=== PATIENT | female | born 1945 | race Caucasian/White ===

== ENCOUNTER → 2017-06-29 | Outpatient (CLI) | payer MEDICARE, OTHER ==
[2017-06-29 13:03] LABS: Basophils # (A) 0.1 k/uL (0-0.2); Basophils % (A) 1 %; CH 31.4; CHCM 33.4; Eosinophils # (A) 0.1 k/uL (0-0.7); Eosinophils % (A) 1 %; HCT 48.8 % (34.0-46.0); HDW 2.27; HGB 16.1 gm/dL (11.4-16.0); Luc # (Auto) 0.15; Luc % (Auto) 2; Lymphocytes # (A) 1.2 k/uL (1.0-4.8); Lymphocytes % (A) 17 %; MCH 31.1 pg (25.0-35.0); MCV 94.4 fL (80.0-100.0); Mean Platelet Volume 8.1; Monocytes # (A) 0.4 k/uL (0-1.0); Monocytes % (A) 5 %; Neutrophils # (A) 5.3 k/uL (1.3-7.7); Neutrophils % (A) 74 %; RBC 5.17 m/uL (3.80-5.40); RDW 13.3 % (11.5-15.5); WBC 7.2 k/uL (3.8-10.6); WBC (Perox) 7.12
[2017-06-29 13:08] LABS: AST 31 U/L (14-36); Alkaline Phosphatase 79 U/L (38-126); Anion Gap 9 mmol/L; Blood Urea Nitrogen 16 mg/dL (7-17); Carbon Dioxide 29 mmol/L (22-30); Chloride 102 mmol/L (98-107); Cholesterol 165 mg/dL (<200); Glucose 98 mg/dL (74-99); HDL Cholesterol 51 mg/dL (40-60); Magnesium 2.1 mg/dL (1.6-2.3); Non-African American GFR(MDRD) 55 (>60 ml/min/1.73 sqM); Potassium 4.8 mmol/L (3.5-5.1); Sodium 140 mmol/L (137-145); Total Bilirubin 0.7 mg/dL (0.2-1.3); Total Protein 6.9 g/dL (6.3-8.2)
[2017-06-29 13:14] LABS: ALT 41 U/L (9-52)
== END | disposition home or self-care (01) ==
LOC: LABWHC1 12:27
PROVIDERS: ATTEND Internal Medicine Cardiovascular Disease
DX: E78.2 Mixed hyperlipidemia (principal); E55.9 Vitamin D deficiency, unspecified; I10 Essential (primary) hypertension
CPT/HCPCS: 36415; 80053; 80061; 82306; 83735; 85025

== ENCOUNTER → 2018-07-12 | Outpatient (CLI) | payer MEDICARE, OTHER ==
[2018-07-12 11:16] LABS: Basophils # (A) 0.1 k/uL (0-0.2); Basophils % (A) 1 %; Eosinophils # (A) 0.3 k/uL (0-0.7); Eosinophils % (A) 4 %; HCT 48.2 % (34.0-46.0); HGB 15.2 gm/dL (11.4-16.0); Lymphocytes # (A) 1.4 k/uL (1.0-4.8); Lymphocytes % (A) 21 %; MCH 29.7 pg (25.0-35.0); MCHC 31.5 g/dL (31.0-37.0); MCV 94.1 fL (80.0-100.0); Mean Platelet Volume 7.1; Monocytes # (A) 0.4 k/uL (0-1.0); Monocytes % (A) 6 %; Neutrophils # (A) 4.4 k/uL (1.3-7.7); Neutrophils % (A) 67 %; Platelet Count 234 k/uL (150-450); RBC 5.12 m/uL (3.80-5.40); RDW 12.3 % (11.5-15.5); WBC 6.6 k/uL (3.8-10.6)
[2018-07-12 11:25] LABS: Albumin 4.1 g/dL (3.5-5.0); Calcium 10.2 mg/dL (8.4-10.2); Total Bilirubin 0.5 mg/dL (0.2-1.3); Total Protein 6.7 g/dL (6.3-8.2)
== END | disposition home or self-care (01) ==
LOC: LABWHC1 10:49
PROVIDERS: ATTEND Internal Medicine Cardiovascular Disease
DX: E55.9 Vitamin D deficiency, unspecified (principal); E78.2 Mixed hyperlipidemia; I42.2 Other hypertrophic cardiomyopathy; I10 Essential (primary) hypertension; J45.909 Unspecified asthma, uncomplicated
CPT/HCPCS: 36415; 80053; 80061; 82550; 83880; 84443; 85025; 86141

== ENCOUNTER → 2019-08-07 | Outpatient (CLI) | payer MEDICARE, OTHER ==
[2019-08-08 01:44] LABS: Chol/HDL Ratio 2.85
== END | disposition home or self-care (01) ==
LOC: LABWHC1 11:26
PROVIDERS: ATTEND Internal Medicine Cardiovascular Disease
DX: E78.2 Mixed hyperlipidemia (principal)
CPT/HCPCS: 36415; 80061; 84450; 84460

== ENCOUNTER → 2019-08-13 | Outpatient (CLI) | payer MEDICARE, OTHER ==
[2019-08-13 18:08] LABS: HCT 37.2 % (34.0-46.0); HGB 12.8 gm/dL (11.4-16.0); MCH 30.6 pg (25.0-35.0); MCHC 34.3 g/dL (31.0-37.0); MCV 89.1 fL (80.0-100.0); Mean Platelet Volume 6.9; Platelet Count 243 k/uL (150-450); RBC 4.18 m/uL (3.80-5.40); RDW 11.6 % (11.5-15.5); WBC 6.2 k/uL (3.8-10.6)
[2019-08-14 00:49] LABS: African American GFR (CKD) 51.2 (60.0-200.0); Anion Gap 12.4 mmol/L (4.00-12.00); Carbon Dioxide 24.6 mmol/L (21.6-31.8); Potassium 5.2 mmol/L (3.5-5.5)
== END | disposition home or self-care (01) ==
LOC: LABWHC1 16:09
PROVIDERS: ATTEND Internal Medicine Cardiovascular Disease
DX: I25.5 Ischemic cardiomyopathy (principal)
CPT/HCPCS: 36415; 80051; 82565; 83880; 84443; 84520; 85027

== ENCOUNTER → 2020-09-17 | Outpatient (CLI) | payer MEDICARE, OTHER ==
[2020-09-17 17:03] LABS: Basophils # (A) 0.1 k/uL (0-0.2); Basophils % (A) 1 %; Eosinophils # (A) 0.1 k/uL (0-0.7); Eosinophils % (A) 2 %; HCT 44.2 % (34.0-46.0); Lymphocytes # (A) 1.2 k/uL (1.0-4.8); Lymphocytes % (A) 15 %; MCHC 31.7 g/dL (31.0-37.0); MCV 94.5 fL (80.0-100.0); Monocytes # (A) 0.4 k/uL (0-1.0); Monocytes % (A) 5 %; Neutrophils % (A) 76 %; Platelet Count 240 k/uL (150-450); RBC 4.68 m/uL (3.80-5.40); RDW 12.2 % (11.5-15.5); WBC 7.9 k/uL (3.8-10.6)
[2020-09-18 01:26] LABS: African American GFR (CKD) 63.4 (60.0-200.0); Albumin 4.3 g/dL (3.80-4.90); Albumin/Globulin Ratio 2.15 (1.60-3.17); Anion Gap 8.5 mmol/L (4.00-12.00); C Reactive Protein, High Sens 1.01 mg/L (0.000-3.000); Calcium 9.2 mg/dL (8.7-10.3); Carbon Dioxide 27.5 mmol/L (21.6-31.8); Chol/HDL Ratio 2.7; LDL Cholesterol,Calculated 84.2 mg/dL (0.0-131.0); Non-African American GFR(CKD) 54.7 (60.0-200.0); Potassium 4.4 mmol/L (3.5-5.5); Total Bilirubin 0.5 mg/dL (0.3-1.2); Total Protein 6.3 g/dL (6.2-8.2); VLDL Calculation 19.8 mg/dL (5.00-40.00)
== END | disposition home or self-care (01) ==
LOC: LABWHC1 15:48
PROVIDERS: ATTEND Internal Medicine Cardiovascular Disease
DX: Z13.9 Encounter for screening, unspecified (principal); E78.2 Mixed hyperlipidemia; I10 Essential (primary) hypertension; I25.9 Chronic ischemic heart disease, unspecified
CPT/HCPCS: 36415; 80053; 80061; 82550; 85025; 86141; 86803

== ENCOUNTER → 2021-03-16 | Outpatient (CLI) | payer MEDICARE, OTHER ==
--- NOTE | 2021-03-17 07:52 | US ---
EXAMINATION TYPE: US venous doppler duplex LE LT DATE OF EXAM: 03/16/2021 4:11 PM COMPARISON: NONE CLINICAL HISTORY: R60.0 edema of lower extremity. left pain edema SIDE PERFORMED: Left TECHNIQUE: The lower extremity deep venous system is examined utilizing real time linear array sonog chana with graded compression, doppler sonography and color-flow sonography. VESSELS IMAGED: Common Femoral Vein Deep Femoral Vein Greater Saphenous Vein * Femoral Vein Popliteal Vein Small Saphenous Vein * Proximal Calf Veins (* superficial vessels)\ Left Leg: Negative for DVT IMPRESSION: No evidence for DVT
== END | disposition home or self-care (01) ==
LOC: RADUSWWP 15:50
PROVIDERS: ATTEND Family Medicine
DX: R60.0 Localized edema (principal)

== ENCOUNTER 2022-06-13 | Inpatient (IN) | payer MEDICARE, OTHER ==
[2022-06-13] MEDS ORDERED: SODIUM CHLORIDE 0.9% 1,000 ML IV STA (00:14)
--- NOTE | 2022-06-13 00:16 | ED ---
Neuro HPI - General Chief Complaint: Neuro Symptoms/Deficit Stated Complaint: Confusion, Difficulty Speaking, Head Pressure Time Seen by Provider: 06/13/22 00:14 Source: patient, family, RN notes reviewed, old records reviewed Mode of arrival: wheelchair Limitations: no limitations - History of Present Illness Is the patient presenting with stroke symptoms?: No -: hour(s) Initial Comments: This is a 69-year-old female to the emergency department for evaluation. Patient presents today for evaluation regards to strokelike symptoms. Prior to arrival patient had difficulty with confusion and doing simple mental tasks, patient with the across her positive and unable to answer questions. Never had symptoms before. Does have history of 2 prior MIs with stents as well as high blood pressure and cholesterol. Past history of smoking. Patient symptoms are improved upon arrival to the ER able to walk, moves oxygen result difficulty and has NIH of 0 Location: speech, dysarthria History of same: No Place: home Severity: mild Quality: intermittant, improving Improves With: time Worsens With: none On Anticoagulants: No Context: sudden onset Associated Symptoms: confusion Treatments Prior to Arrival: none - Related Data Home Medications: Home Medications Medication Instructions Recorded Confirmed Albuterol Inhaler [Ventolin Hfa 1 - 2 puff INHALATION RT-Q6H PRN 04/06/16 04/18/16 Inhaler] Albuterol Nebulized [Ventolin 2.5 mg INHALATION RT-Q6H PRN 04/06/16 04/18/16 Nebulized] Ascorbic Acid [Vitamin C] 1,000 mg PO DAILY 04/06/16 04/18/16 Beclomethasone Dipropionate [Qvar 1 - 2 puff INHALATION RT-BID PRN 04/06/16 04/18/16 80 mcg/puff] Calcium Carbonate/Vitamin D3 1 tab PO DAILY 04/06/16 04/18/16 [Calcium 600-Vit D3 400 Tablet] Cholecalciferol [Vitamin D3 (25 5,000 unit PO DAILY 04/06/16 04/18/16 Mcg = 1000 Iu)] Chromium Picolinate 1,000 mcg PO DAILY 04/06/16 04/18/16 Fish Oil Flaxseed Borage 1 tab PO DAILY 04/06/16 04/18/16 Fluticasone Nasal [place] [Flonase 2 sprays EA NOSTRIL BID 04/06/16 04/18/16 Nasal [place]] Gabapentin [Neurontin] 300 mg PO BID 04/06/16 04/18/16 Garlic 1 tab PO DAILY 04/06/16 04/18/16 Green Tea 100 mcg PO DAILY 04/06/16 04/18/16 Magnesium 250 mg PO DAILY 04/06/16 04/18/16 Meclizine [Antivert] 6.25 mg PO BID PRN 04/06/16 04/18/16 Montelukast [Singulair] 10 mg PO HS 04/06/16 04/18/16 Multivit with Calcium,Iron,Min 1 tab PO DAILY 04/06/16 04/18/16 [Women's Daily Multivitamin] Nitroglycerin Sl Tabs [Nitrostat] 0.4 mg SUBLINGUAL Q5M PRN 04/06/16 04/18/16 Omalizumab [Xolair] 150 mg SQ Q14D 04/06/16 04/18/16 Potassium 99 mg PO DAILY 04/06/16 04/18/16 Ubidecarenone [Co Q-10] 50 mg PO DAILY 04/06/16 04/18/16 Vitamin E 400 unit PO BID 04/06/16 04/18/16 amLODIPine [Norvasc] 5 mg PO DAILY 04/06/16 04/18/16 atenoloL [Tenormin] 50 mg PO HS 04/06/16 04/18/16 Ginko Biloba 150mg Tab 150 mg PO DAILY 04/18/16 04/18/16 Previous Rx's Medication Instructions Recorded Aspirin 81 mg PO HS #30 chew 04/21/16 Docusate [Colace] 100 mg PO BID #60 capsule 04/21/16 Ferrous Sulfate [Iron (65 MG 325 mg PO BID #60 tab 04/21/16 Elemental)] HYDROcodone/APAP 5-325MG [[place] 1 - 2 each PO Q6HR PRN #90 tab 04/21/16 5-325] Rivaroxaban [Xarelto] 10 mg PO DAILY #30 tab 04/21/16 Simvastatin [Zocor] 40 mg PO HS #30 tab 04/21/16 Allergies/Adverse Reactions: Allergies Allergy/AdvReac Type Severity Reaction Status Date / Time nickel Allergy Rash/Hives Verified 04/18/16 15:28 topiramate [From Topamax] Allergy trouble Verified 04/18/16 15:28 swallowing Review of Systems ROS Statement: Those systems with pertinent positive or pertinent negative responses have been documented in the HPI. ROS Other: All systems not noted in ROS Statement are negative. General Exam Limitations: no limitations General appearance: alert, in no apparent distress Head exam: Present: atraumatic, normocephalic, normal inspection Eye exam: Present: normal appearance, PERRL, EOMI. Absent: scleral icterus, conjunctival injection, periorbital swelling ENT exam: Present: normal exam, mucous membranes moist Neck exam: Present: normal inspection. Absent: tenderness, meningismus, lymphadenopathy Respiratory exam: Present: normal lung sounds bilaterally. Absent: respiratory distress, wheezes, rales, rhonchi, stridor Cardiovascular Exam: Present: regular rate, normal rhythm, normal heart sounds. Absent: systolic murmur, diastolic murmur, rubs, gallop, clicks GI/Abdominal exam: Present: soft, normal bowel sounds. Absent: distended, tenderness, guarding, rebound, rigid Extremities exam: Present: normal inspection, full ROM, normal capillary refill. Absent: tenderness, pedal edema, joint swelling, calf tenderness Back exam: Present: normal inspection Neurological exam: Present: alert, oriented X3, CN II-XII intact Psychiatric exam: Present: normal affect, normal mood Skin exam: Present: warm, dry, intact, normal color. Absent: rash Stroke [facility] - Lab Data Result diagrams: 06/13/22 00:22 06/13/22 00:22 Lab Results 06/13/22 06/13/22 06/13/22 Range/Units 00: 00: 00:22 WBC 7.1 (3.8-10.6) k/uL RBC 4.83 (3.80-5.40) m/uL Hgb 14.1 (11.4-16.0) gm/dL Hct 45.1 (34.0-46.0) % MCV 93.3 (80.0-100.0) fL MCH 29.2 (25.0-35.0) pg MCHC 31.3 (31.0-37.0) g/dL RDW 12.3 (11.5-15.5) % Plt Count 240 (150-450) k/uL MPV 8.0 Neutrophils % 65 % Lymphocytes % 23 % Monocytes % 7 % Eosinophils % 3 % Basophils % 1 % Neutrophils # 4.6 (1.3-7.7) k/uL Lymphocytes # 1.6 (1.0-4.8) k/uL Monocytes # 0.5 (0-1.0) k/uL Eosinophils # 0.2 (0-0.7) k/uL Basophils # 0.0 (0-0.2) k/uL PT 10.5 (9.0-12.0) sec INR 1.0 (<1.2) APTT 24.0 (22.0-30.0) sec Sodium (137-145) mmol/L Potassium (3.5-5.1) mmol/L Chloride (98-107) mmol/L Carbon Dioxide (22-30) mmol/L Anion Gap mmol/L BUN (7-17) mg/dL Creatinine (0.52-1.04) mg/dL Est GFR (CKD-EPI)AfAm (>60 ml/min/1.73 sqM) Est GFR (CKD-EPI)NonAf (>60 ml/min/1.73 sqM) Glucose (74-99) mg/dL Calcium (8.4-10.2) mg/dL Total Bilirubin (0.2-1.3) mg/dL AST (14-36) U/L ALT (4-34) U/L Alkaline Phosphatase (38-126) U/L Troponin I (0.000-0.034) ng/mL Total Protein (6.3-8.2) g/dL Albumin (3.5-5.0) g/dL Urine Color Colorless Urine Appearance Clear (Clear) Urine pH 6.5 (5.0-8.0) Ur Specific [place] 1.004 (1.001-1.035) Urine Protein Negative (Negative) Urine Glucose (UA) Negative (Negative) Urine Ketones Negative (Negative) Urine Blood Negative (Negative) Urine Nitrite Negative (Negative) Urine Bilirubin Negative (Negative) Urine Urobilinogen <2.0 (<2.0) mg/dL Ur Leukocyte Esterase Trace H (Negative) Urine WBC 3 (0-5) /hpf Ur Squamous Epith Cells <1 (0-4) /hpf 06/13/22 06/13/22 Range/Units 00:22 00:22 WBC (3.8-10.6) k/uL RBC (3.80-5.40) m/uL Hgb (11.4-16.0) gm/dL Hct (34.0-46.0) % MCV (80.0-100.0) fL MCH (25.0-35.0) pg MCHC (31.0-37.0) g/dL RDW (11.5-15.5) % Plt Count (150-450) k/uL MPV Neutrophils % % Lymphocytes % % Monocytes % % Eosinophils % % Basophils % % Neutrophils # (1.3-7.7) k/uL Lymphocytes # (1.0-4.8) k/uL Monocytes # (0-1.0) k/uL Eosinophils # (0-0.7) k/uL Basophils # (0-0.2) k/uL PT (9.0-12.0) sec INR (<1.2) APTT (22.0-30.0) sec Sodium 139 (137-145) mmol/L Potassium 4.4 (3.5-5.1) mmol/L Chloride 102 (98-107) mmol/L Carbon Dioxide 30 (22-30) mmol/L Anion Gap 7 mmol/L BUN 22 H (7-17) mg/dL Creatinine 1.20 H (0.52-1.04) mg/dL Est GFR (CKD-EPI)AfAm 50 (>60 ml/min/1.73 sqM) Est GFR (CKD-EPI)NonAf 44 (>60 ml/min/1.73 sqM) Glucose 103 H (74-99) mg/dL Calcium 9.3 (8.4-10.2) mg/dL Total Bilirubin 0.3 (0.2-1.3) mg/dL AST 31 (14-36) U/L ALT 24 (4-34) U/L Alkaline Phosphatase 80 (38-126) U/L Troponin I <0.012 (0.000-0.034) ng/mL Total Protein 6.9 (6.3-8.2) g/dL Albumin 4.3 (3.5-5.0) g/dL Urine Color Urine Appearance (Clear) Urine pH (5.0-8.0) Ur Specific [place] (1.001-1.035) Urine Protein (Negative) Urine Glucose (UA) (Negative) Urine Ketones (Negative) Urine Blood (Negative) Urine Nitrite (Negative) Urine Bilirubin (Negative) Urine Urobilinogen (<2.0) mg/dL Ur Leukocyte Esterase (Negative) Urine WBC (0-5) /hpf Ur Squamous Epith Cells (0-4) /hpf - NIH Stroke Scale 1a. Level of Consciousness: (0) alert 1b. LOC Questions: (0) answers correctly 1c. LOC Commands: (0) performs tasks correctly 2. Best Gaze: (0) normal 3. Visual: (0) no visual loss 4. Facial Palsy: (0) normal symmetrical movement 5a. Motor Arm Left: (0) no drift 5b. Motor Arm Right: (0) no drift 6a. Motor Leg Left: (0) no drift 6b. Motor Leg Right: (0) no drift 7. Limb Ataxia: (0) absent 8. Sensory: (0) normal 9. Best Language: (0) no aphasia 10. Dysarthria: (0) normal 11. Extinction/Inattention: (0) no abnormality - Thrombolytic Inclusion/Exclusion Thrombolytic Inclusion Criteria: Symptom Onset < 4.5 h - Medical Decision Making 77 female to the emergency department for evaluation, patient presents with stroke symptoms prior to arrival, resolved on arrival will admit with TIA for further evaluation management - Radiology Data Radiology results: report reviewed (CT brain CTA is positive for stenosis of the right ICA), image reviewed - EKG Data -: EKG Interpreted by Me (EKG is sinus rhythm rate of 67 ND 198 QRS 117 QTC 437) Past Medical History Past Medical History: Asthma, Hyperlipidemia, Hypertension, Myocardial Infarction (SC), Mitral Valve Prolapse (MVP), Osteoarthritis (OA) Additional Past Medical History / Comment(s): ?MVP-told [place]rs. ago out of state but has never had tx. for, cataracts bilaterally. Last Myocardial Infarction Date:: 2001 History of Any Multi-Drug Resistant Organisms: None Reported Past Surgical History: Appendectomy, Heart Catheterization With Stent, Hysterectomy, Joint Replacement, Tonsillectomy Additional Past Surgical History / Comment(s): 04/18/16 Total R hip arthroplasty anterior approach. Other surgical hx: colonoscopy Past Anesthesia/Blood Transfusion Reactions: No Reported Reaction Date of Last Stent Placement:: 2001 Past Psychological History: No Psychological Hx Reported Past Alcohol Use History: None Reported Past Drug Use History: None Reported - Past Family History Mother Family Medical History: No Reported History Additional Family Medical History / Comment(s): Mother was healthy as far as pt knows. She in her 70's Father Family Medical History: No Reported History Course Vital Signs 06/13/22 06/13/22 00:03 01:06 Temperature 98.3 F Pulse Rate 75 79 Respiratory 18 18 Rate Blood Pressure 168/93 152/69 O2 Sat by Pulse 96 98 Oximetry - Reevaluation(s) Reevaluation #1: 06/13/22 01:22 Record is reviewed Reevaluation #2: 06/13/22 01:23 Symptoms remained improved Reevaluation #3: 06/13/22 02:06 Patient continues to remain without symptoms Reevaluation #4: 06/13/22 02:06 Patient informed of results and questions are answered - Consultations Consultation #1: Spoke with neurology and intervention, recommended admission, no intervention Consultation #2: Spoke with sound who agrees to admit this patient Critical Care Time Critical Care Time: Yes Total Critical Care Time: 31 Disposition Clinical Impression: Transient cerebral ischemia Disposition: ADMITTED IP TO THIS HOSP Condition: Good Is patient prescribed a controlled substance at d/c from ED?: No Referrals: Inocencio May MD [Primary Care Provider] - 1-2 days
[2022-06-13 00:47] LABS: Albumin 4.3 g/dL (3.5-5.0); Basophils % (A) 1 %; Calcium 9.3 mg/dL (8.4-10.2); Eosinophils # (A) 0.2 k/uL (0-0.7); Eosinophils % (A) 3 %; HCT 45.1 % (34.0-46.0); HGB 14.1 gm/dL (11.4-16.0); Lymphocytes # (A) 1.6 k/uL (1.0-4.8); Lymphocytes % (A) 23 %; MCH 29.2 pg (25.0-35.0); MCHC 31.3 g/dL (31.0-37.0); MCV 93.3 fL (80.0-100.0); Monocytes # (A) 0.5 k/uL (0-1.0); Monocytes % (A) 7 %; Neutrophils # (A) 4.6 k/uL (1.3-7.7); Neutrophils % (A) 65 %; Platelet Count 240 k/uL (150-450); Potassium 4.4 mmol/L (3.5-5.1); RBC 4.83 m/uL (3.80-5.40); RDW 12.3 % (11.5-15.5); Total Bilirubin 0.3 mg/dL (0.2-1.3); Total Protein 6.9 g/dL (6.3-8.2); WBC 7.1 k/uL (3.8-10.6)
[2022-06-13 01:00] LABS: Prothrombin Time 10.5 sec (9.0-12.0)
[2022-06-13 01:09] LABS: Appearance,Urine Clear (Clear); Bilirubin,Urine Negative (Negative); Blood,Urine Negative (Negative); Color,Urine Colorless; Glucose,Urine (UA) Negative (Negative); Ketones,Urine Negative (Negative); Leukocyte Esterase,Urine Trace (Negative); Nitrite,Urine Negative (Negative); PH, Urine 6.5 (5.0-8.0); Protein,Urine Negative (Negative); Specific Gravity,Urine 1.004 (1.001-1.035); Squamous Epithelial Cell,Urine <1 /hpf (0-4); Urobilinogen,Urine <2.0 mg/dL (<2.0); WBC,Urine 3 /hpf (0-5)
--- NOTE | 2022-06-13 01:28 | XR ---
EXAMINATION TYPE: XR chest 1V DATE OF EXAM: 06/13/2022 COMPARISON: 04/19/2016 HISTORY: Altered mental status TECHNIQUE: FINDINGS: Heart is normal. Lungs are clear of infiltrate. No heart failure. There are no hilar masses . Costophrenic angles are clear. There are chest leads. There is arthritic change in the left shoulde r. IMPRESSION: No active cardiopulmonary disease. No adverse change.
--- NOTE | 2022-06-13 01:29 | CT ---
EXAMINATION TYPE: CT brain wo con for TPA DATE OF EXAM: 06/13/2022 COMPARISON: None HISTORY: AMS. rule out stroke CT DLP: 1558.1 mGycm Automated exposure control for dose reduction was used. There is mild cerebral atrophy. There is no mass effect nor midline shift. No sign of intracranial he morrhage. Calvarium is intact. There is normal aeration of the mastoid sinuses. IMPRESSION: Negative unenhanced head CT scan.
--- NOTE | 2022-06-13 01:36 | CT ---
EXAMINATION TYPE: CT angio head neck DATE OF EXAM: 06/13/2022 COMPARISON: None HISTORY: AMS. rule out stroke CT DLP: 1558.1 mGycm Automated exposure control for dose reduction was used. CONTRAST: Performed with IV Contrast, patient injected with 65ml mL of Isovue 370. Images obtained from the aortic arch to the vertex of the brain with the IV contrast. There are Three -D postprocessed images. FINDINGS: There is moderate spondylosis in the cervical spine noted with spinal stenosis and posterior endplate spur formation. This is seen at multiple levels. There is normal branching pattern of the great vessels on the aortic arch. There is bilateral arteria l flow in the subclavian arteries. There is arterial flow in the common internal and external carotid arteries bilaterally. There is large plaque formation at the right carotid artery bifurcation and mo re than 80% stenosis at the origin of the right internal carotid artery. There is plaque formation in approximate 50% stenosis at the origin of the left internal carotid artery. There is arterial flow i n both vertebral arteries. There is some low density thrombus at the right carotid artery bifurcation . This could be acute blood clot. There is arterial flow in the anterior middle and posterior cerebral arteries. There is arterial flow in the vertebrobasilar artery system. There is flow in both vertebral arteries. No evidence of carot id or vertebral artery aneurysm or dissection. There is no mass effect. No evidence of intracranial a neurysm or neovascularity. No evidence of intracranial hemodynamic arterial stenosis. There is normal enhancement of the venous sinuses. IMPRESSION: There is severe more than 80% stenosis at the origin of the right internal carotid artery with some l ow-density that could be acute thrombus. There is approximate 50% stenosis at the origin left regulatory internship al carotid artery. No significant intracranial angiographic abnormality. Multilevel cervical spinal stenosis.
[2022-06-13] MEDS ORDERED: ASPIRIN 325 MG TAB PO STA (02:03)
[2022-06-13] MEDS: SODIUM CHLORIDE 0.9% 1,000 ML IV SCH ×2 (02:34→17:09)
--- NOTE | 2022-06-13 04:07 | P.HPIM ---
History of Present Illness H&P Date: 06/13/22 The patient is a 77-year-old female female with a PMH of hypertension, hyperlipidemia, CAD status post stents, asthma, mitral valve prolapse, currently taking Xarelto (unknown reason) who presents to the emergency room with complaints of impaired speech and confusion. The patient reports that she was in her usual state of health and was doing a crossword puzzle when she suddenly became confused. The patient's fianc was nearby who noticed that something was off about her, and activated EMS. The patient reports that she will have difficulty word finding and was unable to formulate sentences. She denied slurring of speech. Patient denied facial droop or weakness. Also denied visual disturbances, nausea, vomiting, headaches. Reports that her symptoms lasted for roughly 10 minutes and then completely resolved. Reports feeling at her baseline at time of interview. CT brain in the emergency room was unremarkable with CT angiogram showing severe greater than 80% stenosis of the right internal carotid artery with possible acute thrombus as well as 50% stenosis of the left internal carotid artery. Chest x-ray in the emergency room was unremarkable. Review of systems: Pertinent positives and negatives as discussed in HPI, a complete review of systems was performed and all other systems are negative. Physical examination: General: non toxic, no distress, appears at stated age, obese Derm: no unusual rashes/lesions, warm Head: atraumatic, normocephalic, symmetric Eyes: EOMI, no lid lag, anicteric sclera, pupils equal round reactive to light ENT: Nose and ears atraumatic Neck: No cervical lymphadenopathy, trachea midline, supple Mouth: no lip lesion, mucus membranes moist Cardiovascular: S1S2 reg, no murmur, positive dorsalis pedis pulse bilateral, no edema Lungs: CTA bilateral, no rhonchi, no rales, no accessory muscle use Abdominal: soft, nontender to palpation, no guarding Ext: muscle strength 5 out of 5 in all 4 extremities grossly, no gross muscle atrophy, no contractures, Neuro: CN II-XI grossly intact, no gross focal neuro deficits, finger to nose unremarkable, no pronator drift Psych: Alert, oriented, appropriate affect Assessment/plan TIA with significant stenosis of right internal carotid -Case discussed by ED physician with 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 CODE STATUS: Full Code Discussed with: Patient Anticipated discharge date: 2-[address]: Home Past Medical History Past Medical History: Asthma, Hyperlipidemia, Hypertension, Myocardial Infarction ([place]), Mitral Valve Prolapse (MVP), Osteoarthritis (OA) Additional Past Medical History / Comment(s): ?MVP-told yrs. ago out of state but has never had tx. for, cataracts bilaterally. Last Myocardial Infarction Date:: 2001 History of Any Multi-Drug Resistant Organisms: None Reported Past Surgical History: Appendectomy, Heart Catheterization With Stent, Hysterectomy, Joint Replacement, Tonsillectomy Additional Past Surgical History / Comment(s): 04/18/16 Total R hip arthroplasty anterior approach. Other surgical hx: colonoscopy Past Anesthesia/Blood Transfusion Reactions: No Reported Reaction Date of Last Stent Placement:: 2001 Past Psychological History: No Psychological Hx Reported Past Alcohol Use History: None Reported Past Drug Use History: None Reported - Past Family History Mother Family Medical History: No Reported History Additional Family Medical History / Comment(s): Mother was healthy as far as pt knows. She in her 70's Father Family Medical History: Hyperlipidemia Medications and Allergies Home Medications Medication Instructions Recorded Confirmed Type Albuterol Inhaler [Ventolin Hfa 1 - 2 puff INHALATION RT-Q6H PRN 04/06/16 04/18/16 History Inhaler] Albuterol Nebulized [Ventolin 2.5 mg INHALATION RT-Q6H PRN 04/06/16 04/18/16 History Nebulized] Ascorbic Acid [Vitamin C] 1,000 mg PO DAILY 04/06/16 04/18/16 History Beclomethasone Dipropionate [Qvar 1 - 2 puff INHALATION RT-BID PRN 04/06/16 04/18/16 History 80 mcg/puff] Calcium Carbonate/Vitamin D3 1 tab PO DAILY 04/06/16 04/18/16 History [Calcium 600-Vit D3 400 Tablet] Cholecalciferol [Vitamin D3 (25 5,000 unit PO DAILY 04/06/16 04/18/16 History Mcg = 1000 Iu)] Chromium Picolinate 1,000 mcg PO DAILY 04/06/16 04/18/16 History Fish Oil Flaxseed Borage 1 tab PO DAILY 04/06/16 04/18/16 History Fluticasone Nasal [place] [Flonase 2 sprays EA NOSTRIL BID 04/06/16 04/18/16 History Nasal [place]] Gabapentin [Neurontin] 300 mg PO BID 04/06/16 04/18/16 History Garlic 1 tab PO DAILY 04/06/16 04/18/16 History Green Tea 100 mcg PO DAILY 04/06/16 04/18/16 History Magnesium 250 mg PO DAILY 04/06/16 04/18/16 History Meclizine [Antivert] 6.25 mg PO BID PRN 04/06/16 04/18/16 History Montelukast [Singulair] 10 mg PO HS 04/06/16 04/18/16 History Multivit with Calcium,Iron,Min 1 tab PO DAILY 04/06/16 04/18/16 History [Women's Daily Multivitamin] Nitroglycerin Sl Tabs [Nitrostat] 0.4 mg SUBLINGUAL Q5M PRN 04/06/16 04/18/16 History Omalizumab [Xolair] 150 mg SQ Q14D 04/06/16 04/18/16 History Potassium 99 mg PO DAILY 04/06/16 04/18/16 History Ubidecarenone [Co Q-10] 50 mg PO DAILY 04/06/16 04/18/16 History Vitamin E 400 unit PO BID 04/06/16 04/18/16 History amLODIPine [Norvasc] 5 mg PO DAILY 04/06/16 04/18/16 History atenoloL [Tenormin] 50 mg PO HS 04/06/16 04/18/16 History Ginko Biloba 150mg Tab 150 mg PO DAILY 04/18/16 04/18/16 History Aspirin 81 mg PO HS #30 chew 04/21/16 Rx Docusate [Colace] 100 mg PO BID #60 capsule 04/21/16 Rx Ferrous Sulfate [Iron (65 MG 325 mg PO BID #60 tab 04/21/16 Rx Elemental)] HYDROcodone/APAP 5-325MG [[place] 1 - 2 each PO Q6HR PRN #90 tab 04/21/16 Rx 5-325] Rivaroxaban [Xarelto] 10 mg PO DAILY #30 tab 04/21/16 Rx Simvastatin [Zocor] 40 mg PO HS #30 tab 04/21/16 Rx Allergies Allergy/AdvReac Type Severity Reaction Status Date / Time nickel Allergy Rash/Hives Verified 04/18/16 15:28 topiramate [From Topamax] Allergy trouble Verified 04/18/16 15:28 swallowing Physical Exam Vitals: Vital Signs Temp Pulse Resp BP Pulse Ox 06/13/22 01:06 79 18 152/69 98 06/13/22 00:03 98.3 F 75 18 168/93 96 Intake and Output 06/12/22 06/12/22 06/13/22 14:59 22:59 06:59 Other: Weight 72.575 kg Results CBC & Chem 7: 06/13/22 00:22 06/13/22 00:22 Labs: Abnormal Lab Results - Last 24 Hours (Table) 06/13/22 06/13/22 Range/Units 00:22 00:22 BUN 22 H (7-17) mg/dL Creatinine 1.20 H (0.52-1.04) mg/dL Glucose 103 H (74-99) mg/dL Ur Leukocyte Esterase Trace H (Negative)
[2022-06-13] MEDS: ATORVASTATIN 80 MG TAB PO SCH ×2 (06:51→21:28)
[2022-06-13] MEDS ORDERED: CLOPIDOGREL 75 MG TAB PO SCH (09:00)
--- NOTE | 2022-06-13 09:21 | P.GSCN ---
History of Present Illness Consult date: 06/13/22 Reason for Consult: Right ICA stenosis Requesting physician: Michael Armendariz History of present illness: This is a pleasant 77-year-old female with a past medical history including coronary artery disease status post 2 cardiac stents, hypertension, hyperlipidemia and former smoker who presented to the emergency department yesterday with complaints of confusion. She states she started out her [place] yesterday and then later in the day was starting to do some crossword puzzles, she states that she recalls a 4 letter word she was trying to complete however she could not write the letters down. She called her over and stated something was not right and they came to the emergency department for further evaluation. She is currently alert and oriented 3. She denies any other focal deficits. She denied any visual changes, difficulty with her speech, extremity weakness and states the confusion seemed to resolve when she got to the emergency department. She underwent a brain CT that showed no acute findings. CT angiogram head and neck reported severe more than 80% stenosis at the origin of the right internal carotid artery with some low density that could be acute thrombus. There is approximate 50% stenosis at the origin of the left internal carotid artery. No significant intracranial angiographic abnormality. She currently denies any focal deficits. No shortness of breath chest pain, abdominal pain, fevers or chills. She denies any previous history of known carotid disease. Review of Systems A 14 point review systems was completed all pertinent positives and negatives as stated in the HPI. Past Medical History Past Medical History: Asthma, Hyperlipidemia, Hypertension, Myocardial Infarction ([place]), Mitral Valve Prolapse (MVP), Osteoarthritis (OA) Additional Past Medical History / Comment(s): ?MVP-told [place]rs. ago out of state but has never had tx. for, cataracts bilaterally. Last Myocardial Infarction Date:: 2001 History of Any Multi-Drug Resistant Organisms: None Reported Past Surgical History: Appendectomy, Heart Catheterization With Stent, Hysterectomy, Joint Replacement, Tonsillectomy Additional Past Surgical History / Comment(s): 04/18/16 Total R hip arthroplasty anterior approach. Other surgical hx: colonoscopy Past Anesthesia/Blood Transfusion Reactions: No Reported Reaction Date of Last Stent Placement:: 2001 Past Psychological History: No Psychological Hx Reported Past Alcohol Use History: None Reported Past Drug Use History: None Reported - Past Family History Mother Family Medical History: No Reported History Additional Family Medical History / Comment(s): Mother was healthy as far as pt knows. She in her 70's Father Family Medical History: Hyperlipidemia Medications and Allergies Home Medications Medication Instructions Recorded Confirmed Type Albuterol Inhaler [Ventolin Hfa 1 - 2 puff INHALATION RT-Q6H PRN 04/06/16 History Inhaler] Ascorbic Acid [Vitamin C] 1,000 mg PO DAILY 04/06/16 06/13/22 History Calcium Carbonate/Vitamin D3 1 tab PO DAILY 04/06/16 06/13/22 History [Calcium 600-Vit D3 400 Tablet] Fluticasone Nasal [place] [Flonase 2 sprays EA NOSTRIL RT-DAILY 04/06/16 06/13/22 History Nasal [place]] Montelukast [Singulair] 10 mg PO HS 04/06/16 06/13/22 History Multivit with Calcium,Iron,Min 1 tab PO DAILY 04/06/16 06/13/22 History [Women's Daily Multivitamin] Nitroglycerin Sl Tabs [Nitrostat] 0.4 mg SUBLINGUAL Q5M PRN 04/06/16 06/13/22 History Omalizumab [Xolair] 150 mg SQ Q14D 04/06/16 06/13/22 History Ubidecarenone [Co Q-10] 50 mg PO DAILY 04/06/16 06/13/22 History Vitamin E 400 unit PO BID 04/06/16 06/13/22 History atenoloL [Tenormin] 50 mg PO HS 04/06/16 06/13/22 History Aspirin 81 mg PO HS #30 chew 04/21/16 06/13/22 Rx Cholecalciferol [Vitamin D3 (125 125 mcg PO DAILY 06/13/22 06/13/22 History Mcg = 5000 Iu)] Clopidogrel [Plavix] 75 mg PO DAILY 06/13/22 06/13/22 History EPINEPHrine (Auto Inject) [Epipen] 0.3 mg IM ONCE PRN 06/13/22 06/13/22 History Ezetimibe [Zetia] 10 mg PO HS 06/13/22 06/13/22 History Famotidine [Pepcid] 40 mg PO DAILY 06/13/22 06/13/22 History Furosemide [Lasix] 40 mg PO Q48H 06/13/22 06/13/22 History Magnesium 250 mg PO Q4D 06/13/22 06/13/22 History Mirabegron [Myrbetriq] 50 mg PO DAILY 06/13/22 06/13/22 History NIFEdipine [NIFEdipine ER] 30 mg PO DAILY 06/13/22 06/13/22 History [place]-3/Dha/Epa/Fish Oil [Fish Oil 1 cap PO DAILY 06/13/22 06/13/22 History 1,000 mg Softgel] Simvastatin [Zocor] 80 mg PO HS 06/13/22 06/13/22 History lisinopriL [Prinivil] 10 mg PO DAILY 06/13/22 06/13/22 History Allergies Allergy/AdvReac Type Severity Reaction Status Date / Time nickel Allergy Rash/Hives Verified 06/13/22 07:28 topiramate [From Topamax] AdvReac trouble Verified 06/13/22 07:28 swallowing Surgical - Exam Vital Signs Temp Pulse Resp BP Pulse Ox 98.3 F 75 18 168/93 96 06/13/22 00:03 06/13/22 00:03 06/13/22 00:03 06/13/22 00:03 06/13/22 00:03 General appearance: The patient is alert, oriented, appears in no acute distress. HET: Head is normocephalic and atraumatic. Pupils are equal and reactive. Neck: Supple without lymphadenopathy. Trachea midline. No audible carotid bruit. Heart: S1 S2. Regular rate and rhythm. Lungs: Clear to auscultation bilaterally. Abdomen: Soft, nontender, nondistended. Extremities: Normal skin color and turgor. Bilateral lower extremity pedal edema. Bilateral palpable radial pulse, +2 Neurological: No focal deficits. Patient has good bilateral upper and lower extremity strength and tone. Patient has facial symmetry. She answers questions appropriately and able to follow commands. She has facial symmetry, tongue protrudes midline, and speech is fluent. Results - Labs 06/13/22 00:22 06/13/22 00:22 Abnormal Lab Results - Last 24 Hours (Table) 06/13/22 06/13/22 Range/Units : 00:22 BUN 22 H (7-17) mg/dL Creatinine 1.20 H (0.52-1.04) mg/dL Glucose 103 H (74-99) mg/dL Ur Leukocyte Esterase Trace H (Negative) Diabetes panel 06/13/22 Range/Units 00:22 Sodium 139 (137-145) mmol/L Potassium 4.4 (3.5-5.1) mmol/L Chloride 102 (98-107) mmol/L Carbon Dioxide 30 (22-30) mmol/L BUN 22 H (7-17) mg/dL Creatinine 1.20 H (0.52-1.04) mg/dL Glucose 103 H (74-99) mg/dL Calcium 9.3 (8.4-10.2) mg/dL AST 31 (14-36) U/L ALT 24 (4-34) U/L Alkaline Phosphatase 80 (38-126) U/L Total Protein 6.9 (6.3-8.2) g/dL Albumin 4.3 (3.5-5.0) g/dL Calcium panel 06/13/22 Range/Units 00:22 Calcium 9.3 (8.4-10.2) mg/dL Albumin 4.3 (3.5-5.0) g/dL Pituitary panel 06/13/22 Range/Units 00:22 Sodium 139 (137-145) mmol/L Potassium 4.4 (3.5-5.1) mmol/L Chloride 102 (98-107) mmol/L Carbon Dioxide 30 (22-30) mmol/L BUN 22 H (7-17) mg/dL Creatinine 1.20 H (0.52-1.04) mg/dL Glucose 103 H (74-99) mg/dL Calcium 9.3 (8.4-10.2) mg/dL Adrenal panel 06/13/22 Range/Units 00:22 Sodium 139 (137-145) mmol/L Potassium 4.4 (3.5-5.1) mmol/L Chloride 102 (98-107) mmol/L Carbon Dioxide 30 (22-30) mmol/L BUN 22 H (7-17) mg/dL Creatinine 1.20 H (0.52-1.04) mg/dL Glucose 103 H (74-99) mg/dL Calcium 9.3 (8.4-10.2) mg/dL Total Bilirubin 0.3 (0.2-1.3) mg/dL AST 31 (14-36) U/L ALT 24 (4-34) U/L Alkaline Phosphatase 80 (38-126) U/L Total Protein 6.9 (6.3-8.2) g/dL Albumin 4.3 (3.5-5.0) g/dL - Imaging Comments: As stated in the HPI Assessment and Plan Assessment: 1. Right internal carotid artery stenosis greater than 80% per CT angiogram 2. Confusion, likely TIA 3. History of coronary artery disease status post cardiac stents 4. Hypertension 5. Hyperlipidemia Plan: 1. Continue with Plavix, Lipitor and recommend low-dose daily aspirin 2. Carotid duplex ordered and reviewed. 3. Await recommendations from neurology 4. Recommend outpatient catheter directed angiogram for further recommendations Thank you for this consultation, we will continue to follow. The impression and plan of care has been dictated as directed. I performed a history and examination of this patient, discussed the same with the dictator. I agree with the dictator's note ,documented as a scribe. Any additional findings or plans will be noted.
--- NOTE | 2022-06-13 09:43 | P.CNNES ---
History of Present Illness Consult date: 06/13/22 Requesting physician: Michael Armendariz Reason for Consult: TIA History of Present Illness: This is a 77-year-old woman with history of coronary artery disease status post 2 cardiac stent, hypertension, hyperlipidemia, former smoker presented emergency department because of confusion. Neurology is consulted for TIA Yesterday the patient the was doing some crossword puzzle and was having a hard time completing a 3 word and could not write the letters down and she her as a result she seek medical attention and the came to the emergency department for further evaluation. She feels she is back to baseline. She denies any jerking of any extremities, any tongue bite, any urinary or bowel incontinence. She denies any history of seizures. She denies any focal weakness numbness any headache associate with that this episode. Denied any difficulty getting her words out. Denied any history of stroke in the past or TIA. Some of the patient's home medications are aspirin 81 mg at night daily, Plavix 75 mg daily Zocor 80 mg daily at bedtime. Some of the workup during this hospital visit consisted of: Initial blood pressure is 160/93 and had the further episodes of systolic blood pressure 150 to 160s but currently it's 102/81 CBC with differential is unremarkable Creatinine is 1.20 and a BUN is 22 serum glucose is 103, calcium is 9.3, AST and ALT is within normal limits Urinalysis is negative for urinary tract infection CT of the head is reported as negative on has had computed tomography scan. I personally reviewed the CT of the head and I agree that the CT of the head is negative for any acute or subacute ischemia and there is no intraparenchymal hemorrhage CT angiography of the head and neck was reported as there is severe more than 80% stenosis at the origin of the right internal carotid artery with some low- density record that B acute thrombus. There is approximately 50% stenosis at the origin of left internal carotid artery. No significant intercranial and angiographic abnormality. Multilevel cervical spinal stenosis. Review of Systems Review of system: The 12 point system was reviewed and apparent positive and negative per HPI. Past Medical History Past Medical History: Asthma, Hyperlipidemia, Hypertension, Myocardial Infarction ([place]), Mitral Valve Prolapse (MVP), Osteoarthritis (OA) Additional Past Medical History / Comment(s): ?MVP-told [place]rs. ago out of state but has never had tx. for, cataracts bilaterally. Last Myocardial Infarction Date:: 2001 History of Any Multi-Drug Resistant Organisms: None Reported Past Surgical History: Appendectomy, Heart Catheterization With Stent, Hysterectomy, Joint Replacement, Tonsillectomy Additional Past Surgical History / Comment(s): 04/18/16 Total R hip arthroplasty anterior approach. Other surgical hx: colonoscopy Past Anesthesia/Blood Transfusion Reactions: No Reported Reaction Date of Last Stent Placement:: 2001 Past Psychological History: No Psychological Hx Reported Past Alcohol Use History: None Reported Past Drug Use History: None Reported - Past Family History Mother Family Medical History: No Reported History Additional Family Medical History / Comment(s): Mother was healthy as far as pt knows. She in her 70's Father Family Medical History: Hyperlipidemia Medications and Allergies Home Medications Medication Instructions Recorded Confirmed Type Albuterol Inhaler [Ventolin Hfa 1 - 2 puff INHALATION RT-Q6H PRN 04/06/16 06/13/22 History Inhaler] Ascorbic Acid [Vitamin C] 1,000 mg PO DAILY 04/06/16 06/13/22 History Calcium Carbonate/Vitamin D3 1 tab PO DAILY 04/06/16 06/13/22 History [Calcium 600-Vit D3 400 Tablet] Fluticasone Nasal [place] [Flonase 2 sprays EA NOSTRIL RT-DAILY 04/06/16 06/13/22 History Nasal [place]] Montelukast [Singulair] 10 mg PO HS 04/06/16 06/13/22 History Multivit with Calcium,Iron,Min 1 tab PO DAILY 04/06/16 06/13/22 History [Women's Daily Multivitamin] Nitroglycerin Sl Tabs [Nitrostat] 0.4 mg SUBLINGUAL Q5M PRN 04/06/16 06/13/22 H istory Omalizumab [Xolair] 150 mg SQ Q14D 04/06/16 06/13/22 History Ubidecarenone [Co Q-10] 50 mg PO DAILY 04/06/16 06/13/22 History Vitamin E 400 unit PO BID 04/06/16 06/13/22 History atenoloL [Tenormin] 50 mg PO HS 04/06/16 06/13/22 History Aspirin 81 mg PO HS #30 chew 04/21/16 06/13/22 Rx Cholecalciferol [Vitamin D3 (125 125 mcg PO DAILY 06/13/22 06/13/22 History Mcg = 5000 Iu)] Clopidogrel [Plavix] 75 mg PO DAILY 06/13/22 06/13/22 History EPINEPHrine (Auto Inject) [Epipen] 0.3 mg IM ONCE PRN 06/13/22 06/13/22 History Ezetimibe [Zetia] 10 mg PO HS 06/13/22 06/13/22 History Famotidine [Pepcid] 40 mg PO DAILY 06/13/22 06/13/22 History Furosemide [Lasix] 40 mg PO Q48H 06/13/22 06/13/22 History Magnesium 250 mg PO Q4D 06/13/22 06/13/22 History Mirabegron [Myrbetriq] 50 mg PO DAILY 06/13/22 06/13/22 History NIFEdipine [NIFEdipine ER] 30 mg PO DAILY 06/13/22 06/13/22 History [place]-3/Dha/Epa/Fish Oil [Fish Oil 1 cap PO DAILY 06/13/22 06/13/22 History 1,000 mg Softgel] Simvastatin [Zocor] 80 mg PO HS 06/13/22 06/13/22 History lisinopriL [Prinivil] 10 mg PO DAILY 06/13/22 06/13/22 History Allergies Allergy/AdvReac Type Severity Reaction Status Date / Time nickel Allergy Rash/Hives Verified 06/13/22 07:28 topiramate [From Topamax] AdvReac trouble Verified 06/13/22 07:28 swallowing Physical Examination - Vital Signs Vital Signs: Vital Signs Temp Pulse Resp BP Pulse Ox 06/13/22 07:30 64 16 102/81 97 06/13/22 07:00 73 22 126/70 97 06/13/22 06:52 64 20 113/60 98 06/13/22 05:00 57 L 20 132/61 97 06/13/22 04:00 74 24 168/81 98 06/13/22 03:00 60 22 150/68 97 06/13/22 01:06 79 18 152/69 98 06/13/22 00:03 98.3 F 75 18 168/93 96 Intake and Output 06/12/22 06/13/22 06/13/22 22:59 06:59 14:59 Other: Weight 72.575 kg GENERAL: The patient is lying in bed and is not in acute distress. CHEST: The heart rate is regular rate rhythm. No murmurs to auscultation. LUNG: Clear to auscultation bilaterally no wheezing noted throughout. Not labored breathing. ABDOMEN/GI: Bowel sounds present in all 4 quadrants. No tenderness to palpation throughout. NEUROLOGICAL: Higher mental function: The patient is awake, alert, oriented to self, place and time. Patient is following commands. No aphasia and no neglect. Cranial nerves: The pupils are round, equal and reactive to light and accommodation. Visual ford are full to confrontation throughout. Extraocular movement is intact no nystagmus is noted. Facial sensation is normal to touch throughout. The facial strength is normal throughout. Hearing is normal bilaterally to hand rub. Tongue is midline and moved [id number] without any difficulty. No dysarthria is noted. Shoulder shrug is normal bilaterally. Motor: The strength is 5 over 5 throughout. Normal tone and bulk. Cerebellum: Normal finger to nose heel to stein bilaterally. Sensation: Sensation is normal to touch throughout. Reflexes (right/left): 2+ throughout. Plantars are downgoing bilaterally. Results - Laboratory Findings CBC and BMP: 06/13/22 00:22 06/13/22 00:22 Abnormal Lab Findings: Abnormal Labs 06/13/22 06/13/22 00:22 00:22 BUN 22 H Creatinine 1.20 H Glucose 103 H Ur Leukocyte Esterase Trace H Assessment and Plan Assessment: Transient ischemic attack (presented with episode confusion/had agraphia). Encephalopathy likely due to TIA. Severe right ICA stenosis >80% on CTA Hypertension Hyperlipidemia History of CAD s/p stent Former smoker Plan: Physical surgery team is assaulted in the ordered carotid duplex. If patient has significant carotid stenosis on the right ICA consider surgical intervention. Currently the patient is on her home medication of aspirin 325 daily, Plavix 75 mg daily. Consider stopping the Plavix 75 and the starting the patient on a Brilinta 90mg 1 tab bid (since failed Plavix) with loading 180mg once. If she has any further episodes of confusion will obtain routine EEG to rule out any seizure or epileptiform discharges. 2-D echo, lipid panel is ordered and pending Continue neuro checks Continue cardiac monitoring PT OT and BUILDING MAINTENANCE SUPERINTENDENT are consulted Defer the rest of the medical measure the primary team For DVT prophylaxis: Started on subq heparin 5000U every 12 hours. The plan is discussed with patient and vascular surgery nurse practioner. Thank you for the consultation. Jose Barker M.D. Neuro-hospitalist Time with Patient: Greater than 30
--- NOTE | 2022-06-13 09:58 | CA ---
Transthoracic Echo Report Name: Sue Avery Age: 77 Gender: F : 1945 Exam Date: 06/13/2022 09:01 Exam Location: [facility] Ht (in): 60 Wt (lb): 160 Ordering Physician: Johnny Rubio MD Attending/Referring Phys: International Marketing Coordinator Tess Najera RDCS Procedure CPT: Indications: tia Cardiac Hx: Technical Quality: Good Contrast 1: Total Dose (mL): Contrast 2: Total Dose (mL): MEASUREMENTS (Male / Female) Normal Values 2D ECHO LV Diastolic Diameter PLAX 4.6 cm 4.2 - 5.9 / 3.9 - 5.3 cm LV Systolic Diameter PLAX 3.1 cm IVS Diastolic Thickness 1.3 cm 0.6 - 1.0 / 0.6 - 0.9 cm LVPW Diastolic Thickness 1.2 cm 0.6 - 1.0 / 0.6 - 0.9 cm LV Relative Wall Thickness 0.5 RV Internal Dim ED PLAX 3.8 cm LA Systolic Diameter LX 3.6 cm 3.0 - 4.0 / 2.7 - 3.8 cm LA Volume 48.1 cm??? 18 - 58 / 22 - 52 cm??? M-MODE Aortic Root Diameter MM 3.5 cm MV E Point Septal Separation 0.9 cm AV Cusp Separation MM 2.1 cm DOPPLER AV Peak Velocity 119.8 cm/s AV Peak Gradient 5.7 mmHg MV Area PHT 3.0 cm??? Mitral E Point Velocity 83.6 cm/s Mitral A Point Velocity 102.5 cm/s Mitral E to A Ratio 0.8 MV Deceleration Time 249.2 ms MV E' Velocity 5.4 cm/s Mitral E to MV E' Ratio 15.4 TR Peak Velocity 250.8 cm/s TR Peak Gradient 25.2 mmHg Right Ventricular Systolic Press 29.6 mmHg FINDINGS Left Ventricle Left ventricular ejection fraction is estimated at 40-45 %. Left ventricular cavity size normal. Mild concentric left ventricular hypertrophy. Basel infero- septal boyle hypokinesis, infero basel hypokinesis Right Ventricle Moderate right ventricular dilatation. Right ventricular systolic pressure within normal limits. Right Atrium Normal right atrial size. Left Atrium Normal left atrial size. No evidence for an atrial septal defect. Mitral Valve Mild thickening/calcification of the anterior mitral valve leaflet. Mild mitral annular calcification. Trace to mild mitral regurgitation. Aortic Valve Trileaflet aortic valve. No aortic valve stenosis or regurgitation. Tricuspid Valve Mild tricuspid regurgitation. Pulmonic Valve Structurally normal pulmonic valve. Pericardium Normal pericardium. No pericardial effusion. Aorta Normal size aortic root and proximal ascending aorta. CONCLUSIONS Reduced LV systolic function with inferior septal and inferior wall akinesis Left ventricular ejection fraction 40-45% Previewed by: Dr. Kevin Sanchez MD (Electronically Signed) Final Date: 13 June 2022 09:57
[2022-06-13] MEDS ORDERED: TICAGRELOR 90 MG TAB PO STA (10:09)
--- NOTE | 2022-06-13 12:35 | US ---
EXAMINATION TYPE: US carotid duplex BILAT DATE OF EXAM: 06/13/2022 COMPARISON: CTA 2021 CLINICAL HISTORY: 77-year-old female TIA. TECHNIQUE: Carotid duplex ultrasound examination. Indirect Doppler criteria was utilized. FINDINGS: EXAM MEASUREMENTS: RIGHT: Peak Systolic Velocity (PSV) cm/sec ----- Right CCA: 79.8 ----- Right ICA: 100.0 ----- Right ECA: 58.7 ICA/CCA ratio: 1.3 RIGHT: End Diastole cm/sec ----- Right CCA: 17.1 ----- Right ICA: 23.4 ----- Right ECA: 6.5 LEFT: Peak Systolic Velocity (PSV) cm/sec ----- Left CCA: 56.6 ----- Left ICA: 112.8 ----- Left ECA: 60.4 ICA/CCA ratio: 2.0 LEFT: End Diastole cm/sec ----- Left CCA: 14.3 ----- Left ICA: 34.8 ----- Left ECA: 4.6 VERTEBRALS (direction of flow): Right Vertebral: Antegrade Left Vertebral: Antegrade Rhythm: Normal Moderate atherosclerotic change of the bilateral bifurcations. IMPRESSION: No hemodynamically significant internal carotid artery stenosis by indirect Doppler criteria. Given the discrepancy compared to the recent 06/13/2022 CTA, consider follow-up CTA in 3-6 months to reasses s. Criteria for Assigning % of Stenosis / Diameter reduction (Estimation based on the indirect measurements of the internal carotid artery velocities (ICA PSV). 1. Normal (no stenosis)=ICA PSV < 125 cm/s: ratio < 2.0: ICA EDV<40 cm/s. 2. Less than 50% stenosis=ICA PSV < 125 cm/s: ratio < 2.0: ICA EDV<40 cm/s. 3. 50 to 69% stenosis=ICA PSV of 125 to 230 cm/s: ration 2.0 ? 4.0: ICA EDV 40-100 cm/s. 4. Greater than 70% stenosis to near occlusion= ICA PSV > 230 cm/s: ratio > 4.0: ICA EDV > 100 cm/s. 5. Near occlusion= ICA PSV velocities may be low or undetectable: variable ratio and ICA EDV. 6. Total occlusion=unable to detect flow.
[2022-06-13] MEDS ORDERED: ALBUTEROL NEBULIZED 2.5 MG/3 ML INHALATION PRN ×2 (16:55→18:51)
[2022-06-13] MEDS ORDERED: FUROSEMIDE 40 MG TAB PO SCH (17:00)
[2022-06-13] MEDS ORDERED: BUMETANIDE 1 MG TAB PO ONE (18:00)
--- NOTE | 2022-06-13 18:14 | P.PN ---
Progress Note - Text Progress Note Date: 06/13/22 Patient was seen around 5:45PM. Patient reports shortness of breath that started earlier this afternoon. Breathing is worsened after speaking for long periods of time and with exertion. She reports a history of congestive heart failure. She reports that she is unable to take Lasix due to nausea and vomiting. She has however tolerated oral Lasix in the past. Her confusion has resolved. Her partner's at bedside. Patient is in no acute distress. Decreased breath sounds bilaterally. She does have some rales at the bases. 1-2+ pitting edema bilaterally. TIA with significant stenosis of right internal carotid -Case discussed by ED physician with neuro embedded software programmer distribution center supervisor who recommended no acute intervention -Vascular surgery and neurology consulted -Carotid ultrasound shows no significant stenosis. Since there is a discrepancy with CTA head and neck, plans to repeat CTA head and neck in the outpatient setting as per vascular surgery. -Neurochecks -Cardiac monitoring -Fall precautions -PT/OT consulted Mild systolic CHF exacerbation -Echocardiogram shows EF of 40-45% with hypokinetic wall motion -No previous echocardiogram to compare -Bumex 1 mg IV 1 time, albuterol neb treatment 1 time -Chest x-ray ordered -Consult cardiology Acute kidney injury Chronic conditions: Hypertension, hyperlipidemia, CAD, asthma -Continue with home meds DVT prophylaxis -Xarelto
--- NOTE | 2022-06-13 18:54 | XR ---
EXAMINATION TYPE: XR chest 1V portable DATE OF EXAM: 06/13/2022 COMPARISON: Today HISTORY: Short of breath TECHNIQUE: FINDINGS: There is no heart failure nor confluent pneumonic infiltrate. There are small linear densit y left costophrenic angle. There are chest leads. There are no hilar masses. There is some arthritic change in the left shoulder joint. IMPRESSION: Minimal subsegmental atelectasis lateral left lung base. Normal heart.
[2022-06-13] MEDS ORDERED: MONTELUKAST 10 MG TAB PO SCH (21:00)
[2022-06-13] MEDS ORDERED: EZETIMIBE 10 MG TAB PO SCH (21:00)
[2022-06-13] MEDS ORDERED: atenoloL 50 MG TAB PO SCH (21:00)
[2022-06-13] MEDS: HEPARIN SODIUM,PORCINE/PF 5,000 UNIT/0.5 ML SYRINGE SQ SCH (21:28)
[2022-06-13] MEDS: TICAGRELOR 90 MG TAB PO SCH (21:28)
[2022-06-14] MEDS ORDERED: NIFEdipine XL 30 MG TAB.ER.24 PO SCH (09:00)
[2022-06-14] MEDS ORDERED: FAMOTIDINE 20 MG TAB PO SCH (09:00)
[2022-06-14] MEDS ORDERED: ASPIRIN 325 MG TAB PO SCH (09:00)
[2022-06-14] MEDS ORDERED: lisinopriL 10 MG TAB PO SCH (09:00)
[2022-06-14 09:11] VITALS: RESP 17
[2022-06-14] MEDS: HEPARIN SODIUM,PORCINE/PF 5,000 UNIT/0.5 ML SYRINGE SQ SCH (09:11)
[2022-06-14] MEDS: TICAGRELOR 90 MG TAB PO SCH (09:12)
--- NOTE | 2022-06-14 10:02 | P.CRDCN ---
History of Present Illness History of present illness: This is a 77-year-old woman with history of ischemic cardiomyopathy with EF of 45% with hypokinesis of inferior and inferoseptal boyle, coronary artery disease status post previous PCI to the RCA and left circumflex, hypertension, hyperlipidemia, former smoker. She follows in the office with Dr. Bates. We have been asked to see the patient in consultation for cardiomyopathy, hypokinetic wall motion. She presented emergency department because of confusion. Neurology is consulted for TIA. Prior to admission patient was playing across her penicillin having hard time completing a word in the puzzle. She could not write the letters down and states she was not making sense. She presents to the hospital for further evaluation. Patient symptoms resolved. She denies any chest pain, shortness of breath, palpitations, symptoms of orthopnea PND, lightheadedness, dizziness, syncope or near syncope. Overall from a cardiac standpoint patient has been stable and doing well. DIAGNOSTICS * Telemetry tracings indicate sinus rhythm, heart rate 50s to 70s, no atrial fibrillation or arrhythmia noted * Echocardiogram revealed EF of 4045 percent, mild concentric LVH, basal inferior septal wall hypokinesis, inferobasal hypokinesis, moderate RV dilatations, RVSP 29 mmHg. 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 50% stenosis at the origin the left internal carotid artery * Chest xray no heart failure noted. Reported minimal subsegmental atelectasis lateral left lung base * Laboratory reviewed, CBC unremarkable, sodium 139, potassium 4.4 BUN 22, serum creatinine 1.2 troponin negative * Current home cardiac medications include lisinopril 10 mg daily, atenolol 50 mg nightly, simvastatin 80 mg nightly, Lasix 40 mg every 48 hours, that he had 10 mg nightly, aspirin 81 mg nightly. * Cardiac catheterization in [address] [place] [address] revealed moderate in-stent stenosis of the previously stented RCA, severe stenosis in the left circumflex was successful stenting of the left circumflex. Segmental wall motion analysis suggests no prior infarct with preservation of normal global left ventricular systolic function REVIEW OF SYSTEMS At the time of my exam: CONSTITUTIONAL: Denies fever or chills. CARDIOVASCULAR: Denies chest pain, shortness of breath, orthopnea, PND or palpitations. RESPIRATORY: Denies cough. GASTROINTESTINAL: Denies abdominal pain, diarrhea, constipation, nausea or v omiting. MUSCULOSKELETAL: Denies myalgias. NEUROLOGIC: Denies numbness, tingling, headacbe or weakness. ENDOCRINE: Denies fatigue, weight change, polydipsia or polyurina. GENITOURINARY: Denies burning, hematuria or urgency with micturation. HEMATOLOGIC: Denies history of anemia or bleeding. PHYSICAL EXAMINATION Blood pressure 145/82, heart rate 72, afebrile, oxygen saturations 97% on room air CONSTITUTIONAL: No apparent distress. HEENT: Head is normocephalic. Pupils are equal, round. Sclerae anicteric. Mucous membranes of the mouth are moist. No JVD. No carotid bruit. CHEST EXAMINATION: Lungs are clear to auscultation. No chest wall tenderness is noted on palpation or with deep breathing. HEART EXAMINATION: Regular rate and rhythm. S1, S2 heard. Systolic murmur at apex ABDOMEN: Soft, nontender. Positive bowel sounds. EXTREMITIES: 2+ peripheral pulses, no lower extremity edema and no calf tenderness. NEUROLOGIC EXAMINATION: Patient is awake, alert and oriented x3. ASSESSMENT Cardiomyopathy with EF of 45% with hypokinesis of inferior and inferoseptal boyle TIA Severe more than 80% stenosis at the origin of the right internal carotid artery reported on CT angio Coronary artery disease status post previous PCI to the RCA and left circumflex Hypertension Hyperlipidemia Former smoker PLAN From a cardiology perspective, no further inpatient workup indicated at this time. Echocardiogram with no acute changes. Continue home cardiac medications, follow up outpatient with Dr. Batse Nurse practitioner note has been reviewed by physician. Signing provider agrees with the documented findings, assessment, and plan of care. Past Medical History Past Medical History: Asthma, Hyperlipidemia, Hypertension, Myocardial Infarction (IA), Mitral Valve Prolapse (MVP), Osteoarthritis (OA) Additional Past Medical History / Comment(s): ?MVP-[place] ago [place] but has never had tx. for, cataracts bilaterally. Last Myocardial Infarction Date:: 2001 History of Any Multi-Drug Resistant Organisms: None Reported Past Surgical History: Appendectomy, Heart Catheterization With Stent, Hysterectomy, Joint Replacement, Tonsillectomy Additional Past Surgical History / Comment(s): 04/18/16 Total R hip arthroplasty anterior approach. Other surgical hx: colonoscopy Past Anesthesia/Blood Transfusion Reactions: No Reported Reaction Date of Last Stent Placement:: 2001 Past Psychological History: No Psychological Hx Reported Past Alcohol Use History: None Reported Past Drug Use History: None Reported - Past Family History Mother Family Medical History: No Reported History Additional Family Medical History / Comment(s): Mother was healthy as far as pt knows. She in her 70's Father Family Medical History: Hyperlipidemia Medications and Allergies Home Medications Medication Instructions Recorded Confirmed Type Albuterol Inhaler [Ventolin Hfa 1 - 2 puff INHALATION RT-Q6H PRN 04/06/16 06/13/22 History Inhaler] Ascorbic Acid [Vitamin C] 1,000 mg PO DAILY 04/06/16 06/13/22 History Calcium Carbonate/Vitamin D3 1 tab PO DAILY 04/06/16 06/13/22 History [Calcium 600-Vit D3 400 Tablet] Fluticasone Nasal [place] [Flonase 2 sprays EA NOSTRIL RT-DAILY 04/06/16 06/13/22 History Nasal [place]] Montelukast [Singulair] 10 mg PO HS 04/06/16 06/13/22 History Multivit with Calcium,Iron,Min 1 tab PO DAILY 04/06/16 06/13/22 History [Women's Daily Multivitamin] Nitroglycerin Sl Tabs [Nitrostat] 0.4 mg SUBLINGUAL Q5M PRN 04/06/16 06/13/22 History Omalizumab [Xolair] 150 mg SQ Q14D 04/06/16 06/13/22 History Ubidecarenone [Co Q-10] 50 mg PO DAILY 04/06/16 06/13/22 History Vitamin E 400 unit PO BID 04/06/16 06/13/22 History atenoloL [Tenormin] 50 mg PO HS 04/06/16 06/13/22 History Aspirin 81 mg PO HS #30 chew 04/21/16 06/13/22 Rx Cholecalciferol [Vitamin D3 (125 125 mcg PO DAILY 06/13/22 06/13/22 History Mcg = 5000 Iu)] Clopidogrel [Plavix] 75 mg PO DAILY 06/13/22 06/13/22 History EPINEPHrine (Auto Inject) [Epipen] 0.3 mg IM ONCE PRN 06/13/22 06/13/22 History Ezetimibe [Zetia] 10 mg PO HS 06/13/22 06/13/22 History Famotidine [Pepcid] 40 mg PO DAILY 06/13/22 06/13/22 History Furosemide [Lasix] 40 mg PO Q48H 06/13/22 06/13/22 History Magnesium 250 mg PO Q4D 06/13/22 06/13/22 History Mirabegron [Myrbetriq] 50 mg PO DAILY 06/13/22 06/13/22 History NIFEdipine [NIFEdipine ER] 30 mg PO DAILY 06/13/22 06/13/22 History [place]-3/Dha/Epa/Fish Oil [Fish Oil 1 cap PO DAILY 06/13/22 06/13/22 History 1,000 mg Softgel] Simvastatin [Zocor] 80 mg PO HS 06/13/22 06/13/22 History lisinopriL [Prinivil] 10 mg PO DAILY 06/13/22 06/13/22 History Allergies Allergy/AdvReac Type Severity Reaction Status Date / Time nickel Allergy Rash/Hives Verified 06/13/22 07:28 topiramate [From Topamax] AdvReac trouble Verified 06/13/22 07:28 swallowing Physical Exam Vitals: Vital Signs Temp Pulse Pulse Resp BP BP Pulse Ox 06/14/22 04:00 98.3 F 72 16 150/92 94 L 06/13/22 23:38 98.3 F 65 16 113/76 92 L 06/13/22 20:00 97.9 F 73 16 149/77 92 L 06/13/22 18:15 76 06/13/22 18:04 72 06/13/22 16:58 72 06/13/22 16:16 97.9 F 72 24 161/92 96 06/13/22 15:05 97.5 F L 66 18 143/80 06/13/22 07:30 64 16 102/81 97 Intake and Output 06/13/22 06/14/22 06/14/22 22:59 06:59 14:59 Intake Total 600 450 Output Total 0 0 Balance 600 450 Intake: Intake, IV Titration 0 Amount Sodium Chloride 0.9% 1, 0 000 ml @ 100 mls/hr IV . Q10H [facility] Rx#:[id number] Oral 600 450 Output: Stool 0 0 Other: Voiding Method Toilet Toilet # Voids 3 2 Weight 72.575 kg 77.7 kg Results 06/13/22 00:22 06/13/22 00:22 Current Medications Generic Name Dose Route Start Last Admin Trade Name Freq PRN Reason Stop Dose Admin Albuterol Sulfate 2.5 mg 06/13/22 18:51 Albuterol Nebulized 2.5 Mg/3 Ml INHALATION RT-Q4H PRN Shortness Of Breath Or Wheezing Aspirin 325 mg 06/14/22 09:00 Aspirin 325 Mg Tab PO DAILY [facility] Atenolol 50 mg 06/13/22 21:00 06/13/22 21:28 Atenolol 50 Mg Tab PO 50 mg HS [facility] Administration Atorvastatin Calcium 80 mg 06/13/22 04:03 06/13/22 21:28 Atorvastatin 80 Mg Tab PO 80 mg HS [facility] Administration Ezetimibe 10 mg 06/13/22 21:00 06/13/22 21:28 Ezetimibe 10 Mg Tab PO 10 mg HS [facility] Administration Famotidine 40 mg 06/14/22 09:00 Famotidine 20 Mg Tab PO DAILY [facility] Furosemide 40 mg 06/13/22 17:00 06/13/22 17:27 Furosemide 40 Mg Tab PO 40 mg Q48H [facility] Administration Heparin Sodium (Porcine) 5,000 unit 06/13/22 21:00 06/13/22 21:28 Heparin Sodium,Porcine/Pf 5,000 Unit/0.5 Ml Syringe SQ 5,000 unit Q12HR [facility] Administration Lisinopril 10 mg 06/14/22 09:00 Lisinopril 10 Mg Tab PO DAILY [facility] Montelukast Sodium 10 mg 06/13/22 21:00 06/13/22 21:28 Montelukast 10 Mg Tab PO 10 mg HS [facility] Administration Nifedipine 30 mg 06/14/22 09:00 Nifedipine Xl 30 Mg Tab.Er.24 PO DAILY [facility] Ticagrelor 90 mg 06/13/22 21:00 06/13/22 21:28 Ticagrelor 90 Mg Tab PO 90 mg BID [facility] Administration Intake and Output 06/13/22 06/14/22 06/14/22 22:59 06:59 14:59 Intake Total 600 450 Output Total 0 0 Balance 600 450 Intake: Intake, IV Titration 0 Amount Sodium Chloride 0.9% 1, 0 000 ml @ 100 mls/hr IV . Q10H [facility] Rx#:[id number] Oral 600 450 Output: Stool 0 0 Other: Voiding Method Toilet Toilet # Voids 3 2 Weight 72.575 kg 77.7 kg 06/13/22 00:22 06/13/22 00:22
[2022-06-14 10:40] LABS: Chol/HDL Ratio 2.56 Ratio; LDL Cholesterol,Calculated 59.2 mg/dL (0.0-131.0)
--- NOTE | 2022-06-14 12:20 | P.PN ---
Subjective Progress Note Date: 06/14/22 Principal diagnosis: Right internal carotid artery stenosis Patient was seen and examined is a follow-up for possible TIA, right ICA stenosis. Patient denies any current focal deficits. States overall she had a good night. States she is having some urinary incontinence and states she had issues last time she was hospitalized. Otherwise she denies any weakness in her upper or lower extremities, no visual changes, difficulty speaking or swallowing. She was up with physical therapy and ambulating with a walker. Objective - Vital Signs Vital signs: Vital Signs Temp 98.3 F 06/14/22 04:00 Pulse 72 06/14/22 08:17 Resp 16 06/14/22 04:00 BP 150/92 06/14/22 04:00 Pulse Ox 94 L 06/14/22 04:00 FiO2 Intake & Output 06/13/22 06/14/22 06/14/22 18:59 06:59 18:59 Intake Total 1050 240 Output Total 0 Balance 1050 240 Weight 72.575 kg 77.7 kg Intake: Intake, IV Titration 0 Amount Sodium Chloride 0.9% 1, 0 000 ml @ 100 mls/hr IV . Q10H [facility] Rx#:[id number] Oral 1050 240 Output: Stool 0 Other: Voiding Method Toilet Toilet # Voids 2 - Exam General appearance: The patient is alert, oriented, appears in no acute distress. Sitting up in bedside chair. HET: Head is normocephalic and atraumatic. Pupils are equal and reactive. Neck: Supple without lymphadenopathy. Trachea midline. No audible carotid bruit. Extremities: Normal skin color and turgor. Palpable bilateral +2 radial pulse. Neurological: No focal deficits. Alert and oriented 3. - Labs CBC & Chem 7: 06/13/22 00:22 06/13/22 00:22 Assessment and Plan Assessment: 1. Right internal carotid artery stenosis greater than 80% per CT angiogram 2. Confusion, resolved 3. History of coronary artery disease status post cardiac stents 4. Hypertension 5. Hyperlipidemia Plan: 1. Continue with Brilinta, Lipitor and aspirin. 2. Carotid duplex ordered and reviewed. 3. Continue physical therapy 4. Recommend outpatient catheter directed angiogram for further recommendations 5. Discussed with neurology, patient can finish workup as an outpatient. Patient is cleared by vascular surgery for discharge Thank you for this consultation, we will continue to follow. The impression and plan of care has been dictated as directed. I performed a history and examination of this patient, discussed the same with the dictator. I agree with the dictator's note ,documented as a scribe. Any additional findings or plans will be noted.
[2022-06-14 12:22] VITALS: BP 126/80; PULSE 71; TEMP 97.7
--- NOTE | 2022-06-14 13:22 | P.PN ---
Subjective Progress Note Date: 06/14/22 The patient is seen at bedside and feels she is doing well. Objective - Vital Signs Vital signs: Vital Signs Temp 97.7 F 06/14/22 12:00 Pulse 71 06/14/22 12:00 Resp 17 06/14/22 12:00 BP 126/80 06/14/22 12:00 Pulse Ox 95 06/14/22 12:00 FiO2 Intake & Output 06/13/22 06/14/22 06/14/22 18:59 06:59 18:59 Intake Total 1050 240 Output Total 0 0 Balance 1050 240 Weight 72.575 kg 77.7 kg Intake: Intake, IV Titration 0 Amount Sodium Chloride 0.9% 1, 0 000 ml @ 100 mls/hr IV . Q10H [facility] Rx#:[id number] Oral 1050 240 Output: Stool 0 0 Other: Voiding Method Toilet Toilet Toilet # Voids 2 - Exam GENERAL: The patient is lying in bed and is not in acute distress. NEUROLOGICAL: Higher mental function: The patient is awake, alert, oriented to self, place and time. Patient is following commands. No aphasia and no neglect. Cranial nerves: The pupils are round, equal and reactive to light and accommodation. Visual ford are full to confrontation throughout. Extraocular movement is intact no nystagmus is noted. Facial sensation is normal to touch throughout. The facial strength is normal throughout. Hearing is normal bilaterally to hand rub. Tongue is midline and moved [id number] without any difficulty. No dysarthria is noted. Shoulder shrug is normal bilaterally. Motor: The strength is 5 over 5 throughout. Normal tone and bulk. Cerebellum: Normal finger to nose heel to stein bilaterally. Sensation: Sensation is normal to touch throughout. Reflexes (right/left): 2+ throughout. Plantars are downgoing bilaterally. Some of the workup during this hospital visit consisted of: Urinalysis is negative for urinary tract infection Lipid panel is triglycerides 124, cholesterol 1:30, LDL 69 and HDL is 54. CT of the head is reported as negative on has had computed tomography scan. I personally reviewed the CT of the head and I agree that the CT of the head is negative for any acute or subacute ischemia and there is no intraparenchymal he morrhage CT angiography of the head and neck was reported as there is severe more than 80% stenosis at the origin of the right internal carotid artery with some low- density record that B acute thrombus. There is approximately 50% stenosis at the origin of left internal carotid artery. No significant intercranial and angiographic abnormality. Multilevel cervical spinal stenosis. Carotid duplex: No hemodynamically significant internal carotid artery stenosis by indirect Doppler cirteria. Given the discrepancy compared to the recent 06/13/2022 CTA, consider follow-up CTA in 3-6 mnths to reassess. 2D echo: Reduced left ventricle systolic function with inferior septal and inferior wall akinesis. Left ventricular ejection fraction of 40-45%. Normal left atrial size. No evidence of for an atrial septal defect. - Labs CBC & Chem 7: 06/13/22 00:22 06/13/22 00:22 Assessment and Plan Assessment: Transient ischemic attack (presented with episode confusion/had agraphia). Encephalopathy likely due to TIA. Severe right ICA stenosis >80% on CTA but no moderate or significant carotid stenosis on carotid duple. Hypertension Hyperlipidemia History of CAD s/p stent Former smoker Plan: Carotid duplex: No hemodynamically significant internal carotid artery stenosis by indirect Doppler cirteria. Given the discrepancy compared to the recent 06/13/2022 CTA, consider follow-up CTA in 3-6 mnths to reassess. I agree of repeat CTA as outpatient within 3-6 months. She will follow-up with vascular surgery team as outpatient (per team no intervention as inpatient). Cardiology is on board. 2D echo: Reduced left ventricle systolic function with inferior septal and inferior wall akinesis. Left ventricular ejection fraction of 40-45%. Normal left atrial size. No evidence of for an atrial septal defect. Continue home aspirin 325mg daily. I stopped Plavix and started her on Brilinta 90mg 1 tab bid. Regarding the use of dual antiplatelets will defer to vascular surgery team as outpatient and cardiology team. Is on Lipitor 80mg qhs and from neurological perspective can be on lower dose of 40mg qhs. Continue neuro checks Continue cardiac monitoring PT OT and SEARCH DIRECTOR are consulted Defer the rest of the medical measure the primary team For DVT prophylaxis: On subq heparin 5000U every 12 hours. No additional work-up from neurological perspective. The plan is discussed with patient her nurse. Jose Barker M.D. Neuro-hospitalist Time with Patient: Less than 30
--- NOTE | 2022-06-14 14:26 | P.DS ---
Providers Date of admission: 06/13/22 02:03 Expected date of discharge: 06/14/22 Attending physician: Johnny Rubio MD Consults: 06/13/22 02:03 Consult Physician Routine Consulting Provider: Stella Velasco Consult Reason/Comments: tia Do you want consulting provider notified?: Yes 06/13/22 02:04 Consult Physician Routine Consulting Provider: Angie Jalloh Consult Reason/Comments: R ICA stenosis Do you want consulting provider notified?: Yes 06/13/22 16:54 Consult Physician Routine Consulting Provider: Dean Leigh Consult Reason/Comments: low EF, hypokinetic wall motion Do you want consulting provider notified?: Yes Primary care physician: Inocencio [facility] Hospital Course: The patient is a 77-year-old female female with a PMH of hypertension, hyperlipidemia, CAD status post stents, asthma, mitral valve prolapse, currently taking Xarelto (unknown reason) who presents to the emergency room with complaints of impaired speech and confusion. The patient reports that she was in her usual state of health and was doing a crossword puzzle when she suddenly became confused. The patient's fianc was nearby who noticed that something was off about her, and activated EMS. The patient reports that she will have difficulty word finding and was unable to formulate sentences. She denied slurring of speech. Patient denied facial droop or weakness. Also denied visual disturbances, nausea, vomiting, headaches. Reports that her symptoms lasted for roughly 10 minutes and then completely resolved. Reports feeling at her baseline at time of interview. CT brain in the emergency room was unremarkable with CT angiogram showing severe greater than 80% stenosis of the right internal carotid artery with possible acute thrombus as well as 50% stenosis of the left internal carotid artery. Chest x-ray in the emergency room was unremarkable. Neurology was consulted and recommended switching her Plavix to Brilinta. Neurology recommended echocardiogram. Echocardiogram showed EF of 40-45% with hypokinetic wall motion. Cardiology was consulted and recommended no further intervention as it was comparable to her previous echocardiogram done in clinic. Her symptoms completely resolved during her hospitalization. Vascular surgery was consulted with regard to findings of CTA head and neck. Carotid ultrasound was performed which did not show any significant stenosis. Vascular surgery recommended follow-up in 3-6 months for repeat CTA head and neck. PT and OT evaluated the patient and cleared the patient for discharge. Patient was advised follow-up with her PCP within 1-2 days of discharge. Follow-up with cardiology within 1 week of discharge. Follow-up with vascular surgery within 1 week of discharge. Follow-up with neurology within 1 week of discharge. General: [non toxic], [no distress], [appears at stated age] Derm: [warm], [dry] Head: [atraumatic], [normocephalic], [symmetric] Eyes: [EOMI], [no lid lag], [anicteric sclera] Mouth: [no lip lesion], [mucus membranes moist] Cardiovascular: [S1S2 reg], [no murmur] Lungs: [CTA bilateral], [no rhonchi, no rales] , [no accessory muscle use] Abdominal: [soft], [ nontender to palpation], [no guarding], [no appreciable organomegaly] Ext: [no gross muscle atrophy], [no edema], [no contractures] Neuro: [no focal neuro deficits] Psych: [Alert], [oriented], [appropriate affect] Discharge diagnosis: TIA with significant stenosis of the right internal carotid Systolic CHF Acute kidney injury Chronic conditions: Hypertension, hyperlipidemia, CAD, asthma This complex discharge took about 45 minutes to complete. Pertinent Studies: CT head CTA head and neck Echocardiogram Carotid Doppler Patient Condition at Discharge: Stable Plan - Discharge Summary Discharge Rx Participant: No New Discharge Prescriptions: New Ticagrelor [Brilinta] 90 mg PO BID #60 tab Atorvastatin [Lipitor] 80 mg PO HS #30 tab Continue Albuterol Inhaler [Ventolin Hfa Inhaler] 1 - 2 puff INHALATION RT-Q6H PRN PRN Reason: Dyspnea Nitroglycerin Sl Tabs [Nitrostat] 0.4 mg SUBLINGUAL Q5M PRN PRN Reason: Chest Pain Montelukast [Singulair] 10 mg PO HS Fluticasone Nasal [place] [Flonase Nasal [place]] 2 sprays EA NOSTRIL RT-DAILY atenoloL [Tenormin] 50 mg PO HS Omalizumab [Xolair] 150 mg SQ Q14D Ascorbic Acid [Vitamin C] 1,000 mg PO DAILY Vitamin E 400 unit PO BID Ubidecarenone [Co Q-10] 50 mg PO DAILY Multivit with Calcium,Iron,Min [Women's Daily Multivitamin] 1 tab PO DAILY Calcium Carbonate/Vitamin D3 [Calcium 600-Vit D3 400 Tablet] 1 tab PO DAILY Aspirin 81 mg PO HS #30 chew Cholecalciferol [Vitamin D3 (125 Mcg = 5000 Iu)] 125 mcg PO DAILY Magnesium 250 mg PO Q4D [place]-3/Dha/Epa/Fish Oil [Fish Oil 1,000 mg Softgel] 1 cap PO DAILY Ezetimibe [Zetia] 10 mg PO HS Famotidine [Pepcid] 40 mg PO DAILY Furosemide [Lasix] 40 mg PO Q48H lisinopriL [Prinivil] 10 mg PO DAILY NIFEdipine [NIFEdipine ER] 30 mg PO DAILY EPINEPHrine (Auto Inject) [Epipen] 0.3 mg IM ONCE PRN PRN Reason: Anaphylaxis Mirabegron [Myrbetriq] 50 mg PO DAILY Discontinued Clopidogrel [Plavix] 75 mg PO DAILY Simvastatin [Zocor] 80 mg PO HS Discharge Medication List Albuterol Inhaler [Ventolin Hfa Inhaler] 1 - 2 puff INHALATION RT-Q6H PRN 04/06/16 [History] Ascorbic Acid [Vitamin C] 1,000 mg PO DAILY 04/06/16 [History] Calcium Carbonate/Vitamin D3 [Calcium 600-Vit D3 400 Tablet] 1 tab PO DAILY 04/06/16 [History] Fluticasone Nasal [place] [Flonase Nasal [place]] 2 sprays EA NOSTRIL RT-DAILY 04/06/16 [History] Montelukast [Singulair] 10 mg PO HS 04/06/16 [History] Multivit with Calcium,Iron,Min [Women's Daily Multivitamin] 1 tab PO DAILY 04/06/16 [History] Nitroglycerin Sl Tabs [Nitrostat] 0.4 mg SUBLINGUAL Q5M PRN 04/06/16 [History] Omalizumab [Xolair] 150 mg SQ Q14D 04/06/16 [History] Ubidecarenone [Co Q-10] 50 mg PO DAILY 04/06/16 [History] Vitamin E 400 unit PO BID 04/06/16 [History] atenoloL [Tenormin] 50 mg PO HS 04/06/16 [History] Aspirin 81 mg PO HS #30 chew 04/21/16 [Rx] Cholecalciferol [Vitamin D3 (125 Mcg = 5000 Iu)] 125 mcg PO DAILY 06/13/22 [History] EPINEPHrine (Auto Inject) [Epipen] 0.3 mg IM ONCE PRN 06/13/22 [History] Ezetimibe [Zetia] 10 mg PO HS 06/13/22 [History] Famotidine [Pepcid] 40 mg PO DAILY 06/13/22 [History] Furosemide [Lasix] 40 mg PO Q48H 06/13/22 [History] Magnesium 250 mg PO Q4D 06/13/22 [History] Mirabegron [Myrbetriq] 50 mg PO DAILY 06/13/22 [History] NIFEdipine [NIFEdipine ER] 30 mg PO DAILY 06/13/22 [History] [place]-3/Dha/Epa/Fish Oil [Fish Oil 1,000 mg Softgel] 1 cap PO DAILY 06/13/22 [History] lisinopriL [Prinivil] 10 mg PO DAILY 06/13/22 [History] Atorvastatin [Lipitor] 80 mg PO HS #30 tab 06/14/22 [Rx] Ticagrelor [Brilinta] 90 mg PO BID #60 tab 06/14/22 [Rx] Follow up Appointment(s)/Referral(s): Tracie Munoz MD [REFERRING] - 1 Week Inocencio May MD [Primary Care Provider] - 1-2 days Austen Mccallum DO [STAFF PHYSICIAN] - 1 Week Fabrice Bates MD [STAFF PHYSICIAN] - 1 Week Patient Instructions/Handouts: Transient Ischemic Attack (DC) Activity/Diet/Wound Care/Special Instructions: Diet: Cardiac FU with your PCP within 1-2 days of DC. FU with Cardiology within 1 week of DC. FU with Vascular surgery within 1 week of DC. You will need CTA of the head and neck in the next 3-6 months. Take all medications as advised. Come back to the ED for worsening chest pain, shortness of breath, palpitations, confusion, slurred speech, numbness/weakness/tingling of the extremities. Discharge Disposition: HOME SELF-CARE
[2022-06-15] MEDS ORDERED: ASPIRIN 81 MG PO SCH (09:00)
== END 2022-06-14 15:30 | disposition home or self-care (01) | DRG 69 ==
LOC: EC → 3SCARD 02:03
PROVIDERS: ADMIT Internal Medicine; ATTEND Internal Medicine
DX: G45.9 Transient cerebral ischemic attack, unspecified (principal); I50.23 Acute on chronic systolic (congestive) heart failure; G93.40 Encephalopathy, unspecified; N17.9 Acute kidney failure, unspecified; I11.0 Hypertensive heart disease with heart failure; I08.3 Combined rheumatic disorders of mitral, aortic and tricuspid valves; I25.5 Ischemic cardiomyopathy; I25.10 Atherosclerotic heart disease of native coronary artery without angina pectoris; E78.5 Hyperlipidemia, unspecified; I25.2 Old myocardial infarction; I34.1 Nonrheumatic mitral (valve) prolapse; I65.23 Occlusion and stenosis of bilateral carotid arteries; J45.909 Unspecified asthma, uncomplicated; M48.02 Spinal stenosis, cervical region; R32 Unspecified urinary incontinence; Z79.01 Long term (current) use of anticoagulants; Z79.02 Long term (current) use of antithrombotics/antiplatelets; Z79.82 Long term (current) use of aspirin; Z79.899 Other long term (current) drug therapy; Z87.891 Personal history of nicotine dependence; Z90.710 Acquired absence of both cervix and uterus; Z95.5 Presence of coronary angioplasty implant and graft; Z96.641 Presence of right artificial hip joint; Z88.8 Allergy status to other drugs, medicaments and biological substances
CPT/HCPCS: 36415; 70450; 70496; 70498; 71045; 80053; 80061; 81001; 84484; 85025; 85610; 85730; 93005; 93306; 93880; 94640; 99291

== ENCOUNTER → 2022-06-22 | Outpatient (CLI) | payer MEDICARE, OTHER ==
[2022-06-22 17:50] LABS: Basophils # (A) 0.05 X 10*3/uL (0.00-0.10); Basophils % (A) 0.8 %; Eosinophils % (A) 1.5 %; HGB 13.5 g/dL (12.0-15.0); Immature Grans, Automated 0.2 %; Lymphocytes # (A) 0.99 X 10*3/uL (0.90-5.00); Lymphocytes % (A) 15.1 %; MCHC 32.1 g/dL (32.0-37.0); MCV 93.3 fL (80.0-97.0); Mean Platelet Volume 11.4 fL (9.5-12.2); Monocytes # (A) 0.57 X 10*3/uL (0.20-1.00); Monocytes % (A) 8.7 %; NRBC Per 100 WBC 0 /100 WBCS (0.0-0.0); Neutrophils # (A) 4.82 X 10*3/uL (1.80-7.70); Neutrophils % (A) 73.7 %; Platelet Count 243 X 10*3/uL (140-440); RDW 12.5 % (11.5-14.5); WBC 6.54 X 10*3/uL (4.50-10.00)
[2022-06-22 19:19] LABS: African American GFR (CKD) 50.1 (60.0-200.0); Anion Gap 12.7 mmol/L (10.00-18.00); Blood Urea Nitrogen 21.6 mg/dL (9.0-27.0); Carbon Dioxide 23.7 mmol/L (20.0-27.5); Non-African American GFR(CKD) 43.3 (60.0-200.0); Potassium 4.5 mmol/L (3.5-5.5)
== END | disposition home or self-care (01) ==
LOC: LABPAT 13:57
PROVIDERS: ATTEND Surgery
DX: Z01.812 Encounter for preprocedural laboratory examination (principal); I65.23 Occlusion and stenosis of bilateral carotid arteries
CPT/HCPCS: 80051; 82565; 84520; 85025

== ENCOUNTER 2022-07-13 07:37 | Day surgery (SDC) | payer MEDICARE, OTHER ==
[~2022-07-13 07:37] MED LIST: SODIUM CHLORIDE 0.9% 1,000 ML IV SCH
[2022-07-13] MEDS ORDERED: SODIUM CHLORIDE 0.9% 1,000 ML IV ONE (08:00)
[2022-07-13 08:05] VITALS: TEMP 97
[2022-07-13] MEDS ORDERED: LIDOCAINE 1% INJ 10MG/ML (30 ML VIAL-PF) SQ ONE (09:38)
[2022-07-13] MEDS ORDERED: HEPARIN SODIUM 1,000 UN/ML (10ML VL) IV ONE (09:43)
[2022-07-13] MEDS ORDERED: VERAPAMIL SYRINGE (5 MG/10 ML) INTRAARTER ONE (09:43)
--- NOTE | 2022-07-13 10:22 | P.OP ---
Date of Procedure: 07/13/22 Preoperative Diagnosis: History of CVA Carotid stenosis Postoperative Diagnosis: History of CVA Right ICA 39% stenosis Left ICA <50% Procedure(s) Performed: Arch aortagram with selective right carotid angiogram Ultrasound guided right radial artery access Anesthesia: local Surgeon: Austen Mccallum Estimated Blood Loss (ml): 5 Pathology: none sent Condition: stable Disposition: PACU Indications for Procedure: 77 year old female with recent hospitalization due to right sided weakness and speech issues and was worked up for CVA. She had a CTA that demonstrated >80% GUNNAR stenosis and 50% stenosis of the LICA. The carotid doppler did not correlate and therefore she presents today for catheter directed angiogram. She states her symptoms have completely resolved. Operative Findings: GUNNAR <40% stenosis LICA <50% stenosis Vertebral arteries are widely patent without stenosis Aortic arch is patent without stenosis. Bilateral subclavian arteries are widely patent without stenosis Description of Procedure: After written and informed consent was obtained and all risks, benefits and competitions were discussed the patient is brought to the [employer] [facility] and laid in a supine position with the right arm outstretched on an armboard. The area of the right arm was prepped and draped in usual sterile fashion. Local anesthetic was infused overlying the radial artery after Woody's test was negative. Utilizing ultrasound the radial artery was accessed and 035 Glidewire was placed followed by a 4/5-Maldivian slender sheath. Guidewire was then placed into the aorta at the arch followed by pigtail catheter and arch angiogram was obtained. Wire was then placed and the catheter was removed and replaced with an angled glide catheter and the catheter was placed into the right common carotid artery and selective angiogram was obtained. Attempt at selecting the left common carotid artery was performed but unable to access and therefore due to the fact that she had multiple images previously demonstrating less than 50% stenosis of the left that part of the procedure was abandoned. All guidewires and catheters were then removed, TR band was placed for hemostasis and the sheath was removed. Patient tolerated the procedure well was moving all extremities to command and demonstrated no focal deficits. Disposition- Patient is to continue current medication per neurology. No indication for surgical intervention at this time due to stenosis is less than 50%. Will continue to follow in the office every 6 months. Plan - Discharge Summary Discharge Rx Participant: No New Discharge Prescriptions: No Action RX: Albuterol Inhaler [Ventolin Hfa Inhaler] 1 - 2 puff INHALATION RT-Q6H PRN PRN Reason: Dyspnea RX: Nitroglycerin Sl Tabs [Nitrostat] 0.4 mg SUBLINGUAL Q5M PRN PRN Reason: Chest Pain RX: Montelukast [Singulair] 10 mg PO HS RX: Fluticasone Nasal [place] [Flonase Nasal [place]] 2 sprays EA NOSTRIL RT- DAILY RX: atenoloL [Tenormin] 50 mg PO HS RX: Omalizumab [Xolair] 150 mg SQ Q14D RX: Vitamin E 400 unit PO BID RX: Multivit with Calcium,Iron,Min [Women's Daily Multivitamin] 1 tab PO DAILY RX: Aspirin 81 mg PO HS #30 chew RX: Cholecalciferol [Vitamin D3 (125 Mcg = 5000 Iu)] 125 mcg PO DAILY RX: Ezetimibe [Zetia] 10 mg PO HS RX: lisinopriL [Prinivil] 10 mg PO DAILY RX: NIFEdipine [NIFEdipine ER] 30 mg PO DAILY RX: Ticagrelor [Brilinta] 90 mg PO BID #60 tab RX: EPINEPHrine (Auto Inject) [Epipen] 0.3 mg IM ONCE PRN PRN Reason: Anaphylaxis RX: Mirabegron [Myrbetriq] 50 mg PO DAILY RX: Atorvastatin [Lipitor] 80 mg PO HS #30 tab Discharge Medication List RX: Albuterol Inhaler [Ventolin Hfa Inhaler] 1 - 2 puff INHALATION RT-Q6H PRN 04/06/16 [History] RX: Fluticasone Nasal [place] [Flonase Nasal [place]] 2 sprays EA NOSTRIL RT-DAILY 04/06/16 [History] RX: Montelukast [Singulair] 10 mg PO HS 04/06/16 [History] RX: Multivit with Calcium,Iron,Min [Women's Daily Multivitamin] 1 tab PO DAILY 04/06/16 [History] RX: Nitroglycerin Sl Tabs [Nitrostat] 0.4 mg SUBLINGUAL Q5M PRN 04/06/16 [History] RX: Omalizumab [Xolair] 150 mg SQ Q14D 04/06/16 [History] RX: Vitamin E 400 unit PO BID 04/06/16 [History] RX: atenoloL [Tenormin] 50 mg PO HS 04/06/16 [History] RX: Aspirin 81 mg PO HS #30 chew 04/21/16 [Rx] RX: Cholecalciferol [Vitamin D3 (125 Mcg = 5000 Iu)] 125 mcg PO DAILY 06/13/22 [History] RX: EPINEPHrine (Auto Inject) [Epipen] 0.3 mg IM ONCE PRN 06/13/22 [History] RX: Ezetimibe [Zetia] 10 mg PO HS 06/13/22 [History] RX: Mirabegron [Myrbetriq] 50 mg PO DAILY 06/13/22 [History] RX: NIFEdipine [NIFEdipine ER] 30 mg PO DAILY 06/13/22 [History] RX: lisinopriL [Prinivil] 10 mg PO DAILY 06/13/22 [History] RX: Atorvastatin [Lipitor] 80 mg PO HS #30 tab 06/14/22 [Rx] RX: Ticagrelor [Brilinta] 90 mg PO BID #60 tab 06/14/22 [Rx] Follow up Appointment(s)/Referral(s): Austen Mccallum DO [STAFF PHYSICIAN] - 4 Weeks Activity/Diet/Wound Care/Special Instructions: no lifting greater than 10 lbs with right arm x 1 week. Discharge Disposition: HOME SELF-CARE
--- NOTE | 2022-07-13 10:39 | IR ---
EXAMINATION TYPE: IR angio aortic arch DATE OF EXAM: 07/13/2022 COMPARISON: NONE HISTORY: Fluoroscopy time. Fluoroscopy was provided to the referring clinician.
[2022-07-13 11:01] VITALS: RESP 16
[2022-07-13 12:19] VITALS: BP 169/104; PULSE 70
== END 2022-07-13 14:01 | disposition home or self-care (01) ==
LOC: CATHCVL 07:37
PROVIDERS: ATTEND Surgery
DX: I65.21 Occlusion and stenosis of right carotid artery (principal); Z86.73 Personal history of transient ischemic attack (TIA), and cerebral infarction without residual deficits
CPT/HCPCS: 36222; 76937; C1769 ×4; C1894; J2001; J1644

== ENCOUNTER 2022-10-25 15:02 | Inpatient (IN) | payer MEDICARE, OTHER ==
--- NOTE | 2022-10-25 15:23 | ED ---
General Adult HPI - General Stated complaint: SOB Time Seen by Provider: 10/25/22 15:22 Source: patient, family, RN/MD (Case discussed with Dr. Peña who is concerned with patient's exertional dyspnea.), RN notes reviewed Mode of arrival: wheelchair Limitations: no limitations - History of Present Illness Initial comments: Patient is a pleasant 69-year-old female presenting to the emergency department with dyspnea. Symptoms have slowly progressed over the past couple months. Patient states symptoms especially worsen with any exertion. Symptoms at rest are very mild. Patient does have history of COPD. Patient was only able to walk around 5 feet prior to arrival before becoming short of breath. No cough. No fever. No chest pain. Patient did see Dr. Peña prior to arrival and he did advise her to come to the emergency Department. No leg pain or leg swelling. - Related Data Home Medications Medication Instructions Recorded Confirmed Albuterol Inhaler [Ventolin Hfa 1 - 2 puff INHALATION RT-Q6H PRN 04/06/16 07/12/22 Inhaler] Fluticasone Nasal [place] [Flonase 2 sprays EA NOSTRIL RT-DAILY 04/06/16 07/12/22 Nasal [place]] Montelukast [Singulair] 10 mg PO HS 04/06/16 07/12/22 Multivit with Calcium,Iron,Min 1 tab PO DAILY 04/06/16 07/12/22 [Women's Daily Multivitamin] Nitroglycerin Sl Tabs [Nitrostat] 0.4 mg SUBLINGUAL Q5M PRN 04/06/16 07/12/22 Omalizumab [Xolair] 150 mg SQ Q14D 04/06/16 07/12/22 Vitamin E 400 unit PO BID 04/06/16 07/12/22 atenoloL [Tenormin] 50 mg PO HS 04/06/16 07/12/22 Cholecalciferol [Vitamin D3 (125 125 mcg PO DAILY 06/13/22 07/12/22 Mcg = 5000 Iu)] EPINEPHrine (Auto Inject) [Epipen] 0.3 mg IM ONCE PRN 06/13/22 07/12/22 Ezetimibe [Zetia] 10 mg PO HS 06/13/22 07/12/22 Mirabegron [Myrbetriq] 50 mg PO DAILY 06/13/22 07/12/22 NIFEdipine [Adalat CC] 30 mg PO DAILY 06/13/22 07/12/22 lisinopriL [Prinivil] 10 mg PO DAILY 06/13/22 07/12/22 Previous Rx's Medication Instructions Recorded Aspirin 81 mg PO HS #30 chew 04/21/16 Atorvastatin [Lipitor] 80 mg PO HS #30 tab 06/14/22 Ticagrelor [Brilinta] 90 mg PO BID #60 tab 06/14/22 Allergies Allergy/AdvReac Type Severity Reaction Status Date / Time nickel Allergy Rash/Hives Verified 07/12/22 11:50 topiramate [From Topamax] AdvReac trouble Verified 07/12/22 11:50 swallowing Review of Systems ROS Statement: Those systems with pertinent positive or pertinent negative responses have been documented in the HPI. ROS Other: All systems not noted in ROS Statement are negative. Constitutional: Denies: fever Eyes: Denies: eye pain ENT: Denies: ear pain Respiratory: Reports: as per HPI, dyspnea. Denies: cough Cardiovascular: Reports: dyspnea on exertion. Denies: chest pain, edema Endocrine: Denies: fatigue Gastrointestinal: Denies: abdominal pain Genitourinary: Denies: dysuria Musculoskeletal: Denies: back pain Skin: Denies: rash Neurological: Denies: weakness Past Medical History Past Medical History: Asthma, Hyperlipidemia, Hypertension, Myocardial Infarction (RI), Mitral Valve Prolapse (MVP), Osteoarthritis (OA) Additional Past Medical History / Comment(s): ?MVP-[place] ago [place] but has never had tx. for, cataracts bilaterally, recent adm. [facility] for TIA-sx.'s resolved Last Myocardial Infarction Date:: 2001 History of Any Multi-Drug Resistant Organisms: None Reported Past Surgical History: Appendectomy, Heart Catheterization With Stent, Hysterectomy, Joint Replacement, Tonsillectomy Additional Past Surgical History / Comment(s): 04/18/16 Total R hip arthroplasty anterior approach. Other surgical hx: colonoscopy Past Anesthesia/Blood Transfusion Reactions: No Reported Reaction Date of Last Stent Placement:: 2001 Smoking Status: Former smoker - Past Family History Mother Family Medical History: No Reported History Additional Family Medical History / Comment(s): Mother was healthy as far as pt knows. She in her 70's Father Family Medical History: Hyperlipidemia General Exam Limitations: no limitations General appearance: alert, in no apparent distress Head exam: Present: normocephalic Eye exam: Present: normal appearance Neck exam: Present: normal inspection Respiratory exam: Present: wheezes. Absent: respiratory distress Cardiovascular Exam: Present: regular rate, normal rhythm GI/Abdominal exam: Present: soft. Absent: tenderness Extremities exam: Present: normal inspection Neurological exam: Present: alert Psychiatric exam: Present: normal affect, normal mood Skin exam: Present: normal color Course Vital Signs 10/25/22 10/25/22 10/25/22 15:36 16:54 17:06 Temperature 97 F L Pulse Rate 71 64 70 Respiratory 20 Rate Blood Pressure 103/63 O2 Sat by Pulse 95 Oximetry 10/25/22 17:15 Temperature Pulse Rate 76 Respiratory 18 Rate Blood Pressure 138/74 O2 Sat by Pulse 96 Oximetry EKG Findings - EKG Results: EKG: interpreted by ERMD (Left axis. Right bundle branch block.), sinus rhythm, normal ST/T Medical Decision Making - Medical Decision Making Patient reevaluated and somewhat improved. Patient does have some wheezing still. Patient does have appointment of Doris. Unable to perform computed tomography scan secondary to doris. Case was discussed in detail with practitioner suly, who will admit covering sound physician covering for Dr. May. She does agree to hold heparin. VQ scan has been ordered. - Lab Data Result diagrams: 10/25/22 16:14 10/25/22 16:15 Lab Results 10/25/22 10/25/22 10/25/22 Range/Units 16:14 16:14 16:14 WBC 9.4 (3.8-10.6) k/uL RBC 4.37 (3.80-5.40) m/uL Hgb 13.6 (11.4-16.0) gm/dL Hct 40.1 (34.0-46.0) % MCV 91.9 (80.0-100.0) fL MCH 31.3 (25.0-35.0) pg MCHC 34.0 (31.0-37.0) g/dL RDW 12.8 (11.5-15.5) % Plt Count 223 (150-450) k/uL MPV 9.5 Neutrophils % 77 % Lymphocytes % 13 % Monocytes % 5 % Eosinophils % 3 % Basophils % 1 % Neutrophils # 7.2 (1.3-7.7) k/uL Lymphocytes # 1.2 (1.0-4.8) k/uL Monocytes # 0.5 (0-1.0) k/uL Eosinophils # 0.3 (0-0.7) k/uL Basophils # 0.1 (0-0.2) k/uL PT 10.2 (9.0-12.0) sec INR 1.0 (<1.2) APTT 20.4 L (22.0-30.0) sec D-Dimer 1.74 H (<0.60) mg/L FEU Sodium (137-145) mmol/L Potassium (3.5-5.1) mmol/L Chloride (98-107) mmol/L Carbon Dioxide (22-30) mmol/L Anion Gap mmol/L BUN (7-17) mg/dL Creatinine (0.52-1.04) mg/dL Est GFR (CKD-EPI)AfAm (>60 ml/min/1.73 sqM) Est GFR (CKD-EPI)NonAf (>60 ml/min/1.73 sqM) Glucose (74-99) mg/dL Plasma Lactic Acid Cedric 1.8 (0.7-2.0) mmol/L Calcium (8.4-10.2) mg/dL Magnesium (1.6-2.3) mg/dL Total Bilirubin (0.2-1.3) mg/dL AST (14-36) U/L ALT (4-34) U/L Alkaline Phosphatase (38-126) U/L Troponin I (0.000-0.034) ng/mL NT-Pro-B Natriuret Pep pg/mL Total Protein (6.3-8.2) g/dL Albumin (3.5-5.0) g/dL Coronavirus (PCR) (Not Detectd) 10/25/22 10/25/22 10/25/22 Range/Units 16:14 16:14 16:15 WBC (3.8-10.6) k/uL RBC (3.80-5.40) m/uL Hgb (11.4-16.0) gm/dL Hct (34.0-46.0) % MCV (80.0-100.0) fL MCH (25.0-35.0) pg MCHC (31.0-37.0) g/dL RDW (11.5-15.5) % Plt Count (150-450) k/uL MPV Neutrophils % % Lymphocytes % % Monocytes % % Eosinophils % % Basophils % % Neutrophils # (1.3-7.7) k/uL Lymphocytes # (1.0-4.8) k/uL Monocytes # (0-1.0) k/uL Eosinophils # (0-0.7) k/uL Basophils # (0-0.2) k/uL PT (9.0-12.0) sec INR (<1.2) APTT (22.0-30.0) sec D-Dimer (<0.60) mg/L FEU Sodium 141 (137-145) mmol/L Potassium 4.2 (3.5-5.1) mmol/L Chloride 102 (98-107) mmol/L Carbon Dioxide 29 (22-30) mmol/L Anion Gap 10 mmol/L BUN 44 H (7-17) mg/dL Creatinine 1.61 H (0.52-1.04) mg/dL Est GFR (CKD-EPI)AfAm 35 (>60 ml/min/1.73 sqM) Est GFR (CKD-EPI)NonAf 30 (>60 ml/min/1.73 sqM) Glucose 100 H (74-99) mg/dL Plasma Lactic Acid Cedric (0.7-2.0) mmol/L Calcium 9.5 (8.4-10.2) mg/dL Magnesium 2.0 (1.6-2.3) mg/dL Total Bilirubin 0.8 (0.2-1.3) mg/dL AST 38 H (14-36) U/L ALT 30 (4-34) U/L Alkaline Phosphatase 108 (38-126) U/L Troponin I <0.012 (0.000-0.034) ng/mL NT-Pro-B Natriuret Pep 327 pg/mL Total Protein 7.3 (6.3-8.2) g/dL Albumin 4.4 (3.5-5.0) g/dL Coronavirus (PCR) (Not Detectd) 10/25/22 Range/Units 16:25 WBC (3.8-10.6) k/uL RBC (3.80-5.40) m/uL Hgb (11.4-16.0) gm/dL Hct (34.0-46.0) % MCV (80.0-100.0) fL MCH (25.0-35.0) pg MCHC (31.0-37.0) g/dL RDW (11.5-15.5) % Plt Count (150-450) k/uL MPV Neutrophils % % Lymphocytes % % Monocytes % % Eosinophils % % Basophils % % Neutrophils # (1.3-7.7) k/uL Lymphocytes # (1.0-4.8) k/uL Monocytes # (0-1.0) k/uL Eosinophils # (0-0.7) k/uL Basophils # (0-0.2) k/uL PT (9.0-12.0) sec INR (<1.2) APTT (22.0-30.0) sec D-Dimer (<0.60) mg/L FEU Sodium (137-145) mmol/L Potassium (3.5-5.1) mmol/L Chloride (98-107) mmol/L Carbon Dioxide (22-30) mmol/L Anion Gap mmol/L BUN (7-17) mg/dL Creatinine (0.52-1.04) mg/dL Est GFR (CKD-EPI)AfAm (>60 ml/min/1.73 sqM) Est GFR (CKD-EPI)NonAf (>60 ml/min/1.73 sqM) Glucose (74-99) mg/dL Plasma Lactic Acid Cedric (0.7-2.0) mmol/L Calcium (8.4-10.2) mg/dL Magnesium (1.6-2.3) mg/dL Total Bilirubin (0.2-1.3) mg/dL AST (14-36) U/L ALT (4-34) U/L Alkaline Phosphatase (38-126) U/L Troponin I (0.000-0.034) ng/mL NT-Pro-B Natriuret Pep pg/mL Total Protein (6.3-8.2) g/dL Albumin (3.5-5.0) g/dL Coronavirus (PCR) Not Detected (Not Detectd) - Radiology Data Interpreted by me: Chest x-ray shows COPD. No acute process. Disposition Clinical Impression: COPD (chronic obstructive pulmonary disease), Dyspnea, DORIS (acute kidney injury) Disposition: ADMITTED IP TO THIS HOSP Is patient prescribed a controlled substance at d/c from ED?: No Referrals: Inocencio May MD [Primary Care Provider] - 1-2 days Time of Disposition: 18:19
[2022-10-25] MEDS ORDERED: IPRATROPIUM-ALBUTEROL 3 ML NEB INHALATION STA (15:57)
[2022-10-25 16:32] LABS: Basophils # (A) 0.1 k/uL (0-0.2); Basophils % (A) 1 %; Eosinophils # (A) 0.3 k/uL (0-0.7); Eosinophils % (A) 3 %; HCT 40.1 % (34.0-46.0); HGB 13.6 gm/dL (11.4-16.0); Lymphocytes # (A) 1.2 k/uL (1.0-4.8); Lymphocytes % (A) 13 %; MCH 31.3 pg (25.0-35.0); MCV 91.9 fL (80.0-100.0); Mean Platelet Volume 9.5; Monocytes # (A) 0.5 k/uL (0-1.0); Monocytes % (A) 5 %; Neutrophils # (A) 7.2 k/uL (1.3-7.7); Neutrophils % (A) 77 %; Platelet Count 223 k/uL (150-450); RBC 4.37 m/uL (3.80-5.40); RDW 12.8 % (11.5-15.5); WBC 9.4 k/uL (3.8-10.6)
--- NOTE | 2022-10-25 16:50 | XR ---
EXAMINATION TYPE: XR chest 2V DATE OF EXAM: 10/25/2022 4:40 PM COMPARISON: Chest radiographs from 06/13/2022 TECHNIQUE: XR chest 2V Frontal and lateral views of the chest. CLINICAL INDICATION:Female, 77 years old with history of difficulty breathing; FINDINGS: Lungs/Pleura: There is flattening of the diaphragm with increased lucency of the lungs. No evidence o f pneumothorax, pleural effusion or focal consolidation. Pulmonary vascularity: Unremarkable. Heart/mediastinum: Cardiomediastinal silhouette is unremarkable. Musculoskeletal: No acute osseous pathology. IMPRESSION: 1. No acute cardiopulmonary disease process. 2. COPD changes.
[2022-10-25 16:54] LABS: Albumin 4.4 g/dL (3.5-5.0); Calcium 9.5 mg/dL (8.4-10.2); Potassium 4.2 mmol/L (3.5-5.1); Total Bilirubin 0.8 mg/dL (0.2-1.3); Total Protein 7.3 g/dL (6.3-8.2)
[2022-10-25 16:55] LABS: Partial Thromboplastin Time 20.4 sec (22.0-30.0); Prothrombin Time 10.2 sec (9.0-12.0)
[2022-10-25] MEDS ORDERED: IPRATROPIUM-ALBUTEROL 3 ML NEB INHALATION PRN (18:19)
[2022-10-25] MEDS ORDERED: methylPREDNISolone SOD SUCCI 125 MG/2 ML VIAL IV STA (18:19)
[2022-10-25] MEDS ORDERED: NALOXONE 0.4 MG/ML 1 ML VIAL IVP PRN (18:19)
[2022-10-25] MEDS: SODIUM CHLORIDE 0.9% 1,000 ML IV SCH (18:57)
[2022-10-25] MEDS: IPRATROPIUM-ALBUTEROL 3 ML NEB INHALATION SCH (19:57)
--- NOTE | 2022-10-25 22:51 | NM ---
EXAMINATION TYPE: NM pul vent and perfuse DATE OF EXAM: 10/25/2022 COMPARISON: NONE HISTORY: Short of breath TECHNIQUE: Utilizing inhalation of 38.8 mCi Tc 99m DTPA aerosol and intravenous injection of 4.8 mCi of Tc 99m MAA, ventilation and perfusion images are acquired post injection in multiple projections. FINDINGS: There are large matching segmental size ventilation/perfusion defects in the upper lobes bilaterally. There are smaller matching subsegmental perfusion and ventilation defects in the lower lung ford b ilaterally. No significant mismatch. IMPRESSION: Multiple abnormalities as above. This is consistent with severe airway disease. There is intermediate probability of pulmonary embolism.
[2022-10-26] MEDS: methylPREDNISolone SOD SUCCI 125 MG/2 ML VIAL IV SCH ×4 (00:26→18:14)
[2022-10-26] MEDS: SODIUM CHLORIDE 0.9% 1,000 ML IV SCH ×2 (00:29→21:41)
--- NOTE | 2022-10-26 01:04 | P.HPIM ---
History of Present Illness H&P Date: 10/25/22 Chief Complaint: shortness of breath 77 year old female with COPD not on home oxygen she is here due to exertional dyspnea progressive in nature over the past couple months, however few days ago, suddenly she started having dyspnea with very mild exertion, she denies any symptoms at rest, denies orthopnea or leg edema denies any recent travel or hospital stay , denies any history of blood clots. denies any fever chills nausea or vomiting, she does report dry cough and some wheezing , but no sore throat, runny nose or body aches. she denies tobacco smoking or smoke exposure ,no known sick contacts. in the ED , workup showed elevated d dimer, covid negative DORIS , CTA was not done due to that VQ scan pulmonary perfusion test, was of intermediate probability , without any mismatch detected. patient does have recent history of CAD s/p stents , and history of TIA/CVA Trops negative, EKG NSR Review of Systems Pertinent positives as noted in HPI. All other systems were reviewed and are negative Past Medical History Past Medical History: Asthma, Hyperlipidemia, Hypertension, Myocardial Infarction ([place]), Mitral Valve Prolapse (MVP), Osteoarthritis (OA) Additional Past Medical History / Comment(s): ?MVP-told [place] ago [place] but has never had tx. for, cataracts bilaterally, recent adm. [facility] for TIA-sx.'s resolved Last Myocardial Infarction Date:: 2001 History of Any Multi-Drug Resistant Organisms: None Reported Past Surgical History: Appendectomy, Heart Catheterization With Stent, Hysterectomy, Joint Replacement, Tonsillectomy Additional Past Surgical History / Comment(s): 04/18/16 Total R hip arthroplasty anterior approach. Other surgical hx: colonoscopy Past Anesthesia/Blood Transfusion Reactions: No Reported Reaction Date of Last Stent Placement:: 2001 Smoking Status: Former smoker - Past Family History Mother Family Medical History: No Reported History Additional Family Medical History / Comment(s): Mother was healthy as far as pt knows. She in her 70's Father Family Medical History: Hyperlipidemia Medications and Allergies Home Medications Medication Instructions Recorded Confirmed Type Albuterol Inhaler [Ventolin Hfa 1 - 2 puff INHALATION RT-Q6H PRN 04/06/16 10/25/22 History Inhaler] Fluticasone Nasal [place] [Flonase 2 sprays EA NOSTRIL RT-DAILY 04/06/16 10/25/22 History Nasal [place]] Montelukast [Singulair] 10 mg PO HS 04/06/16 10/25/22 History Nitroglycerin Sl Tabs [Nitrostat] 0.4 mg SUBLINGUAL Q5M PRN 04/06/16 10/25/22 History atenoloL [Tenormin] 50 mg PO HS 04/06/16 10/25/22 History EPINEPHrine (Auto Inject) [Epipen] 0.3 mg IM ONCE PRN 06/13/22 10/25/22 History Ezetimibe [Zetia] 10 mg PO HS 06/13/22 10/25/22 History Mirabegron [Myrbetriq] 50 mg PO DAILY 06/13/22 10/25/22 History NIFEdipine [Adalat CC] 30 mg PO HS 06/13/22 10/25/22 History lisinopriL [Prinivil] 10 mg PO HS 06/13/22 10/25/22 History Atorvastatin [Lipitor] 80 mg PO HS #30 tab 06/14/22 10/25/22 Rx Ticagrelor [Brilinta] 90 mg PO BID #60 tab 06/14/22 10/25/22 Rx Aspirin 81 mg PO BID 10/25/22 10/25/22 History Famotidine 40 mg PO DAILY 10/25/22 10/25/22 History Furosemide [Lasix] 20 mg PO DAILY 10/25/22 10/25/22 History Loratadine [Claritin] 10 mg PO DAILY 10/25/22 10/25/22 History Allergies Allergy/AdvReac Type Severity Reaction Status Date / Time nickel Allergy Rash/Hives Verified 10/25/22 18:22 topiramate [From Topamax] AdvReac trouble Verified 10/25/22 18:22 swallowing Physical Exam Vitals: Vital Signs Temp Pulse Resp BP Pulse Ox 10/25/22 21:05 123/69 10/25/22 20:08 72 10/25/22 19:58 67 10/25/22 18:55 68 18 117/71 93 L 10/25/22 17:15 76 18 138/74 96 10/25/22 17:06 70 10/25/22 16:54 64 10/25/22 15:36 97 F L 71 20 103/63 95 Intake and Output 10/25/22 10/25/22 10/25/22 06:59 14:59 22:59 Other: Weight 77.111 kg Constitutional: No acute distress, conversant, pleasant Eyes: Anicteric sclerae, moist conjunctiva, Pupils equal round reactive to light ENMT: NC/AT Oropharynx clear, no erythema, or exudates Neck: Supple, no masses, or JVD No carotid bruits No thyromegaly Lungs: Diminished breath sounds throughout with prolonged expiratory phase and some end expiratory wheezing Clear to percussion Normal respiratory effort, no accessory muscle use Cardiovascular: Heart regular in rate and rhythm, No murmurs, gallops, or rubs No peripheral edema Abdominal: Soft Nontender, no guarding, rebound or rigidity Abdomen moving with respiration Normoactive bowel sounds No hepatomegaly, No splenomegaly No palpable mass No abdominal wall hernia noted Skin: Normal temperature, tone, texture, turgor Extremities: No digital cyanosis No clubbing Pedal pulses intact and symmetrical Radial pulses intact and symmetrical No calf tenderness Psychiatric: Alert and oriented to person, place and time Appropriate affect fair judgement Neuro Muscles Strength 5/5 in all 4 extremities Sensation to light touch grossly present throughout Cranial nerves II-XII grossly intact Lymphatics: no palpable cervical or supraclavicular lymph nodes Results CBC & Chem 7: 10/25/22 16:14 10/25/22 16:15 Labs: Abnormal Lab Results - Last 24 Hours (Table) 10/25/22 10/25/22 Range/Units 16:14 16:15 APTT 20.4 L (22.0-30.0) sec D-Dimer 1.74 H (<0.60) mg/L FEU BUN 44 H (7-17) mg/dL Creatinine 1.61 H (0.52-1.04) mg/dL Glucose 100 H (74-99) mg/dL AST 38 H (14-36) U/L Assessment and Plan Assessment: acute COPD exacerbation systemic steroids supplemental oxygen as needed nebulizer scheduled and PRN doxycyclin bid assess home oxygen requirement ambulatory monitor vital signs resume home inhalers COVID Negative elevated d dimer , rule out PE exertional dyspnea no hypoxemia on room air no tachycardia CTA not done due to DORIS VQ scan did not show any mismatch, report of intermediate probability, inconclusive will continue to hold full anticoagulation continue to monitor and reassess Trops negative X2 EKG NSR check venous doppler US of bilateral lower extremities to rule out DVT check echo cardiogram to assess for RV strain , also assess LVEF If patient becomes hypoxic before these tests are resulted , I would initiate patient on anticoagulation until PE rule out/in most likely cause is acute COPD exacerbation , working on ruling out CHF and PE DORIS hold nephrotoxic meds gentle IVF hydration with normal saline (cautious due to possibility of underlying CHF) monitor urine output full code DVT PPX heparin sc tid
[2022-10-26] MEDS: TICAGRELOR 90 MG TAB PO SCH ×3 (01:15→22:12)
[2022-10-26] MEDS: NIFEdipine XL 30 MG TAB.ER.24 PO SCH ×2 (01:15→22:12)
[2022-10-26] MEDS: MONTELUKAST 10 MG TAB PO SCH ×2 (01:15→22:12)
[2022-10-26] MEDS: atenoloL 50 MG TAB PO SCH ×2 (01:15→22:13)
[2022-10-26 02:18] LABS: African American GFR (CKD) 36 (>60 ml/min/1.73 sqM); Anion Gap 11 mmol/L; Blood Urea Nitrogen 41 mg/dL (7-17); Calcium 9.2 mg/dL (8.4-10.2); Carbon Dioxide 25 mmol/L (22-30); Chloride 104 mmol/L (98-107); Glucose 194 mg/dL (74-99); Non-African American GFR(CKD) 31 (>60 ml/min/1.73 sqM); Potassium 4.2 mmol/L (3.5-5.1); Sodium 140 mmol/L (137-145)
--- NOTE | 2022-10-26 03:13 | US ---
EXAMINATION TYPE: US venous doppler duplex LE BI DATE OF EXAM: 10/26/2022 12:38 AM COMPARISON: NONE CLINICAL HISTORY: rule out DVT. rule out DVT SIDE PERFORMED: Bilateral TECHNIQUE: The lower extremity deep venous system is examined utilizing real time linear array sonog chana with graded compression, doppler sonography and color-flow sonography. VESSELS IMAGED: Common Femoral Vein Deep Femoral Vein Greater Saphenous Vein * Femoral Vein Popliteal Vein Small Saphenous Vein * Proximal Calf Veins (* superficial vessels) Right Leg: Negative for DVT Left Leg: Negative for DVT IMPRESSION: No evidence of deep vein thrombosis in both legs.
[2022-10-26] MEDS: DOXYCYCLINE 100 MG CAP PO SCH ×2 (08:29→22:13)
[2022-10-26] MEDS: HEPARIN SODIUM,PORCINE/PF 5,000 UNIT/0.5 ML SYRINGE SQ SCH ×2 (08:29→17:40)
[2022-10-26] MEDS: NON FORMULARY DRUG (Mirabegron [Myrbetriq] 50 MG Tab.Er.24h) PO SCH (08:29)
[2022-10-26] MEDS: ASPIRIN 81 MG PO SCH ×2 (08:30→22:13)
[2022-10-26] MEDS: LORATADINE 10 MG TAB PO SCH (08:30)
[2022-10-26] MEDS: FAMOTIDINE 20 MG TAB PO SCH (08:30)
[2022-10-26] MEDS: IPRATROPIUM-ALBUTEROL 3 ML NEB INHALATION SCH ×4 (08:50→20:36)
--- NOTE | 2022-10-26 17:28 | P.PN ---
Subjective Progress Note Date: 10/26/22 (Delayed charting seen at 10:30) Patient is a 77-year-old female with a history of asthma, hypertension, dyslipidemia, primary cardial infarction status post stent to present with worsening shortness of breath. Apparently she was at Dr. Bates's office for a typical follow-up, and plans for echocardiogram when he noted her severe dyspnea on exertion leaving the office and recommended she come to the ER. On arrival to the ER her vital signs within normal limits. Initial laboratory analysis was remarkable for a d-dimer of 1.74, creatinine 1.61. Initial troponins were negative. COVID-19 testing was negative. Initial chest x-ray showed COPD type changes but no acute cardiopulmonary disease. Due to her elevated d-dimer initially a CT of the chest was ordered but was canceled secondary to her chronic renal disease. She did undergo a VQ scan which showed severe airway disease and intermediate probability of pulmonary embolism. She underwent bilateral lower extremity venous Dopplers which were negative. Echocardiogram is currently pending. Patient seen and examined at bedside. She reports she follows with Dr. Nova for pulmonary. She is not on any home oxygen. She does take Xolair infusions. She reports that her long-acting bronchodilator and corticosteroid inhaler were stopped approximately 2 years ago. She started having shortness of breath 4 months ago that has gotten progressively worse. When she told him as an office PFTs were done and he told her to follow-up with her primary care physician regarding need for medication changes. He has not received results of PFTs. General: nontoxic, no distress, appears at stated age Derm: warm, dry Head: atraumatic, normocephalic, symmetric Eyes: EOMI, no lid lag, anicteric sclera Mouth: no lip lesion, mucus membranes moist Cardiovascular: S1S2 reg, no murmur, positive posterior tibial pulse bilateral, Lungs: Mild expiratory wheeze bilateral bases, no rhonchi, no rales , no accessory muscle use Abdominal: soft, nontender to palpation, no guarding, no appreciable organomegaly Ext: no gross muscle atrophy, no edema, no contractures Neuro: CN II-XI grossly intact, no focal neuro deficits Psych: Alert, oriented, appropriate affect Assessment/plan: Acute exacerbation of asthma -IV steroids -Bronchodilators -Discontinue doxycycline -Pulmonary hygiene.-If no improvement in a.m. Will consult pulmonary -Plan is for home on Symbicort and albuterol for maintenance inhaler as well as a steroid taper Elevated d-dimer -VQ scan with intermediate probability pulmonary embolism, looks from the venous Dopplers-negative -Await echocardiogram -Patient is aware that we are waiting echo to determine whether or not it appears she had a blood clot. Acute kidney injury versus chronic kidney disease -IV fluids and-repeat labs in a.m. -Avoid nephrotoxic agents -Patient will be able to be discharged home once echocardiogram is available. Objective - Vital Signs Vital signs: Vital Signs Temp 98.0 F 10/26/22 15:23 Pulse 72 10/26/22 16:23 Resp 18 10/26/22 15:23 BP 108/66 10/26/22 15:23 Pulse Ox 93 L 10/26/22 15:23 FiO2 Intake & Output 10/25/22 10/26/22 10/26/22 18:59 06:59 18:59 Weight 77.111 kg 77.111 kg - Labs CBC & Chem 7: 10/25/22 16:14 10/26/22 01:32 Labs: Abnormal Lab Results - Last 24 Hours (Table) 10/26/22 Range/Units 01:32 BUN 41 H (7-17) mg/dL Creatinine 1.59 H (0.52-1.04) mg/dL Glucose 194 H (74-99) mg/dL
[2022-10-26] MEDS ORDERED: ATORVASTATIN 80 MG TAB PO SCH (21:00)
[2022-10-26] MEDS ORDERED: EZETIMIBE 10 MG TAB PO SCH (21:00)
[2022-10-27] MEDS: methylPREDNISolone SOD SUCCI 125 MG/2 ML VIAL IV SCH ×4 (01:09→18:02)
[2022-10-27] MEDS: HEPARIN SODIUM,PORCINE/PF 5,000 UNIT/0.5 ML SYRINGE SQ SCH ×3 (01:10→17:06)
[2022-10-27 07:11] LABS: African American GFR (CKD) 41 (>60 ml/min/1.73 sqM); Anion Gap 8 mmol/L; Blood Urea Nitrogen 40 mg/dL (7-17); Carbon Dioxide 24 mmol/L (22-30); Chloride 107 mmol/L (98-107); Glucose 149 mg/dL (74-99); Non-African American GFR(CKD) 36 (>60 ml/min/1.73 sqM); Potassium 4.4 mmol/L (3.5-5.1); Sodium 139 mmol/L (137-145)
[2022-10-27 07:42] LABS: ABG HCO3 23 mmol/L (21-25); ABG Oxygen Saturation 95.6 % (94-97); ABG PCO2 33 mmHg (35-45); ABG PH 7.45 (7.35-7.45); ABG PO2 70 mmHg (83-108); ABG TCO2 24 mmol/L (19-24); Allen Test Performed? Yes
[2022-10-27 09:25] VITALS: RESP 16
[2022-10-27] MEDS: IPRATROPIUM-ALBUTEROL 3 ML NEB INHALATION SCH ×3 (09:55→15:25)
[2022-10-27] MEDS: DOXYCYCLINE 100 MG CAP PO SCH (10:28)
[2022-10-27] MEDS: LORATADINE 10 MG TAB PO SCH (10:28)
[2022-10-27] MEDS: FAMOTIDINE 20 MG TAB PO SCH (10:28)
[2022-10-27] MEDS: ASPIRIN 81 MG PO SCH (10:29)
[2022-10-27] MEDS: TICAGRELOR 90 MG TAB PO SCH (10:29)
[2022-10-27] MEDS: NON FORMULARY DRUG (Mirabegron [Myrbetriq] 50 MG Tab.Er.24h) PO SCH (10:35)
[2022-10-27 14:04] VITALS: BP 111/63; TEMP 97.6
[2022-10-27 15:59] VITALS: PULSE 72
--- NOTE | 2022-10-27 17:36 | CA ---
Transthoracic Echo Report Name: Sue Avery Age: 77 Gender: F : 1945 Exam Date: 10/27/2022 13:19 Exam Location: [facility] Ht (in): 60 Wt (lb): 170 Ordering Physician: Jacinta Bliss MD Attending/Referring Phys: [id number], [employer] Sasha Rosas RDCS Procedure CPT: Indications: assess LVEF, and RV strain , rule out PE Cardiac Hx: Technical Quality: Fair Contrast 1: Total Dose (mL): Contrast 2: Total Dose (mL): MEASUREMENTS (Male / Female) Normal Values 2D ECHO LV Diastolic Diameter PLAX 4.5 cm 4.2 - 5.9 / 3.9 - 5.3 cm LV Systolic Diameter PLAX 3.1 cm IVS Diastolic Thickness 1.1 cm 0.6 - 1.0 / 0.6 - 0.9 cm LVPW Diastolic Thickness 1.0 cm 0.6 - 1.0 / 0.6 - 0.9 cm LV Relative Wall Thickness 0.5 RV Internal Dim ED PLAX 3.2 cm LA Volume 53.6 cm??? 18 - 58 / 22 - 52 cm??? M-MODE Aortic Root Diameter MM 3.4 cm LA Systolic Diameter MM 3.9 cm LA Ao Ratio MM 1.1 AV Cusp Separation MM 2.1 cm DOPPLER AV Peak Velocity 101.0 cm/s AV Peak Gradient 4.1 mmHg LVOT Peak Velocity 77.9 cm/s LVOT Peak Gradient 2.4 mmHg MV Area PHT 3.7 cm??? Mitral E Point Velocity 71.9 cm/s Mitral A Point Velocity 98.3 cm/s Mitral E to A Ratio 0.7 MV Deceleration Time 205.0 ms TR Peak Velocity 257.0 cm/s TR Peak Gradient 26.4 mmHg Right Ventricular Systolic Press 28.9 mmHg FINDINGS Left Ventricle Mildly increased septal wall thickness. Mildly increased posterior wall thickness. Basal inferior hypokinesis. Left ventricular ejection fraction is estimated at 45-50 %. Right Ventricle Normal right ventricular size and function. Right ventricular systolic pressure within normal limits. No RV strain noted. TAPSE is 20 mm, RV' is 11cm/s. Right Atrium Normal right atrial size. Left Atrium Mildly increased left atrial volume. Mitral Valve Structurally normal mitral valve. Mild mitral regurgitation. Aortic Valve No aortic valve stenosis or regurgitation. Tricuspid Valve Mild tricuspid regurgitation. Pulmonic Valve Trace pulmonic regurgitation. Pericardium No pericardial effusion. Aorta Normal size aortic root and proximal ascending aorta. 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 Fabrice Bates MD (Electronically Signed) Final Date: 27 October 2022 17:35
--- NOTE | 2022-10-27 18:28 | P.DS ---
Providers Date of admission: 10/25/22 18:19 Expected date of discharge: 10/27/22 Attending physician: Chelsea Muñoz DO Primary care physician: Inocencio May Hospital Course: Discharge Diagnosis: Exacerbation of asthma Elevated d-dimer Acute kidney injury Known cardiomyopathy with ejection fraction 45% Coronary artery disease Hospital Course: Patient is a 77-year-old female with a history of asthma, hypertension, dyslipidemia, primary cardial infarction status post stent to present with worsening shortness of breath. Apparently she was at Dr. Bates's office for a typical follow-up, and plans for echocardiogram when he noted her severe dyspnea on exertion leaving the office and recommended she come to the ER. On arrival to the ER her vital signs within normal limits. Initial laboratory analysis was remarkable for a d-dimer of 1.74, creatinine 1.61. Initial troponins were negative. COVID-19 testing was negative. Initial chest x-ray showed COPD type changes but no acute cardiopulmonary disease. Due to her elevated d-dimer initially a CT of the chest was ordered but was canceled secondary to her chronic renal disease. She did undergo a VQ scan which showed severe airway disease and intermediate probability of pulmonary embolism. She underwent bilateral lower extremity venous Dopplers which were negative. Echocardiogram demonstrated a normal ejection fraction of 45-50% with basal hypokinesis, no signs of elevated RVSP or right ventricular strain. she had rapid improvement on steroids and increase bronchodilators. She was up and ambulating in the h allway. She was determined stable for discharge home. I did discuss with Dr. Bates regarding his recent recommendations to stop her Brillenta and resume Plavix. He asked me to provide her with a prescription for Plavix and ensure she discontinued the Brillenta. Follow-up: Add back symbicort, albuterol prn, plavix, discontinue brillenta. F/U Dr. Nova in [address] Bates in [address] May in 1 week, Suggest BMP in 1 week regarding baseline Cr. Patient seen and examined at bedside. Feeling much better. Breathing much improved. Able to get up and ambulating the hallways without difficulty. Significant other present at bedside. All questions answered. Vital signs reviewed and stable. General: nontoxic, no distress, appears at stated age Derm: warm, dry Head: atraumatic, normocephalic, symmetric Eyes: EOMI, no lid lag, anicteric sclera Mouth: no lip lesion, mucus membranes moist Cardiovascular: S1S2 reg, no murmur, positive posterior tibial pulse bilateral, Lungs: CTA bilateral, no rhonchi, no rales , no accessory muscle use Abdominal: soft, nontender to palpation, no guarding, no appreciable organomegaly Ext: no gross muscle atrophy, no edema, no contractures Neuro: CN II-XI grossly intact, no focal neuro deficits Psych: Alert, oriented, appropriate affect A total of 37 minutes of time were spent preparing this complex discharge summary. Patient was discharged on 10/27/22. Plan - Discharge Summary Discharge Rx Participant: No New Discharge Prescriptions: New Clopidogrel [Plavix] 75 mg PO DAILY #30 tablet RX: predniSONE [Deltasone] 0 mg PO DIRECTED #10 tab Budesonide-Formot 160-4.5 Mcg [Symbicort 160-4.5 Mcg Inhaler] 2 puff INHALATION BID #1 inh RX: Doxycycline [Vibramycin] 100 mg PO BID #6 cap Continue RX: Albuterol Inhaler [Ventolin Hfa Inhaler] 1 - 2 puff INHALATION RT-Q6H PRN PRN Reason: Dyspnea RX: Nitroglycerin Sl Tabs [Nitrostat] 0.4 mg SUBLINGUAL Q5M PRN PRN Reason: Chest Pain RX: Montelukast [Singulair] 10 mg PO HS RX: Fluticasone Nasal [place] [Flonase Nasal [place]] 2 sprays EA NOSTRIL RT-PRISCILLA LY RX: atenoloL [Tenormin] 50 mg PO HS RX: Ezetimibe [Zetia] 10 mg PO HS RX: lisinopriL [Prinivil] 10 mg PO HS RX: NIFEdipine [Adalat CC] 30 mg PO HS RX: Famotidine 40 mg PO DAILY RX: Furosemide [Lasix] 20 mg PO DAILY RX: Loratadine [Claritin] 10 mg PO DAILY RX: EPINEPHrine (Auto Inject) [Epipen] 0.3 mg IM ONCE PRN PRN Reason: Anaphylaxis RX: Mirabegron [Myrbetriq] 50 mg PO DAILY RX: Atorvastatin [Lipitor] 80 mg PO HS #30 tab RX: Aspirin 81 mg PO BID Discontinued RX: Ticagrelor [Brilinta] 90 mg PO BID #60 tab Discharge Medication List RX: Albuterol Inhaler [Ventolin Hfa Inhaler] 1 - 2 puff INHALATION RT-Q6H PRN 04/06/16 [History] RX: Fluticasone Nasal [place] [Flonase Nasal [place]] 2 sprays EA NOSTRIL RT-DAILY 04/06/16 [History] RX: Montelukast [Singulair] 10 mg PO HS 04/06/16 [History] RX: Nitroglycerin Sl Tabs [Nitrostat] 0.4 mg SUBLINGUAL Q5M PRN 04/06/16 [History] RX: atenoloL [Tenormin] 50 mg PO HS 04/06/16 [History] RX: EPINEPHrine (Auto Inject) [Epipen] 0.3 mg IM ONCE PRN 06/13/22 [History] RX: Ezetimibe [Zetia] 10 mg PO HS 06/13/22 [History] RX: Mirabegron [Myrbetriq] 50 mg PO DAILY 06/13/22 [History] RX: NIFEdipine [Adalat CC] 30 mg PO HS 06/13/22 [History] RX: lisinopriL [Prinivil] 10 mg PO HS 06/13/22 [History] RX: Atorvastatin [Lipitor] 80 mg PO HS #30 tab 06/14/22 [Rx] RX: Aspirin 81 mg PO BID 10/25/22 [History] RX: Famotidine 40 mg PO DAILY 10/25/22 [History] RX: Furosemide [Lasix] 20 mg PO DAILY 10/25/22 [History] RX: Loratadine [Claritin] 10 mg PO DAILY 10/25/22 [History] Budesonide-Formot 160-4.5 Mcg [Symbicort 160-4.5 Mcg Inhaler] 2 puff INHALATION BID #1 inh 10/27/22 [Rx] Clopidogrel [Plavix] 75 mg PO DAILY #30 tablet 10/27/22 [Rx] RX: Doxycycline [Vibramycin] 100 mg PO BID #6 cap 10/27/22 [Rx] RX: predniSONE [Deltasone] 0 mg PO DIRECTED #10 tab 10/27/22 [Rx] Follow up Appointment(s)/Referral(s): Inocencio May MD [Primary Care Provider] - 1-2 days Ganga Nova MD [STAFF PHYSICIAN] - 2 Weeks Fabrice Bates MD [STAFF PHYSICIAN] - 2 Weeks Activity/Diet/Wound Care/Special Instructions: Activity: as tolerated Diet: regular diet Special Instructions: Stop Brillenta, Start Plavix Resume Lasix and Lisinopril in 2 days Follow up with Dr. Nova regarding using masks for your nebulizer Discharge Disposition: HOME SELF-CARE
== END 2022-10-27 18:29 | disposition home or self-care (01) | DRG 191 ==
LOC: EC 15:02 → 4SSUR 18:19
PROVIDERS: ADMIT Internal Medicine; ATTEND Internal Medicine
DX: J44.1 Chronic obstructive pulmonary disease with (acute) exacerbation (principal); I25.3 Aneurysm of heart; I42.9 Cardiomyopathy, unspecified; N17.9 Acute kidney failure, unspecified; J45.901 Unspecified asthma with (acute) exacerbation; Z20.822 Contact with and (suspected) exposure to COVID-19; R79.89 Other specified abnormal findings of blood chemistry; I45.10 Unspecified right bundle-branch block; E78.5 Hyperlipidemia, unspecified; I12.9 Hypertensive chronic kidney disease with stage 1 through stage 4 chronic kidney disease, or unspecified chronic kidney disease; I08.1 Rheumatic disorders of both mitral and tricuspid valves; M19.90 Unspecified osteoarthritis, unspecified site; N18.9 Chronic kidney disease, unspecified; I25.10 Atherosclerotic heart disease of native coronary artery without angina pectoris; I25.2 Old myocardial infarction; I34.1 Nonrheumatic mitral (valve) prolapse; Z79.02 Long term (current) use of antithrombotics/antiplatelets; Z79.82 Long term (current) use of aspirin; Z79.899 Other long term (current) drug therapy; Z86.73 Personal history of transient ischemic attack (TIA), and cerebral infarction without residual deficits; Z87.891 Personal history of nicotine dependence; Z90.710 Acquired absence of both cervix and uterus; Z90.49 Acquired absence of other specified parts of digestive tract; Z96.641 Presence of right artificial hip joint; Z88.8 Allergy status to other drugs, medicaments and biological substances; Z91.048 Other nonmedicinal substance allergy status; Z98.42 Cataract extraction status, left eye; Z98.41 Cataract extraction status, right eye
CPT/HCPCS: 36415; 36600; 71046; 78582; 80048; 80053; 82805; 83605; 83735; 83880; 84484; 85025; 85379; 85610; 85730; 87635; 93005; 93306; 93970; 94640; 94760

== ENCOUNTER → 2023-02-09 | Outpatient (CLI) | payer MEDICARE, OTHER ==
[2023-02-10 00:11] LABS: African American GFR (CKD) 55.7 (60.0-200.0); Anion Gap 11.2 mmol/L (10.00-18.00); Blood Urea Nitrogen 15.6 mg/dL (9.0-27.0); Carbon Dioxide 30.8 mmol/L (20.0-27.5); Potassium 3.7 mmol/L (3.5-5.5)
[2023-02-10 01:22] LABS: HCT 44.7 % (37.2-46.3); MCH 29.6 pg (27.0-32.0); MCHC 31.3 g/dL (32.0-37.0); MCV 94.5 fL (80.0-97.0); Mean Platelet Volume 12.6 fL (9.5-12.2); NRBC Per 100 WBC 0 /100 WBCS (0.0-0.0); Platelet Count 253 X 10*3/uL (140-440); RBC 4.73 X 10*6/uL (4.10-5.20); RDW 12.6 % (11.5-14.5); WBC 7.08 X 10*3/uL (4.50-10.00)
== END | disposition home or self-care (01) ==
LOC: LABPAT 15:59
PROVIDERS: ATTEND Internal Medicine Cardiovascular Disease
DX: Z01.812 Encounter for preprocedural laboratory examination (principal); R93.1 Abnormal findings on diagnostic imaging of heart and coronary circulation
CPT/HCPCS: 80051; 82565; 84520; 85027

== ENCOUNTER 2023-02-15 07:25 | Day surgery (SDC) | payer MEDICARE, OTHER ==
[~2023-02-15 07:25] MED LIST changes: +ALPRAZolam 0.25 MG TAB PO PRN; +ALPRAZolam 0.5 MG TAB PO PRN; +ASPIRIN 325 MG TAB PO STA; +ATORVASTATIN 80 MG TAB PO STA; +HEPARIN SODIUM,PORCINE 10,000 UNIT in SODIUM CHLORIDE 0.9% 1,000 ML IRRIGATION PRN; +HEPARIN SODIUM,PORCINE 2,500 UNIT in SODIUM CHLORIDE 0.9% 250 ML IRRIGATION PRN; +NITROGLYCERIN SL TABS 0.4 MG TAB SUBLINGUAL PRN; -SODIUM CHLORIDE 0.9% 1,000 ML IV SCH; +SODIUM CHLORIDE 0.9% 1,000 ML in EMPTY BAG 1 BAG IV SCH
[2023-02-15] MEDS ORDERED: SODIUM CHLORIDE 0.9% 1,000 ML IV ONE (07:46)
[2023-02-15] MEDS ORDERED: VERAPAMIL 2.5 MG/ML 2 ML AMP ONE (08:58)
[2023-02-15] MEDS ORDERED: HEPARIN SODIUM 1,000 UN/ML (10ML VL) ONE (08:58)
[2023-02-15] MEDS ORDERED: fentaNYL (PF) 50 MCG/ML 2 ML AMP ONE (08:58)
[2023-02-15] MEDS ORDERED: LIDOCAINE 2% (PF) 20 MG/ML 5 ML VIAL SQ ONE (09:06)
[2023-02-15] MEDS: MIDAZOLAM 2 MG/2 ML VIAL IV ONE ×2 (09:06→09:25)
[2023-02-15] MEDS: fentaNYL (PF) 50 MCG/ML 2 ML AMP IV ONE ×2 (09:06→09:25)
[2023-02-15] MEDS ORDERED: LIDOCAINE 1% INJ 10MG/ML (20 ML MDV) ONE (09:14)
[2023-02-15] MEDS ORDERED: LIDOCAINE 1% INJ 10MG/ML (20 ML MDV) SQ ONE (09:16)
[2023-02-15] MEDS: HEPARIN SODIUM 1,000 UN/ML (10ML VL) IVP ONE ×2 (09:50→09:59)
[2023-02-15] MEDS: NITROGLYCERIN 1000MCG/10ML SYRINGE INTRACORON ONE ×4 (09:51→10:45)
[2023-02-15] MEDS ORDERED: IOPAMIDOL-370 125ML BTL INJ ONE (10:10)
[2023-02-15] MEDS ORDERED: IOPAMIDOL-370 100ML BTL INJ ONE (10:56)
[2023-02-15] MEDS ORDERED: ALBUTEROL NEBULIZED 2.5 MG/3 ML INHALATION PRN (13:37)
[2023-02-15] MEDS ORDERED: ALBUTEROL HFA INHALER INHALATION PRN (13:37)
[2023-02-15] MEDS ORDERED: MAG HYDROX/AL HYDROX/SIMETH 30 ML CUP PO PRN (13:38)
[2023-02-15] MEDS ORDERED: RX INFO: IV CONTRAST WAS GIVEN 1 EACH MISC MISCELLANE PRN (13:38)
[2023-02-15] MEDS ORDERED: ATROPINE SULFATE 0.1 MG/ML 10ML SYRINGE IV PRN (13:38)
[2023-02-15] MEDS ORDERED: ZOLPIDEM 5 MG TAB PO PRN (13:38)
--- NOTE | 2023-02-15 14:06 | CC ---
CARDIAC CATHETERIZATION REPORT INDICATION: Known coronary artery disease with ischemic cardiomyopathy who recently presented to me with progressively worsening shortness of breath and had a stress test that showed reversibility involving inferolateral wall, due to which I advised her to undergo cardiac catheterization. She has a basal inferior wall aneurysm and has had prior angioplasty of the circumflex coronary artery. The patient had been explained of risks, benefits and alternatives. She understood and accepted. PROCEDURE NOTE: After obtaining informed consent, left heart catheterization and coronary angiogram were performed via the right femoral artery using standard Denny catheters. The patient tolerated the procedure well without any obvious immediate complications. The patient received moderate conscious sedation. Total sedation time was 31 minutes. I initially attempted right radial artery catheterization but could not obtain right radial access and hence had to proceed with right femoral cath. FINDINGS: HEMODYNAMICS: 1. Left ventricular end-diastolic pressure is 18 mm. There is no significant gradient across the aortic valve. 2. Left ventriculogram: Left ventriculogram has not been performed. ANGIOGRAPHIC DATA: Right coronary artery is a large dominant vessel that shows severe disease involving proximal mid and distal right coronary artery. At its worst, there is a 95% stenosis. The left main coronary artery is a normal-sized vessel and is free of stenosis. It divides into left anterior descending coronary artery and circumflex coronary artery. The previously stented circumflex coronary artery appears patent with mild in-stent restenoses. There is a 40% stenosis involving the LAD just past the diagonal branch. CONCLUSIONS: Patent stent within the circumflex coronary artery and severe diffuse stenosis involving right coronary artery. PLAN: I reviewed angiographic data with Dr. Leigh, the on-call commodity management specialist who will proceed with angioplasty with stent placement of the right coronary artery. I did review these issues with the patient. She understands and is in agreement with the plan. MMODL / IJN: [id number] /
--- NOTE | 2023-02-15 20:19 | P.PRCINT ---
Percutaneous Coronary Int. - Percutaneous Coronary Intervention Percutaneous Coronary Intervention: PROCEDURES PERFORMED: Right coronary angiography, PCI proximal to distal RCA into PLV with overlapping 3.5 x 38 and 2.5 x 33mm Xience CHRISTOPHER, post dilated with a 4.0 NC balloon proximally and 3.0mm balloon distally INDICATION: Chest pain, history of CAD with prior PCI PROCEDURE: After the risks, benefits and alternatives of the above mentioned procedure explained in detail with the patient, informed consent was obtained. Patient had already been taken to the catheterization lab and prepped and draped in usual fashion. A 6-Surinamese sheath had previously been placed in the right femoral artery. A 6Fr AL 0.75 guide was used to engage the RCA. A 0.014 BMW wire was advanced into the distal PLV. Predilation was performed with a 3.0 x 20 mm balloon. Next a 3.5 x 38 mm Xience CHRISTOPHER was placed in the proximal to distal RCA. The stent was postdilated with a 4.0 noncompliant balloon. Patient did have some EKG changes as well as chest pain and therefore decision was made to extend stent in the PLV with diffuse 60-70% stenosis of the RCA in the PLV. Therefore predilation was performed with a 2.5 mm balloon. Next a 2.5 x 33 mm Xience CHRISTOPHER was placed extending the stent in the PLV. The proximal portion of the stent was postdilated with a 3.0 balloon. The wire was pulled and finally angiograms were performed. Pre-intervention there was diffuse disease including 90% proximal mid RCA stenosis with JEROME 3 flow and postintervention there is less than 10% stenosis with JEROME 3 flow. There was a proximal RCA 40-50% stenosis felt best treated medically. The patient tolerated the procedure well. Patient was transported back to the post catheterization holding area in stable condition. Conscious Sedation: Patient was monitored under the direct supervision of vision of myself for conscious sedation using Versed and fentanyl for a total duration of 60 minutes HEMODYNAMICS: Ao: 122/43 SELECTIVE CORONARY ARTERIOGRAPHY: LEFT MAIN: Not imaged, see separate report. LEFT ANTERIOR DESCENDING CORONARY ARTERY: Not imaged, see separate report. LEFT CIRCUMFLEX CORONARY ARTERY: Not imaged, see separate report. RIGHT CORONARY ARTERY: The right coronary artery is a large caliber vessel which gives off a PDA and PLV branch and is the dominant vessel. There is diffuse proximal to mid RCA disease with tandem 90% stenoses and the PLV has 60-70% diffuse disease FINAL IMPRESSION: 1. CAD as described above including 90% proximal and mid RCA stenosis with 60- 70% PLV stenosis 2. S/p PCI proximal to distal RCA into PLV with overlapping 3.5 x 38 and 2.5 x 33mm Xience CHRISTOPHER, post dilated with a 4.0 NC balloon proximally and 3.0mm balloon distally PLAN: 1. Aggressive risk factor modification per most recent ACC/AHA guidelines. 2. Continue dual antiplatelets with aspirin and Plavix for 12 months.
[2023-02-15] MEDS ORDERED: NIFEdipine XL 30 MG TAB.ER.24 PO SCH (21:00)
[2023-02-15] MEDS ORDERED: MONTELUKAST 10 MG TAB PO SCH (21:00)
[2023-02-15] MEDS ORDERED: ATORVASTATIN 80 MG TAB PO SCH (21:00)
[2023-02-15] MEDS ORDERED: lisinopriL 10 MG TAB PO SCH (21:00)
[2023-02-15] MEDS ORDERED: EZETIMIBE 10 MG TAB PO SCH (21:00)
[2023-02-15] MEDS ORDERED: atenoloL 50 MG TAB PO SCH (21:00)
[2023-02-16 08:31] VITALS: BP 103/62; RESP 16; TEMP 98
[2023-02-16] MEDS ORDERED: LORATADINE 10 MG TAB PO SCH (09:00)
[2023-02-16] MEDS ORDERED: FUROSEMIDE 20 MG TAB PO SCH (09:00)
[2023-02-16] MEDS ORDERED: ISOSORBIDE DINITRATE 10 MG TAB PO SCH (09:00)
[2023-02-16] MEDS ORDERED: ASPIRIN 81 MG PO SCH (09:00)
[2023-02-16] MEDS ORDERED: CLOPIDOGREL 75 MG TAB PO SCH (09:00)
[2023-02-16] MEDS ORDERED: Mirabegron [Myrbetriq] 50 MG Tab.Er.24h PO SCH (09:00)
[2023-02-16 09:21] LABS: Basophils % (A) 1 %; Eosinophils # (A) 0.3 k/uL (0-0.7); Eosinophils % (A) 5 %; HCT 37.8 % (34.0-46.0); Lymphocytes # (A) 1.3 k/uL (1.0-4.8); Lymphocytes % (A) 19 %; MCHC 31.7 g/dL (31.0-37.0); MCV 94.7 fL (80.0-100.0); Mean Platelet Volume 8.5; Monocytes # (A) 0.5 k/uL (0-1.0); Monocytes % (A) 8 %; Neutrophils # (A) 4.5 k/uL (1.3-7.7); Neutrophils % (A) 67 %; Platelet Count 178 k/uL (150-450); RBC 3.99 m/uL (3.80-5.40); RDW 12.4 % (11.5-15.5); WBC 6.7 k/uL (3.8-10.6)
--- NOTE | 2023-02-16 09:27 | DS ---
DISCHARGE SUMMARY PROCEDURES PERFORMED: 1. Left heart catheterization. 2. Angioplasty with stent placement of right coronary artery. HISTORY OF PRESENT ILLNESS: This is a 77-year-old lady who presented to me with symptoms of unstable angina and had a stress test that showed ischemia involving the inferolateral wall, due to which we advised her to undergo cardiac catheterization. Her cardiac catheterization revealed severe critical obstructive disease involving right coronary artery for which she underwent angioplasty with stent placement. This morning, she is doing well and is free of symptoms. Denies chest pain. She has shortness of breath related to her COPD and she is receiving nebulizers. PHYSICAL EXAMINATION: VITAL SIGNS: On exam, heart rate is 80 beats per minute. Blood pressure is 103/62, respiratory rate 16. NECK: There is no jugular venous distention. Carotid upstroke is diminished. There is no bruit. CHEST: Reveals diminished air entry with mild wheezing bilaterally. HEART: Reveals first and second heart sounds. No gallop. Has a systolic murmur at the apex. ABDOMEN: Soft. EXTREMITIES: Exam of extremities did not reveal any edema. Peripheral pulses are palpable. GROIN: Free of bleeding, bruise, hematoma. Right radial artery access site shows mild ecchymosis but is otherwise normal. DISCHARGE MEDICATIONS: Include, 1. Aspirin. 2. Plavix. 3. Lasix. 4. Imdur. 5. Atenolol. 6. Nifedipine. 7. Singulair. 8. Zetia. 9. Ventolin. 10.Albuterol nebulizer. FOLLOWUP: The patient will be followed up in my office. I am going to review the EKG and labs prior to her discharge. FOLLOWUP: She will be followed up in my office in a week's time. MMODL / IJN: [id number] /
[2023-02-16 09:41] LABS: Calcium 8.4 mg/dL (8.4-10.2); Potassium 3.8 mmol/L (3.5-5.1)
[2023-02-16 12:33] VITALS: BMI 34.7
[2023-02-16 13:09] VITALS: PULSE 76
== END 2023-02-16 14:32 | disposition home or self-care (01) ==
LOC: CATHCVL 07:25 → 3SCARD 15:07 → CATHCVL 02-16 14:32
PROVIDERS: ATTEND Internal Medicine Cardiovascular Disease
DX: I25.10 Atherosclerotic heart disease of native coronary artery without angina pectoris (principal); T82.855A Stenosis of coronary artery stent, initial encounter; Y83.1 Surgical operation with implant of artificial internal device as the cause of abnormal reaction of the patient, or of later complication, without mention of misadventure at the time of the procedure; I25.5 Ischemic cardiomyopathy; Z95.5 Presence of coronary angioplasty implant and graft; I25.2 Old myocardial infarction; I10 Essential (primary) hypertension; Z79.1 Long term (current) use of non-steroidal anti-inflammatories (NSAID); Z79.82 Long term (current) use of aspirin; Z79.899 Other long term (current) drug therapy; Z87.891 Personal history of nicotine dependence
CPT/HCPCS: 94640 ×2; 94760; 93458; 80048; 85025; 99152; 99153 ×3; C9600; C1769 ×3; C1887 ×2; C1894 ×2; C1725 ×3; C1874 ×2; J2250; J2001 ×2; J3010; J1644; Q9967 ×2

== ENCOUNTER → 2023-06-30 | Outpatient (CLI) | payer MEDICARE, OTHER ==
[2023-06-30 16:17] LABS: African American GFR (CKD) 38 (>60 ml/min/1.73 sqM); Anion Gap 7 mmol/L; Blood Urea Nitrogen 34 mg/dL (7-17); Calcium 9.3 mg/dL (8.4-10.2); Carbon Dioxide 29 mmol/L (22-30); Chloride 101 mmol/L (98-107); Glucose 114 mg/dL (74-99); Non-African American GFR(CKD) 33 (>60 ml/min/1.73 sqM); Potassium 4.4 mmol/L (3.5-5.1); Sodium 137 mmol/L (137-145)
[2023-06-30 16:25] LABS: NT-Pro-B-Type Natriuretic Pept 694 pg/mL
== END | disposition home or self-care (01) ==
LOC: LABWHC1 14:47
PROVIDERS: ATTEND Internal Medicine Cardiovascular Disease
DX: I50.22 Chronic systolic (congestive) heart failure (principal)
CPT/HCPCS: 36415; 80048; 83880

== ENCOUNTER → 2024-10-21 | Outpatient (CLI) | payer MEDICARE, OTHER ==
[2024-10-22 02:48] LABS: BUN/Creat Ratio 11.54 Ratio (12.00-20.00); Calcium 9.2 mg/dL (8.7-10.3); Carbon Dioxide 25.9 mmol/L (21.6-31.8); Chloride 104 mmol/L (96-109); Glucose 109 mg/dL (70-110); Potassium 3.9 mmol/L (3.5-5.5); Sodium 143 mmol/L (135-145)
[2024-10-22 03:18] LABS: NT-Pro-B-Type Natriuretic Pept 625 pg/mL (0-450)
== END | disposition home or self-care (01) ==
LOC: LABWHC1 16:19
PROVIDERS: ATTEND Internal Medicine Cardiovascular Disease
DX: I50.20 Unspecified systolic (congestive) heart failure (principal)
CPT/HCPCS: 36415; 80048; 83880

== ENCOUNTER 2024-12-16 03:12 | Inpatient (IN) | payer MEDICARE, OTHER ==
[2024-12-16] MEDS: IPRATROPIUM 0.5 MG/2.5 ML NEBU INHALATION STA ×2 (03:58→05:07)
[2024-12-16] MEDS: ALBUTEROL NEBULIZED 2.5 MG/3 ML INHALATION SCH (03:58)
[2024-12-16 05:02] LABS: Basophils % (A) 0 %; Eosinophils % (A) 0 %; HCT 42.3 % (34.0-46.0); HGB 13.5 gm/dL (11.4-16.0); Lymphocytes # (A) 0.9 k/uL (1.0-4.8); Lymphocytes % (A) 13 %; MCH 29.5 pg (25.0-35.0); MCV 92.2 fL (80.0-100.0); Mean Platelet Volume 8.7; Monocytes # (A) 0.5 k/uL (0-1.0); Monocytes % (A) 7 %; Neutrophils # (A) 5.6 k/uL (1.3-7.7); Neutrophils % (A) 77 %; Platelet Count 184 k/uL (150-450); RBC 4.59 m/uL (3.80-5.40); RDW 12.5 % (11.5-15.5); WBC 7.2 k/uL (3.8-10.6)
[2024-12-16] MEDS: methylPREDNISolone SOD SUCCI 125 MG/2 ML VIAL IV STA (05:17)
[2024-12-16 05:18] LABS: Partial Thromboplastin Time 23.9 sec (22.0-30.0); Prothrombin Time 11.5 sec (10.0-12.5)
--- NOTE | 2024-12-16 05:35 | XR ---
EXAM: XR Chest, 2 Views CLINICAL HISTORY: ITS.REASON XR Reason: difficulty breathing TECHNIQUE: Frontal and lateral views of the chest. COMPARISON: X-ray dated 10/25/2022. FINDINGS: Lungs: The lungs are symmetrically hyperinflated. Possible right upper lobe pulmonary nodule measuring 7.4 mm. No consolidation. Pleural space: Unremarkable. No pneumothorax. Heart: Mild enlargement of the cardiac silhouette. Mediastinum: Unremarkable. Normal mediastinal contour. Bones/joints: Degenerative changes are seen in the spine and shoulders. No acute fracture. Vasculature: Calcifications overlie the aorta. IMPRESSION: 1. No acute findings seen within the chest. 2. Possible right upper lobe preliminary nodule, recommend nonemergent outpatient dedicated chest CT for further evaluation.
--- NOTE | 2024-12-16 05:36 | ED ---
General Adult HPI - General Chief complaint: Shortness of Breath Stated complaint: SOB Time Seen by Provider: 12/16/24 03:25 Source: patient, EMS Mode of arrival: EMS - History of Present Illness Initial comments: Is an 79-year-old female with past medical history of COPD, asthma, TIA, CAD presenting for shortness of breath. Hx provided by patient and S/o at bedside. States patient has been having episodes over the last 5-6 years where she will suddenly become shaky and short of breath. They occur infrequently and do not seem to have any particular triggers. She had one such episode this evening, where she was sitting in her armchair and suddenly felt weak and short of br eath. Her significant other states that she appeared pale and ill so they called 911. Patient states that she currently feels fatigued and weak as well as shortness of breath. She denies any chest pain. She endorses a cough nonproductive of sputum or hemoptysis. She denies lower extremity swelling. Denies recent fevers or chills however states that over the last 2-3 days she has been more tired than usual and slept throughout the entire day yesterday. Significant other also states that the patient had a similar episode prior to suffering a TIA about 18 month ago, however the pt denies any additional stroke like symptoms today, including no numbness, slurred speech, focal weakness or word finding difficulty. - Related Data Home Medications Medication Instructions Recorded Confirmed Montelukast [Singulair] 10 mg PO HS 04/06/16 12/16/24 Ezetimibe [Zetia] 10 mg PO HS 06/13/22 12/16/24 Mirabegron [Myrbetriq] 50 mg PO DAILY 06/13/22 12/16/24 NIFEdipine [Adalat CC] 30 mg PO HS 06/13/22 12/16/24 lisinopriL [Prinivil] 10 mg PO HS 06/13/22 12/16/24 Furosemide [Lasix] 20 mg PO DAILY 10/25/22 12/16/24 Isosorbide Dinitrate 30 mg PO DAILY 02/13/23 12/16/24 Previous Rx's Medication Instructions Recorded Atorvastatin [Lipitor] 80 mg PO HS #30 tab 06/14/22 Clopidogrel [Plavix] 75 mg PO DAILY #30 tablet 10/27/22 Allergies Allergy/AdvReac Type Severity Reaction Status Date / Time nickel Allergy Rash/Hives Verified 12/16/24 07:24 topiramate [From Topamax] AdvReac trouble Verified 12/16/24 07:24 swallowing Review of Systems ROS Statement: Those systems with pertinent positive or pertinent negative responses have been documented in the HPI. ROS Other: All systems not noted in ROS Statement are negative. Past Medical History Past Medical History: Asthma, Hyperlipidemia, Hypertension, Myocardial Infarction ([place]), Mitral Valve Prolapse (MVP), Osteoarthritis (OA) Additional Past Medical History / Comment(s): ?MVP-told [place] ago [place] of [place] but has never had tx. for, cataracts bilaterally, recent adm. [facility] for TIA-sx.'s resolved Last Myocardial Infarction Date:: 2001 History of Any Multi-Drug Resistant Organisms: None Reported Past Surgical History: Appendectomy, Heart Catheterization With Stent, Hysterectomy, Joint Replacement, Tonsillectomy Additional Past Surgical History / Comment(s): 04/18/16 Total R hip arthroplasty anterior approach. Other surgical hx: colonoscopy Past Anesthesia/Blood Transfusion Reactions: No Reported Reaction, Motion Sickness Additional Past Anesthesia/Blood Transfusion Reaction / Comment(s): "I have been told I fight going to sleep",no problems w/ prior blood transfusion Date of Last Stent Placement:: 2001 Past Psychological History: No Psychological Hx Reported Smoking Status: Former smoker Past Alcohol Use History: None Reported Past Drug Use History: None Reported - Past Family History Mother Family Medical History: No Reported History Additional Family Medical History / Comment(s): Mother was healthy as far as pt knows. She in her 70's Father Family Medical History: Hyperlipidemia General Exam - General Exam Comments Initial Comments: PE: CONSTITUTIONAL: No apparent distress, chronically ill appearing, nontoxic SKIN: Warm, dry, no jaundice, hives or petechiae EYES: Pupils are equally round, extraocular movements intact without nystagmus, clear conjunctiva, non-icteric sclera HENT: Normocephalic, atraumatic, moist mucus membranes, oropharynx clear without exudates NECK: , Full range of motion, normal appearance PULMONARY: Scant wheeze in the bilateral lung ford without rhonchi rales or stridor, normal excursion accessory muscle use CARDIOVASCULAR: Regular rate, rhythm, normal S1 and S2. No appreciated murmurs, rubs or gallops. Strong radial pulses with intact distal perfusion. No lower extremity edema GASTROINTESTINAL: Soft, active bowel sounds throughout, non-tender, non- distended, no palpable masses, no rebound or guarding. No hepatosplenomegaly GENITOURINARY: MUSCULOSKELETAL: Extremities have no gross deformity, no edema, redness, or swelling. No calf swelling NEUROLOGIC:_a/o x 3, GCS 15, normal mentation and speech. Moves all extremities x 4 without motor or sensory deficit PSYCHIATRIC:_normal mood and affect, thought process is clear and linear Course Vital Signs 12/16/24 12/16/24 12/16/24 03:16 03:24 03:59 Temperature 98.7 F Pulse Rate 105 H 103 H Respiratory 18 18 Rate Blood Pressure 137/80 O2 Sat by Pulse 98 Oximetry 12/16/24 12/16/24 12/16/24 04:13 04:14 04:37 Temperature Pulse Rate 91 100 111 H Respiratory Rate Blood Pressure O2 Sat by Pulse Oximetry 12/16/24 12/16/24 12/16/24 06:23 07:34 09:18 Temperature Pulse Rate 111 H 105 H 96 Respiratory 18 20 20 Rate Blood Pressure 148/76 152/99 O2 Sat by Pulse 97 96 91 L Oximetry 12/16/24 12/16/24 12/16/24 09:59 10:47 13:27 Temperature Pulse Rate 82 74 Respiratory 19 Rate Blood Pressure 141/76 83/55 109/70 O2 Sat by Pulse 95 93 L Oximetry 12/16/24 12/16/24 12/17/24 18:43 21:12 05:11 Temperature 98.0 F Pulse Rate 85 78 65 Respiratory 18 18 18 Rate Blood Pressure 162/86 145/80 O2 Sat by Pulse 95 97 98 Oximetry 12/17/24 12/17/24 12/17/24 05:25 05:36 06:16 Temperature Pulse Rate 86 77 79 Respiratory 18 Rate Blood Pressure 115/66 O2 Sat by Pulse 100 Oximetry 12/17/24 12/17/24 12/17/24 07:37 08:42 09:16 Temperature Pulse Rate 83 105 H 76 Respiratory 14 20 18 Rate Blood Pressure 119/59 116/93 94/57 O2 Sat by Pulse 97 100 99 Oximetry 12/17/24 12/17/24 12/17/24 09:54 10:56 11:18 Temperature 98.1 F Pulse Rate 91 82 87 Respiratory 20 16 18 Rate Blood Pressure 127/97 79/59 90/51 O2 Sat by Pulse 98 96 98 Oximetry 12/17/24 12/17/24 12/17/24 13:33 15:29 16:00 Temperature Pulse Rate 69 77 81 Respiratory 14 16 16 Rate Blood Pressure 112/83 121/50 98/71 O2 Sat by Pulse 94 L 97 100 Oximetry 12/17/24 12/17/24 12/17/24 17:30 18:38 22:58 Temperature Pulse Rate 87 94 90 Respiratory 14 14 18 Rate Blood Pressure 93/63 117/47 96/75 O2 Sat by Pulse 97 95 100 Oximetry EKG Findings - EKG Comments: EKG Findings:: Sinus tachycardia, rate 105 bpm IL interval 154 ms QT/QTc 355/460 ms, left axis deviation, no ST elevations or depressions Medical Decision Making - Medical Decision Making Was pt. sent in by a medical professional or institution (, PA, ROUGE PRESSER, urgent care, hospital, or custodial...) When possible be specific @ -No Did you speak to anyone other than the patient for history (EMS, parent, family, police, friend...)? What history was obtained from this source @ -No Did you review nursing and triage notes (agree or disagree)? Why? @ -I reviewed nursing and triage notes Differential Diagnosis (chest pain, altered mental status, abdominal pain women, abdominal pain men, vaginal bleeding, weakness, fever, dyspnea, syncope, headache, dizziness, GI bleed, back pain, seizure, CVA, palpatations, mental health, musculoskeletal)? Differential Dyspnea: Coronary syndrome, arrhythmia, tamponade, asthma, COPD, pneumonia, pneumothorax, pulmonary effusion,, anemia, neuromuscular, this is not meant to be an all- inclusive list. EKG interpreted by me (3pts min.). @ -As above X-rays interpreted by me (1pt min.). @No cardiomegaly, consolidations or pleural effusions CT interpreted by me (1pt min.). @ -None done U/S interpreted by me (1pt. min.). @ -None done What testing was considered but not performed or refused? (CT, X-rays, U/S, labs)? Why? @ -None What meds were considered but not given or refused? Why? @ -None Did you discuss the management of the patient with other professionals (professionals i.e. , PA, ROUGE PRESSER, lab, RT, psych nurse, manager social, electronics repair technician, teacher, air control/anti air warfare officer, comp field case manager)? Give summary @ -No Was smoking cessation discussed for >3mins.? @ -No Was critical care preformed (if so, how long)? @ -No Were there social determinants of health that impacted care today? How? (Homelessness, low income, unemployed, alcoholism, drug addiction, transportation, low edu. Level, literacy, decrease access to med. care, retirement, rehab)? @ -No Was there de-escalation of care discussed even if they declined (Discuss DNR or withdrawal of care, Hospice)? @ -No What co-morbidities impacted this encounter? (DM, HTN, Smoking, COPD, CAD, Cancer, CVA, ARF, Chemo, Hep., AIDS, mental health diagnosis, sleep apnea, morbid obesity)? CAD, COPD, asthma, prior TIA Was patient admitted / discharged? Hospital course, mention meds given and route, prescriptions, significant lab abnormalities, going to OR and other pertinent info. @ -Admission- This is a pleasant 79-year-old female past medical history COPD, CAD, asthma, TIA presenting today for weakness and shortness of breath. Accompanied by significant other. On my assessment patient arrives on nasal cannula, however upon removal patient's pulse ox remained at 90% which is satisfactory with history of COPD. Complete history and physical exam perfo rmed. Physical exam revealed scant wheeze in the bilateral lung field. Differential diagnosis as above. Given wheezes on exam I suspicion for asthma/COPD exacerbation though additional differential noted as above. Plan for chest x-ray, comprehensive labs, DuoNeb, steroids are all testing. Patient agreeable plan of care. Patient received [id number] nebulizers, steroids. Labs significant for elevated troponin of 0 0.159. Patient denies any chest pain currently. EKG does not show changes consistent with STEMI. I suspect this is secondary to type II ischemia. BNP elevated 10,600. Will give 40 mg IV Lasix. Discussed with patient and plan for admission, additionally discussed possible incidental finding of pulmonary nodule on chest x-ray and discussed with patient the importance of following up outpatient within the next 3 months for close monitoring.. Case was discussed with Dr. Bliss who kindly accepted patient for admission. Undiagnosed new problem with uncertain prognosis? @ -No Drug Therapy requiring intensive monitoring for toxicity (Heparin, Nitro, Insul in, Cardizem)? @ -No Were any procedures done? @ -No Diagnosis/symptom? @CHF exacerbation, COPD exacerbation Acute, or Chronic, or Acute on Chronic? Acute Uncomplicated (without systemic symptoms) or Complicated (systemic symptoms)? Complicated Side effects of treatment? @ -No Exacerbation, Progression, or Severe Exacerbation? @ -No Poses a threat to life or bodily function? How? (Chest pain, [place], [place], pneumonia, PE, COPD, DKA, ARF, appy, cholecystitis, CVA, Diverticulitis, Homicidal, Suicidal, threat to staff... and all critical care pts) @ -Yes - Lab Data Result diagrams: 12/18/24 17:07 12/18/24 06:30 Lab Results 12/16/24 12/16/24 12/16/24 Range/Units 03:56 03:56 03:56 WBC 7.2 (3.8-10.6) k/uL RBC 4.59 (3.80-5.40) m/uL Hgb 13.5 (11.4-16.0) gm/dL Hct 42.3 (34.0-46.0) % MCV 92.2 (80.0-100.0) fL MCH 29.5 (25.0-35.0) pg MCHC 32.0 (31.0-37.0) g/dL RDW 12.5 (11.5-15.5) % Plt Count 184 (150-450) k/uL MPV 8.7 Neutrophils % 77 % Lymphocytes % 13 % Monocytes % 7 % Eosinophils % 0 % Basophils % 0 % Neutrophils # 5.6 (1.3-7.7) k/uL Lymphocytes # 0.9 L (1.0-4.8) k/uL Monocytes # 0.5 (0-1.0) k/uL Eosinophils # 0.0 (0-0.7) k/uL Basophils # 0.0 (0-0.2) k/uL PT 11.5 (10.0-12.5) sec INR 1.0 (<1.2) APTT 23.9 (22.0-30.0) sec Sodium 137 (137-145) mmol/L Potassium 4.3 (3.5-5.1) mmol/L Chloride 101 (98-107) mmol/L Carbon Dioxide 25 (22-30) mmol/L Anion Gap 11 mmol/L BUN 19 H (7-17) mg/dL Creatinine 1.03 (0.52-1.04) mg/dL Est GFR (CKD-EPI)AfAm 59 (>60 ml/min/1.73 sqM) Est GFR (CKD-EPI)NonAf 52 (>60 ml/min/1.73 sqM) Glucose 130 H (74-99) mg/dL Calcium 9.1 (8.4-10.2) mg/dL Total Bilirubin 0.6 (0.2-1.3) mg/dL AST 32 (14-36) U/L ALT 18 (4-34) U/L Alkaline Phosphatase 75 (38-126) U/L Troponin I (0.000-0.034) ng/mL NT-Pro-B Natriuret Pep 30005 pg/mL Total Protein 6.6 (6.3-8.2) g/dL Albumin 4.0 (3.5-5.0) g/dL 12/16/24 Range/Units 03:56 WBC (3.8-10.6) k/uL RBC (3.80-5.40) m/uL Hgb (11.4-16.0) gm/dL Hct (34.0-46.0) % MCV (80.0-100.0) fL MCH (25.0-35.0) pg MCHC (31.0-37.0) g/dL RDW (11.5-15.5) % Plt Count (150-450) k/uL MPV Neutrophils % % Lymphocytes % % Monocytes % % Eosinophils % % Basophils % % Neutrophils # (1.3-7.7) k/uL Lymphocytes # (1.0-4.8) k/uL Monocytes # (0-1.0) k/uL Eosinophils # (0-0.7) k/uL Basophils # (0-0.2) k/uL PT (10.0-12.5) sec INR (<1.2) APTT (22.0-30.0) sec Sodium (137-145) mmol/L Potassium (3.5-5.1) mmol/L Chloride (98-107) mmol/L Carbon Dioxide (22-30) mmol/L Anion Gap mmol/L BUN (7-17) mg/dL Creatinine (0.52-1.04) mg/dL Est GFR (CKD-EPI)AfAm (>60 ml/min/1.73 sqM) Est GFR (CKD-EPI)NonAf (>60 ml/min/1.73 sqM) Glucose (74-99) mg/dL Calcium (8.4-10.2) mg/dL Total Bilirubin (0.2-1.3) mg/dL AST (14-36) U/L ALT (4-34) U/L Alkaline Phosphatase (38-126) U/L Troponin I 0.156 H* (0.000-0.034) ng/mL NT-Pro-B Natriuret Pep pg/mL Total Protein (6.3-8.2) g/dL Albumin (3.5-5.0) g/dL Disposition Clinical Impression: Lung nodule, Acute exacerbation of CHF (congestive heart failure), COPD exacerbation Disposition: ADMITTED IP TO THIS HOSP Condition: Stable
[2024-12-16 05:46] LABS: ALT 18 U/L (4-34); African American GFR (CKD) 59 (>60 ml/min/1.73 sqM); Anion Gap 11 mmol/L; Blood Urea Nitrogen 19 mg/dL (7-17); Calcium 9.1 mg/dL (8.4-10.2); Carbon Dioxide 25 mmol/L (22-30); Chloride 101 mmol/L (98-107); Glucose 130 mg/dL (74-99); Non-African American GFR(CKD) 52 (>60 ml/min/1.73 sqM); Sodium 137 mmol/L (137-145); Total Bilirubin 0.6 mg/dL (0.2-1.3); Total Protein 6.6 g/dL (6.3-8.2)
[2024-12-16 05:47] LABS: AST 32 U/L (14-36); Alkaline Phosphatase 75 U/L (38-126); Potassium 4.3 mmol/L (3.5-5.1)
[2024-12-16 05:54] LABS: NT-Pro-B-Type Natriuretic Pept 10900 pg/mL
[2024-12-16] MEDS ORDERED: ALBUTEROL HFA INHALER INHALATION PRN (06:31)
[2024-12-16] MEDS: FUROSEMIDE 10 MG/ML 4 ML VIAL IV STA (07:39)
[2024-12-16] MEDS: HEPARIN SODIUM 1,000 UN/ML (10ML VL) IV ONE (08:36)
[2024-12-16] MEDS: HEPARIN SOD,PORK IN 0.45% NACL 25,000 UNIT in 0.45% NACL 1 250ML.BAG IV SCH (08:37)
[2024-12-16] MEDS: CLOPIDOGREL 75 MG TAB PO SCH (08:40)
--- NOTE | 2024-12-16 09:51 | P.CRDCN ---
History of Present Illness History of present illness: HISTORY OF PRESENT ILLNESS: This is a 79-year-old female with a past medical history significant for coronary artery disease, ischemic cardiomyopathy, moderate mitral regurgitation, hypertension, and hyperlipidemia. Patient follows in the office with Dr. Bates. We have been asked to see the patient in consultation for CHF. Patient examined at the bedside in the emergency room. Patient's is present. Patient and her are both somewhat of poor historians. Apparently yesterday when the patient was at home she was complaining to her that she was not feeling well. Her states that she was unable to walk and was complaining of shortness of breath. She denied having any chest pain or pressure. At the time of examination this morning she denies any chest pain or pressure. Denies any shortness of breath. Vital signs are stable. DIAGNOSTICS: - EKG reveals sinus tachycardia with incomplete right bundle branch block. No signs of acute ischemia. - Chest xray no acute findings within the chest. Possible right upper lobe preliminary nodule. Recommend nonemergent outpatient dedicated chest CT for further evaluation. - Laboratory data: WBC 7.2. Hemoglobin 13.5. Platelet count 184. Sodium 137. Potassium 4.3. BUN 19. Creatinine 1.03. Troponin 0.156. proBNP 10,900. - Current home cardiac medications include Plavix 75 mg daily, Lipitor 80 mg at night, Zetia 10 mg at night, Imdur 30 mg daily, nifedipine 30 mg at night, lisinopril 10 mg at night, Lasix 20 mg daily. - Most recent echocardiogram obtained in October 2022 revealing ejection fraction 45 to 50%, basal inferior hypokinesis, mild MR, mild TR - Cardiac catheterization history: February 2023 revealing 90% proximal and mid RCA stenosis with 60 to 70% PLV stenosis. Patient underwent PCI of proximal to distal RCA into PLV with overlapping stents. REVIEW OF SYSTEMS: At the time of my exam: CONSTITUTIONAL: Denies fever or chills. HEENT: Denies blurred vision, vision changes, or eye pain. Denies hemoptysis CARDIOVASCULAR: Denies chest pain. Denies orthopnea. Denies PND. Denies palpitations RESPIRATORY: Denies shortness of breath. GASTROINTESTINAL: Denies abdominal pain. Denies nausea or vomiting. HEMATOLOGIC: Denies bleeding disorders. GENITOURINARY: Denies any blood in urine. SKIN: Denies pruitis. Denies rash. PHYSICAL EXAM: VITAL SIGNS: Reviewed. GENERAL: Well-developed in no acute distress. HEENT: Head is normocephalic. Pupils are equal, round. Sclerae anicteric. Mucous membranes of the mouth are moist. Neck supple. No JVD or thyromegaly LUNGS: Respirations even and unlabored. Lungs with expiratory wheezing noted HEART: Regular rate and rhythm. S1 and S2 heard. ABDOMEN: Soft. Nondistended. Nontender. EXTREMITIES: Normal range of motion. No clubbing or cyanosis. Peripheral pulses intact. Bilateral lower extremity edema noted. NEUROLOGIC: Awake and alert. Oriented x 3. ASSESSMENT: Shortness of breath Generalized weakness Acute on chronic heart failure with mildly reduced EF, 45 to 50% Elevated troponin x 1 sample, possible non-STEMI versus type II NM Coronary artery disease with previous stenting of the RCA, February 2023 Hypertension Hyperlipidemia Obesity: BMI 31.2 Former nicotine dependence PLAN: Obtain 2D echo to assess cardiac structure and function Continue IV heparin. Continue to trend troponins Continue IV lasix 40mg q12 hours Daily weights, accurate intake and output, and monitoring of kidney function Resume home cardiac medications Add metoprolol tartrate 25 mg twice a day Further recommendations pending patient course Nurse practitioner note has been reviewed by physician. Signing provider agrees with the documented findings, assessment, and plan of care documented by HEAD COUNSELOR as a scribe. Past Medical History Past Medical History: Asthma, Hyperlipidemia, Hypertension, Myocardial Infarction ([place]), Mitral Valve Prolapse (MVP), Osteoarthritis (OA) Additional Past Medical History / Comment(s): ?MVP-told [place]rs. ago out of [place] but has never had tx. for, cataracts bilaterally, recent adm[facility]-sx[facility]s resolved Last Myocardial Infarction Date:: 2001 History of Any Multi-Drug Resistant Organisms: None Reported Past Surgical History: Appendectomy, Heart Catheterization With Stent, Hysterectomy, Joint Replacement, Tonsillectomy Additional Past Surgical History / Comment(s): 04/18/16 Total R hip arthroplasty anterior approach. Other surgical hx: colonoscopy Past Anesthesia/Blood Transfusion Reactions: No Reported Reaction, Motion Sickness Additional Past Anesthesia/Blood Transfusion Reaction / Comment(s): "I have been told I fight going to sleep",no problems w/ prior blood transfusion Date of Last Stent Placement:: 2001 Past Psychological History: No Psychological Hx Reported Smoking Status: Former smoker Past Alcohol Use History: None Reported Past Drug Use History: None Reported - Past Family History Mother Family Medical History: No Reported History Additional Family Medical History / Comment(s): Mother was healthy as far as pt knows. She in her 70's Father Family Medical History: Hyperlipidemia Medications and Allergies Home Medications Medication Instructions Recorded Confirmed Type Montelukast [Singulair] 10 mg PO HS 04/06/16 12/16/24 History Ezetimibe [Zetia] 10 mg PO HS 06/13/22 12/16/24 History Mirabegron [Myrbetriq] 50 mg PO DAILY 06/13/22 12/16/24 History NIFEdipine [Adalat CC] 30 mg PO HS 06/13/22 12/16/24 History lisinopriL [Prinivil] 10 mg PO HS 06/13/22 12/16/24 History Atorvastatin [Lipitor] 80 mg PO HS #30 tab 06/14/22 12/16/24 Rx Furosemide [Lasix] 20 mg PO DAILY 10/25/22 12/16/24 History Clopidogrel [Plavix] 75 mg PO DAILY #30 tablet 10/27/22 12/16/24 Rx Isosorbide Dinitrate 30 mg PO DAILY 02/13/23 12/16/24 History Allergies Allergy/AdvReac Type Severity Reaction Status Date / Time nickel Allergy Rash/Hives Verified 12/16/24 07:24 topiramate [From Topamax] AdvReac trouble Verified 12/16/24 07:24 swallowing Physical Exam Vitals: Vital Signs Temp Pulse Resp BP Pulse Ox 12/16/24 07:34 105 H 20 152/99 96 12/16/24 06:23 111 H 18 148/76 97 12/16/24 04:37 111 H 12/16/24 04:14 100 12/16/24 04:13 91 12/16/24 03:59 103 H 12/16/24 03:24 18 12/16/24 03:16 98.7 F 105 H 18 137/80 98 Intake and Output 12/15/24 12/16/24 12/16/24 22:59 06:59 14:59 Other: Weight 72.575 kg Results 12/16/24 03:56 12/16/24 03:56 Cardiac Enzymes 12/16/24 12/16/24 Range/Units 03:56 03:56 AST 32 (14-36) U/L Troponin I 0.156 H* (0.000-0.034) ng/mL Coagulation 12/16/24 Range/Units 03:56 PT 11.5 (10.0-12.5) sec APTT 23.9 (22.0-30.0) sec CBC 12/16/24 Range/Units 03:56 WBC 7.2 (3.8-10.6) k/uL RBC 4.59 (3.80-5.40) m/uL Hgb 13.5 (11.4-16.0) gm/dL Hct 42.3 (34.0-46.0) % Plt Count 184 (150-450) k/uL Comprehensive Metabolic Panel 12/16/24 Range/Units 03:56 Sodium 137 (137-145) mmol/L Potassium 4.3 (3.5-5.1) mmol/L Chloride 101 (98-107) mmol/L Carbon Dioxide 25 (22-30) mmol/L BUN 19 H (7-17) mg/dL Creatinine 1.03 (0.52-1.04) mg/dL Glucose 130 H (74-99) mg/dL Calcium 9.1 (8.4-10.2) mg/dL AST 32 (14-36) U/L ALT 18 (4-34) U/L Alkaline Phosphatase 75 (38-126) U/L Total Protein 6.6 (6.3-8.2) g/dL Albumin 4.0 (3.5-5.0) g/dL Current Medications Generic Name Dose Route Start Last Admin Trade Name Freq PRN Reason Stop Dose Admin Albuterol Sulfate 2 puff 12/16/24 06:31 Albuterol Hfa Inhaler INHALATION Q6H PRN sob Albuterol Sulfate 2.5 mg 12/16/24 06:31 Albuterol Nebulized 2.5 Mg/3 Ml INHALATION Q4H PRN sob Atorvastatin Calcium 80 mg 12/16/24 21:00 Atorvastatin 80 Mg Tab PO HS [facility] Clopidogrel Bisulfate 75 mg 12/16/24 09:00 Clopidogrel 75 Mg Tab PO DAILY [facility] Ezetimibe 10 mg 12/16/24 21:00 Ezetimibe 10 Mg Tab PO HS [facility] Furosemide 40 mg 12/16/24 18:00 Furosemide 10 Mg/Ml 4 Ml Vial IV Q12H [facility] Heparin Sodium (Porcine) 0 unit 12/16/24 08:03 Heparin Sodium 1,000 Un/Ml (10ml Vl) IV PER PROTOCOL PRN Low PTT Protocol Heparin Sodium/Sodium Chloride 250 mls @ 8.709 mls/hr 12/16/24 08:15 25,000 unit/ Sodium Chloride IV .Q24H [facility] Protocol 12 UNITS/KG/HR Isosorbide Dinitrate 30 mg 12/16/24 09:00 Isosorbide Dinitrate 10 Mg Tab PO DAILY [facility] Lisinopril 10 mg 12/16/24 21:00 Lisinopril 10 Mg Tab PO HS [facility] Montelukast Sodium 10 mg 12/16/24 21:00 Montelukast 10 Mg Tab PO HS [facility] Nifedipine 30 mg 12/16/24 21:00 Nifedipine Xl 30 Mg Tab.Er.24 PO HS [facility] Intake and Output 12/15/24 12/16/24 12/16/24 22:59 06:59 14:59 Other: Weight 72.575 kg 12/16/24 03:56 12/16/24 03:56
[2024-12-16] MEDS: METOPROLOL TARTRATE 25 MG TAB PO SCH (09:58)
[2024-12-16] MEDS: ISOSORBIDE DINITRATE 10 MG TAB PO SCH (09:58)
[2024-12-16] MEDS: ASPIRIN 81 MG PO STA (10:03)
--- NOTE | 2024-12-16 11:04 | P.HPIM ---
History of Present Illness H&P Date: 12/16/24 History of Presenting Illness: Patient is a very pleasant 79-year-old female with a past medical history of CAD status post stenting x 3, chronic systolic heart failure, ischemic cardiomyopathy, hypertension, hyperlipidemia, and osteoarthritis. She reports following outpatient with maintenance plumber, Dr. Bates and states last VT with stent placement was approximately 2 or 3 years ago. Patient reports she is on Plavix and Lasix and has not missed any doses of her medications. She reports she came to the hospital secondary to shortness of breath. Patient's at bedside and tearful at times expressing concern for his . He states yesterday she was complaining of shortness of breath and generalized fatigue. He states at first he thought maybe she needed to just get some rest but states the symptoms continued and she was even unable to ambulate to the restroom due to her worsening shortness of breath so he brought her to the emergency department for evaluation. Patient denies having any fevers, chills, dizziness, lightheadedness, chest pain or palpitations, cough or congestion, abdominal pain, nausea, vomiting, or experiencing any numbness/tingling/weakness/swelling in her extremities. Upon arrival to our facility, patient underwent evaluation in the emergency department. Vital signs upon arrival show blood pressure 137/80, heart rate 105, respiratory rate 18, temp 98.7 F, and SpO2 of 90% on 2 L. EKG completed showing sinus tachycardia at 105 bpm with T wave inversion in lateral lead aVL otherwise no significant T wave or ST abnormalities noted. Chest x-ray completed showing possible right upper lobe pulmonary nodule m easuring 7.4 mm, recommend outpatient dedicated CT scan for further evaluation/surveillance. Labs completed and reviewed. CBC unremarkable. Coagulation profile normal findings. BMP showing slightly elevated BUN of 19 otherwise normal findings. Blood glucose 130. Calcium 9.1. Liver profile unr emarkable. Troponin elevated at 0.156 and proBNP 10,900. Influenza B, RSV, and COVID PCR were negative influenza A was positive. Patient was admitted under our services with consult to cardiology. Review of systems: Pertinent positives and negatives as discussed in HPI, a complete review of systems was performed and all other systems are negative. Physical exam: Vital signs reviewed and stable. General: Nontoxic, no distress and appears stated age. Derm: Skin warm and dry, normal coloration for ethnicity. Head: Atraumatic, normocephalic and symmetric. Eyes: EOM's intact, no lid lag, and anicteric sclera Mouth: no lip lesions, mucus membranes moist Cardiovascular: regular rate and rhythm with normal S1S2, soft systolic murmur, positive posterior tibial pulses bilaterally, and cap refill < 2 seconds. Lungs: Respirations even, regular, and unlabored on 2 L O2 via nasal cannula. Lungs slightly diminished with diffuse expiratory wheezes bilaterally. No rhonchi, rales, or crackles noted. Abdominal: soft, nontender to palpation, no guarding, no appreciable organomegaly Ext: ROM intact. No gross muscle atrophy, scant to 1+ lower extremity edema, no contractures Neuro: Speech clear, face symmetrical and CN II-XII grossly intact with no noted focal neuro deficits Psych: Alert and oriented to person, place, time, and situation. Appropriate and pleasant affect. Assessment and Plan of Care: Acute on chronic systolic heart failure exacerbation Influenza A Elevated troponin History of CAD status post stenting Ischemic cardiomyopathy Hypertension Hyperlipidemia -Cardiology consulted, appreciate recommendations -Order placed for heparin infusion secondary to elevated troponin of 0.156. Closely monitor PTT every 6 hours for goal therapeutic range of 45 to 79 seconds. -Telemetry monitoring -Trend troponins -ProBNP 10,900 -Daily weights and Close monitoring of I's and O's -Cardiac diet with 1500 cc fluid restrictions -Lasix 40 mg IVP every 12 hours -Aspirin 324 mg p.o. x 1 dose followed by 81 mg daily, atorvastatin 80 mg nightly, Plavix 75 mg daily, Zetia 10 mg nightly, isosorbide mononitrate 30 mg daily, lisinopril 10 mg nightly, metoprolol 25 mg twice daily, and nifedipine 30 mg nightly. -Patient started on Tamiflu 75 mg every 12 hours x 5 days. -Continued close monitoring of electrolytes while diuresing. -Echocardiogram to be completed. Incidental finding on chest x-ray -Chest x-ray showing possible 7.4 mm pulmonary nodule in right upper lobe, recommend outpatient CT for follow-up/surveillance. Data and imaging reviewed: As stated above in HPI. CODE STATUS: Full Code DVT prophylaxis: Heparin infusion Discussed with: Patient, patient's , RN, and ED physician Anticipated discharge date: Pending clinical course Anticipated discharge place: Home Patient was seen independently by Nurse Practitioner. This document was prepared using [employer] dictation software. Please allow for errors in sales service coordinator while rare they do occur. Velasquez Manzanares NP rendered care for this patient independently, reviewed the findings and plan as documented in the note above and agree with plan. I did not physically speak with or examine the patient on this date. Past Medical History Past Medical History: Asthma, Hyperlipidemia, Hypertension, Myocardial Infarction ([place]), Mitral Valve Prolapse (MVP), Osteoarthritis (OA) Additional Past Medical History / Comment(s): ?MVP-told [place]rs. ago out of [place] but has never had tx. for, cataracts bilaterally, recent adm[facility] for [facility]IA-sx[facility]s resolved Last Myocardial Infarction Date:: 2001 History of Any Multi-Drug Resistant Organisms: None Reported Past Surgical History: Appendectomy, Heart Catheterization With Stent, Hysterectomy, Joint Replacement, Tonsillectomy Additional Past Surgical History / Comment(s): 04/18/16 Total R hip arthroplasty anterior approach. Other surgical hx: colonoscopy Past Anesthesia/Blood Transfusion Reactions: No Reported Reaction, Motion Sickness Additional Past Anesthesia/Blood Transfusion Reaction / Comment(s): "I have been told I fight going to sleep",no problems w/ prior blood transfusion Date of Last Stent Placement:: 2001 Past Psychological History: No Psychological Hx Reported Smoking Status: Former smoker Past Alcohol Use History: None Reported Past Drug Use History: None Reported - Past Family History Mother Family Medical History: No Reported History Additional Family Medical History / Comment(s): Mother was healthy as far as pt knows. She in her 70's Father Family Medical History: Hyperlipidemia Medications and Allergies Home Medications Medication Instructions Recorded Confirmed Type Montelukast [Singulair] 10 mg PO HS 04/06/16 12/16/24 History Ezetimibe [Zetia] 10 mg PO HS 06/13/22 12/16/24 History Mirabegron [Myrbetriq] 50 mg PO DAILY 06/13/22 12/16/24 History NIFEdipine [Adalat CC] 30 mg PO HS 06/13/22 12/16/24 History lisinopriL [Prinivil] 10 mg PO HS 06/13/22 12/16/24 History Atorvastatin [Lipitor] 80 mg PO HS #30 tab 06/14/22 12/16/24 Rx Furosemide [Lasix] 20 mg PO DAILY 10/25/22 12/16/24 History Clopidogrel [Plavix] 75 mg PO DAILY #30 tablet 10/27/22 12/16/24 Rx Isosorbide Dinitrate 30 mg PO DAILY 02/13/23 12/16/24 History Allergies Allergy/AdvReac Type Severity Reaction Status Date / Time nickel Allergy Rash/Hives Verified 12/16/24 07:24 topiramate [From Topamax] AdvReac trouble Verified 12/16/24 07:24 swallowing Physical Exam Vitals: Vital Signs Temp Pulse Resp BP Pulse Ox 12/16/24 07:34 105 H 20 152/99 96 12/16/24 06:23 111 H 18 148/76 97 12/16/24 04:37 111 H 12/16/24 04:14 100 12/16/24 04:13 91 12/16/24 03:59 103 H 12/16/24 03:24 18 12/16/24 03:16 98.7 F 105 H 18 137/80 98 Intake and Output 12/15/24 12/16/24 12/16/24 22:59 06:59 14:59 Other: Weight 72.575 kg Results CBC & Chem 7: 12/16/24 03:56 12/16/24 03:56 Labs: Abnormal Lab Results - Last 24 Hours (Table) 12/16/24 12/16/24 12/16/24 Range/Units 03:56 03:56 03:56 Lymphocytes # 0.9 L (1.0-4.8) k/uL BUN 19 H (7-17) mg/dL Glucose 130 H (74-99) mg/dL Troponin I 0.156 H* (0.000-0.034) ng/mL
[2024-12-16 11:42] LABS: Influenza A Detected (Not Detectd); Influenza B Not Detected (Not Detectd); RSV Not Detected (Not Detectd)
[2024-12-16] MEDS: OSELTAMIVIR 30 MG CAP PO SCH (13:31)
--- NOTE | 2024-12-16 15:44 | P.CNPUL ---
History of Present Illness Consult date: 12/16/24 Requesting physician: Jacinta Bliss Reason for consult: dyspnea Chief complaint: Generalized weakness, shortness of breath History of present illness: This is an 79-year-old female patient with a known history of hypertension, hyperlipidemia, congestive heart failure, coronary artery disease with previous stent placements, former smoker mild intermittent chronic bronchial asthma. She presented here to the emergency room early this morning with progressive weakness and significant dyspnea on exertion. Chest x-ray reveals no acute cardiopulmonary findings. Possible right upper lobe preliminary nodule. White count 7.2. Hemoglobin 13.5. Platelets 184. Sodium 137. Potassium 4.3. B icarb 25. BUN 19. Creatinine 1.03. Glucose 130. Troponin 0.156, 0.161, 0.156. proBNP 10,900. Viral screen positive for influenza A. She is seen today in consultation in the emergency department. Currently sitting up on a stretcher. Awake and alert in no acute distress. Denies any worsening shortness of breath, cough or congestion. Denies any chest pain. Maintaining O2 saturations in the 90s on room air. She is afebrile. Hemodynamically stable. Review of Systems REVIEW OF SYSTEMS: CONSTITUTIONAL: Positive for generalized weakness. Denies any recent sig nificant weight loss or weight gain. EYES: Denies change in vision. EARS, NOSE, MOUTH, THROAT: Denies headaches, denies sore throat. CARDIOVASCULAR: Denies chest pain, palpitations or syncopal episodes. RESPIRATORY: Positive for shortness of breath, no cough, congestion or hemoptysis. GASTROINTESTINAL: Denies change in appetite, denies abdominal pain GENITOURINARY: Denies hematuria, denies infections. MUSKULOSKELETAL: Denies pain, denies swelling. INTEGUMENTARY: Denies rash, denies eczema. NEUROLOGICAL: Denies recent memory loss, no recent seizure activity. PSYCHIATRIC: Denies anxiety, denies depression. HEMATOLOGIC/LYMPHATIC: Denies anemia, denies enlarged lymph nodes. Past Medical History Past Medical History: Asthma, Hyperlipidemia, Hypertension, Myocardial Infarction ([place]), Mitral Valve Prolapse (MVP), Osteoarthritis (OA) Additional Past Medical History / Comment(s): ?MVP-told yrs. ago out of state but has never had tx. for, cataracts bilaterally, recent adm[facility] for [facility]IA-sx[facility]s resolved Last Myocardial Infarction Date:: 2001 History of Any Multi-Drug Resistant Organisms: None Reported Past Surgical History: Appendectomy, Heart Catheterization With Stent, Hysterectomy, Joint Replacement, Tonsillectomy Additional Past Surgical History / Comment(s): 04/18/16 Total R hip arthroplasty anterior approach. Other surgical hx: colonoscopy Past Anesthesia/Blood Transfusion Reactions: No Reported Reaction, Motion Sickness Additional Past Anesthesia/Blood Transfusion Reaction / Comment(s): "I have been told I fight going to sleep",no problems w/ prior blood transfusion Date of Last Stent Placement:: 2001 Past Psychological History: No Psychological Hx Reported Smoking Status: Former smoker Past Alcohol Use History: None Reported Past Drug Use History: None Reported - Past Family History Mother Family Medical History: No Reported History Additional Family Medical History / Comment(s): Mother was healthy as far as pt knows. She in her 70's Father Family Medical History: Hyperlipidemia Medications and Allergies Home Medications Medication Instructions Recorded Confirmed Type Montelukast [Singulair] 10 mg PO HS 04/06/16 12/16/24 History Ezetimibe [Zetia] 10 mg PO HS 06/13/22 12/16/24 History Mirabegron [Myrbetriq] 50 mg PO DAILY 06/13/22 12/16/24 History NIFEdipine [Adalat CC] 30 mg PO HS 06/13/22 12/16/24 History lisinopriL [Prinivil] 10 mg PO HS 06/13/22 12/16/24 History Atorvastatin [Lipitor] 80 mg PO HS #30 tab 06/14/22 12/16/24 Rx Furosemide [Lasix] 20 mg PO DAILY 10/25/22 12/16/24 History Clopidogrel [Plavix] 75 mg PO DAILY #30 tablet 10/27/22 12/16/24 Rx Isosorbide Dinitrate 30 mg PO DAILY 02/13/23 12/16/24 History Allergies Allergy/AdvReac Type Severity Reaction Status Date / Time nickel Allergy Rash/Hives Verified 12/16/24 07:24 topiramate [From Topamax] AdvReac trouble Verified 12/16/24 07:24 swallowing Physical Exam Vitals: Vital Signs Temp Pulse Resp BP Pulse Ox 12/16/24 13:27 74 109/70 93 L 12/16/24 10:47 82 19 83/55 95 12/16/24 09:59 141/76 12/16/24 09:18 96 20 91 L 12/16/24 07:34 105 H 20 152/99 96 12/16/24 06:23 111 H 18 148/76 97 12/16/24 04:37 111 H 12/16/24 04:14 100 12/16/24 04:13 91 12/16/24 03:59 103 H 12/16/24 03:24 18 12/16/24 03:16 98.7 F 105 H 18 137/80 98 Intake and Output 12/16/24 12/16/24 12/16/24 06:59 14:59 22:59 Other: Weight 72.575 kg GENERAL EXAM: Alert, pleasant 79-year-old female, on room air, comfortable in no apparent distress. HEAD: Normocephalic. EYES: Normal reaction of pupils, equal size. NOSE: Clear with pink turbinates. THROAT: No erythema or exudates. NECK: No masses, no JVD. CHEST: No chest wall deformity. LUNGS: Equal air entry with no crackles, wheeze, rhonchi or dullness. CVS: S1 and S2 normal with no audible murmur, regular rhythm. ABDOMEN: No hepatosplenomegaly, normal bowel sounds, no guarding or rigidity. SPINE: No scoliosis or deformity SKIN: No rashes CENTRAL NERVOUS SYSTEM: No focal deficits, tone is normal in all 4 extremities. EXTREMITIES: There is no peripheral edema. No clubbing, no cyanosis. Peripheral pulses are intact. Results - Laboratory Findings CBC and BMP: 12/16/24 03:56 12/16/24 03:56 PT/INR, D-dimer PT 11.5 sec (10.0-12.5) 12/16/24 03:56 INR 1.0 (<1.2) 12/16/24 03:56 Abnormal lab findings: Abnormal Labs 12/16/24 12/16/24 12/16/24 03:56 03:56 03:56 Lymphocytes # 0.9 L BUN 19 H Glucose 130 H Troponin I 0.156 H* Influenza Type A (PCR) 12/16/24 12/16/24 12/16/24 08:02 10:40 10:55 Lymphocytes # BUN Glucose Troponin I 0.161 H* 0.156 H* Influenza Type A (PCR) Detected A - Diagnostic Findings Chest x-ray: image reviewed Assessment and Plan Assessment: Acute exacerbation of chronic systolic versus diastolic congestive heart failure. Troponin leak possible non-ST segment elevation myocardial infarction History of coronary artery disease with previous stent placement, most recently to the RCA in February 2023 Possible early right upper lobe pulmonary nodule Mild intermittent chronic bronchial asthma Former smoker Hypertension Hyperlipidemia History of congestive heart failure Plan: The patient was seen and evaluated Chest x-ray, labs and medications reviewed No acute pulmonary process Currently stable and on room air Remains on a heparin drip Continue IV diuretics Cardiology consulted To follow-up with her rides attendant in the outpatient setting regarding right upper lobe nodule We will continue to follow and make further recommendations based on her clinical status I have personally seen and examined the patient, performed the documentation and the assessment and plan as written. Number of minutes spent on the visit: 20 Dictation was produced using [employer] dictation software. Please excuse any grammatical, word or spelling errors.
--- NOTE | 2024-12-16 17:37 | CA ---
Transthoracic Echo Report Name: Sue Avery Age: 79 Gender: F : 1945 Exam Date: 12/16/2024 10:39 Exam Location: [facility] Ht (in): 60 Wt (lb): 160 Ordering Physician: Velasquez Manzanares Attending/Referring Phys: Infrastructure Architect Pamela Beard RDCS Procedure CPT: Indications: elevated trop, chf exacerbation Cardiac Hx: Technical Quality: Fair Contrast 1: Total Dose (mL): Contrast 2: Total Dose (mL): MEASUREMENTS (Male / Female) Normal Values 2D ECHO LV Diastolic Diameter PLAX 4.7 cm 4.2 - 5.9 / 3.9 - 5.3 cm LV Systolic Diameter PLAX 3.6 cm IVS Diastolic Thickness 1.1 cm 0.6 - 1.0 / 0.6 - 0.9 cm LVPW Diastolic Thickness 1.1 cm 0.6 - 1.0 / 0.6 - 0.9 cm LV Relative Wall Thickness 0.5 RV Internal Dim ED PLAX 2.0 cm LA Systolic Diameter LX 3.3 cm 3.0 - 4.0 / 2.7 - 3.8 cm M-MODE Aortic Root Diameter MM 3.5 cm LA Systolic Diameter MM 3.2 cm LA Ao Ratio MM 0.9 AV Cusp Separation MM 1.7 cm DOPPLER AV Peak Velocity 102.5 cm/s AV Peak Gradient 4.2 mmHg AI Peak Velocity 252.6 cm/s AI Peak Gradient 25.5 mmHg AI Pressure Half Time 983.2 ms Mitral E Point Velocity 58.3 cm/s Mitral A Point Velocity 87.5 cm/s Mitral E to A Ratio 0.7 MV Deceleration Time 253.9 ms MV E' Velocity 3.9 cm/s Mitral E to MV E' Ratio 15.0 TR Peak Velocity 158.2 cm/s TR Peak Gradient 10.0 mmHg Right Ventricular Systolic Press 20.0 mmHg FINDINGS Left Ventricle Left ventricular ejection fraction is estimated at 40-4 %. Mildly increased septal wall thickness. Mildly increased posterior wall thickness. Aneurysmal inferior wall. Mildly reduced global left ventricular systolic function. Right Ventricle Normal right ventricular size and function. Right ventricular systolic pressure within normal limits. Right Atrium Normal right atrial size. Left Atrium Mild left atrial dilatation. Mitral Valve Structurally normal mitral valve. No mitral stenosis. Mild mitral regurgitation. Aortic Valve Trileaflet aortic valve. No aortic stenosis. Trace aortic regurgitation. Tricuspid Valve Structurally normal tricuspid valve. Trace to mild tricuspid regurgitation. No tricuspid stenosis. Pulmonic Valve Structurally normal pulmonic valve. No pulmonic stenosis. Trace pulmonic regurgitation. Pericardium No pericardial or pleural effusion. Aorta Normal size aortic root and proximal ascending aorta. CONCLUSIONS Moderate LV systolic dysfunction with an ejection fraction of 40% with aneurysmal inferior wall Mild mitral regurgitation Previewed by: Dr. Fabrice Bates MD (Electronically Signed) Final Date: 16 December 2024 17:36
[2024-12-16] MEDS: FUROSEMIDE 10 MG/ML 4 ML VIAL IV SCH (18:49)
[2024-12-16] MEDS: lisinopriL 10 MG TAB PO SCH (21:06)
[2024-12-16] MEDS: MONTELUKAST 10 MG TAB PO SCH (21:06)
[2024-12-16] MEDS: NIFEdipine XL 30 MG TAB.ER.24 PO SCH (21:06)
[2024-12-16] MEDS: ATORVASTATIN 80 MG TAB PO SCH (21:06)
[2024-12-16] MEDS: EZETIMIBE 10 MG TAB PO SCH (21:06)
[2024-12-17] MEDS: LORazepam 2 MG/ML INJ IV STA ×2 (01:49→08:48)
[2024-12-17 05:01] LABS: Partial Thromboplastin Time 24.5 sec (22.0-30.0); Prothrombin Time 10.9 sec (10.0-12.5)
[2024-12-17] MEDS: QUEtiapine 25 MG TAB PO STA (05:04)
[2024-12-17] MEDS: ALBUTEROL NEBULIZED 2.5 MG/3 ML INHALATION PRN (05:21)
[2024-12-17] MEDS: HEPARIN SODIUM 1,000 UN/ML (10ML VL) IV PRN (06:08)
[2024-12-17 08:46] LABS: Glucose,Whole Blood 156 mg/dL (70-110)
--- NOTE | 2024-12-17 09:20 | CT ---
EXAMINATION TYPE: CT brain wo con DATE OF EXAM: 12/17/2024 9:12 AM COMPARISON: 06/13/2022 CLINICAL INDICATION: Female, 79 years old with history of AMS, history of stroke TECHNIQUE: CT of the brain is performed utilizing 3 mm thick sections through the posterior fossa and 3 mm thick sections through the remaining calvarium. Study is performed within 24 hours of arrival to the hospital. Contrast used: mL of , (none if empty) CT DLP: 1154.2 mGycm, Automated exposure control for dose reduction was used. FINDINGS: No abnormal hyperdensity is present to suggest an acute intracranial hemorrhage. No mass lesion is evident. No acute infarcts are evident. Periventricular white matter hypodensity is present, likely on the bas is of chronic white matter ischemic changes. Ventricles and sulci are prominent for the patient age. Some dolichoectasia may be present. Vascular calcifications within the basilar artery. Paranasal sinuses and mastoid air cells within the [id number] are clear. IMPRESSION: 1. No acute intracranial process. Follow up MRI can be performed as clinically indicated. 2. Chronic appearing periventricular white matter hypodensity with mild age-related atrophy. [facility], , 12/17/2024 9:18 AM
[2024-12-17] MEDS: ASPIRIN 81 MG PO SCH (10:09)
--- NOTE | 2024-12-17 12:59 | P.PN ---
Subjective HISTORY OF PRESENT ILLNESS: This is a 79-year-old female with a past medical history significant for coronary artery disease, ischemic cardiomyopathy, moderate mitral regurgitation, hypertension, and hyperlipidemia. Patient follows in the office with Dr. Bates. We have been asked to see the patient in consultation for CHF. Patient examined at the bedside in the emergency room. Patient's is present. Patient and her are both somewhat of poor historians. Apparently yesterday when the patient was at home she was complaining to her that she was not feeling well. Her states that she was unable to walk and was complaining of shortness of breath. She denied having any chest pain or pressure. At the time of examination this morning she denies any chest pain or pressure. Denies any shortness of breath. Vital signs are stable. DIAGNOSTICS: - EKG reveals sinus tachycardia with incomplete right bundle branch block. No signs of acute ischemia. - Chest xray no acute findings within the chest. Possible right upper lobe preliminary nodule. Recommend nonemergent outpatient dedicated chest CT for further evaluation. - Laboratory data: WBC 7.2. Hemoglobin 13.5. Platelet count 184. Sodium 137. Potassium 4.3. BUN 19. Creatinine 1.03. Troponin 0.156. proBNP 10,900. - Current home cardiac medications include Plavix 75 mg daily, Lipitor 80 mg at night, Zetia 10 mg at night, Imdur 30 mg daily, nifedipine 30 mg at night, lisinopril 10 mg at night, Lasix 20 mg daily. - Most recent echocardiogram obtained in October 2022 revealing ejection fraction 45 to 50%, basal inferior hypokinesis, mild MR, mild TR - Cardiac catheterization history: February 2023 revealing 90% proximal and mid RCA stenosis with 60 to 70% PLV stenosis. Patient underwent PCI of proximal to distal RCA into PLV with overlapping stents. 12/17/2024 Patient examined this morning the bedside. Patient is confused this morning and is in restraints. Echocardiogram completed revealing ejection fraction 40 to 45%, mildly reduced global left ventricular systolic function, trace aortic regurgitation, mild mitral regurgitation. Patient remains on IV heparin. Patient without complaints of chest pain or shortness of breath. She remains on IV Lasix. Patient was found to be positive for influenza A. PHYSICAL EXAM: VITAL SIGNS: Reviewed. GENERAL: Well-developed in no acute distress. HEENT: Head is normocephalic. Pupils are equal, round. Sclerae anicteric. Mucous membranes of the mouth are moist. Neck supple. No JVD or thyromegaly LUNGS: Respirations even and unlabored. Lungs diminished. HEART: Regular rate and rhythm. S1 and S2 heard. ABDOMEN: Soft. Nondistended. Nontender. EXTREMITIES: Normal range of motion. No clubbing or cyanosis. Peripheral pulses intact. Bilateral lower extremity edema noted. NEUROLOGIC: Awake and alert. Oriented x 3. ASSESSMENT: Shortness of breath Generalized weakness Acute influenza A Acute on chronic heart failure with reduced EF, 40 to 45% Elevated troponin, suspect type II [place] Coronary artery disease with previous stenting of the RCA, February 2023 Hypertension Hyperlipidemia Obesity: BMI 31.2 Former nicotine dependence PLAN: Continue IV heparin for an additional 24 hours Continue IV lasix 40mg q12 hours Daily weights, accurate intake and output, and monitoring of kidney function Continue additional cardiac medications No plans for invasive cardiac procedures at this time Further recommendations pending patient course Nurse practitioner note has been reviewed by physician. Signing provider agrees with the documented findings, assessment, and plan of care documented by BEHAVIORAL HEALTH CLINICIAN as a scribe. Objective - Vital Signs Vital signs: Vital Signs Temp 98.1 F 12/17/24 11:18 Pulse 87 12/17/24 11:18 Resp 18 12/17/24 11:18 BP 90/51 12/17/24 11:18 Pulse Ox 98 12/17/24 11:18 FiO2 Intake & Output 12/16/24 12/17/24 12/17/24 18:59 06:59 18:59 Intake Total 61.398 52.544 Balance 61.398 52.544 Intake: Intake, IV Titration 61.398 52.544 Amount Heparin Sod,Pork in 0.45% 61.398 52.544 NaCl 25,000 unit In 0.45 % NaCl 1 250ml.bag @ 12 UNITS/KG/HR 8.709 mls/hr IV .Q24H [facility] Rx#: [id number] - Labs CBC & Chem 7: 12/16/24 03:56 12/16/24 03:56 Labs: Abnormal Lab Results - Last 24 Hours (Table) 12/16/24 12/16/24 12/16/24 Range/Units 14:42 16:24 18:29 APTT >200.0 H* >200.0 H* 81.8 H (22.0-30.0) sec POC Glucose (mg/dL) (70-110) mg/dL 12/17/24 12/17/24 Range/Units 08:45 12:13 APTT 116.8 H* (22.0-30.0) sec POC Glucose (mg/dL) 156 H (70-110) mg/dL
[2024-12-17 13:25] LABS: ALT 20 U/L (4-34); African American GFR (CKD) 44 (>60 ml/min/1.73 sqM); Albumin 3.5 g/dL (3.5-5.0); Anion Gap 11 mmol/L; Blood Urea Nitrogen 45 mg/dL (7-17); Calcium 8.9 mg/dL (8.4-10.2); Carbon Dioxide 23 mmol/L (22-30); Chloride 102 mmol/L (98-107); Glucose 131 mg/dL (74-99); Non-African American GFR(CKD) 38 (>60 ml/min/1.73 sqM); Sodium 136 mmol/L (137-145); Total Bilirubin 0.6 mg/dL (0.2-1.3); Total Protein 5.9 g/dL (6.3-8.2)
[2024-12-17 13:35] LABS: AST 40 U/L (14-36); Alkaline Phosphatase 51 U/L (38-126); Magnesium 2.1 mg/dL (1.6-2.3); Potassium 4.2 mmol/L (3.5-5.1)
--- NOTE | 2024-12-17 13:41 | P.PN ---
Subjective Progress Note Date: 12/17/24 This is an 79-year-old female patient with a known history of hypertension, hyperlipidemia, congestive heart failure, coronary artery disease with previous stent placements, former smoker mild intermittent chronic bronchial asthma. She presented here to the emergency room early this morning with progressive weakness and significant dyspnea on exertion. Chest x-ray reveals no acute cardiopulmonary findings. Possible right upper lobe preliminary nodule. White count 7.2. Hemoglobin 13.5. Platelets 184. Sodium 137. Potassium 4.3. Bicarb 25. BUN 19. Creatinine 1.03. Glucose 130. Troponin 0.156, 0.161, 0.156. proBNP 10,900. Viral screen positive for influenza A. She is seen today in consultation in the emergency department. Currently sitting up on a stretcher. Awake and alert in no acute distress. Denies any worsening shortness of breath, cough or congestion. Denies any chest pain. Maintaining O2 saturations in the 90s on room air. She is afebrile. Hemodynamically stable. The patient is seen today December 17, 2024 in follow-up in the emergency department. She is currently resting on a stretcher. She is maintaining O2 saturations in the 90s on 4 L/min per nasal cannula. She is afebrile. Echocardiogram revealed impaired left ventricular systolic function with an eje ction fraction of 40%. She is confused today. Being uncooperative with staff. technical inspector at the bedside. A CT scan of the brain revealed no acute intracranial process. She remains on a heparin drip. Glucose 156. Continued on Tamiflu. Continued on IV diuretics. Objective - Vital Signs Vital signs: Vital Signs Temp 98.1 F 12/17/24 11:18 Pulse 87 12/17/24 11:18 Resp 18 12/17/24 11:18 BP 90/51 12/17/24 11:18 Pulse Ox 98 12/17/24 11:18 FiO2 Intake & Output 12/16/24 12/17/24 12/17/24 18:59 06:59 18:59 Intake Total 61.398 52.544 Balance 61.398 52.544 Intake: Intake, IV Titration 61.398 52.544 Amount Heparin Sod,Pork in 0.45% 61.398 52.544 NaCl 25,000 unit In 0.45 % NaCl 1 250ml.bag @ 12 UNITS/KG/HR 8.709 mls/hr IV .Q24H [facility] Rx#: [id number] - Exam GENERAL EXAM: Alert, confused, uncooperative 79-year-old female, on 4 L nasal cannula, in no apparent distress. HEAD: Normocephalic. EYES: Normal reaction of pupils, equal size. NOSE: Clear with pink turbinates. THROAT: No erythema or exudates. NECK: No masses, no JVD. CHEST: No chest wall deformity. LUNGS: Equal air entry with no crackles, wheeze, rhonchi or dullness. CVS: S1 and S2 normal with no audible murmur, regular rhythm. ABDOMEN: No hepatosplenomegaly, normal bowel sounds, no guarding or rigidity. SPINE: No scoliosis or deformity SKIN: No rashes CENTRAL NERVOUS SYSTEM: No focal deficits, tone is normal in all 4 extremities. EXTREMITIES: There is no peripheral edema. No clubbing, no cyanosis. Peripheral pulses are intact. - Labs CBC & Chem 7: 12/16/24 03:56 12/16/24 03:56 Labs: Abnormal Lab Results - Last 24 Hours (Table) 12/16/24 12/16/24 12/16/24 Range/Units 14:42 16:24 18:29 APTT >200.0 H* >200.0 H* 81.8 H (22.0-30.0) sec POC Glucose (mg/dL) (70-110) mg/dL 12/17/24 12/17/24 Range/Units 08:45 12:13 APTT 116.8 H* (22.0-30.0) sec POC Glucose (mg/dL) 156 H (70-110) mg/dL Assessment and Plan Assessment: Acute exacerbation of chronic systolic congestive heart failure. Impaired left ventricular systolic function with an ejection fraction of 40% Troponin leak possible non-ST segment elevation myocardial infarction currently on a heparin drip Acute influenza A infection, currently on Tamiflu Altered mental status of unclear etiology, CT scan of the brain revealed no acute intracranial process History of coronary artery disease with previous stent placement, most recently to the RCA in February 2023 Possible early right upper lobe pulmonary nodule to be followed up in the outpatient setting Mild intermittent chronic bronchial asthma, inactive Former smoker Hypertension Hyperlipidemia History of congestive heart failure Plan: The patient was seen and evaluated Imaging, labs and medications reviewed Currently confused, CT brain negative technical inspector at the bedside Remains on a heparin drip Continue IV diuretics Continue Tamiflu We will continue to follow I have personally seen and examined the patient, performed the documentation and the assessment and plan as written. Number of minutes spent on the visit: 10 Dictation was produced using [employer] dictation software. Please excuse any grammatical, word or spelling errors.
[2024-12-17] MEDS: LORazepam 2 MG/ML INJ IV PRN (14:27)
--- NOTE | 2024-12-17 15:19 | P.PN ---
Subjective Progress Note Date: 12/17/24 Hospital Course: Patient is a very pleasant 79-year-old female with a past medical history of CAD status post stenting x 3, chronic systolic heart failure, ischemic cardiomyopathy, hypertension, hyperlipidemia, and osteoarthritis. She reports following outpatient with utility accounts director, Dr. Bates and states last [place] with stent placement was approximately 2 or 3 years ago. Patient reports she is on Plavix and Lasix and has not missed any doses of her medications. She reports she came to the hospital secondary to shortness of breath. Patient's at bedside and tearful at times expressing concern for his . He states yesterday she was complaining of shortness of breath and generalized fatigue. He states at first he thought maybe she needed to just get some rest but states the symptoms continued and she was even unable to ambulate to the restroom due to her worsening shortness of breath so he brought her to the emergency department for evaluation. Patient denies having any fevers, chills, dizziness, lightheadedness, chest pain or palpitations, cough or congestion, abdominal pain, nausea, vomiting, or experiencing any numbness/tingling/weakness/swelling in her extremities. Upon arrival to our facility, patient underwent evaluation in the emergency department. Vital signs upon arrival show blood pressure 137/80, heart rate 105, respiratory rate 18, temp 98.7 F, and SpO2 of 90% on 2 L. EKG completed showing sinus tachycardia at 105 bpm with T wave inversion in lateral lead aVL otherwise no significant T wave or ST abnormalities noted. Chest x-ray completed showing possible right upper lobe pulmonary nodule measuring 7.4 mm, recommend outpatient dedicated CT scan for further evaluation/surveillance. Labs completed and reviewed. CBC unremarkable. Coagulation profile normal findings. BMP showing slightly elevated BUN of 19 otherwise normal findings. Blood glucose 130. Calcium 9.1. Liver profile unremarkable. Troponin elevated at 0.156 and proBNP 10,900. Influenza B, RSV, and COVID PCR were negative influenza A was positive. Patient was admitted under our services with consult to cardiology. Troponins trended resulting at 0.156, 0.161, and 0.156. Physical exam: Vital signs reviewed and stable. General: Nontoxic, no distress and appears stated age. Derm: Skin warm and dry, normal coloration for ethnicity. Head: Atraumatic, normocephalic and symmetric. Eyes: EOM's intact, no lid lag, and anicteric sclera Mouth: no lip lesions, mucus membranes moist Cardiovascular: regular rate and rhythm with normal S1S2, soft systolic murmur, positive posterior tibial pulses bilaterally, and cap refill < 2 seconds. Lungs: Respirations even, regular, and unlabored on 2 L O2 via nasal cannula. Lungs slightly diminished with diffuse expiratory wheezes bilaterally. No rhonchi, rales, or crackles noted. Abdominal: soft, nontender to palpation, no guarding, no appreciable organomegaly Ext: ROM intact. No gross muscle atrophy, scant lower extremity edema, no contractures Neuro: Speech clear, face symmetrical and CN II-XII grossly intact with no noted focal neuro deficits Psych: Alert and oriented to person only at this time, confused and combative pulling at IV lines and monitoring specialist. Assessment and Plan of Care: Was notified by nursing staff this morning that patient is acutely confused and combative. Went to bedside to assess. Patient alert to self only confused and agitated. Called and discussed patient's current status with her daughter Melinda to verify if patient has had episodes of confusion or delerium in the past and she reported her mother had a stroke 2 years ago but has never been confused or agitated before. Acute Metabolic encephalopathy, likely secondary to delirium resulting from underlying conditions including influenza A infection and systolic heart failure exacerbation -Order placed for stat CT brain and upon follow-up, report negative for acute intracranial process. -Order placed for bladder scan -Blood glucose 156 at this time. -Neurochecks every 4 hours -Fall precautions -Sitter at bedside -Soft restraints with hand mittens -Consult placed to neurology for evaluation. Acute on chronic systolic heart failure exacerbation Influenza A Elevated troponins History of CAD status post stenting Ischemic cardiomyopathy Hypertension Hyperlipidemia -Cardiology following, discussed plan of care with utility accounts director and cardiac [employer]IA[employer] OFFICER. -Pulmonology following, discussed plan of care with pulmonary [employer] LIAISON OFFICER. -Order placed for heparin infusion secondary to elevated troponin of 0.156. Closely monitor PTT every 6 hours for goal therapeutic range of 45 to 79 seconds. -Telemetry monitoring -Troponins trended resulting at 0.156, 0.161, and 0.156. -ProBNP 10,900 -Daily weights and Close monitoring of I's and O's -Cardiac diet with 1500 cc fluid restrictions -Lasix 40 mg IVP every 12 hours -Aspirin 324 mg p.o. x 1 dose followed by 81 mg daily, atorvastatin 80 mg nightly, Plavix 75 mg daily, Zetia 10 mg nightly, isosorbide mononitrate 30 mg daily, lisinopril 10 mg nightly, metoprolol 25 mg twice daily, and nifedipine 30 mg nightly. -Continue renal dosing of Tamiflu 30 mg daily hours x 5 days. -Continued close monitoring of electrolytes while diuresing. -Echocardiogram completed revealing reduced EF of 40% with aneurysmal inferior wall and mild mitral regurgitation.. Incidental finding on chest x-ray -Chest x-ray showing possible 7.4 mm pulmonary nodule in right upper lobe, recommend outpatient CT for follow-up/surveillance. Data and imaging reviewed: Echocardiogram completed revealing reduced EF of 40% with aneurysmal inferior wall and mild mitral regurgitation.. Vital signs reviewed. Blood pressure 116/93, heart rate 105, respiratory rate 20, and SpO2 of 100% on 4 L. Morning labs reviewed. Troponins trended resulting at 0.156, 0.161, and 0.156. Unclear why previously ordered morning CBC was retimed for 4:30 PM, however results not available at this time. BMP showing slight elevation in renal function with BUN of 45, creatinine 1.33, and GFR of 38. Magnesium 2.1. CODE STATUS: Full Code DVT prophylaxis: Heparin infusion Anticipated discharge date: Pending clinical course Anticipated discharge place: Home Patient was seen independently by Nurse Practitioner. This document was prepared using [employer] dictation software. Please allow for errors in flash oven operator while rare they do occur. Velasquez Manzanares NP rendered care for this patient independently, reviewed the findings and plan as documented in the note above and agree with plan. I did not physically speak with or examine the patient on this date. Objective - Vital Signs Vital signs: Vital Signs Temp 98.0 F 12/16/24 18:43 Pulse 83 12/17/24 07:37 Resp 14 12/17/24 07:37 BP 119/59 12/17/24 07:37 Pulse Ox 97 12/17/24 07:37 FiO2 Intake & Output 12/16/24 12/17/24 12/17/24 18:59 06:59 18:59 Intake Total 61.398 52.544 Balance 61.398 52.544 Intake: Intake, IV Titration 61.398 52.544 Amount Heparin Sod,Pork in 0.45% 61.398 52.544 NaCl 25,000 unit In 0.45 % NaCl 1 250ml.bag @ 12 UNITS/KG/HR 8.709 mls/hr IV .Q24H [facility] Rx#: [id number] - Labs CBC & Chem 7: 12/16/24 03:56 12/17/24 12:14 Labs: Abnormal Lab Results - Last 24 Hours (Table) 12/16/24 12/16/24 12/16/24 Range/Units 08:02 10:40 10:55 APTT (22.0-30.0) sec Troponin I 0.161 H* 0.156 H* (0.000-0.034) ng/mL Influenza Type A (PCR) Detected A (Not Detectd) 12/16/24 12/16/24 12/16/24 Range/Units 14:42 16:24 18:29 APTT >200.0 H* >200.0 H* 81.8 H (22.0-30.0) sec Troponin I (0.000-0.034) ng/mL Influenza Type A (PCR) (Not Detectd)
[2024-12-17 15:48] LABS: Appearance,Urine Clear (Clear); Bilirubin,Urine Negative (Negative); Blood,Urine Negative (Negative); Color,Urine Colorless; Glucose,Urine (UA) Negative (Negative); Ketones,Urine Negative (Negative); Leukocyte Esterase,Urine Negative (Negative); Nitrite,Urine Negative (Negative); PH, Urine 5.5 (5.0-8.0); Protein,Urine Negative (Negative); Urobilinogen,Urine <2.0 mg/dL (<2.0)
[2024-12-17 19:49] LABS: Basophils % (A) 0 %; Eosinophils % (A) 0 %; HCT 37.5 % (34.0-46.0); HGB 11.6 gm/dL (11.4-16.0); Hypochromasia Marked; Lymphocytes # (A) 0.7 k/uL (1.0-4.8); Lymphocytes % (A) 5 %; MCH 30.1 pg (25.0-35.0); MCV 97.1 fL (80.0-100.0); Mean Platelet Volume 8.7; Monocytes # (A) 0.6 k/uL (0-1.0); Monocytes % (A) 5 %; Neutrophils # (A) 11.6 k/uL (1.3-7.7); Neutrophils % (A) 89 %; Platelet Count 216 k/uL (150-450); RBC 3.86 m/uL (3.80-5.40); RDW 12.4 % (11.5-15.5)
--- NOTE | 2024-12-17 22:26 | US ---
EXAMINATION TYPE: US venous doppler duplex UE LT DATE OF EXAM: 12/17/2024 COMPARISON: NONE CLINICAL INDICATION: Female, 79 years old with history of swollen left arm; Patient swelling and brui sing at IV site. Patient combative, nurse in room to help hold arm TECHNIQUE: Grayscale, color Doppler and spectral Doppler imaging of the upper extremity. SIDE PERFORMED: Left VESSELS IMAGED: IJV Subclavian Vein Axilla Vein Brachial Vein(s) Radial Paired Veins FINDINGS: *limited due to patient combative, nurse helping hold arm Left Arm: Negative for DVT as best seen, unable to visualize the basilic, cephalic, and ulnar veins. Patients area of bruising (forearm) also scanned, no sonographic abnormalities seen at this area Grayscale, color doppler, spectral doppler imaging performed of the deep veins of the upper extremiti es. IMPRESSION: 1. Limited examination. 2. Left upper extremity as visualized without evidence of deep venous thrombosis. 3. No discrete abnormality at the bruising area within the forearm [facility], Workstation: [facility], 12/17/2024 10:24 PM
[2024-12-17] MEDS: PANTOPRAZOLE 40 MG/10 ML VIAL IVP ONE (22:53)
[2024-12-17 23:08] LABS: Basophils % (A) 0 %; Eosinophils % (A) 0 %; HCT 32.2 % (34.0-46.0); HGB 10.9 gm/dL (11.4-16.0); Lymphocytes # (A) 0.9 k/uL (1.0-4.8); Lymphocytes % (A) 6 %; MCH 31.4 pg (25.0-35.0); MCHC 33.9 g/dL (31.0-37.0); MCV 92.6 fL (80.0-100.0); Mean Platelet Volume 9.9; Monocytes # (A) 0.7 k/uL (0-1.0); Monocytes % (A) 5 %; Neutrophils # (A) 12.4 k/uL (1.3-7.7); Neutrophils % (A) 88 %; Platelet Count 221 k/uL (150-450); RBC 3.48 m/uL (3.80-5.40); RDW 12.3 % (11.5-15.5); WBC 14.1 k/uL (3.8-10.6)
[2024-12-17] MEDS: HYDROmorphone 0.5 MG/0.5 ML SYRINGE IVP STA (23:10)
--- NOTE | 2024-12-17 23:39 | P.EN ---
Patient had an episode of melena around 9:30pm. Repeat stat CBC showed hemoglobin 10.9. Heparin gtt stopped, IV Protonix 80 mg given stat, IV Protonix 40 mg twice daily starting tomorrow.
[2024-12-18 07:45] LABS: HCT 31.3 % (34.0-46.0); MCH 30.2 pg (25.0-35.0); MCV 94.4 fL (80.0-100.0); Mean Platelet Volume 9.2; Platelet Count 201 k/uL (150-450); RBC 3.31 m/uL (3.80-5.40); RDW 12.2 % (11.5-15.5); WBC 10.8 k/uL (3.8-10.6)
[2024-12-18 07:58] LABS: ALT 19 U/L (4-34); AST 40 U/L (14-36); African American GFR (CKD) 21 (>60 ml/min/1.73 sqM); Albumin 3.3 g/dL (3.5-5.0); Alkaline Phosphatase 54 U/L (38-126); Anion Gap 11 mmol/L; Blood Urea Nitrogen 67 mg/dL (7-17); Calcium 8.4 mg/dL (8.4-10.2); Carbon Dioxide 27 mmol/L (22-30); Chloride 99 mmol/L (98-107); Glucose 87 mg/dL (74-99); Magnesium 2.2 mg/dL (1.6-2.3); Non-African American GFR(CKD) 18 (>60 ml/min/1.73 sqM); Potassium 4.4 mmol/L (3.5-5.1); Sodium 137 mmol/L (137-145); Total Bilirubin 0.5 mg/dL (0.2-1.3); Total Protein 5.5 g/dL (6.3-8.2)
[2024-12-18] MEDS ORDERED: PANTOPRAZOLE 40 MG/10 ML VIAL IVP SCH (09:00)
--- NOTE | 2024-12-18 09:48 | P.PN ---
Subjective Progress Note Date: 12/18/24 The patient was seen and evaluated this morning. She continues to have a change in mental status. She still a little combative. She still has bilateral lower extremity edema no indication of any symptoms of any chest pain or chest discomfort or any dizziness or lightheadedness or any feeling of heart racing or fluttering. ASSESSMENT: Shortness of breath Generalized weakness Acute influenza A Acute on chronic heart failure with reduced EF, 40 to 45% Elevated troponin, suspect type II [place] Coronary artery disease with previous stenting of the RCA, February 2023 Hypertension Hyperlipidemia Obesity: BMI 31.2 Former nicotine dependence PLAN: Continue the current medical regimen including aspirin and statin Continue conservative medical approach Follow-up with the patient Objective - Vital Signs Vital signs: Vital Signs Temp 98.1 F 12/17/24 11:18 Pulse 85 12/18/24 04:00 Resp 20 12/18/24 04:00 BP 129/73 12/18/24 04:00 Pulse Ox 93 L 12/18/24 04:00 FiO2 Intake & Output 12/17/24 12/18/24 12/18/24 18:59 06:59 18:59 Intake Total 59.873 56.293 Output Total 250 Balance -190.127 56.293 Weight 75 kg Intake: IV 20 Invasive Line 2 10 Invasive Line 3 10 Intake, IV Titration 59.873 36.293 Amount Heparin Sod,Pork in 0.45% 59.873 36.293 NaCl 25,000 unit In 0.45 % NaCl 1 250ml.bag @ 12 UNITS/KG/HR 8.709 mls/hr IV .Q24H [facility] Rx#: [id number] Output: Urine 250 Other: Voiding Method Indwelling Catheter - Labs CBC & Chem 7: 12/18/24 06:30 12/18/24 06:30 Labs: Abnormal Lab Results - Last 24 Hours (Table) 12/17/24 12/17/24 12/17/24 Range/Units 12:13 12:14 19:21 WBC 13.0 H (3.8-10.6) k/uL RBC (3.80-5.40) m/uL Hgb (11.4-16.0) gm/dL Hct (34.0-46.0) % Neutrophils # 11.6 H (1.3-7.7) k/uL Lymphocytes # 0.7 L (1.0-4.8) k/uL APTT 116.8 H* (22.0-30.0) sec Sodium 136 L (137-145) mmol/L BUN 45 H (7-17) mg/dL Creatinine 1.33 H (0.52-1.04) mg/dL Glucose 131 H (74-99) mg/dL AST 40 H (14-36) U/L Total Protein 5.9 L (6.3-8.2) g/dL Albumin (3.5-5.0) g/dL Stool Occult Blood (Negative) 12/17/24 12/17/24 12/17/24 Range/Units 19:21 21:37 22:12 WBC 14.1 H (3.8-10.6) k/uL RBC 3.48 L (3.80-5.40) m/uL Hgb 10.9 L (11.4-16.0) gm/dL Hct 32.2 L (34.0-46.0) % Neutrophils # 12.4 H (1.3-7.7) k/uL Lymphocytes # 0.9 L (1.0-4.8) k/uL APTT 71.7 H (22.0-30.0) sec Sodium (137-145) mmol/L BUN (7-17) mg/dL Creatinine (0.52-1.04) mg/dL Glucose (74-99) mg/dL AST (14-36) U/L Total Protein (6.3-8.2) g/dL Albumin (3.5-5.0) g/dL Stool Occult Blood Positive H (Negative) 12/17/24 12/18/24 12/18/24 Range/Units 22:12 06:30 06:30 WBC 10.8 H (3.8-10.6) k/uL RBC 3.31 L (3.80-5.40) m/uL Hgb 10.0 L (11.4-16.0) gm/dL Hct 31.3 L (34.0-46.0) % Neutrophils # (1.3-7.7) k/uL Lymphocytes # (1.0-4.8) k/uL APTT 67.1 H (22.0-30.0) sec Sodium (137-145) mmol/L BUN 67 H (7-17) mg/dL Creatinine 2.41 H (0.52-1.04) mg/dL Glucose (74-99) mg/dL AST 40 H (14-36) U/L Total Protein 5.5 L (6.3-8.2) g/dL Albumin 3.3 L (3.5-5.0) g/dL Stool Occult Blood (Negative)
--- NOTE | 2024-12-18 11:12 | P.CNNES ---
History of Present Illness Consult date: 12/17/24 Requesting physician: Velasquez Manzanares Reason for Consult: AMS History of Present Illness: Patient is a 79-year-old female with history of possible dementia, came to the hospital by ambulance yesterday at 3:12 AM for altered mental status. Patient not able to provide any history. Patient's was sitting at the bedside, who provided with some history. He mentions that patient has "lack of memory", mainly for short-term and confusion going on for 4 to 6 months, slightly getting worse. Yesterday was a "major blow out" and she is much worse. She has been having shortness of breath since Monday night going into Monday morning and she could not breathe. This prompted her to come to the hospital. She cannot speak much, because of dementia. Patient's mentioned that his own mother had Alzheimer's dementia, and she appears ditto copy of his own mother. However she has not been diagnosed with dementia yet. She does not smoke, does not drink alcohol, no diabetes. He mentions that she uses a walker mainly for safety and has been using it for last 10 to 15 years consistently. She lives with her . He mentions that she she does get agitated, when she sometimes becomes "cold" and would not talk in silence out. Other times she would yell. She has been having these behavior problems for the last 4 to 6 months. She does not wander, does not hallucinate. Occasionally she gets disoriented. EMS flowsheet not available in the chart. Vital signs on arrival blood pressure 137/80, pulse rate 105, temperature 98.7. Blood test shows normal CBC, PT PTT, normal electrolytes, renal functions. Normal hepatic panel, troponin is mildly elevated. Influenza A+. Coronavirus and RSV negative. Patient has been started on heparin drip. UA is negative. Chest x-ray showed no acute findings within the chest. Possible right upper lobe pulmonary nodule, recommend nonemergent outpatient dedicated CT chest for further evaluation. EKG showed sinus tachycardia. 2D echo revealed moderate LV systolic dysfunction with an EF of 40% with aneurysmal inferior wall. Mildly increased septal wall thickness. Mild left atrial dilation. Mild MR. CT head showed no acute intracranial process. Chronic appearing periventricular white matter hypodensity with mild age-related atrophy. I personally reviewed CT head, agree with the findings. Home medications include Plavix 75 mg, Zetia 10 mg, Singulair, lisinopril 10 mg, nifedipine, Myrbetriq, Lipitor 80 mg, Lasix and isosorbide. Patient was seen by Dr. Barker on 06/13/2022 for TIA presenting with confusion and agraphia. Patient has encephalopathy related to TIA. Patient had severe right ICA stenosis, more than 80% ALT CTA but moderate or significant stenosis on carotid Doppler. Review of Systems Other pertinent positive and negative review of systems mentioned in the HPI as per report. ROS unobtainable: due to mental status Past Medical History Past Medical History: Asthma, Hyperlipidemia, Hypertension, Myocardial Infarction ([place]), Mitral Valve Prolapse (MVP), Osteoarthritis (OA) Additional Past Medical History / Comment(s): ?MVP-told [place]rs. ago out of state but has never had tx. for, cataracts bilaterally, recent adm[facility]-sx.'s resolved Last Myocardial Infarction Date:: 2001 History of Any Multi-Drug Resistant Organisms: None Reported Past Surgical History: Appendectomy, Heart Catheterization With Stent, Hysterectomy, Joint Replacement, Tonsillectomy Additional Past Surgical History / Comment(s): 04/18/16 Total R hip arthroplasty anterior approach. Other surgical hx: colonoscopy Past Anesthesia/Blood Transfusion Reactions: No Reported Reaction, Motion Sickness Additional Past Anesthesia/Blood Transfusion Reaction / Comment(s): "I have been told I fight going to sleep",no problems w/ prior blood transfusion Date of Last Stent Placement:: 2001 Past Psychological History: No Psychological Hx Reported Smoking Status: Former smoker Past Alcohol Use History: None Reported Past Drug Use History: None Reported - Past Family History Mother Family Medical History: No Reported History Additional Family Medical History / Comment(s): Mother was healthy as far as pt knows. She in her 70's Father Family Medical History: Hyperlipidemia Medications and Allergies Home Medications Medication Instructions Recorded Confirmed Type Montelukast [Singulair] 10 mg PO HS 04/06/16 12/16/24 History Ezetimibe [Zetia] 10 mg PO HS 06/13/22 12/16/24 History Mirabegron [Myrbetriq] 50 mg PO DAILY 06/13/22 12/16/24 History NIFEdipine [Adalat CC] 30 mg PO HS 06/13/22 12/16/24 History lisinopriL [Prinivil] 10 mg PO HS 06/13/22 12/16/24 History Atorvastatin [Lipitor] 80 mg PO HS #30 tab 06/14/22 12/16/24 Rx Furosemide [Lasix] 20 mg PO DAILY 10/25/22 12/16/24 History Clopidogrel [Plavix] 75 mg PO DAILY #30 tablet 10/27/22 12/16/24 Rx Isosorbide Dinitrate 30 mg PO DAILY 02/13/23 12/16/24 History Allergies Allergy/AdvReac Type Severity Reaction Status Date / Time nickel Allergy Rash/Hives Verified 12/16/24 07:24 topiramate [From Topamax] AdvReac trouble Verified 12/16/24 07:24 swallowing Physical Examination - Vital Signs Vital Signs: Vital Signs Temp Pulse Resp BP Pulse Ox 12/17/24 16:00 81 16 98/71 100 12/17/24 15:29 77 16 121/50 97 12/17/24 13:33 69 14 112/83 94 L 12/17/24 11:18 98.1 F 87 18 90/51 98 12/17/24 10:56 82 16 79/59 96 12/17/24 09:54 91 20 127/97 98 12/17/24 09:16 76 18 94/57 99 12/17/24 08:42 105 H 20 116/93 100 12/17/24 07:37 83 14 119/59 97 12/17/24 06:16 79 18 115/66 100 12/17/24 05:36 77 12/17/24 05:25 86 12/17/24 05:11 65 18 98 12/16/24 21:12 78 18 145/80 97 12/16/24 18:43 98.0 F 85 18 162/86 95 Intake and Output 12/17/24 12/17/24 12/17/24 06:59 14:59 22:59 Intake Total 52.544 59.873 0 Output Total 250 Balance 52.544 59.873 -250 Intake: Intake, IV Titration 52.544 59.873 0 Amount Heparin Sod,Pork in 0.45% 52.544 59.873 0 NaCl 25,000 unit In 0.45 % NaCl 1 250ml.bag @ 12 UNITS/KG/HR 8.709 mls/hr IV .Q24H [facility] Rx#: [id number] Output: Urine 250 Patient is an elderly female, appears somewhat delirious, restless, on 2 point restraints. Patient is alert awake. Patient knows her name Sarah, her date of 1945 and that she is in [place] in [place]. She could not tell what building she is in although states is in some "[employer] house". She often mumbles difficult to understand. She states today is 11/13/1950. Patient able to name some objects like knuckles, eyeglasses but for earlobe patient states "earr ing munoz". She can repeat. Attention, concentration and fund of knowledge are all significantly limited. On cranial nerve examination, pupils are equal, round and reacting to light, visual ford are full on confrontation, with no neglect on double simultaneous stimulation. Extraocular muscles are intact with no nystagmus. Face is symmetric, tongue protrudes to the midline. Palatal elevation and sensation normal, hearing is severely decreased and shoulder shrug normal, facial sensation normal. On muscle strength testing, there is no pronator drift. Patient did not cooperate well with the testing. Her biceps, triceps and curriculum counselor appears fairly normal. Her strength of the legs also appears normal at the hips and ankles. She would just move her legs up and down and was difficult to assess the strength but appeared to have good resistance. Deep tendon reflexes are symmetric and plantars are withdrawal. Sensory to touch cannot be assessed, but she does withdraw to painful stimuli equally. Cerebellar function cannot be assessed, as she would not cooperate. Tone and bulk of muscles normal. Gait deferred.. On general examination, there is no carotid bruit or murmur, S1-S2 audible. Chest is clear on consultation. Abdomen is soft nontender. No organomegaly, bowel sounds present. Peripheral pulses are present. No peripheral edema. Results - Laboratory Findings CBC and BMP: 12/18/24 06:30 12/18/24 06:30 Abnormal Lab Findings: Abnormal Labs 12/16/24 12/16/24 12/16/24 03:56 03:56 03:56 Lymphocytes # 0.9 L APTT Sodium BUN 19 H Creatinine Glucose 130 H POC Glucose (mg/dL) AST Troponin I 0.156 H* Total Protein Influenza Type A (PCR) 12/16/24 12/16/24 12/16/24 08:02 10:40 10:55 Lymphocytes # APTT Sodium BUN Creatinine Glucose POC Glucose (mg/dL) AST Troponin I 0.161 H* 0.156 H* Total Protein Influenza Type A (PCR) Detected A 12/16/24 12/16/24 12/16/24 14:42 16:24 18:29 Lymphocytes # APTT >200.0 H* >200.0 H* 81.8 H Sodium BUN Creatinine Glucose POC Glucose (mg/dL) AST Troponin I Total Protein Influenza Type A (PCR) 12/17/24 12/17/24 12/17/24 08:45 12:13 12:14 Lymphocytes # APTT 116.8 H* Sodium 136 L BUN 45 H Creatinine 1.33 H Glucose 131 H POC Glucose (mg/dL) 156 H AST 40 H Troponin I Total Protein 5.9 L Influenza Type A (PCR) Assessment and Plan Assessment: * Delirium, likely due to metabolic encephalopathy. Reasons multifactorial as mentioned below * Probable underlying dementia. Patient has memory loss progressively getting worse for last 4 to 6 months. * Influenza A * Elevated troponins * CHF with EF 40% * Hypertension * Hyperlipidemia * Obesity * Former tobacco use Plan: * EEG evaluate for encephalopathy, rule out any epileptiform activity. * Management of underlying cardiopulmonary conditions and other medical conditions as per IM and other specialties on board. * B12, folate, TSH. * UA negative. * Patient on heparin because of elevated cardiac enzymes. Cardiology following. Patient also on Plavix. * Neurology will follow. Thank you for the consult.
--- NOTE | 2024-12-18 11:24 | P.CONS ---
History of Present Illness - Reason for Consult Consult date: 12/18/24 Melena Requesting physician: Sowmya Snow - Chief Complaint Shortness of breath - History of Present Illness This is a pleasant 79-year-old female currently lying in bed with her eyes closed with a sitter at the bedside. She has a past medical history of COPD, asthma, TIA, hypertension, hyperlipidemia coronary artery disease and ischemic cardiomyopathy who presented to the emergency department with complaints of shortness of breath and weakness. Apparently patient has had a nonproductive cough with increased fatigue. She had elevated troponins on admission she was started on IV heparin drip with cardiology consultation. Heparin drip was started on 12/16/2024 apparently yesterday evening patient had 2 maroon-colored bowel movements with a drop in her hemoglobin from 13.5 on admission to 10.9. Gastroenterology was consulted for melena. Patient states she has no abdominal pain, nausea or vomiting. There is been no further melena reported. Heparin drip was discontinued yesterday evening. Patient denies any previous history of peptic ulcer disease. She is somewhat of a poor historian is unable to remember if she has had an upper endoscopy in the past but states she believes she has had a colonoscopy. No available reports in patient's chart. Patient was diagnosed with influenza A during this admission. Patient had increased confusion and altered mental status changes through the night and became combative, currently has a sitter at the bedside. Review of Systems REVIEW OF SYSTEMS: CARDIOPULMONARY: No chest pain. Positive shortness of breath. Gastrointestinal: No abdominal pain. No nausea or vomiting. No hematemesis, coffee-ground emesis. Reported melena last night GENITOURINARY: No dysuria or hematuria. MUSCULOSKELETAL: Reports normal range of motion., Joint pain. SKIN: No rashes. No jaundice. ENDOCRINE: No chills, fevers. No excessive weight gain or loss. No polydipsia or polyuria. PSYCHIATRIC: Unremarkable. NEUROLOGY: Confusion, altered mental status changes, combative. ENT: Vision unremarkable. CONSTITUTIONAL: No recent weight loss. No fever, chills, night sweats. Past Medical History Past Medical History: Asthma, Coronary Artery Disease (CAD), Heart Failure, COPD, Hyperlipidemia, Hypertension, Myocardial Infarction ([place]), Mitral Valve Prolapse (MVP), Osteoarthritis (OA) Additional Past Medical History / Comment(s): ?MVP-told [place]rs. ago [place] of [place] but has never had tx. for, cataracts bilaterally, recent adm[facility] for [facility]IA-sx[facility]s resolved Last Myocardial Infarction Date:: 2001 History of Any Multi-Drug Resistant Organisms: None Reported Past Surgical History: Appendectomy, Heart Catheterization With Stent, Hysterectomy, Joint Replacement, Tonsillectomy Additional Past Surgical History / Comment(s): 04/18/16 Total R hip arthroplasty anterior approach. Other surgical hx: colonoscopy Past Anesthesia/Blood Transfusion Reactions: No Reported Reaction, Motion Sickness Additional Past Anesthesia/Blood Transfusion Reaction / Comm: "I have been told I fight going to sleep",no problems w/ prior blood transfusion Date of Last Stent Placement:: 2001 Past Psychological History: No Psychological Hx Reported Additional Psychological History / Comment(s): Patient uses walker at home. Smoking Status: Former smoker Past Alcohol Use History: None Reported Additional Past Alcohol Use History / Comment(s): Quit smoking 2001, smoked 1ppd since 14 years old. Past Drug Use History: None Reported - Past Family History Mother Family Medical History: No Reported History Additional Family Medical History / Comment(s): Mother was healthy as far as pt knows. She in her 70's Father Family Medical History: Hyperlipidemia Medications and Allergies Home Medications Medication Instructions Recorded Confirmed Type Montelukast [Singulair] 10 mg PO HS 04/06/16 12/16/24 History Ezetimibe [Zetia] 10 mg PO HS 06/13/22 12/16/24 History Mirabegron [Myrbetriq] 50 mg PO DAILY 06/13/22 12/16/24 History NIFEdipine [Adalat CC] 30 mg PO HS 06/13/22 12/16/24 History lisinopriL [Prinivil] 10 mg PO HS 06/13/22 12/16/24 History Atorvastatin [Lipitor] 80 mg PO HS #30 tab 06/14/22 12/16/24 Rx Furosemide [Lasix] 20 mg PO DAILY 10/25/22 12/16/24 History Clopidogrel [Plavix] 75 mg PO DAILY #30 tablet 10/27/22 12/16/24 Rx Isosorbide Dinitrate 30 mg PO DAILY 02/13/23 12/16/24 History Allergies Allergy/AdvReac Type Severity Reaction Status Date / Time nickel Allergy Rash/Hives Verified 12/16/24 07:24 topiramate [From Topamax] AdvReac trouble Verified 12/16/24 07:24 swallowing Physical Exam Vitals: Vital Signs Temp Pulse Pulse Resp BP BP Pulse Ox 12/18/24 04:00 85 20 129/73 93 L 12/17/24 23:40 89 20 96/64 97 12/17/24 22:58 90 18 96/75 100 12/17/24 18:38 94 14 117/47 95 12/17/24 17:30 87 14 93/63 97 12/17/24 16:00 81 16 98/71 100 12/17/24 15:29 77 16 121/50 97 12/17/24 13:33 69 14 112/83 94 L 12/17/24 11:18 98.1 F 87 18 90/51 98 12/17/24 10:56 82 16 79/59 96 12/17/24 09:54 91 20 127/97 98 12/17/24 09:16 76 18 94/57 99 Intake and Output 12/17/24 12/18/24 12/18/24 22:59 06:59 14:59 Intake Total 36.293 20 Output Total 250 Balance -213.707 20 Intake: IV 20 Invasive Line 2 10 Invasive Line 3 10 Intake, IV Titration 36.293 Amount Heparin Sod,Pork in 0.45% 36.293 NaCl 25,000 unit In 0.45 % NaCl 1 250ml.bag @ 12 UNITS/KG/HR 8.709 mls/hr IV .Q24H [facility] Rx#: [id number] Output: Urine 250 Other: Voiding Method Indwelling Catheter Weight 75 kg General appearance: The patient is alert, oriented to self, appears in no acute distress. HET: Head is normocephalic and atraumatic. Conjunctiva pink. Sclera anicteric. Neck: Supple without lymphadenopathy. Trachea midline. Heart: Regular. Lungs: Equal expansion, normal respiratory effort. Abdomen: Soft, nontender, nondistended. Skin: No rashes. No jaundice. Extremities: Left upper extremity with ecchymosis, swelling. Lower extremity swelling. Neurological: Patient appears very drowsy, oriented to at least self. Results CBC & Chem 7: 12/18/24 06:30 12/18/24 06:30 Labs: Abnormal Lab Results - Last 24 Hours (Table) 12/17/24 12/17/24 12/17/24 Range/Units 12:13 12:14 19:21 WBC 13.0 H (3.8-10.6) k/uL RBC (3.80-5.40) m/uL Hgb (11.4-16.0) gm/dL Hct (34.0-46.0) % Neutrophils # 11.6 H (1.3-7.7) k/uL Lymphocytes # 0.7 L (1.0-4.8) k/uL APTT 116.8 H* (22.0-30.0) sec Sodium 136 L (137-145) mmol/L BUN 45 H (7-17) mg/dL Creatinine 1.33 H (0.52-1.04) mg/dL Glucose 131 H (74-99) mg/dL AST 40 H (14-36) U/L Total Protein 5.9 L (6.3-8.2) g/dL Albumin (3.5-5.0) g/dL Stool Occult Blood (Negative) 12/17/24 12/17/24 12/17/24 Range/Units 19:21 21:37 22:12 WBC 14.1 H (3.8-10.6) k/uL RBC 3.48 L (3.80-5.40) m/uL Hgb 10.9 L (11.4-16.0) gm/dL Hct 32.2 L (34.0-46.0) % Neutrophils # 12.4 H (1.3-7.7) k/uL Lymphocytes # 0.9 L (1.0-4.8) k/uL APTT 71.7 H (22.0-30.0) sec Sodium (137-145) mmol/L BUN (7-17) mg/dL Creatinine (0.52-1.04) mg/dL Glucose (74-99) mg/dL AST (14-36) U/L Total Protein (6.3-8.2) g/dL Albumin (3.5-5.0) g/dL Stool Occult Blood Positive H (Negative) 12/17/24 12/18/24 12/18/24 Range/Units 22:12 06:30 06:30 WBC 10.8 H (3.8-10.6) k/uL RBC 3.31 L (3.80-5.40) m/uL Hgb 10.0 L (11.4-16.0) gm/dL Hct 31.3 L (34.0-46.0) % Neutrophils # (1.3-7.7) k/uL Lymphocytes # (1.0-4.8) k/uL APTT 67.1 H (22.0-30.0) sec Sodium (137-145) mmol/L BUN 67 H (7-17) mg/dL Creatinine 2.41 H (0.52-1.04) mg/dL Glucose (74-99) mg/dL AST 40 H (14-36) U/L Total Protein 5.5 L (6.3-8.2) g/dL Albumin 3.3 L (3.5-5.0) g/dL Stool Occult Blood (Negative) Assessment and Plan (1) Melena Narrative/Plan: 79-year-old female who is a poor historian had presented with shortness of breath and weakness diagnosed with influenza A has a significant cardiac history with elevated troponins on admission started on a IV heparin drip for greater than 24 hours followed by 2 maroon-colored stools and a drop in her hemoglobin. Heparin drip had been discontinued reportedly she has not had any further bloody bowel movements. Unclear etiology of melena possible etiologies include peptic ulcer disease, AVM, gastritis, esophagitis or other possible etiologies. At this time there is no further bleeding with a stable hemoglobin and anticoagulation has been discontinued. Will continue to follow and trend hemoglobin as well as monitor for bleeding. Further recommendations forthcoming based on clinical course. Current Visit: Yes Status: Acute Code(s): K92.1 - MELENA SNOMED Code(s): 9162375 (2) Altered mental status Current Visit: Yes Status: Acute Code(s): R41.82 - ALTERED MENTAL STATUS, UNSPECIFIED SNOMED Code(s): 359614230 (3) Influenza Current Visit: Yes Status: Acute Code(s): J11.1 - FLU DUE TO UNIDENTIFIED INFLUENZA VIRUS W OTH RESP MANIFEST SNOMED Code(s): 9753315 (4) Coronary artery disease Current Visit: Yes Status: Acute Code(s): I25.10 - ATHSCL HEART DISEASE OF [place] CORONARY ARTERY W/O ANG PCTRS SNOMED Code(s): 18228064 (5) History of ischemic cardiomyopathy Current Visit: Yes Status: Acute Code(s): Z86.79 - PERSONAL HISTORY OF OTHER DISEASES OF THE CIRCULATORY SYSTEM SNOMED Code(s): 857855941458981 (6) Elevated troponin Current Visit: Yes Status: Acute Code(s): R79.89 - OTHER SPECIFIED ABNORMAL FINDINGS OF BLOOD CHEMISTRY SNOMED Code(s): 568024472 (7) Acute exacerbation of CHF (congestive heart failure) Current Visit: Yes Status: Acute Code(s): I50.9 - HEART FAILURE, UNSPECIFIED SNOMED Code(s): 741508105 (8) COPD (chronic obstructive pulmonary disease) Current Visit: No Status: Acute Code(s): J44.9 - CHRONIC OBSTRUCTIVE PULMONARY DISEASE, UNSPECIFIED SNOMED Code(s): 60752806 (9) Dyspnea Current Visit: No Status: Acute Code(s): R06.00 - DYSPNEA, UNSPECIFIED SNOMED Code(s): 416750520 Plan: 1. Continue symptomatic and supportive care 2. Diet as tolerated 3. Daily CBC, transfuse for hemoglobin less than 7 4. Avoid anticoagulation 5. Avoid NSAIDs 6. Recommend Protonix 40 mg daily 7. Await further workup and recommendations from multiple consultants 8. No plans on endoscopic evaluation at this time, will continue to follow closely 9. Further recommendations forthcoming based on clinical course Thank you for this consultation, we will continue to follow. Dr. Hanna Bates I agree with the dictator's note, documented as a scribe by Parisa Richard.
--- NOTE | 2024-12-18 12:49 | P.PN ---
Subjective Progress Note Date: 12/18/24 Hospital Course: Patient is a very pleasant 79-year-old female with a past medical history of CAD status post stenting x 3, chronic systolic heart failure, ischemic cardiomyopathy, hypertension, hyperlipidemia, TIA/CVA and osteoarthritis. She presented to the hospital on upon arrival to our facility, patient underwent evaluation in the emergency department. Vital signs upon arrival show blood pressure 137/80, heart rate 105, respiratory rate 18, temp 98.7 F, and SpO2 of 90% on 2 L. EKG completed showing sinus tachycardia at 105 bpm with T wave inversion in lateral lead aVL otherwise no significant T wave or ST abnormalities noted. Chest x-ray completed showing possible right upper lobe pulmonary nodule measuring 7.4 mm, recommend outpatient dedicated CT scan for further evaluation/surveillance. Labs completed and reviewed. CBC unremarkable. Coagulation profile normal findings. BMP showing slightly elevated BUN of 19 otherwise normal findings. Blood glucose 130. Calcium 9.1. Liver profile unremarkable. Troponin elevated at 0.156 and proBNP 10,900. Influenza B, RSV, and COVID PCR were negative influenza A was positive. Patient was started on heparin infusion and admitted under our services with consult to cardiology and pulmonology. Troponins trended resulting at 0.156, 0.161, and 0.156. Echocardiogram completed revealing reduced EF of 40% with aneurysmal inferior wall and mild mitral regurgitation.. During first night of ho spitalization patient's mentation worsened as she was initially a poor historian but alert to person, place and situation patient now alert to self only. CT brain was completed negative for acute process. Neurology also consulted for evaluation. During second night of hospitalization patient had large episode of melena, heparin infusion and Plavix was stopped at this time. On 12/18/2024 patient developed an acute kidney injury. Physical exam: Patient seen and fully evaluated at bedside this morning. She appeared to be resting comfortably with sitter at bedside. Easily awoken via verbal/tactile stimuli. Hernandez catheter in place with minimal urine in collection bag. Pt currently denies any pain. She remains on supplemental oxygen on 3L maintaining SPO2 in the 90's. Vital signs reviewed and stable. General: Nontoxic, no distress and appears stated age. Derm: Skin warm and dry, normal coloration for ethnicity. Head: Atraumatic, normocephalic and symmetric. Eyes: EOM's intact, no lid lag, and anicteric sclera Mouth: no lip lesions, mucus membranes moist Cardiovascular: regular rate and rhythm with normal S1S2, soft systolic murmur, positive posterior tibial pulses bilaterally, and cap refill < 2 seconds. Lungs: Respirations even, regular, and unlabored on 3 L O2 via nasal cannula. Lungs slightly diminished. No wheezes, rhonchi, rales, or crackles noted this morning. Abdominal: soft, nontender to palpation, no guarding, no appreciable organomegaly Ext: ROM intact. No gross muscle atrophy, scant lower extremity edema, no co ntractures Neuro: Speech clear, face symmetrical and CN II-XII grossly intact with no noted focal neuro deficits Psych: Alert and oriented to person only at this time, currently calm and cooperative. Assessment and Plan of Care: Acute on chronic systolic heart failure exacerbation with EF 40% Influenza A Elevated troponins, likely type II NSTEMI History of CAD status post stenting Ischemic cardiomyopathy Hypertension Hyperlipidemia -Cardiology following, discussed plan of care with gold leaf laborer -Pulmonology following, reviewed documentation in chart -Heparin infusion and Plavix stopped secondary to episode of melena -Patient to remain on continuous telemetry monitoring -Daily weights and Close monitoring of I's and O's -Cardiac diet with 1500 cc fluid restrictions -Lasix 40 mg IVP every 12 hours -Aspirin 81 mg daily, atorvastatin 80 mg nightly,Zetia 10 mg nightly, isosorbide mononitrate 30 mg daily, metoprolol 25 mg twice daily, and nifedipine 30 mg nightly. -Continue renal dosing of Tamiflu 30 mg daily hours x 5 days. -Continued close monitoring of electrolytes while diuresing. -Echocardiogram completed revealing reduced EF of 40% with aneurysmal inferior wall and mild mitral regurgitation.. Acute kidney injury -Hernandez catheter in place, discussed with RN to BladderScan and if needed to flush Hernandez or reinsert new Hernandez catheter. Unclear if documented output is correct as prior to hernandez catheter placement, was informed that pt's bed was changed due to urination. -Consult placed to nephrology, appreciate recommendations -Patient already received Lasix 40 mg IV this morning, will continue for now pending further recommendations from car unloader. -Lisinopril held at this time. GI bleed with episode of melena Acute blood loss anemia -Pt was on Heparin infusion which was immediately stopped along with Plavix. -Hemoglobin on arrival was 13.5 currently 10.0. -Continue Protonix 40 mg IV BID. -Consult placed to GI, appreciate recommendations -Continued close monitor of Hgb levels with repeat CBC, transfuse if needed for Hgb < 7. Acute Metabolic encephalopathy, likely secondary to delirium resulting from acute conditions as stated above -CT brain negative for acute intracranial process. -Continue neurochecks every 4 hours -Fall precautions -Sitter at bedside -Soft restraints with hand mittens -Neurology following placed order for EEG to evaluate for encephalopathy and to rule out any epileptiform activity. Incidental finding on chest x-ray -Chest x-ray showing possible 7.4 mm pulmonary nodule in right upper lobe, recommend outpatient CT for follow-up/surveillance. Left arm swelling/bruising at previous IV site -Left upper extremity Doppler was completed showing no evidence of DVT. Data and imaging reviewed: Vital signs reviewed. Blood pressure 126/74, heart rate 81, respiratory rate 18, and SpO2 of 92% on 3 L Morning labs reviewed. CBC showing mild leukocytosis with WBC count of 10.8 and normocytic anemia with hemoglobin of 10.0, decreasing from initial 13.5 on day of admission. BMP showing acute kidney injury with BUN of 67, creatinine 2.41, and GFR of 18. Blood glucose 87. Liver profile showing elevated AST of 40 and hypoalbuminemia with albumin of 3.3. Procalcitonin negative at 0.34. Fecal occult was positive. CODE STATUS: Full Code DVT prophylaxis: SCDs Anticipated discharge date: Pending clinical course Anticipated discharge place: Pending clinical course Patient was seen independently by Nurse Practitioner. This document was prepared using [employer] dictation software. Please allow for errors in insurance plan specialist while rare they do occur. Velasquez Manzanares NP rendered care for this patient independently, reviewed the findings and plan as documented in the note above and agree with plan. I did not physically speak with or examine the patient on this date. Objective - Vital Signs Vital signs: Vital Signs Temp 98.1 F 12/17/24 11:18 Pulse 85 12/18/24 04:00 Resp 20 12/18/24 04:00 BP 129/73 12/18/24 04:00 Pulse Ox 93 L 12/18/24 04:00 FiO2 Intake & Output 12/17/24 12/18/24 12/18/24 18:59 06:59 18:59 Intake Total 59.873 56.293 Output Total 250 Balance -190.127 56.293 Weight 75 kg Intake: IV 20 Invasive Line 2 10 Invasive Line 3 10 Intake, IV Titration 59.873 36.293 Amount Heparin Sod,Pork in 0.45% 59.873 36.293 NaCl 25,000 unit In 0.45 % NaCl 1 250ml.bag @ 12 UNITS/KG/HR 8.709 mls/hr IV .Q24H [facility] Rx#: [id number] Output: Urine 250 Other: Voiding Method Indwelling Catheter - Labs CBC & Chem 7: 12/18/24 06:30 12/18/24 06:30 Labs: Abnormal Lab Results - Last 24 Hours (Table) 12/17/24 12/17/24 12/17/24 Range/Units 08:45 12:13 12:14 WBC (3.8-10.6) k/uL RBC (3.80-5.40) m/uL Hgb (11.4-16.0) gm/dL Hct (34.0-46.0) % Neutrophils # (1.3-7.7) k/uL Lymphocytes # (1.0-4.8) k/uL APTT 116.8 H* (22.0-30.0) sec Sodium 136 L (137-145) mmol/L BUN 45 H (7-17) mg/dL Creatinine 1.33 H (0.52-1.04) mg/dL Glucose 131 H (74-99) mg/dL POC Glucose (mg/dL) 156 H (70-110) mg/dL AST 40 H (14-36) U/L Total Protein 5.9 L (6.3-8.2) g/dL Stool Occult Blood (Negative) 12/17/24 12/17/24 12/17/24 Range/Units 19:21 19:21 21:37 WBC 13.0 H (3.8-10.6) k/uL RBC (3.80-5.40) m/uL Hgb (11.4-16.0) gm/dL Hct (34.0-46.0) % Neutrophils # 11.6 H (1.3-7.7) k/uL Lymphocytes # 0.7 L (1.0-4.8) k/uL APTT 71.7 H (22.0-30.0) sec Sodium (137-145) mmol/L BUN (7-17) mg/dL Creatinine (0.52-1.04) mg/dL Glucose (74-99) mg/dL POC Glucose (mg/dL) (70-110) mg/dL AST (14-36) U/L Total Protein (6.3-8.2) g/dL Stool Occult Blood Positive H (Negative) 12/17/24 12/17/24 12/18/24 Range/Units 22:12 22:12 06:30 WBC 14.1 H 10.8 H (3.8-10.6) k/uL RBC 3.48 L 3.31 L (3.80-5.40) m/uL Hgb 10.9 L 10.0 L (11.4-16.0) gm/dL Hct 32.2 L 31.3 L (34.0-46.0) % Neutrophils # 12.4 H (1.3-7.7) k/uL Lymphocytes # 0.9 L (1.0-4.8) k/uL APTT 67.1 H (22.0-30.0) sec Sodium (137-145) mmol/L BUN (7-17) mg/dL Creatinine (0.52-1.04) mg/dL Glucose (74-99) mg/dL POC Glucose (mg/dL) (70-110) mg/dL AST (14-36) U/L Total Protein (6.3-8.2) g/dL Stool Occult Blood (Negative)
--- NOTE | 2024-12-18 15:33 | P.PN ---
Subjective Progress Note Date: 12/18/24 Principal diagnosis: Acute exacerbation of chronic systolic congestive heart failure, ejection fraction of 40% and acute influenza A infection with altered mental status This is an 79-year-old female patient with a known history of hypertension, hyperlipidemia, congestive heart failure, coronary artery disease with previous stent placements, former smoker mild intermittent chronic bronchial asthma. She presented here to the emergency room early this morning with progressive weakness and significant dyspnea on exertion. Chest x-ray reveals no acute cardiopulmonary findings. Possible right upper lobe preliminary nodule. White count 7.2. Hemoglobin 13.5. Platelets 184. Sodium 137. Potassium 4.3. Bicarb 25. BUN 19. Creatinine 1.03. Glucose 130. Troponin 0.156, 0.161, 0.156. proBNP 10,900. Viral screen positive for influenza A. She is seen today in consultation in the emergency department. Currently sitting up on a stretcher. Awake and alert in no acute distress. Denies any worsening shortness of breath, cough or congestion. Denies any chest pain. Maintaining O2 saturations in the 90s on room air. She is afebrile. Hemodynamically stable. The patient is seen today December 17, 2024 in follow-up in the emergency department. She is currently resting on a stretcher. She is maintaining O2 saturations in the 90s on 4 L/min per nasal cannula. She is afebrile. Echocardiogram revealed impaired left ventricular systolic function with an ejection fraction of 40%. She is confused today. Being uncooperative with staff. ribbon lapper tender at the bedside. A CT scan of the brain revealed no acute intracranial process. She remains on a heparin drip. Glucose 156. Continued on Tamiflu. Continued on IV diuretics. Patient was seen today on 12/18/2024, patient remains confused, quite lethargic, her mental status has significantly changed compared to the day of admission when she was initially seen in the ER. CT of the brain showed no evidence of intracranial process, patient is being followed by many consultants so far. And her mental status remains quite changed compared to baseline. Family is at bedside. No active pulmonary issues. Patient is known to have history of asthma which has been stable all along. Her echocardiogram showed LV dysfunction with ejection fraction of 40%. Patient is being followed by cardiology she was also seen by gastroenterology for low hemoglobin of 10 initially came in with a hemoglobin of 11.6. Renal functioning has been worsening since admission came in with a creatinine of 1 now her creatinine is 2.41,May need nephrology evaluation for her acute kidney injury. For her mental status change, may need full neurological evaluation. Objective - Vital Signs Vital signs: Vital Signs Temp 98.1 F 12/17/24 11:18 Pulse 81 12/18/24 08:00 Resp 18 12/18/24 13:05 BP 126/74 12/18/24 08:00 Pulse Ox 92 L 12/18/24 08:00 FiO2 Intake & Output 12/17/24 12/18/24 12/18/24 18:59 06:59 18:59 Intake Total 59.873 56.293 40 Output Total 250 0 Balance -190.127 56.293 40 Weight 75 kg 75 kg Intake: IV 20 40 Invasive Line 2 10 20 Invasive Line 3 10 20 Intake, IV Titration 59.873 36.293 Amount Heparin Sod,Pork in 0.45% 59.873 36.293 NaCl 25,000 unit In 0.45 % NaCl 1 250ml.bag @ 12 UNITS/KG/HR 8.709 mls/hr IV .Q24H [facility] Rx#: [id number] Output: Urine 250 Post Void Residual 0 Other: Voiding Method Indwelling Catheter Indwelling Catheter - Exam GENERAL EXAM: confused, uncooperative 79-year-old female, on 2 L nasal cannula, not in distress HEAD: Normocephalic. EYES: Normal reaction of pupils, equal size. NOSE: Clear with pink turbinates. THROAT: No erythema or exudates. NECK: No masses, no JVD. CHEST: No chest wall deformity. LUNGS: Diminished breath sound bilaterally no crackles rhonchi or wheezes CVS: S1 and S2 normal with no audible murmur, regular rhythm. ABDOMEN: No hepatosplenomegaly, normal bowel sounds, no guarding or rigidity. SPINE: No scoliosis or deformity SKIN: No rashes CENTRAL NERVOUS SYSTEM: Lethargic, confused, much different compared to her baseline on her initial evaluation EXTREMITIES: There is no peripheral edema. No clubbing, no cyanosis. Peripheral pulses are intact. - Labs CBC & Chem 7: 12/18/24 06:30 12/18/24 06:30 Labs: Abnormal Lab Results - Last 24 Hours (Table) 12/17/24 12/17/24 12/17/24 Range/Units 19:21 19:21 21:37 WBC 13.0 H (3.8-10.6) k/uL RBC (3.80-5.40) m/uL Hgb (11.4-16.0) gm/dL Hct (34.0-46.0) % Neutrophils # 11.6 H (1.3-7.7) k/uL Lymphocytes # 0.7 L (1.0-4.8) k/uL APTT 71.7 H (22.0-30.0) sec BUN (7-17) mg/dL Creatinine (0.52-1.04) mg/dL AST (14-36) U/L Total Protein (6.3-8.2) g/dL Albumin (3.5-5.0) g/dL Stool Occult Blood Positive H (Negative) 12/17/24 12/17/24 12/18/24 Range/Units 22:12 22:12 06:30 WBC 14.1 H (3.8-10.6) k/uL RBC 3.48 L (3.80-5.40) m/uL Hgb 10.9 L (11.4-16.0) gm/dL Hct 32.2 L (34.0-46.0) % Neutrophils # 12.4 H (1.3-7.7) k/uL Lymphocytes # 0.9 L (1.0-4.8) k/uL APTT 67.1 H (22.0-30.0) sec BUN 67 H (7-17) mg/dL Creatinine 2.41 H (0.52-1.04) mg/dL AST 40 H (14-36) U/L Total Protein 5.5 L (6.3-8.2) g/dL Albumin 3.3 L (3.5-5.0) g/dL Stool Occult Blood (Negative) 12/18/24 Range/Units 06:30 WBC 10.8 H (3.8-10.6) k/uL RBC 3.31 L (3.80-5.40) m/uL Hgb 10.0 L (11.4-16.0) gm/dL Hct 31.3 L (34.0-46.0) % Neutrophils # (1.3-7.7) k/uL Lymphocytes # (1.0-4.8) k/uL APTT (22.0-30.0) sec BUN (7-17) mg/dL Creatinine (0.52-1.04) mg/dL AST (14-36) U/L Total Protein (6.3-8.2) g/dL Albumin (3.5-5.0) g/dL Stool Occult Blood (Negative) Assessment and Plan Assessment: Impression: Acute mental status since admission, needs to have further evaluation by neurology CT of the brain is nondiagnostic Acute exacerbation of chronic systolic congestive heart failure. Impaired left ventricular systolic function with an ejection fraction of 40% Troponin leak possible non-ST segment elevation myocardial infarction currently on a heparin drip Acute influenza A infection, currently on Tamiflu Altered mental status of unclear etiology, CT scan of the brain revealed no acute intracranial process History of coronary artery disease with previous stent placement, most recently to the RCA in February 2023 Possible early right upper lobe pulmonary nodule to be followed up in the outpatient setting Mild intermittent chronic bronchial asthma, inactive Former smoker Hypertension Hyperlipidemia History of congestive heart failure Acute kidney injury, hold diuretics, consider nephrology consultation. Recommendation: Continue present supportive care measures Consider nephrology and neurology consultation for her altered mental status and for her acute kidney injury Continue bronchodilators for her underlying asthma which seems to be inactive at present Continue Tamiflu for influenza infection Continue Protonix Hold all sedatives for now and or narcotics Will continue to follow Time with Patient: Less than 30
--- NOTE | 2024-12-18 16:17 | US ---
EXAMINATION TYPE: US renals and bladder DATE OF EXAM: 12/18/2024 COMPARISON: NONE CLINICAL INDICATION: Female, 79 years old with history of DORIS; DORIS TECHNIQUE: Grayscale imaging of the bilateral kidneys and urinary bladder: FINDINGS: EXAM MEASUREMENTS: Right Kidney: 9.4 x 4.9 x 4.0 cm Left Kidney: 8.9 x 3.9 x 4.3 cm Right Kidney: *Multiple anechoic areas seen, largest is at lower: 2.7 x 2.7 x 2.5 cm. *Hypoechoic area seen lower: 1.8 x 1.8 x 1.5 cm. Left Kidney: Slightly small in size. *Anechoic area seen superior: 2.1 x 2.4 x 2.3 cm. Bladder: Not distended Bilateral Jets seen: No Hyperechoic area with posterior shadowing seen within the gallbladder: 0.7 x 0.8 x 0.9 cm. IMPRESSION: 1. No evidence for acute process. No obstructive uropathy. 2. Bilateral simple appearing renal cysts. 3. Cholelithiasis. [facility], , 12/18/2024 4:14 PM
[2024-12-18] MEDS: PANTOPRAZOLE 40 MG/10 ML VIAL IVP SCH (16:54)
[2024-12-18] MEDS: OSELTAMIVIR 30 MG CAP PO SCH (16:55)
[2024-12-18 17:21] LABS: Basophils % (A) 0 %; Eosinophils # (A) 0.1 k/uL (0-0.7); Eosinophils % (A) 1 %; HCT 31.5 % (34.0-46.0); HGB 10.2 gm/dL (11.4-16.0); Lymphocytes # (A) 0.8 k/uL (1.0-4.8); Lymphocytes % (A) 8 %; MCH 30.5 pg (25.0-35.0); MCHC 32.3 g/dL (31.0-37.0); MCV 94.6 fL (80.0-100.0); Mean Platelet Volume 9.3; Monocytes # (A) 0.6 k/uL (0-1.0); Monocytes % (A) 6 %; Neutrophils # (A) 8.7 k/uL (1.3-7.7); Neutrophils % (A) 84 %; Platelet Count 194 k/uL (150-450); RBC 3.33 m/uL (3.80-5.40); RDW 12.6 % (11.5-15.5); WBC 10.3 k/uL (3.8-10.6)
--- NOTE | 2024-12-19 01:05 | EEG ---
ELECTROENCEPHALOGRAM REPORT PREAMBLE: This is an 79-year-old female with altered mental status. CURRENT MEDICATIONS: 1. Albuterol. 2. Aspirin. 3. Lipitor. 4. Zetia. 5. Lasix. 6. Ativan. 7. Lopressor. 8. Singulair. 9. Procardia. 10.Tamiflu. 11.Protonix. EEG FINDINGS: This is a 21-channel digital EEG recorded with video component, utilizing 10/20 international system with referential and bipolar montages. The background consists of well-developed, moderately well regulated, mixed frequencies of 9 to 10 hertz alpha, intermixed with some 5 to 6 hertz theta activity seen in bihemispheric region. Background is posterior dominant and seems to be slightly reactive to eye opening and closing. Photic driving response was not seen. Drowsiness was seen with appearance of bilaterally symmetric theta frequency rhythm. Deeper stages of sleep were not clearly seen. No focal or generalized epileptiform activity was seen. IMPRESSION: This is an abnormal EEG due to background slowing, suggestive of mild encephalopathy. No focal, lateralized, or epileptiform activity was seen. MMODL / IJN: [id number] / [facility]PITALDean
--- NOTE | 2024-12-19 09:31 | P.PN ---
Subjective Progress Note Date: 12/18/24 Patient was seen for a follow-up. Patient is laying in the bed. patient is asleep at this time. The sitter was present, who mentioned that earlier patient has been combative, kicking, biting, confused. Not able to be redirected. No seizure-like activity. Objective - Vital Signs Vital signs: Vital Signs Temp 98.1 F 12/17/24 11:18 Pulse 83 12/18/24 16:00 Resp 18 12/18/24 16:00 BP 88/53 12/18/24 16:00 Pulse Ox 91 L 12/18/24 16:00 FiO2 Intake & Output 12/18/24 12/18/24 12/19/24 06:59 18:59 06:59 Intake Total 56.293 40 Output Total 0 Balance 56.293 40 Weight 75 kg 75 kg Intake: IV 20 40 Invasive Line 2 10 20 Invasive Line 3 10 20 Intake, IV Titration 36.293 Amount Heparin Sod,Pork in 0.45% 36.293 NaCl 25,000 unit In 0.45 % NaCl 1 250ml.bag @ 12 UNITS/KG/HR 8.709 mls/hr IV .Q24H [facility] Rx#: [id number] Oral 0 Output: Post Void Residual 0 Other: Voiding Method Indwelling Catheter Indwelling Catheter # Bowel Movements 1 - Exam Patient asleep at this time. Detailed examination deferred. - Labs CBC & Chem 7: 12/18/24 17:07 12/18/24 06:30 Labs: Abnormal Lab Results - Last 24 Hours (Table) 12/17/24 12/17/24 12/17/24 Range/Units 19:21 19:21 21:37 WBC 13.0 H (3.8-10.6) k/uL RBC (3.80-5.40) m/uL Hgb (11.4-16.0) gm/dL Hct (34.0-46.0) % Neutrophils # 11.6 H (1.3-7.7) k/uL Lymphocytes # 0.7 L (1.0-4.8) k/uL APTT 71.7 H (22.0-30.0) sec BUN (7-17) mg/dL Creatinine (0.52-1.04) mg/dL AST (14-36) U/L Total Protein (6.3-8.2) g/dL Albumin (3.5-5.0) g/dL Stool Occult Blood Positive H (Negative) 12/17/24 12/17/24 12/18/24 Range/Units 22:12 22:12 06:30 WBC 14.1 H (3.8-10.6) k/uL RBC 3.48 L (3.80-5.40) m/uL Hgb 10.9 L (11.4-16.0) gm/dL Hct 32.2 L (34.0-46.0) % Neutrophils # 12.4 H (1.3-7.7) k/uL Lymphocytes # 0.9 L (1.0-4.8) k/uL APTT 67.1 H (22.0-30.0) sec BUN 67 H (7-17) mg/dL Creatinine 2.41 H (0.52-1.04) mg/dL AST 40 H (14-36) U/L Total Protein 5.5 L (6.3-8.2) g/dL Albumin 3.3 L (3.5-5.0) g/dL Stool Occult Blood (Negative) 12/18/24 12/18/24 Range/Units 06:30 17:07 WBC 10.8 H (3.8-10.6) k/uL RBC 3.31 L 3.33 L (3.80-5.40) m/uL Hgb 10.0 L 10.2 L (11.4-16.0) gm/dL Hct 31.3 L 31.5 L (34.0-46.0) % Neutrophils # 8.7 H (1.3-7.7) k/uL Lymphocytes # 0.8 L (1.0-4.8) k/uL APTT (22.0-30.0) sec BUN (7-17) mg/dL Creatinine (0.52-1.04) mg/dL AST (14-36) U/L Total Protein (6.3-8.2) g/dL Albumin (3.5-5.0) g/dL Stool Occult Blood (Negative) Assessment and Plan Assessment: * Delirium, likely due to metabolic encephalopathy. Reasons multifactorial as mentioned below * Probable underlying dementia. Patient has memory loss progressively getting worse for last 4 to 6 months. * Influenza A * Elevated troponins * CHF with EF 40% * Hypertension * Hyperlipidemia * Obesity * Former tobacco use Plan: * EEG was abnormal due to background slowing, suggestive of mild encephalopathy. No focal, lateralized or epileptiform activity was seen. * Management of underlying cardiopulmonary conditions and other medical conditions as per IM and other specialties on board. * Await B12, folate, TSH. * UA negative. * Patient receiving Tamiflu for influenza infection. * Patient is off heparin drip. Currently on aspirin 81 mg and Lipitor 80 mg and Zetia 10 mg. * DVT prophylaxis: Start Lovenox 40 mg subcu daily. * Supportive care. Fall precautions.
[2024-12-19 10:06] LABS: HGB 8.9 gm/dL (11.4-16.0); MCH 30.1 pg (25.0-35.0); MCHC 33.1 g/dL (31.0-37.0); MCV 90.8 fL (80.0-100.0); Mean Platelet Volume 8.9; Platelet Count 174 k/uL (150-450); RBC 2.97 m/uL (3.80-5.40); RDW 12.1 % (11.5-15.5)
[2024-12-19 10:11] LABS: African American GFR (CKD) 18 (>60 ml/min/1.73 sqM); Anion Gap 12 mmol/L; Blood Urea Nitrogen 87 mg/dL (7-17); Calcium 8.4 mg/dL (8.4-10.2); Carbon Dioxide 22 mmol/L (22-30); Chloride 102 mmol/L (98-107); Glucose 96 mg/dL (74-99); Magnesium 2.3 mg/dL (1.6-2.3); Non-African American GFR(CKD) 16 (>60 ml/min/1.73 sqM); Sodium 136 mmol/L (137-145)
[2024-12-19 11:11] LABS: T4, Free (Free Thyroxine) 1.48 ng/dL (0.78-2.19)
--- NOTE | 2024-12-19 11:44 | P.NPCON ---
History of Present Illness - Reason for Consult acute renal failure - History of Present Illness Patient is an 79-year-old female with history of coronary artery disease, CHF and ischemic cardiomyopathy with EF of about 40%. Patient is admitted to the hospital with complaints of shortness of breath and weakness. No complaints of chest pain fever chills nausea vomiting or abdominal pain. Patient has been confused. She tested positive for influenza A. Serum creatinine was 1.0 on admission and has steadily increased to 2.75 today. Currently with indwelling Jalloh catheter and only 300 mL charted for 24 hours. Blood pressure is noted to be low recently with systolic in the 80s on 12/16/2024 and 12/18/2024. Patient has ongoing GI bleed with hemoglobin currently at 8.9 g/dL which has dropped from 13.5 on initial admission. Patient was on BAO inhibitors and lisinopril was discontinued on 12/17/2024. Past Medical History Past Medical History: Asthma, Hyperlipidemia, Hypertension, Myocardial Infarction (MT), Mitral Valve Prolapse (MVP), Osteoarthritis (OA) Additional Past Medical History / Comment(s): ?MVP-[place] ago [place] but has never had tx. for, cataracts bilaterally, recent adm. [facility] for TIA-sx.'s resolved Last Myocardial Infarction Date:: 2001 History of Any Multi-Drug Resistant Organisms: None Reported Past Surgical History: Appendectomy, Heart Catheterization With Stent, Hysterectomy, Joint Replacement, Tonsillectomy Additional Past Surgical History / Comment(s): 04/18/16 Total R hip arthroplasty anterior approach. Other surgical hx: colonoscopy Past Anesthesia/Blood Transfusion Reactions: No Reported Reaction, Motion Sickness Additional Past Anesthesia/Blood Transfusion Reaction / Comment(s): "I have been told I fight going to sleep",no problems w/ prior blood transfusion Date of Last Stent Placement:: 2001 Past Psychological History: No Psychological Hx Reported Smoking Status: Former smoker Past Alcohol Use History: None Reported Past Drug Use History: None Reported - Past Family History Mother Family Medical History: No Reported History Additional Family Medical History / Comment(s): Mother was healthy as far as pt knows. She in her 70's Father Family Medical History: Hyperlipidemia Medications and Allergies Home Medications Medication Instructions Recorded Confirmed Type Montelukast [Singulair] 10 mg PO HS 04/06/16 12/16/24 History Ezetimibe [Zetia] 10 mg PO HS 06/13/22 12/16/24 History Mirabegron [Myrbetriq] 50 mg PO DAILY 06/13/22 12/16/24 History NIFEdipine [Adalat CC] 30 mg PO HS 06/13/22 12/16/24 History lisinopriL [Prinivil] 10 mg PO HS 06/13/22 12/16/24 History Atorvastatin [Lipitor] 80 mg PO HS #30 tab 06/14/22 12/16/24 Rx Furosemide [Lasix] 20 mg PO DAILY 10/25/22 12/16/24 History Clopidogrel [Plavix] 75 mg PO DAILY #30 tablet 10/27/22 12/16/24 Rx Isosorbide Dinitrate 30 mg PO DAILY 02/13/23 12/16/24 History Allergies Allergy/AdvReac Type Severity Reaction Status Date / Time nickel Allergy Rash/Hives Verified 12/16/24 07:24 topiramate [From Topamax] AdvReac trouble Verified 12/16/24 07:24 swallowing Physical Exam Vitals: Vital Signs Temp Pulse Resp BP Pulse Ox 12/19/24 08:55 97.8 F 93 16 103/63 97 12/19/24 03:40 97.9 F 90 16 119/70 97 12/18/24 23:30 98.1 F 85 16 95/52 95 12/18/24 19:31 98 F 64 16 96/59 92 L 12/18/24 16:00 83 18 88/53 91 L 12/18/24 13:05 18 Intake and Output 12/18/24 12/19/24 12/19/24 22:59 06:59 14:59 Intake Total 10 Output Total 300 Balance 10 -300 Intake: IV 10 Invasive Line 3 10 Output: Urine 300 Other: Voiding Method Indwelling Catheter Indwelling Catheter Indwelling Catheter # Bowel Movements 1 2 Weight 78 kg Patient is awake, comfortable no acute distress. She is laying flat Examination of the heart S1 and S2 Examination of the lungs bilateral breath sounds are heard Abdomen is soft nontender Examination of lower extremities shows no significant edema Patient is confused Results - Lab Results Most recent lab results Calcium 8.4 mg/dL (8.4-10.2) 12/19/24 09:41 Magnesium 2.3 mg/dL (1.6-2.3) 12/19/24 09:41 12/19/24 09:41 12/19/24 09:41 Assessment and Plan Assessment: 1. Acute kidney injury, ATN, oliguric secondary to hypotension. BAO inhibitors on hold. Diuretics on hold as well. UA was completely benign on 12/18/2024. Ultrasound shows no significant obstructive uropathy. 2. GI bleed being followed by GI 3. Influenza A infection maintained on Tamiflu 4. Mental status changes associated with metabolic encephalopathy and underlying dementia 5. Cardiomyopathy with EF of 40% 6. Primary hypertension with blood pressure currently improved. Plan: Agree with holding diuretics and BAO inhibitors. Add IV fluids DC Procardia Avoid any further nephrotoxic agents. Repeat chest x-ray today. Thank you for the consultation. We will continue to follow the patient with you during her hospitalization.
[2024-12-19] MEDS: ENOXAPARIN 30 MG/0.3 ML SYRINGE SQ SCH (11:45)
[2024-12-19] MEDS: SODIUM CHLORIDE 0.9% 500 ML 250 ML IV ONE (12:40)
[2024-12-19] MEDS: SODIUM CHLORIDE 0.9% 1,000 ML IV SCH (12:40)
--- NOTE | 2024-12-19 12:54 | P.PN ---
Subjective HISTORY OF PRESENT ILLNESS: This is a 79-year-old female with a past medical history significant for coronary artery disease, ischemic cardiomyopathy, moderate mitral regurgitation, hypertension, and hyperlipidemia. Patient follows in the office with Dr. Bates. We have been asked to see the patient in consultation for CHF. Patient examined at the bedside in the emergency room. Patient's is present. Patient and her are both somewhat of poor historians. Apparently yesterday when the patient was at home she was complaining to her that she was not feeling well. Her states that she was unable to walk and was complaining of shortness of breath. She denied having any chest pain or pressure. At the time of examination this morning she denies any chest pain or pressure. Denies any shortness of breath. Vital signs are stable. DIAGNOSTICS: - EKG reveals sinus tachycardia with incomplete right bundle branch block. No signs of acute ischemia. - Chest xray no acute findings within the chest. Possible right upper lobe preliminary nodule. Recommend nonemergent outpatient dedicated chest CT for further evaluation. - Laboratory data: WBC 7.2. Hemoglobin 13.5. Platelet count 184. Sodium 137. Potassium 4.3. BUN 19. Creatinine 1.03. Troponin 0.156. proBNP 10,900. - Current home cardiac medications include Plavix 75 mg daily, Lipitor 80 mg at night, Zetia 10 mg at night, Imdur 30 mg daily, nifedipine 30 mg at night, lisinopril 10 mg at night, Lasix 20 mg daily. - Most recent echocardiogram obtained in October 2022 revealing ejection fraction 45 to 50%, basal inferior hypokinesis, mild MR, mild TR - Cardiac catheterization history: February 2023 revealing 90% proximal and mid RCA stenosis with 60 to 70% PLV stenosis. Patient underwent PCI of proximal to distal RCA into PLV with overlapping stents. 12/17/2024 Patient examined this morning the bedside. Patient is confused this morning and is in restraints. Echocardiogram completed revealing ejection fraction 40 to 45%, mildly reduced global left ventricular systolic function, trace aortic regurgitation, mild mitral regurgitation. Patient remains on IV heparin. Patient without complaints of chest pain or shortness of breath. She remains on IV Lasix. Patient was found to be positive for influenza A. 12/19/2024 Patient examined this morning the bedside. Patient is resting comfortably in bed. Patient does have a drug safety associate at the bedside. Patient's vital signs are stable. Creatinine today 2.75, up from 2.4 yesterday. Her IV Lasix has been discontinued. PHYSICAL EXAM: VITAL SIGNS: Reviewed. GENERAL: Well-developed in no acute distress. HEENT: Head is normocephalic. Pupils are equal, round. Sclerae anicteric. Mucous membranes of the mouth are moist. Neck supple. No JVD or thyromegaly LUNGS: Respirations even and unlabored. Lungs diminished. HEART: Regular rate and rhythm. S1 and S2 heard. ABDOMEN: Soft. Nondistended. Nontender. EXTREMITIES: Normal range of motion. No clubbing or cyanosis. Peripheral pul ses intact. Bilateral lower extremity edema noted. NEUROLOGIC: Awake and alert. Oriented x 3. ASSESSMENT: Shortness of breath Generalized weakness Acute influenza A Acute on chronic heart failure with reduced EF, 40 to 45% Elevated troponin, suspect type II [place] Coronary artery disease with previous stenting of the RCA, February 2023 Hypertension Hyperlipidemia Obesity: BMI 31.2 Former nicotine dependence PLAN: Continue current cardiac medications Nephrology following for worsening kidney function Recommend transfer to general medical floor No plans for invasive cardiac procedures at this time We will sign off. Please reconsult if needed. Nurse practitioner note has been reviewed by physician. Signing provider agrees with the documented findings, assessment, and plan of care documented by HAND CELL TUBER as a scribe. Objective - Vital Signs Vital signs: Vital Signs Temp 97.8 F 12/19/24 08:55 Pulse 93 12/19/24 08:55 Resp 16 12/19/24 08:55 BP 103/63 12/19/24 08:55 Pulse Ox 97 12/19/24 08:55 FiO2 Intake & Output 12/18/24 12/19/24 12/19/24 18:59 06:59 18:59 Intake Total 40 10 Output Total 0 300 Balance 40 -290 Weight 75 kg 78 kg Intake: IV 40 10 Invasive Line 2 20 Invasive Line 3 20 10 Oral 0 Output: Urine 300 Post Void Residual 0 Other: Voiding Method Indwelling Catheter Indwelling Catheter Indwelling Catheter # Bowel Movements 1 2 - Labs CBC & Chem 7: 12/19/24 09:41 12/19/24 09:41 Labs: Abnormal Lab Results - Last 24 Hours (Table) 12/18/24 12/19/24 12/19/24 Range/Units 17:07 09:41 09:41 RBC 3.33 L 2.97 L (3.80-5.40) m/uL Hgb 10.2 L 8.9 L (11.4-16.0) gm/dL Hct 31.5 L 27.0 L (34.0-46.0) % Neutrophils # 8.7 H (1.3-7.7) k/uL Lymphocytes # 0.8 L (1.0-4.8) k/uL Sodium 136 L (137-145) mmol/L BUN 87 H (7-17) mg/dL Creatinine 2.75 H (0.52-1.04) mg/dL TSH 0.395 L (0.465-4.680) mIU/L
--- NOTE | 2024-12-19 14:07 | XR ---
EXAMINATION TYPE: XR chest 1V DATE OF EXAM: 12/19/2024 1:55 PM COMPARISON: Chest radiographs from 12/16/2024 CLINICAL INDICATION: Female, 79 years old with history of chf; [facility] TECHNIQUE: XR chest 1V Frontal view of the chest. FINDINGS: Lungs/Pleura: There is flattening of the diaphragm with increased lucency of the lungs. No evidence o f pneumothorax, pleural effusion or focal consolidation. Pulmonary vascularity: Unremarkable. Heart/mediastinum: Cardiomediastinal silhouette is prominent in size. Atherosclerotic calcifications are seen in the aorta. Musculoskeletal: No acute osseous pathology. Other findings: None Lines/Tubes: IMPRESSION: 1. Improved aeration of the lungs, No acute cardiopulmonary disease process. 2. COPD changes. [facility], , 12/19/2024 2:04 PM
--- NOTE | 2024-12-19 15:19 | P.PN ---
Subjective Progress Note Date: 12/19/24 Principal diagnosis: This is a pleasant 79-year-old female currently lying in bed with her eyes closed with a sitter at the bedside. She has a past medical history of COPD, asthma, TIA, hypertension, hyperlipidemia coronary artery disease and ischemic cardiomyopathy who presented to the emergency department with complaints of shortness of breath and weakness. Apparently patient has had a nonproductive cough with increased fatigue. She had elevated troponins on admission she was started on IV heparin drip with cardiology consultation. Heparin drip was started on 12/16/2024 apparently yesterday evening patient had 2 maroon-colored bowel movements with a drop in her hemoglobin from 13.5 on admission to 10.9. Gastroenterology was consulted for melena. Patient states she has no abdominal pain, nausea or vomiting. There is been no further melena reported. Heparin drip was discontinued yesterday evening. Patient denies any previous history of peptic ulcer disease. She is somewhat of a poor historian is unable to remember if she has had an upper endoscopy in the past but states she believes she has had a colonoscopy. No available reports in patient's chart. Patient was diagnosed with influenza A during this admission. Patient had increased confusion and altered mental status changes through the night and became combative, currently has a sitter at the bedside. 12/19/2024 Patient is seen and examined today as a follow-up. Patient is more alert and oriented today. She denies any abdominal pain, no bowel movement today however nursing did report that she had 2 black stools yesterday. Hemoglobin dropped from 10.2 yesterday to 8.9 today. Objective - Vital Signs Vital signs: Vital Signs Temp 97.8 F 12/19/24 08:55 Pulse 93 12/19/24 08:55 Resp 16 12/19/24 08:55 BP 103/63 12/19/24 08:55 Pulse Ox 97 12/19/24 08:55 FiO2 Intake & Output 12/18/24 12/19/24 12/19/24 18:59 06:59 18:59 Intake Total 40 10 Output Total 0 300 Balance 40 -290 Weight 75 kg 78 kg Intake: IV 40 10 Invasive Line 2 20 Invasive Line 3 20 10 Oral 0 Output: Urine 300 Post Void Residual 0 Other: Voiding Method Indwelling Catheter Indwelling Catheter Indwelling Catheter # Bowel Movements 1 2 - Exam General appearance: The patient is alert, oriented, appears in no acute distress. HET: Head is normocephalic and atraumatic. Conjunctiva pink. Sclera anicteric. Neck: Supple without lymphadenopathy. Abdomen: Soft, nontender, nondistended. Extremities: Normal skin color and turgor. No pedal edema Skin: No rashes, no jaundice Neurological: No focal deficits. Alert and oriented. - Labs CBC & Chem 7: 12/19/24 09:41 12/19/24 09:41 Labs: Abnormal Lab Results - Last 24 Hours (Table) 12/18/24 12/19/24 12/19/24 Range/Units 17:07 09:41 09:41 RBC 3.33 L 2.97 L (3.80-5.40) m/uL Hgb 10.2 L 8.9 L (11.4-16.0) gm/dL Hct 31.5 L 27.0 L (34.0-46.0) % Neutrophils # 8.7 H (1.3-7.7) k/uL Lymphocytes # 0.8 L (1.0-4.8) k/uL Sodium 136 L (137-145) mmol/L BUN 87 H (7-17) mg/dL Creatinine 2.75 H (0.52-1.04) mg/dL TSH 0.395 L (0.465-4.680) mIU/L Assessment and Plan (1) Melena Narrative/Plan: 79-year-old female who is a poor historian had presented with shortness of breath and weakness diagnosed with influenza A has a significant cardiac history with elevated troponins on admission started on a IV heparin drip for greater than 24 hours followed by 2 maroon-colored stools and a drop in her hemoglobin. Heparin drip had been discontinued reportedly she has not had any further bloody bowel movements. Unclear etiology of melena possible etiologies include peptic ulcer disease, AVM, gastritis, esophagitis or other possible etiologies. At this time there is no further bleeding with a stable hemoglobin and anticoagulation has been discontinued. Hemoglobin continues to trend down and patient is having further black stools. Recommend upper endoscopy for further evaluation of possible GI source for anemia. Current Visit: Yes Status: Acute Code(s): K92.1 - MELENA SNOMED Code(s): 1424486 (2) Altered mental status Narrative/Plan: Improved Current Visit: Yes Status: Acute Code(s): R41.82 - ALTERED MENTAL STATUS, UNSPECIFIED SNOMED Code(s): 819889882 (3) Influenza Current Visit: Yes Status: Acute Code(s): J11.1 - FLU DUE TO UNIDENTIFIED INFLUENZA VIRUS W OTH RESP MANIFEST SNOMED Code(s): 7144313 (4) Coronary artery disease Current Visit: Yes Status: Acute Code(s): I25.10 - ATHSCL HEART DISEASE OF [place] CORONARY ARTERY W/O ANG PCTRS SNOMED Code(s): 86751665 (5) History of ischemic cardiomyopathy Current Visit: Yes Status: Acute Code(s): Z86.79 - PERSONAL HISTORY OF OTHER DISEASES OF THE CIRCULATORY SYSTEM SNOMED Code(s): 107855810940371 (6) Elevated troponin Current Visit: Yes Status: Acute Code(s): R79.89 - OTHER SPECIFIED ABNORMAL FINDINGS OF BLOOD CHEMISTRY SNOMED Code(s): 263853726 (7) Acute exacerbation of CHF (congestive heart failure) Current Visit: Yes Status: Acute Code(s): I50.9 - HEART FAILURE, UNSPECIFIED SNOMED Code(s): 811161249 (8) COPD (chronic obstructive pulmonary disease) Current Visit: No Status: Acute Code(s): J44.9 - CHRONIC OBSTRUCTIVE PULMONARY DISEASE, UNSPECIFIED SNOMED Code(s): 60392024 (9) Dyspnea Current Visit: No Status: Acute Code(s): R06.00 - DYSPNEA, UNSPECIFIED SNOMED Code(s): 163052193 Plan: 1. Continue symptomatic and supportive care 2. N.p.o. after midnight 3. Daily CBC, transfuse for hemoglobin less than 7 4. Avoid anticoagulation 5. Avoid NSAIDs 6. Recommend Protonix 40 mg daily 7. With patient is more oriented today. Continues to have black stools. Recommend proceeding with upper endoscopy. Will schedule for tomorrow. Thank you for this consultation, we will continue to follow. Dr. Hanna Bates I agree with the dictator's note, documented as a scribe by Parisa Richard.
--- NOTE | 2024-12-19 17:37 | P.PN ---
Subjective Progress Note Date: 12/19/24 Hospital Course: Patient is a very pleasant 79-year-old female with a past medical history of CAD status post stenting x 3, chronic systolic heart failure, ischemic cardiomyopathy, hypertension, hyperlipidemia, TIA/CVA and osteoarthritis. She presented to the hospital on upon arrival to our facility, patient underwent evaluation in the emergency department. Vital signs upon arrival show blood pressure 137/80, heart rate 105, respiratory rate 18, temp 98.7 F, and SpO2 of 90% on 2 L. EKG completed showing sinus tachycardia at 105 bpm with T wave inversion in lateral lead aVL otherwise no significant T wave or ST abnormalities noted. Chest x-ray completed showing possible right upper lobe pulmonary nodule measuring 7.4 mm, recommend outpatient dedicated CT scan for further evaluation/surveillance. Labs completed and reviewed. CBC unremarkable. Coagulation profile normal findings. BMP showing slightly elevated BUN of 19 otherwise normal findings. Blood glucose 130. Calcium 9.1. Liver profile unremarkable. Troponin elevated at 0.156 and proBNP 10,900. Influenza B, RSV, and COVID PCR were negative influenza A was positive. Patient was started on heparin infusion and admitted under our services with consult to cardiology and pulmonology. Troponins trended resulting at 0.156, 0.161, and 0.156. Echocardiogram completed revealing reduced EF of 40% with aneurysmal inferior wall and mild mitral regurgitation.. During first night of ho spitalization patient's mentation worsened as she was initially a poor historian but alert to person, place and situation patient now alert to self only. CT brain was completed negative for acute process. Neurology also consulted for evaluation. During second night of hospitalization patient had large episode of melena, heparin infusion and Plavix was stopped at this time. On 12/18/2024 patient developed an acute kidney injury. Physical exam: Patient seen and fully evaluated at bedside this morning. Patient's mentation is significantly improved and patient back to baseline mentation alert to person, place, and situation. Slightly confused to time stating it was 2023, but did state Arian is president. Patient currently reports coarse cough but denies having any shortness of breath, chest pain, palpitations, or any other complaints at this time. Vital signs reviewed and stable. General: Nontoxic, no distress and appears stated age. Derm: Skin warm and dry, normal coloration for ethnicity. Head: Atraumatic, normocephalic and symmetric. Eyes: EOM's intact, no lid lag, and anicteric sclera Mouth: no lip lesions, mucus membranes moist Cardiovascular: regular rate and rhythm with normal S1S2, soft systolic murmur, positive posterior tibial pulses bilaterally, and cap refill < 2 seconds. Lungs: Respirations even, regular, and unlabored on 3 L O2 via nasal cannula. Lungs slightly diminished. No wheezes, rhonchi, rales, or crackles noted this morning. Coarse cough noted. Abdominal: soft, nontender to palpation, no guarding, no appreciable organomegaly Ext: ROM intact. No gross muscle atrophy, scant lower extremity edema, no contractures Neuro: Speech clear, face symmetrical and CN II-XII grossly intact with no noted focal neuro deficits Psych: Alert and oriented to person, place, and situation. Only slightly confused to time. Assessment and Plan of Care: Acute on chronic systolic heart failure exacerbation with EF 40% Influenza A Elevated troponins, likely type II NSTEMI History of CAD status post stenting Ischemic cardiomyopathy Hypertension Hyperlipidemia -Cardiology following, discussed plan of care with cardiac TACK WELDER -Pulmonology following, reviewed documentation in chart -Heparin infusion and Plavix stopped secondary to episode of melena -Patient to remain on continuous telemetry monitoring -Lasix and lisinopril held secondary to DORIS -Aspirin 81 mg daily, atorvastatin 80 mg nightly,Zetia 10 mg nightly, isosorbide mononitrate 30 mg daily, metoprolol 25 mg twice daily, and nifedipine 30 mg nightly. -Last dose of Tamiflu 30 mg due this evening. -Echocardiogram completed revealing reduced EF of 40% with aneurysmal inferior wall and mild mitral regurgitation.. Acute kidney injury -Jalloh catheter in place -Consult placed to nephrology, appreciate recommendations -Lisinopril and Lasix held at this time. GI bleed with episodes of melena Acute blood loss anemia -Pt was on Heparin infusion which was immediately stopped along with Plavix. -Hemoglobin on arrival was 13.5 currently 8.9 -Continue Protonix 40 mg IV BID. -Gastroenterology following, discussed plan with gastroenterology TACK WELDER stating tentative plan is for patient to be taken for upper endoscopy tomorrow. -Continued close monitor of Hgb levels with repeat CBC, transfuse if needed for Hgb < 7. Acute Metabolic encephalopathy, likely secondary to delirium resulting from acute conditions as stated above. Resolved. -CT brain negative for acute intracranial process. -EEG reporting abnormal EEG due to background slowing suggestive of mild encephalopathy otherwise no focal, lateralized, or epileptiform activity reported. -Fall precautions -Neurology following, reviewed documentation in chart. Incidental finding on chest x-ray -Chest x-ray showing possible 7.4 mm pulmonary nodule in right upper lobe, recommend outpatient CT for follow-up/surveillance. Left arm swelling/bruising at previous IV site -Left upper extremity Doppler was completed showing no evidence of DVT. -Continue symptomatic care and pain management. Rest, ice, elevation, and compression. Data and imaging reviewed: Vital signs reviewed. Blood pressure 103/63, heart rate 93, respiratory rate 16, temp 97.8 F, and SpO2 of 97% on 3 L. Morning labs reviewed. CBC showing normocytic anemia with hemoglobin of 8.9. BMP showing elevated BUN of 87, creatinine of 2.75, GFR of 16. Blood glucose 96. Magnesium 2.3. CODE STATUS: Full Code DVT prophylaxis: SCDs Anticipated discharge date: Pending clinical course Anticipated discharge place: Pending clinical course Patient was seen independently by Nurse Practitioner. This document was prepared using [employer] dictation software. Please allow for errors in hat trimmer while rare they do occur. Velasquez Manzanares NP rendered care for this patient independently, reviewed the findings and plan as documented in the note above and agree with plan. I did not physically speak with or examine the patient on this date. Objective - Vital Signs Vital signs: Vital Signs Temp 97.9 F 12/19/24 03:40 Pulse 90 12/19/24 03:40 Resp 16 12/19/24 03:40 BP 119/70 12/19/24 03:40 Pulse Ox 97 12/19/24 03:40 FiO2 Intake & Output 12/18/24 12/19/24 12/19/24 18:59 06:59 18:59 Intake Total 40 10 Output Total 0 300 Balance 40 -290 Weight 75 kg 78 kg Intake: IV 40 10 Invasive Line 2 20 Invasive Line 3 20 10 Oral 0 Output: Urine 300 Post Void Residual 0 Other: Voiding Method Indwelling Catheter Indwelling Catheter # Bowel Movements 1 2 - Labs CBC & Chem 7: 12/19/24 09:41 12/19/24 09:41 Labs: Abnormal Lab Results - Last 24 Hours (Table) 02/05/25 Range/Units 17:07 RBC 3.33 L (3.80-5.40) m/uL Hgb 10.2 L (11.4-16.0) gm/dL Hct 31.5 L (34.0-46.0) % Neutrophils # 8.7 H (1.3-7.7) k/uL Lymphocytes # 0.8 L (1.0-4.8) k/uL
--- NOTE | 2024-12-19 17:42 | P.PN ---
Subjective Progress Note Date: 12/19/24 Principal diagnosis: Acute exacerbation of chronic systolic congestive heart failure, ejection fraction of 40% and acute influenza A infection with altered mental status This is an 79-year-old female patient with a known history of hypertension, hyperlipidemia, congestive heart failure, coronary artery disease with previous stent placements, former smoker mild intermittent chronic bronchial asthma. She presented here to the emergency room early this morning with progressive weakness and significant dyspnea on exertion. Chest x-ray reveals no acute cardiopulmonary findings. Possible right upper lobe preliminary nodule. White count 7.2. Hemoglobin 13.5. Platelets 184. Sodium 137. Potassium 4.3. Bicarb 25. BUN 19. Creatinine 1.03. Glucose 130. Troponin 0.156, 0.161, 0.156. proBNP 10,900. Viral screen positive for influenza A. She is seen today in consultation in the emergency department. Currently sitting up on a stretcher. Awake and alert in no acute distress. Denies any worsening shortness of breath, cough or congestion. Denies any chest pain. Maintaining O2 saturations in the 90s on room air. She is afebrile. Hemodynamically stable. The patient is seen today December 17, 2024 in follow-up in the emergency department. She is currently resting on a stretcher. She is maintaining O2 saturations in the 90s on 4 L/min per nasal cannula. She is afebrile. Echocardiogram revealed impaired left ventricular systolic function with an ejection fraction of 40%. She is confused today. Being uncooperative with staff. clothing trades workers at the bedside. A CT scan of the brain revealed no acute intracranial process. She remains on a heparin drip. Glucose 156. Continued on Tamiflu. Continued on IV diuretics. Patient was seen today on 12/18/2024, patient remains confused, quite lethargic, her mental status has significantly changed compared to the day of admission when she was initially seen in the ER. CT of the brain showed no evidence of intracranial process, patient is being followed by many consultants so far. And her mental status remains quite changed compared to baseline. Family is at bedside. No active pulmonary issues. Patient is known to have history of asthma which has been stable all along. Her echocardiogram showed LV dysfunction with ejection fraction of 40%. Patient is being followed by cardiology she was also seen by gastroenterology for low hemoglobin of 10 initially came in with a hemoglobin of 11.6. Renal functioning has been worsening since admission came in with a creatinine of 1 now her creatinine is 2.41,May need nephrology evaluation for her acute kidney injury. For her mental status change, may need full neurological evaluation. Patient was evaluated today on 12/19/2024, remains a bit confused, family is at bedside, patient is encephalopathic but no active pulmonary issues. No cough no wheezing no shortness of breath. Patient had relatively normal CBC, normal electrolytes, BUN however is 87 and creatinine 2.75. Objective - Vital Signs Vital signs: Vital Signs Temp 97.8 F 12/19/24 15:20 Pulse 74 12/19/24 15:20 Resp 16 12/19/24 15:20 BP 105/58 12/19/24 15:20 Pulse Ox 91 L 12/19/24 15:20 FiO2 Intake & Output 12/18/24 12/19/24 12/19/24 18:59 06:59 18:59 Intake Total 40 10 118 Output Total 0 300 Balance 40 -290 118 Weight 75 kg 78 kg Intake: IV 40 10 Invasive Line 2 20 Invasive Line 3 20 10 Oral 0 118 Output: Urine 300 Post Void Residual 0 Other: Voiding Method Indwelling Catheter Indwelling Catheter Indwelling Catheter # Bowel Movements 1 2 - Exam GENERAL EXAM: confused, uncooperative 79-year-old female, on 2 L nasal cannula, not in distress HEAD: Normocephalic. EYES: Normal reaction of pupils, equal size. NOSE: Clear with pink turbinates. THROAT: No erythema or exudates. NECK: No masses, no JVD. CHEST: No chest wall deformity. LUNGS: Diminished breath sound bilaterally no crackles rhonchi or wheezes CVS: S1 and S2 normal with no audible murmur, regular rhythm. ABDOMEN: No hepatosplenomegaly, normal bowel sounds, no guarding or rigidity. SPINE: No scoliosis or deformity SKIN: No rashes CENTRAL NERVOUS SYSTEM: Awake, but confused, EXTREMITIES: There is no peripheral edema. No clubbing, no cyanosis. Peripheral pulses are intact. - Labs CBC & Chem 7: 12/19/24 09:41 12/19/24 09:41 Labs: Abnormal Lab Results - Last 24 Hours (Table) 12/19/24 12/19/24 Range/Units 09:41 09:41 RBC 2.97 L (3.80-5.40) m/uL Hgb 8.9 L (11.4-16.0) gm/dL Hct 27.0 L (34.0-46.0) % Sodium 136 L (137-145) mmol/L BUN 87 H (7-17) mg/dL Creatinine 2.75 H (0.52-1.04) mg/dL TSH 0.395 L (0.465-4.680) mIU/L Assessment and Plan Assessment: Impression: Acute mental status, suspected metabolic encephalopathy/acute Acute exacerbation of chronic systolic congestive heart failure. Impaired left ventricular systolic function with an ejection fraction of 40% Troponin leak possible non-ST segment elevation myocardial infarction currently on a heparin drip Acute influenza A infection, currently on Tamiflu Altered mental status of unclear etiology, CT scan of the brain revealed no acute intracranial process History of coronary artery disease with previous stent placement, most recently to the RCA in February 2023 Possible early right upper lobe pulmonary nodule to be followed up in the outpatient setting Mild intermittent chronic bronchial asthma, inactive Former smoker Hypertension Hyperlipidemia History of congestive heart failure Acute kidney injury, being followed by nephrology Recommendation: Continue present supportive care measures Continue bronchodilators for her underlying asthma which seems to be inactive at present Continue Tamiflu for influenza infection Continue Protonix Hold all sedatives Will continue to follow Time with Patient: Less than 30
[2024-12-20 06:31] LABS: HCT 24.9 % (34.0-46.0); Hypochromasia Slight; MCH 30.2 pg (25.0-35.0); MCV 94.5 fL (80.0-100.0); Mean Platelet Volume 8.5; Platelet Count 164 k/uL (150-450); RBC 2.64 m/uL (3.80-5.40); RDW 12.2 % (11.5-15.5); WBC 7.3 k/uL (3.8-10.6)
[2024-12-20 06:52] LABS: African American GFR (CKD) 23 (>60 ml/min/1.73 sqM); Anion Gap 8 mmol/L; Blood Urea Nitrogen 77 mg/dL (7-17); Calcium 8.3 mg/dL (8.4-10.2); Carbon Dioxide 24 mmol/L (22-30); Chloride 109 mmol/L (98-107); Glucose 100 mg/dL (74-99); Magnesium 2.4 mg/dL (1.6-2.3); Non-African American GFR(CKD) 20 (>60 ml/min/1.73 sqM); Potassium 3.9 mmol/L (3.5-5.1); Sodium 141 mmol/L (137-145)
--- NOTE | 2024-12-20 11:24 | P.PN ---
Subjective Patient is seen for follow-up for acute kidney injury. Renal function is slightly improved. Patient is feeling better with improvement in mentation. Scheduled for EGD due to ongoing GI bleed. Maintained on IV fluids. Objective - Vital Signs Vital signs: Vital Signs Temp 97.9 F 12/20/24 07:54 Pulse 58 L 12/20/24 07:54 Resp 17 12/20/24 07:54 BP 102/62 12/20/24 07:54 Pulse Ox 93 L 12/20/24 07:54 FiO2 Intake & Output 12/19/24 12/20/24 12/20/24 18:59 06:59 18:59 Intake Total 118 140 10 Output Total 800 Balance 118 -660 10 Weight 78 kg Intake: IV 20 10 Invasive Line 4 20 10 Oral 118 120 Output: Urine 800 Other: Voiding Method Indwelling Catheter Indwelling Catheter Indwelling Catheter # Bowel Movements 5 - Exam Patient is awake, comfortable, no acute distress. Examination of the heart S1 and S2 Examination of the lungs bilateral breath sounds are heard Abdomen is soft nontender Examination lower extremity shows no significant edema REGISTERED PRIVATE DUTY NURSE exam grossly intact - Labs CBC & Chem 7: 12/20/24 05:53 12/20/24 05:53 Labs: Abnormal Lab Results - Last 24 Hours (Table) 12/20/24 12/20/24 Range/Units 05:53 05:53 RBC 2.64 L (3.80-5.40) m/uL Hgb 8.0 L (11.4-16.0) gm/dL Hct 24.9 L (34.0-46.0) % Chloride 109 H (98-107) mmol/L BUN 77 H (7-17) mg/dL Creatinine 2.28 H (0.52-1.04) mg/dL Glucose 100 H (74-99) mg/dL Calcium 8.3 L (8.4-10.2) mg/dL Magnesium 2.4 H (1.6-2.3) mg/dL Assessment and Plan Assessment: 1. Acute kidney injury, ATN, oliguric secondary to hypotension. BAO inhibitors on hold. Diuretics on hold as well. Maintained on IV fluids. UA was completely benign on 12/18/2024. Ultrasound shows no significant obstructive uropathy. 2. GI bleed being followed by GI 3. Influenza A infection maintained on Tamiflu 4. Mental status changes associated with metabolic encephalopathy and underlying dementia 5. Cardiomyopathy with EF of 40% 6. Primary hypertension with blood pressure currently improved. Plan: Continue with IV fluids DC Procardia Avoid any further nephrotoxic agents. Repeat labs in a.m.
--- NOTE | 2024-12-20 11:59 | P.PN ---
Subjective Progress Note Date: 12/20/24 Hospital Course: Patient is a very pleasant 79-year-old female with a past medical history of CAD status post stenting x 3, chronic systolic heart failure, ischemic cardiomyopathy, hypertension, hyperlipidemia, TIA/CVA and osteoarthritis. She presented to the hospital on 12/16/2024 with a chief complaint of shortness of breath. Upon arrival to our facility, patient underwent evaluation in the emergency department. Vital signs upon arrival show blood pressure 137/80, heart rate 105, respiratory rate 18, temp 98.7 F, and SpO2 of 90% on 2 L. EKG completed showing sinus tachycardia at 105 bpm with T wave inversion in lateral lead aVL otherwise no significant T wave or ST abnormalities noted. Chest x-ray completed showing possible right upper lobe pulmonary nodule measuring 7.4 mm, recommend outpatient dedicated CT scan for further evaluation/surveillance. Labs completed and reviewed. CBC unremarkable. Coagulation profile normal findings. BMP showing slightly elevated BUN of 19 otherwise normal findings. Blood glucose 130. Calcium 9.1. Liver profile unremarkable. Troponin elevated at 0.156 and proBNP 10,900. Influenza B, RSV, and COVID PCR were negative influenza A was positive. Patient was started on heparin infusion and admitted under our services with consult to cardiology and pulmonology. Troponins trended resulting at 0.156, 0.161, and 0.156. Echocardiogram completed revealing reduced EF of 40% with aneurysmal inferior wall and mild mitral regurgitation.. During first night of hospitalization patient's mentation worsened as she was initially a poor historian but alert to person, place and situation patient now alert to self only. CT brain was completed negative for acute process. Neurology also consulted for evaluation. During second night of hospitalization patient had large episode of melena, heparin infusion and Plavix was stopped at this time. On 12/18/2024 patient developed an acute kidney injury. Lisinopril and Lasix was held. Nephrology was consulted. Starting patient on gentle IV fluid hydration. Patient continued to have episodes of melena and hemoglobin decreasing from initial 13.5 on admission down to 8.0. Gastroenterology taking patient for an upper endoscopy later today. Physical exam: Patient seen and fully evaluated at bedside this morning. Vital signs reviewed and stable. General: Nontoxic, no distress and appears stated age. Derm: Skin warm and dry, normal coloration for ethnicity. Head: Atraumatic, normocephalic and symmetric. Eyes: EOM's intact, no lid lag, and anicteric sclera Mouth: no lip lesions, mucus membranes moist Cardiovascular: regular rate and rhythm with normal S1S2, soft systolic murmur, positive posterior tibial pulses bilaterally, and cap refill < 2 seconds. Lungs: Respirations even, regular, and unlabored on 3 L O2 via nasal cannula. Lungs slightly diminished. No wheezes, rhonchi, rales, or crackles noted this morning. Coarse cough noted. Abdominal: soft, nontender to palpation, no guarding, no appreciable organomegaly Ext: ROM intact. No gross muscle atrophy, scant lower extremity edema, no con tractures Neuro: Speech clear, face symmetrical and CN II-XII grossly intact with no noted focal neuro deficits Psych: Alert and oriented to person, place, and time but confused to situation this morning. Assessment and Plan of Care: Acute on chronic systolic heart failure exacerbation with EF 40% Influenza A Elevated troponins, likely type II NSTEMI History of CAD status post stenting Ischemic cardiomyopathy Hypertension Hyperlipidemia -Cardiology following, discussed plan of care with cardiac PACKING LINE WORKER -Pulmonology following, reviewed documentation in chart -Heparin infusion and Plavix stopped secondary to episode of melena -Patient to remain on continuous telemetry monitoring -Lasix and lisinopril held secondary to DORIS and cefepime was discontinued by nephrology -Aspirin 81 mg daily, atorvastatin 80 mg nightly,Zetia 10 mg nightly, isosorbide mononitrate 30 mg daily, and metoprolol 25 mg twice daily.. -Completed course of Tamiflu on 12/19/2024 -Echocardiogram completed revealing reduced EF of 40% with aneurysmal inferior wall and mild mitral regurgitation.. Acute kidney injury -Jalloh catheter in place, documented output over the past 24 hours is 800 cc. -Nephrology following, and discontinuing Procardia and started patient on gentle IV fluid hydration with 0.9% normal saline at 75 cc/h. -Lisinopril and Lasix held at this time. GI bleed with episodes of melena Acute blood loss anemia -Pt was initially on heparin infusion which was immediately stopped along with Plavix after first episode of melena. -Hemoglobin on arrival was 13.5 currently 8.0 -Continue Protonix 40 mg IV BID. -Gastroenterology following, discussed plan with gastroenterology PACKING LINE WORKER patient being taken for upper endoscopy later today.. -Continued close monitor of Hgb levels with repeat CBC, transfuse if needed for Hgb < 7. Acute Metabolic encephalopathy, likely secondary to delirium resulting from acute conditions as stated above with possible mild underlying dementia. Improving -CT brain negative for acute intracranial process. -EEG reporting abnormal EEG due to background slowing suggestive of mild encephalopathy otherwise no focal, lateralized, or epileptiform activity reported. -Fall precautions -Neurology following, reviewed documentation in chart. Incidental finding on chest x-ray -Chest x-ray showing possible 7.4 mm pulmonary nodule in right upper lobe, recommend outpatient CT for follow-up/surveillance. Left arm swelling/bruising at previous IV site -Left upper extremity Doppler was completed showing no evidence of DVT. -Continue symptomatic care and pain management. Rest, ice, elevation, and compression. Data and imaging reviewed: Vital signs reviewed. Blood pressure 102/62, heart rate 58, respiratory rate 17, temp 97.9 F, and SpO2 of 93% on 3 L. Morning labs reviewed. CBC showing normocytic anemia with hemoglobin of 8.0. BMP showing hyperchloremia and continued elevated but improving renal function with BUN of 77, creatinine of 2.28, GFR of 20. Blood glucose 100. Magnesium 2.4. Urinary output over the past 24 hours is 800 cc. CODE STATUS: Full Code DVT prophylaxis: SCDs Anticipated discharge date: Pending clinical course Anticipated discharge place: Pending clinical course Patient was seen independently by Nurse Practitioner. This document was prepared using [employer] dictation software. Please allow for errors in sharepoint consultant while rare they do occur. Velasquez Manzanares NP rendered care for this patient independently, reviewed the findings and plan as documented in the note above and agree with plan. I did not physically speak with or examine the patient on this date. Objective - Vital Signs Vital signs: Vital Signs Temp 97.8 F 12/20/24 04:12 Pulse 65 12/20/24 04:12 Resp 17 12/20/24 04:12 BP 124/73 12/20/24 06:26 Pulse Ox 95 12/20/24 04:12 FiO2 Intake & Output 12/19/24 12/20/24 12/20/24 18:59 06:59 18:59 Intake Total 118 140 Output Total 800 Balance 118 -660 Weight 78 kg Intake: IV 20 Invasive Line 4 20 Oral 118 120 Output: Urine 800 Other: Voiding Method Indwelling Catheter Indwelling Catheter # Bowel Movements 5 - Labs CBC & Chem 7: 12/20/24 05:53 12/20/24 05:53 Labs: Abnormal Lab Results - Last 24 Hours (Table) 12/19/24 12/19/24 12/20/24 Range/Units 09:41 09:41 05:53 RBC 2.97 L 2.64 L (3.80-5.40) m/uL Hgb 8.9 L 8.0 L (11.4-16.0) gm/dL Hct 27.0 L 24.9 L (34.0-46.0) % Sodium 136 L (137-145) mmol/L Chloride (98-107) mmol/L BUN 87 H (7-17) mg/dL Creatinine 2.75 H (0.52-1.04) mg/dL Glucose (74-99) mg/dL Calcium (8.4-10.2) mg/dL Magnesium (1.6-2.3) mg/dL TSH 0.395 L (0.465-4.680) mIU/L 12/20/24 Range/Units 05:53 RBC (3.80-5.40) m/uL Hgb (11.4-16.0) gm/dL Hct (34.0-46.0) % Sodium (137-145) mmol/L Chloride 109 H (98-107) mmol/L BUN 77 H (7-17) mg/dL Creatinine 2.28 H (0.52-1.04) mg/dL Glucose 100 H (74-99) mg/dL Calcium 8.3 L (8.4-10.2) mg/dL Magnesium 2.4 H (1.6-2.3) mg/dL TSH (0.465-4.680) mIU/L
--- NOTE | 2024-12-20 13:49 | P.PN ---
Subjective Progress Note Date: 12/20/24 Principal diagnosis: Acute exacerbation of chronic systolic congestive heart failure, ejection fraction of 40% and acute influenza A infection with altered mental status This is an 79-year-old female patient with a known history of hypertension, hyperlipidemia, congestive heart failure, coronary artery disease with previous stent placements, former smoker mild intermittent chronic bronchial asthma. She presented here to the emergency room early this morning with progressive weakness and significant dyspnea on exertion. Chest x-ray reveals no acute cardiopulmonary findings. Possible right upper lobe preliminary nodule. White count 7.2. Hemoglobin 13.5. Platelets 184. Sodium 137. Potassium 4.3. Bicarb 25. BUN 19. Creatinine 1.03. Glucose 130. Troponin 0.156, 0.161, 0.156. proBNP 10,900. Viral screen positive for influenza A. She is seen today in consultation in the emergency department. Currently sitting up on a stretcher. Awake and alert in no acute distress. Denies any worsening shortness of breath, cough or congestion. Denies any chest pain. Maintaining O2 saturations in the 90s on room air. She is afebrile. Hemodynamically stable. The patient is seen today December 17, 2024 in follow-up in the emergency department. She is currently resting on a stretcher. She is maintaining O2 saturations in the 90s on 4 L/min per nasal cannula. She is afebrile. Echocardiogram revealed impaired left ventricular systolic function with an ejection fraction of 40%. She is confused today. Being uncooperative with staff. cad technician at the bedside. A CT scan of the brain revealed no acute intracranial process. She remains on a heparin drip. Glucose 156. Continued on Tamiflu. Continued on IV diuretics. Patient was seen today on 12/18/2024, patient remains confused, quite lethargic, her mental status has significantly changed compared to the day of admission when she was initially seen in the ER. CT of the brain showed no evidence of intracranial process, patient is being followed by many consultants so far. And her mental status remains quite changed compared to baseline. Family is at bedside. No active pulmonary issues. Patient is known to have history of asthma which has been stable all along. Her echocardiogram showed LV dysfunction with ejection fraction of 40%. Patient is being followed by cardiology she was also seen by gastroenterology for low hemoglobin of 10 initially came in with a hemoglobin of 11.6. Renal functioning has been worsening since admission came in with a creatinine of 1 now her creatinine is 2.41,May need nephrology evaluation for her acute kidney injury. For her mental status change, may need full neurological evaluation. Patient was evaluated today on 12/19/2024, remains a bit confused, family is at bedside, patient is encephalopathic but no active pulmonary issues. No cough no wheezing no shortness of breath. Patient had relatively normal CBC, normal electrolytes, BUN however is 87 and creatinine 2.75. Seen today on 12/20/2024, patient is less confused today, as a matter fact she is oriented to place, she even knew the year, and she knew the name of the president. This is significant improvement compared to the last few days, obviously her encephalopathy is improving. Patient is on room air, does not have any shortness of breath, her labs were reviewed WBC count is 7.3 hemoglobin is 8 electrolytes are normal BUN is 77 creatinine down to 2.28 Objective - Vital Signs Vital signs: Vital Signs Temp 97.9 F 12/20/24 07:54 Pulse 74 12/20/24 12:44 Resp 17 12/20/24 12:44 BP 133/72 12/20/24 12:44 Pulse Ox 94 L 12/20/24 12:44 FiO2 Intake & Output 12/19/24 12/20/24 12/20/24 18:59 06:59 18:59 Intake Total 118 140 10 Output Total 800 Balance 118 -660 10 Weight 78 kg Intake: IV 20 10 Invasive Line 4 20 10 Oral 118 120 Output: Urine 800 Other: Voiding Method Indwelling Catheter Indwelling Catheter Indwelling Catheter # Bowel Movements 5 - Exam GENERAL EXAM: Revealed 79-year-old female in no distress HEAD: Normocephalic. EYES: Normal reaction of pupils, equal size. NOSE: Clear with pink turbinates. THROAT: No erythema or exudates. NECK: No masses, no JVD. CHEST: No chest wall deformity. LUNGS: Diminished breath sound bilaterally no crackles rhonchi or wheezes CVS: S1 and S2 normal with no audible murmur, regular rhythm. ABDOMEN: No hepatosplenomegaly, normal bowel sounds, no guarding or rigidity. SPINE: No scoliosis or deformity SKIN: No rashes CENTRAL NERVOUS SYSTEM: Awake, much less confused compared to yesterday, she is to be a bit more oriented EXTREMITIES: There is no peripheral edema. No clubbing, no cyanosis. Peripheral pulses are intact. - Labs CBC & Chem 7: 12/20/24 05:53 12/20/24 05:53 Labs: Abnormal Lab Results - Last 24 Hours (Table) 12/20/24 12/20/24 Range/Units 05:53 05:53 RBC 2.64 L (3.80-5.40) m/uL Hgb 8.0 L (11.4-16.0) gm/dL Hct 24.9 L (34.0-46.0) % Chloride 109 H (98-107) mmol/L BUN 77 H (7-17) mg/dL Creatinine 2.28 H (0.52-1.04) mg/dL Glucose 100 H (74-99) mg/dL Calcium 8.3 L (8.4-10.2) mg/dL Magnesium 2.4 H (1.6-2.3) mg/dL Assessment and Plan Assessment: Impression: Acute mental status, suspected metabolic encephalopathy/acute, improving Acute exacerbation of chronic systolic congestive heart failure. Impaired left ventricular systolic function with an ejection fraction of 40% Troponin leak possible non-ST segment elevation myocardial infarction currently on a heparin drip Acute influenza A infection, currently on Tamiflu Altered mental status of unclear etiology, CT scan of the brain revealed no acute intracranial process History of coronary artery disease with previous stent placement, most recently to the RCA in February 2023 Possible early right upper lobe pulmonary nodule to be followed up in the outpatient setting Mild intermittent chronic bronchial asthma, inactive Former smoker Hypertension Hyperlipidemia History of congestive heart failure Acute kidney injury, being followed by nephrology Recommendation: Continue present supportive care measures Continue bronchodilators for her underlying asthma which seems to be inactive at present Finish full course of Tamiflu/5 days for her influenza infection Continue Protonix Continue to hold narcotics and sedatives Will continue to follow Time with Patient: Less than 30
[2024-12-20] MEDS ORDERED: LIDOCAINE 2% (PF) 20 MG/ML 5 ML VIAL ONE (14:55)
[2024-12-20] MEDS ORDERED: PROPOFOL 10 MG/ML 20 ML VIAL IV ONE (14:55)
[2024-12-20] MEDS: IV FLUID CONTINUATION 1,000 ML IV ONE ×2 (15:00→15:29)
--- NOTE | 2024-12-20 15:31 | P.PCN ---
Date of Procedure: 12/20/24 Procedure(s) Performed: BRIEF HISTORY: Patient is a 79-year-old, pleasant, white female scheduled for an upper endoscopy as a part evaluation of black tarry stools of 2 days duration. At the time of admission the hospital she was noted to have elevated troponin and was started on IV heparin. She had 2 episodes of black tarry stools. The heparin was discontinued and the bleeding subsided. She is cleared for an upper endoscopy to evaluate further her hemoglobin dropped from 13 to 8 g/dL.. PROCEDURE PERFORMED: Esophagogastroduodenoscopy with biopsy. PREOPERATIVE DIAGNOSIS: Black tarry stools of 2 days duration. IV sedation per anesthesia. PROCEDURE: After informed consent was obtained, the patient was brought into the endoscopy unit. IV sedation was administered by Anesthesia under continuous monitoring. Initially the Olympus GIF-140 video endoscope was inserted into the mouth. Esophagus intubated without any difficulty. It was gradually advanced into the stomach and duodenum and carefully examined. The bulb of the duodenum had a 5 mm superficial ulceration identified with no active bleeding and the second part of the duodenum appeared normal. The scope at this time was withdrawn to the stomach, adequately insufflated with air, and upon careful examination, mucosa of the antrum scattered erosions and biopsies were done from this area. No active bleeding identified. Mucosa of the, body, cardia and the fundus appeared normal. The scope was then withdrawn into the esophagus. The GE junction was located at 39 cm from the incisors. The esophagus appeared normal. There were no erosions or ulcerations seen and the patient tolerated the procedure well. IMPRESSION: 1. 5 mm superficial duodenal bulbar ulcer with no active bleeding. 2. Antral erosive gastritis. RECOMMENDATIONS: The findings of this examination were discussed with the patient as well as her family. Continue with Protonix 40 mg daily. Advance to regular diet. Monitor CBC daily.. Continue with aspirin daily.
--- NOTE | 2024-12-20 17:08 | P.PN ---
Subjective Progress Note Date: 12/19/24 Patient was seen for a follow-up. Patient is laying in the bed. Patient is doing much better. Patient's was present by the bedside states "this is the Sarah I know". Patient's states that "2 days ago and from now, are 2 different words". He states patient wants to go home. She does not remember how she was saying that she was going to hurt people. Patient was saying she was going to "kill people". She does not remember what she said that time. Patient denies headache. No dizziness. Patient is much more alert and awake and calm. Objective - Vital Signs Vital signs: Vital Signs Temp 97.8 F 12/19/24 15:20 Pulse 74 12/19/24 15:20 Resp 16 12/19/24 15:20 BP 105/58 12/19/24 15:20 Pulse Ox 91 L 12/19/24 15:20 FiO2 Intake & Output 12/18/24 12/19/24 12/19/24 18:59 06:59 18:59 Intake Total 40 10 118 Output Total 0 300 Balance 40 -290 118 Weight 75 kg 78 kg Intake: IV 40 10 Invasive Line 2 20 Invasive Line 3 20 10 Oral 0 118 Output: Urine 300 Post Void Residual 0 Other: Voiding Method Indwelling Catheter Indwelling Catheter Indwelling Catheter # Bowel Movements 1 2 - Exam Patient is awake and alert, with normal affect. Patient denies headache. Patient states it is the month of January and the year is 2424. She does not know name of the hospital. She states that she is just tired, did not want to answer. Rest of the examination was deferred. Mentation overall much better. - Labs CBC & Chem 7: 12/20/24 05:53 12/20/24 05:53 Labs: Abnormal Lab Results - Last 24 Hours (Table) 12/18/24 12/19/24 12/19/24 Range/Units 17:07 09:41 09:41 RBC 3.33 L 2.97 L (3.80-5.40) m/uL Hgb 10.2 L 8.9 L (11.4-16.0) gm/dL Hct 31.5 L 27.0 L (34.0-46.0) % Neutrophils # 8.7 H (1.3-7.7) k/uL Lymphocytes # 0.8 L (1.0-4.8) k/uL Sodium 136 L (137-145) mmol/L BUN 87 H (7-17) mg/dL Creatinine 2.75 H (0.52-1.04) mg/dL TSH 0.395 L (0.465-4.680) mIU/L Assessment and Plan Assessment: * Delirium, likely due to metabolic encephalopathy. Mentation much improved today. * Probable underlying dementia. Patient has memory loss progressively getting worse for last 4 to 6 months. * Influenza A * Elevated troponins * Acute renal failure, getting worse * CHF with EF 40% * Hypertension * Hyperlipidemia * Obesity * Former tobacco use Plan: * Patient's mentation has much improved. * EEG was abnormal due to background slowing, suggestive of mild encephalopathy. No focal, lateralized or epileptiform activity was seen. * Management of underlying cardiopulmonary conditions and other medical conditions as per IM and other specialties on board. * B12 386, folate 17.30, TSH is slightly low 0.395, with free T4 normal 1.48. We will defer to IM regarding abnormal thyroid functions. B12 was borderline, we will start replacement. * UA negative. * Patient receiving Tamiflu for influenza infection. * Patient is off heparin drip. Currently on aspirin 81 mg and Lipitor 80 mg and Zetia 10 mg. * DVT prophylaxis: Start Lovenox 40 mg subcu daily. * Supportive care. Fall precautions.
[2024-12-20] MEDS: CYANOCOBALAMIN 1,000 MCG/ML 1 ML VIAL IM ONE (18:30)
[2024-12-20 19:52] LABS: Glucose,Whole Blood 122 mg/dL (70-110)
[2024-12-21] MEDS: HALOPERIDOL LACTATE 5 MG/ML 1 ML VIAL IM STA (02:47)
[2024-12-21 03:44] LABS: HCT 27.7 % (34.0-46.0); HGB 9.1 gm/dL (11.4-16.0); MCH 30.4 pg (25.0-35.0); MCHC 32.8 g/dL (31.0-37.0); MCV 92.6 fL (80.0-100.0); Mean Platelet Volume 9.1; Platelet Count 208 k/uL (150-450); RBC 2.99 m/uL (3.80-5.40); RDW 12.5 % (11.5-15.5); WBC 7.5 k/uL (3.8-10.6)
[2024-12-21 04:22] LABS: ALT 19 U/L (4-34); AST 38 U/L (14-36); African American GFR (CKD) 34 (>60 ml/min/1.73 sqM); Albumin 3.4 g/dL (3.5-5.0); Alkaline Phosphatase 66 U/L (38-126); Anion Gap 8 mmol/L; Blood Urea Nitrogen 49 mg/dL (7-17); Calcium 8.8 mg/dL (8.4-10.2); Carbon Dioxide 26 mmol/L (22-30); Chloride 110 mmol/L (98-107); Glucose 143 mg/dL (74-99); Magnesium 2.2 mg/dL (1.6-2.3); Non-African American GFR(CKD) 30 (>60 ml/min/1.73 sqM); Potassium 3.9 mmol/L (3.5-5.1); Sodium 144 mmol/L (137-145); Total Protein 5.8 g/dL (6.3-8.2)
[2024-12-21] MEDS: CYANOCOBALAMIN 500 MCG TAB PO SCH (09:23)
[2024-12-21] MEDS: PANTOPRAZOLE 40 MG TABLET PO SCH (09:24)
--- NOTE | 2024-12-21 10:34 | P.PN ---
Subjective Patient is seen in follow-up for acute kidney injury. Renal function improving. Creatinine 1.63. Patient confused. Pulled out her IV and Jalloh catheter this morning. Vital signs are stable. General: No acute distress. HEENT: Head exam is unremarkable. LUNGS: No audible rhonchi or wheezes. HEART: Rate and Rhythm are regular. ABDOMEN: No distention. EXTREMITITES: No edema. Objective - Vital Signs Vital signs: Vital Signs Temp 97.4 F L 12/21/24 07:31 Pulse 76 12/21/24 07:31 Resp 18 12/21/24 07:31 BP 157/81 12/21/24 07:31 Pulse Ox 94 L 12/21/24 07:31 FiO2 Intake & Output 12/20/24 12/21/24 12/21/24 18:59 06:59 18:59 Intake Total 320 10 Balance 320 10 Intake: IV 320 10 Invasive Line 4 20 10 Other: Voiding Method Indwelling Catheter Indwelling Catheter - Labs CBC & Chem 7: 12/21/24 03:21 12/21/24 03:21 Labs: Abnormal Lab Results - Last 24 Hours (Table) 12/20/24 12/21/24 12/21/24 Range/Units 19:49 03:21 03:21 RBC 2.99 L (3.80-5.40) m/uL Hgb 9.1 L (11.4-16.0) gm/dL Hct 27.7 L (34.0-46.0) % Chloride 110 H (98-107) mmol/L BUN 49 H (7-17) mg/dL Creatinine 1.63 H (0.52-1.04) mg/dL Glucose 143 H (74-99) mg/dL POC Glucose (mg/dL) 122 H (70-110) mg/dL AST 38 H (14-36) U/L Total Protein 5.8 L (6.3-8.2) g/dL Albumin 3.4 L (3.5-5.0) g/dL Assessment and Plan Plan: Assessment: 1. Acute kidney injury secondary to ATN secondary to hypotension. UA benign. No hydronephrosis noted on kidney ultrasound. Left kidney atrophic. Baseline creatinine near 1 and peaked at 2.75 this admission -1.63 today. 2. Influenza A infection status post Tamiflu. 3. GI bleed status post EGD which showed superficial duodenal ulcer and antral gastritis. Plan: Maintain IV fluids. Check iron studies. Avoid nephrotoxins. Continue to monitor renal function and urine output.
--- NOTE | 2024-12-21 12:10 | P.PN ---
Subjective Progress Note Date: 12/21/24 This is an 79-year-old female patient with a known history of hypertension, hyperlipidemia, congestive heart failure, coronary artery disease with previous stent placements, former smoker mild intermittent chronic bronchial asthma. She presented here to the emergency room early this morning with progressive weakness and significant dyspnea on exertion. Chest x-ray reveals no acute cardiopulmonary findings. Possible right upper lobe preliminary nodule. White count 7.2. Hemoglobin 13.5. Platelets 184. Sodium 137. Potassium 4.3. Bicarb 25. BUN 19. Creatinine 1.03. Glucose 130. Troponin 0.156, 0.161, 0.156. proBNP 10,900. Viral screen positive for influenza A. She is seen today in consultation in the emergency department. Currently sitting up on a stretcher. Awake and alert in no acute distress. Denies any worsening shortness of breath, cough or congestion. Denies any chest pain. Maintaining O2 saturations in the 90s on room air. She is afebrile. Hemodynamically stable. The patient is seen today December 17, 2024 in follow-up in the emergency department. She is currently resting on a stretcher. She is maintaining O2 saturations in the 90s on 4 L/min per nasal cannula. She is afebrile. Echocardiogram revealed impaired left ventricular systolic function with an eje ction fraction of 40%. She is confused today. Being uncooperative with staff. data center engineer at the bedside. A CT scan of the brain revealed no acute intracranial process. She remains on a heparin drip. Glucose 156. Continued on Tamiflu. Continued on IV diuretics. Patient was seen today on 12/18/2024, patient remains confused, quite lethargic, her mental status has significantly changed compared to the day of admission when she was initially seen in the ER. CT of the brain showed no evidence of intracranial process, patient is being followed by many consultants so far. And her mental status remains quite changed compared to baseline. Family is at bedside. No active pulmonary issues. Patient is known to have history of asthma which has been stable all along. Her echocardiogram showed LV dysfunction with ejection fraction of 40%. Patient is being followed by cardiology she was also seen by gastroenterology for low hemoglobin of 10 initially came in with a hemoglobin of 11.6. Renal functioning has been worsening since admission came in with a creatinine of 1 now her creatinine is 2.41,May need nephrology evaluation for her acute kidney injury. For her mental status change, may need full neurological evaluation. Patient was evaluated today on 12/19/2024, remains a bit confused, family is at bedside, patient is encephalopathic but no active pulmonary issues. No cough no wheezing no shortness of breath. Patient had relatively normal CBC, normal electrolytes, BUN however is 87 and creatinine 2.75. Seen today on 12/20/2024, patient is less confused today, as a matter fact she is oriented to place, she even knew the year, and she knew the name of the president. This is significant improvement compared to the last few days, obviously her encephalopathy is improving. Patient is on room air, does not have any shortness of breath, her labs were reviewed WBC count is 7.3 hemoglobin is 8 electrolytes are normal BUN is 77 creatinine down to 2.28 The patient is seen today December 21, 2024 in follow-up on the regular medical floor. She is currently awake and alert in no acute distress. Resting comfortably in bed. Denies any worsening shortness of breath, cough or congestion. She is maintaining O2 saturations in the 90s on 3 L/min per nasal cannula. White count 7.5. Hemoglobin 9.1. Platelets 208. Sodium 144. Potassium 3.9. Bicarb 26. BUN 49. Creatinine 1.63. Glucose 143. She is maintained on Lovenox for DVT prophylaxis. Continued on normal saline at 75 mL/h. Albuterol as needed. She did undergo EGD yesterday and was found to have a 5 mm superficial duodenal bulbar ulcer with no active bleeding. Antral erosive gastritis. She remains on Protonix. Objective - Vital Signs Vital signs: Vital Signs Temp 97.4 F L 12/21/24 07:31 Pulse 76 12/21/24 07:31 Resp 18 12/21/24 07:31 BP 157/81 12/21/24 07:31 Pulse Ox 94 L 12/21/24 07:31 FiO2 Intake & Output 12/20/24 12/21/24 12/21/24 18:59 06:59 18:59 Intake Total 320 10 Balance 320 10 Intake: IV 320 10 Invasive Line 4 20 10 Other: Voiding Method Indwelling Catheter Indwelling Catheter - Exam GENERAL EXAM: Alert, confused, 79-year-old female, on 5 L nasal cannula, in no apparent distress. HEAD: Normocephalic. EYES: Normal reaction of pupils, equal size. NOSE: Clear with pink turbinates. THROAT: No erythema or exudates. NECK: No masses, no JVD. CHEST: No chest wall deformity. LUNGS: Equal air entry with no crackles, wheeze, rhonchi or dullness. CVS: S1 and S2 normal with no audible murmur, regular rhythm. ABDOMEN: No hepatosplenomegaly, normal bowel sounds, no guarding or rigidity. SPINE: No scoliosis or deformity SKIN: No rashes CENTRAL NERVOUS SYSTEM: No focal deficits, tone is normal in all 4 extremities. EXTREMITIES: There is no peripheral edema. No clubbing, no cyanosis. Peripheral pulses are intact. - Labs CBC & Chem 7: 12/21/24 03:21 12/21/24 03:21 Labs: Abnormal Lab Results - Last 24 Hours (Table) 12/20/24 12/21/24 12/21/24 Range/Units 19:49 03:21 03:21 RBC 2.99 L (3.80-5.40) m/uL Hgb 9.1 L (11.4-16.0) gm/dL Hct 27.7 L (34.0-46.0) % Chloride 110 H (98-107) mmol/L BUN 49 H (7-17) mg/dL Creatinine 1.63 H (0.52-1.04) mg/dL Glucose 143 H (74-99) mg/dL POC Glucose (mg/dL) 122 H (70-110) mg/dL AST 38 H (14-36) U/L Total Protein 5.8 L (6.3-8.2) g/dL Albumin 3.4 L (3.5-5.0) g/dL Assessment and Plan Assessment: Acute exacerbation of chronic systolic congestive heart failure. Impaired left ventricular systolic function with an ejection fraction of 40% Troponin leak possible non-ST segment elevation myocardial infarction currently on a heparin drip Acute influenza A infection, completed on Tamiflu Altered mental status of unclear etiology, CT scan of the brain revealed no acute intracranial process Stool occult positive, status post EGD 12/20/2024 with a 5 mm superficial duodenal bulbar ulcer with no active bleeding. Antral erosive gastritis. Remains on Protonix History of coronary artery disease with previous stent placement, most recently to the RCA in February 2023 Possible early right upper lobe pulmonary nodule to be followed up in the outpatient setting Mild intermittent chronic bronchial asthma, inactive Former smoker Hypertension Hyperlipidemia History of congestive heart failure Plan: The patient was seen and evaluated Labs and medications reviewed EGD results reviewed Continued on Protonix Completed Tamiflu Titrate down the FiO2 as tolerated Will need subacute rehab at discharge I have personally seen and examined the patient, performed the documentation and the assessment and plan as written. Number of minutes spent on the visit: 10 Dictation was produced using [employer] dictation software. Please excuse any grammatical, word or spelling errors.
--- NOTE | 2024-12-21 12:20 | P.PN ---
Subjective Progress Note Date: 12/21/24 79-year-old female with a PMH of CAD status post stenting x 3, systolic heart failure, ischemic cardiomyopathy, hypertension, hyperlipidemia, TIA/CVA and osteoarthritis. She presented to the hospital on 12/16/2024 with a chief complaint of shortness of breath. Upon arrival to our facility, patient underwen t evaluation in the emergency department. Vital signs upon arrival show BP 137/80, HR 105, RR 18, temp 98.7 F, and SpO2 of 90% on 2 L. EKG completed showing sinus tachycardia at 105 bpm with T wave inversion in lateral lead aVL otherwise no significant T wave or ST abnormalities noted. Chest x-ray completed showing possible right upper lobe pulmonary nodule measuring 7.4 mm, recommend outpatient dedicated CT scan for further evaluation/surveillance. CBC unremarkable. Coagulation profile normal findings. BMP showing slightly elevated BUN of 19 otherwise normal findings. Blood glucose 130. Calcium 9.1. Liver profile unremarkable. Troponin elevated at 0.156 and proBNP 10,900. Influenza A was positive. Patient was started on heparin infusion and admitted under our services with consult to cardiology and pulmonology. Troponins trended resulting at 0.156, 0.161, and 0.156. Echocardiogram completed revealing reduced EF of 40% with aneurysmal inferior wall and mild mitral regurgitation. During first night of hospitalization patient's mentation worsened as she was initially a poor historian but alert to person, place and situation patient now alert to self only. CT brain was completed negative for acute process. Neurology also consulted for evaluation. During second night of hospitalization patient had large episode of melena, heparin infusion and Plavix was stopped at this time. On 12/18/2024 patient developed an acute kidney injury. Lisinopril and Lasix was held. Nephrology was consulted. Starting patient on gentle IV fluid hydration. Patient continued to have episodes of melena and hemoglobin decreasing from initial 13.5 on admission down to 8.0. Underwent EGD with GI on 12/20 showing duodenal ulcer with no bleeding. 12/21 Patient was seen and examined. Confused. CBC and CMP significant for RBC 2.99, Hg 9.1, Hct 27.7, Cl 110, BUN 49, Cr 1.63, glu 143, AST 38, alb 3.4. Mag 2.2. General: non toxic, no distress, appears at stated age Derm: warm, dry Head: atraumatic, normocephalic, symmetric Eyes: EOMI, no lid lag, anicteric sclera Mouth: no lip lesion, mucus membranes moist Cardiovascular: Normal S1 S2. No murmurs, rubs or gallops. Lungs: Clear to auscultation bilaterally, no accessory muscle use Ext: no gross muscle atrophy, no edema, no contractures Neuro: no focal neuro deficits Psych: Alert, oriented x 1 + Jalloh Based on my assessment of this patient, this patient meets a high complexity level of care. Delirium: CT brain negative. EEG showing mild encephalopathy. Fall precautions. Window side bed. Frequent re-direction. Avoid sedatives. Neurology on board. PT and OT consulted. Acute hypoxic respiratory failure secondary to Flu A + systolic CHF exacerb ation: Echo shows EF 40%. Completed course of Tamiflu. Attempt to wean O2. Telemetry monitoring. Pulmonary and Cardiology on board. DORIS on CKD: Renal US neg for obstruction. Likely prerenal. Lisinopril and Lasix on hold. Continue NS at 75 cc/hr. Nephrology on board. Upper GI bleed: Duodenal ulcer seen on EGD. Heparin and Plavix on hold. Protonix 40 mg PO QD. GI on board. NSTEMI with h/o CAD with stent placement: ASA 81 mg PO QD. Lipitor 80 mg PO QHS. Metoprolol as below. No invasive workup per Cardiology. Telemetry monitoring. Cardiology on board. Low-normal B12: Cyanocobalamin 1000 mcg PO QD. Pulmonary nodule: Outpatient follow up. Asthma no in acute exacerbation: Singulair 10 mg PO QD. Hypertension: Imdur 30 mg PO QD. Metoprolol 25 mg PO BID. Dyslipidemia CODE STATUS: FULL CODE DVT Prophylaxis: Lovenox. GI Prophylaxis: Protonix Designated medical POA if patient is not able to make medical decisions for themselves: I have reviewed the following dynamics ax consultant notes: Nephro, Pulmonary. I have reviewed the results of the following tests: CBC, CMP. I have ordered the following tests: CBC, BMP, Mag in the AM. I have discussed the care of this patient with the following independent histo sheela: SARAHI. I have independently interpreted the following test below: I have discussed the management of this patient with the following physician: Objective - Vital Signs Vital signs: Vital Signs Temp 97.4 F L 02/08/25 07:31 Pulse 76 12/21/24 07:31 Resp 18 12/21/24 07:31 BP 157/81 12/21/24 07:31 Pulse Ox 94 L 12/21/24 07:31 FiO2 Intake & Output 12/20/24 12/21/24 12/21/24 18:59 06:59 18:59 Intake Total 320 10 Balance 320 10 Intake: IV 320 10 Invasive Line 4 20 10 Other: Voiding Method Indwelling Catheter Indwelling Catheter - Labs CBC & Chem 7: 12/21/24 03:21 12/21/24 03:21 Labs: Abnormal Lab Results - Last 24 Hours (Table) 12/20/24 12/21/24 12/21/24 Range/Units 19:49 03:21 03:21 RBC 2.99 L (3.80-5.40) m/uL Hgb 9.1 L (11.4-16.0) gm/dL Hct 27.7 L (34.0-46.0) % Chloride 110 H (98-107) mmol/L BUN 49 H (7-17) mg/dL Creatinine 1.63 H (0.52-1.04) mg/dL Glucose 143 H (74-99) mg/dL POC Glucose (mg/dL) 122 H (70-110) mg/dL AST 38 H (14-36) U/L Total Protein 5.8 L (6.3-8.2) g/dL Albumin 3.4 L (3.5-5.0) g/dL
--- NOTE | 2024-12-21 14:47 | P.PN ---
Subjective Progress Note Date: 12/21/24 Patient was seen for a follow-up. Patient is laying in the bed. Patient is doing much better. Patient's was not present today. Patient appears slightly short of breath. Patient's affect appears normal. Delirium seems to have resolved. Objective - Vital Signs Vital signs: Vital Signs Temp 97.9 F 12/20/24 07:54 Pulse 72 12/20/24 15:43 Resp 17 12/20/24 14:50 BP 118/66 12/20/24 15:43 Pulse Ox 94 L 12/20/24 15:43 FiO2 Intake & Output 12/20/24 12/20/24 12/21/24 06:59 18:59 06:59 Intake Total 140 320 Output Total 800 Balance -660 320 Weight 78 kg Intake: IV 20 320 Invasive Line 4 20 20 Oral 120 Output: Urine 800 Other: Voiding Method Indwelling Catheter Indwelling Catheter # Bowel Movements 5 - Exam Patient is awake and alert, with normal affect. Patient denies headache. Patient knows it is 2024, but could not tell the month. Could not tell the CT that she is in although she knows that she is in [place]. When I told that she is in [facility], she knows that it is in [place]. Speech and language functions are normal. Rest of the examination was deferred. Mentation overall much better. - Labs CBC & Chem 7: 12/21/24 03:21 12/21/24 03:21 Labs: Abnormal Lab Results - Last 24 Hours (Table) 12/20/24 12/20/24 Range/Units 05:53 05:53 RBC 2.64 L (3.80-5.40) m/uL Hgb 8.0 L (11.4-16.0) gm/dL Hct 24.9 L (34.0-46.0) % Chloride 109 H (98-107) mmol/L BUN 77 H (7-17) mg/dL Creatinine 2.28 H (0.52-1.04) mg/dL Glucose 100 H (74-99) mg/dL Calcium 8.3 L (8.4-10.2) mg/dL Magnesium 2.4 H (1.6-2.3) mg/dL Assessment and Plan Assessment: * Delirium, likely due to metabolic encephalopathy. Mentation much improved. * Probable underlying dementia. Patient has memory loss progressively getting worse for last 4 to 6 months. * Influenza A * Elevated troponins * Acute renal failure, started improving today * CHF with EF 40% * Hypertension * Hyperlipidemia * Obesity * Anemia * Former tobacco use Plan: * Patient's mentation has much improved. * EEG was abnormal due to background slowing, suggestive of mild encephalopathy. No focal, lateralized or epileptiform activity was seen. * Management of underlying cardiopulmonary conditions and other medical conditions as per IM and other specialties on board. * B12 386, folate 17.30, TSH is slightly low 0.395, with free T4 normal 1.48. We will defer to IM regarding abnormal thyroid functions. B12 was borderline, we will start replacement. * UA negative. * Patient receiving Tamiflu for influenza infection. * Patient is off heparin drip. Currently on aspirin 81 mg and Lipitor 80 mg and Zetia 10 mg. * Patient's renal functions was worse yesterday, but today has started improving slightly. * DVT prophylaxis: Start Lovenox 40 mg subcu daily. * PT and OT. * Supportive care. Fall precautions. * Neurologically, no other workup indicated.
[2024-12-21] MEDS: QUEtiapine 25 MG TAB PO ONE (20:34)
[2024-12-21] MEDS: MELATONIN 5 MG TABLET PO ONE (20:34)
--- NOTE | 2024-12-21 23:40 | P.PN ---
Subjective Progress Note Date: 12/21/24 Patient was seen for a follow-up. Patient is laying in the bed. Sitter was present. Also discussed with patient's nurse, who mentioned that patient has been confused, ripped out Jalloh's x 1 and ripped out IV line x 2. She is alert and oriented x 1. She is worse mentally at night, with more confusion. Yesterday she was quite oriented. Patient's granddaughter was also present by the bedside, she states that patient has been having some memory difficulties for the last 6 months. She has same question again and forgets what was told. She mixes up. She is much worse currently in the hospital as her baseline. They are thinking patient may go to [facility] [address]. Awaiting insurance authorization. Objective - Vital Signs Vital signs: Vital Signs Temp 97.8 F 12/21/24 14:57 Pulse 88 12/21/24 14:57 Resp 18 12/21/24 14:57 BP 165/79 12/21/24 14:57 Pulse Ox 97 12/21/24 14:57 FiO2 Intake & Output 12/20/24 12/21/24 12/21/24 18:59 06:59 18:59 Intake Total 320 10 Balance 320 10 Intake: IV 320 10 Invasive Line 4 20 10 Other: Voiding Method Indwelling Catheter Indwelling Catheter - Exam Patient is awake and alert, with normal affect. Patient denies headache. Patient is pleasantly confused. - Labs CBC & Chem 7: 12/21/24 03:21 12/21/24 03:21 Labs: Abnormal Lab Results - Last 24 Hours (Table) 12/20/24 12/21/24 12/21/24 Range/Units 19:49 03:21 03:21 RBC 2.99 L (3.80-5.40) m/uL Hgb 9.1 L (11.4-16.0) gm/dL Hct 27.7 L (34.0-46.0) % Chloride 110 H (98-107) mmol/L BUN 49 H (7-17) mg/dL Creatinine 1.63 H (0.52-1.04) mg/dL Glucose 143 H (74-99) mg/dL POC Glucose (mg/dL) 122 H (70-110) mg/dL AST 38 H (14-36) U/L Total Protein 5.8 L (6.3-8.2) g/dL Albumin 3.4 L (3.5-5.0) g/dL Assessment and Plan Assessment: * Delirium, likely due to metabolic encephalopathy. Mentation somewhat fluctuating. Patient is worse and better at times. * Probable underlying dementia. Patient has memory loss progressively getting worse for last 4 to 6 months. * Influenza A * Elevated troponins * Acute renal failure, started improving today * CHF with EF 40% * Hypertension * Hyperlipidemia * Obesity * Anemia * Former tobacco use Plan: * Patient's mentation has been fluctuating. She is still disoriented. Patient probably has at least moderate dementia. * EEG was abnormal due to background slowing, suggestive of mild encephalopathy. No focal, lateralized or epileptiform activity was seen. * Management of underlying cardiopulmonary conditions and other medical conditions as per IM and other specialties on board. * B12 386, folate 17.30, TSH is slightly low 0.395, with free T4 normal 1.48. We will defer to IM regarding abnormal thyroid functions. B12 was borderline, we will start replacement. * UA negative. * Patient receiving Tamiflu for influenza infection. * Patient is off heparin drip. Currently on aspirin 81 mg and Lipitor 80 mg and Zetia 10 mg. * Patient's renal functions are improving. * DVT prophylaxis: Start Lovenox 40 mg subcu daily. * PT and OT. * Supportive care. Fall precautions. * Neurologically, no other workup indicated. Dr. Jose Barker starting neurology service from Monday.
[2024-12-22] MEDS: NYSTATIN 100,000 UNIT/GM POWD 15 GM TOPICAL SCH (01:10)
[2024-12-22] MEDS: ZINC OXIDE PASTE (Z-GUARD) 1 APPLIC TOPICAL PRN (03:16)
[2024-12-22 05:06] LABS: HCT 26.6 % (34.0-46.0); HGB 8.7 gm/dL (11.4-16.0); MCH 29.9 pg (25.0-35.0); MCHC 32.5 g/dL (31.0-37.0); Mean Platelet Volume 10.5; Platelet Count 234 k/uL (150-450); RBC 2.89 m/uL (3.80-5.40); RDW 12.6 % (11.5-15.5); WBC 8.6 k/uL (3.8-10.6)
[2024-12-22 05:33] LABS: ALT 24 U/L (4-34); AST 51 U/L (14-36); African American GFR (CKD) 47 (>60 ml/min/1.73 sqM); Albumin 3.2 g/dL (3.5-5.0); Albumin/Globulin Ratio 1.5; Alkaline Phosphatase 63 U/L (38-126); Anion Gap 4 mmol/L; Blood Urea Nitrogen 34 mg/dL (7-17); Calcium 8.9 mg/dL (8.4-10.2); Carbon Dioxide 27 mmol/L (22-30); Chloride 112 mmol/L (98-107); Globulin 2.2 g/dL; Glucose 109 mg/dL (74-99); Magnesium 2.2 mg/dL (1.6-2.3); Non-African American GFR(CKD) 41 (>60 ml/min/1.73 sqM); Potassium 3.8 mmol/L (3.5-5.1); Sodium 143 mmol/L (137-145); Total Bilirubin 1.4 mg/dL (0.2-1.3); Total Protein 5.4 g/dL (6.3-8.2)
[2024-12-22] MEDS ORDERED: PANTOPRAZOLE 40 MG TABLET PO SCH (07:30)
[2024-12-22 08:47] LABS: % Iron Saturation 9.89 (12.00-45.00)
--- NOTE | 2024-12-22 09:56 | P.PN ---
Subjective Patient is seen in follow-up for acute kidney injury. Renal function improving. Patient confused. Pulled out IV line again. Vital signs are stable. General: No acute distress. HEENT: Head exam is unremarkable. LUNGS: No audible rhonchi or wheezes. HEART: Rate and Rhythm are regular. ABDOMEN: No distention. EXTREMITITES: No edema. Objective - Vital Signs Vital signs: Vital Signs Temp 98.0 F 12/22/24 07:15 Pulse 95 12/22/24 07:15 Resp 18 12/22/24 07:15 BP 176/99 12/22/24 07:15 Pulse Ox 96 12/22/24 07:15 FiO2 Intake & Output 12/21/24 12/22/24 12/22/24 18:59 06:59 18:59 Intake Total 1126 Balance 1126 Weight 74 kg Intake: Intake, IV Titration 75 Amount Sodium Chloride 0.9% 1, 75 000 ml @ 75 mls/hr IV . [id number] [facility] Rx#:[id number] Oral 1051 Other: Voiding Method Indwelling Catheter Indwelling Catheter - Labs CBC & Chem 7: 12/22/24 03:40 12/22/24 03:40 Labs: Abnormal Lab Results - Last 24 Hours (Table) 12/21/24 12/22/24 12/22/24 Range/Units 03:21 03:40 03:40 RBC 2.89 L (3.80-5.40) m/uL Hgb 8.7 L (11.4-16.0) gm/dL Hct 26.6 L (34.0-46.0) % Chloride 112 H (98-107) mmol/L BUN 34 H (7-17) mg/dL Creatinine 1.25 H (0.52-1.04) mg/dL Glucose 109 H (74-99) mg/dL Iron 26 L (50-170) UG/DL % Saturation 9.89 L (12.00-45.00) Transferrin 188.0 L (204.0-354.0) mg/dL Ferritin 818.0 H (10.0-291.0) ng/mL Total Bilirubin 1.4 H (0.2-1.3) mg/dL AST 51 H (14-36) U/L Total Protein 5.4 L (6.3-8.2) g/dL Albumin 3.2 L (3.5-5.0) g/dL Assessment and Plan Plan: Assessment: 1. Acute kidney injury secondary to ATN secondary to hypotension. UA benign. No hydronephrosis noted on kidney ultrasound. Left kidney atrophic. Baseline creatinine near 1 and peaked at 2.75 this admission -1.25 today. 2. Influenza A infection status post Tamiflu. 3. GI bleed status post EGD which showed superficial duodenal ulcer and antral gastritis. Plan: Maintain IV fluids. Add IV iron. Avoid nephrotoxins. Continue to monitor renal function and urine output.
[2024-12-22] MEDS: SODIUM FERRIC GLUCONAT-SUCROSE 125 MG in SODIUM CHLORIDE 0.9% 100 ML IVPB SCH (11:07)
--- NOTE | 2024-12-22 12:29 | P.PN ---
Subjective Progress Note Date: 12/22/24 79-year-old female with a PMH of CAD status post stenting x 3, systolic heart failure, ischemic cardiomyopathy, hypertension, hyperlipidemia, TIA/CVA and osteoarthritis. She presented to the hospital on 12/16/2024 with a chief complaint of shortness of breath. Upon arrival to our facility, patient underwen t evaluation in the emergency department. Vital signs upon arrival show BP 137/80, HR 105, RR 18, temp 98.7 F, and SpO2 of 90% on 2 L. EKG completed showing sinus tachycardia at 105 bpm with T wave inversion in lateral lead aVL otherwise no significant T wave or ST abnormalities noted. Chest x-ray completed showing possible right upper lobe pulmonary nodule measuring 7.4 mm, recommend outpatient dedicated CT scan for further evaluation/surveillance. CBC unremarkable. Coagulation profile normal findings. BMP showing slightly elevated BUN of 19 otherwise normal findings. Blood glucose 130. Calcium 9.1. Liver profile unremarkable. Troponin elevated at 0.156 and proBNP 10,900. Influenza A was positive. Patient was started on heparin infusion and admitted under our services with consult to cardiology and pulmonology. Troponins trended resulting at 0.156, 0.161, and 0.156. Echocardiogram completed revealing reduced EF of 40% with aneurysmal inferior wall and mild mitral regurgitation. During first night of hospitalization patient's mentation worsened as she was initially a poor historian but alert to person, place and situation patient now alert to self only. CT brain was completed negative for acute process. Neurology also consulted for evaluation. During second night of hospitalization patient had large episode of melena, heparin infusion and Plavix was stopped at this time. On 12/18/2024 patient developed an acute kidney injury. Lisinopril and Lasix was held. Nephrology was consulted. Starting patient on gentle IV fluid hydration. Patient continued to have episodes of melena and hemoglobin decreasing from initial 13.5 on admission down to 8.0. Underwent EGD with GI on 12/20 showing duodenal ulcer with no bleeding. 12/21 Patient was seen and examined. Confused. CBC and CMP significant for RBC 2.99, Hg 9.1, Hct 27.7, Cl 110, BUN 49, Cr 1.63, glu 143, AST 38, alb 3.4. Mag 2.2. 12/22 Patient was seen and examined. Confused. Pulled out IV access last night. CBC and CMP significant for RBC 2.89, Hg 8.7, Hct 26.6, Cl 112, BUN 34, Cr 1.25, glu 109, T. Bili 1.4, AST 51, alb 3.2. Mag 2.2. General: non toxic, no distress, appears at stated age Derm: warm, dry Head: atraumatic, normocephalic, symmetric Eyes: EOMI, no lid lag, anicteric sclera Mouth: no lip lesion, mucus membranes moist Cardiovascular: Normal S1 S2. No murmurs, rubs or gallops. Lungs: Clear to auscultation bilaterally, no accessory muscle use Ext: no gross muscle atrophy, no edema, no contractures Neuro: no focal neuro deficits Psych: Alert, oriented x 1 + Jalloh Based on my assessment of this patient, this patient meets a high complexity level of care. Delirium: CT brain negative. EEG showing mild encephalopathy. Fall precautions. Window side bed. Frequent re-direction. Avoid sedatives. Neurology on board. PT and OT consulted. Acute hypoxic respiratory failure secondary to Flu A + systolic CHF exacerbation: Echo shows EF 40%. Completed course of Tamiflu. Attempt to wean O2. Telemetry monitoring. Pulmonary and Cardiology on board. DORIS on CKD: Renal US neg for obstruction. Likely prerenal. Lisinopril and Lasix on hold. Continue NS at 75 cc/hr. Nephrology on board. Upper GI bleed: Duodenal ulcer seen on EGD. Heparin and Plavix on hold. Protonix 40 mg PO QD. GI on board. NSTEMI with h/o CAD with stent placement: ASA 81 mg PO QD. Lipitor 80 mg PO QHS. Metoprolol as below. No invasive workup per Cardiology. Telemetry monitoring. Cardiology on board. Low-normal B12: Cyanocobalamin 1000 mcg PO QD. Pulmonary nodule: Outpatient follow up. Asthma no in acute exacerbation: Singulair 10 mg PO QD. Hypertension: Imdur 30 mg PO QD. Metoprolol 25 mg PO BID. Dyslipidemia: Lipitor as above. Will likely need placement. Will discuss with case management on Monday. CODE STATUS: FULL CODE DVT Prophylaxis: Lovenox. GI Prophylaxis: Protonix Designated medical POA if patient is not able to make medical decisions for themselves: I have reviewed the following delivery consultant notes: Nephro I have reviewed the results of the following tests: CBC, CMP. I have ordered the following tests: I have discussed the care of this patient with the following independent historian: SARAHI. I have independently interpreted the following test below: I have discussed the management of this patient with the following physician: Objective - Vital Signs Vital signs: Vital Signs Temp 98.0 F 12/22/24 07:15 Pulse 95 12/22/24 07:15 Resp 18 12/22/24 07:15 BP 176/99 12/22/24 07:15 Pulse Ox 96 12/22/24 07:15 FiO2 Intake & Output 12/21/24 12/22/24 12/22/24 18:59 06:59 18:59 Intake Total 1126 Balance 1126 Weight 74 kg Intake: Intake, IV Titration 75 Amount Sodium Chloride 0.9% 1, 75 000 ml @ 75 mls/hr IV . [id number] [facility] Rx#:[id number] Oral 1051 Other: Voiding Method Indwelling Catheter Indwelling Catheter - Labs CBC & Chem 7: 12/22/24 03:40 12/22/24 03:40 Labs: Abnormal Lab Results - Last 24 Hours (Table) 12/21/24 12/22/24 12/22/24 Range/Units 03:21 03:40 03:40 RBC 2.89 L (3.80-5.40) m/uL Hgb 8.7 L (11.4-16.0) gm/dL Hct 26.6 L (34.0-46.0) % Chloride 112 H (98-107) mmol/L BUN 34 H (7-17) mg/dL Creatinine 1.25 H (0.52-1.04) mg/dL Glucose 109 H (74-99) mg/dL Iron 26 L (50-170) UG/DL % Saturation 9.89 L (12.00-45.00) Transferrin 188.0 L (204.0-354.0) mg/dL Ferritin 818.0 H (10.0-291.0) ng/mL Total Bilirubin 1.4 H (0.2-1.3) mg/dL AST 51 H (14-36) U/L Total Protein 5.4 L (6.3-8.2) g/dL Albumin 3.2 L (3.5-5.0) g/dL
--- NOTE | 2024-12-22 13:02 | P.PN ---
Subjective Progress Note Date: 12/22/24 This is an 79-year-old female patient with a known history of hypertension, hyperlipidemia, congestive heart failure, coronary artery disease with previous stent placements, former smoker mild intermittent chronic bronchial asthma. She presented here to the emergency room early this morning with progressive weakness and significant dyspnea on exertion. Chest x-ray reveals no acute cardiopulmonary findings. Possible right upper lobe preliminary nodule. White count 7.2. Hemoglobin 13.5. Platelets 184. Sodium 137. Potassium 4.3. Bicarb 25. BUN 19. Creatinine 1.03. Glucose 130. Troponin 0.156, 0.161, 0.156. proBNP 10,900. Viral screen positive for influenza A. She is seen today in consultation in the emergency department. Currently sitting up on a stretcher. Awake and alert in no acute distress. Denies any worsening shortness of breath, cough or congestion. Denies any chest pain. Maintaining O2 saturations in the 90s on room air. She is afebrile. Hemodynamically stable. The patient is seen today December 17, 2024 in follow-up in the emergency department. She is currently resting on a stretcher. She is maintaining O2 saturations in the 90s on 4 L/min per nasal cannula. She is afebrile. Echocardiogram revealed impaired left ventricular systolic function with an eje ction fraction of 40%. She is confused today. Being uncooperative with staff. animal sitter at the bedside. A CT scan of the brain revealed no acute intracranial process. She remains on a heparin drip. Glucose 156. Continued on Tamiflu. Continued on IV diuretics. Patient was seen today on 12/18/2024, patient remains confused, quite lethargic, her mental status has significantly changed compared to the day of admission when she was initially seen in the ER. CT of the brain showed no evidence of intracranial process, patient is being followed by many consultants so far. And her mental status remains quite changed compared to baseline. Family is at bedside. No active pulmonary issues. Patient is known to have history of asthma which has been stable all along. Her echocardiogram showed LV dysfunction with ejection fraction of 40%. Patient is being followed by cardiology she was also seen by gastroenterology for low hemoglobin of 10 initially came in with a hemoglobin of 11.6. Renal functioning has been worsening since admission came in with a creatinine of 1 now her creatinine is 2.41,May need nephrology evaluation for her acute kidney injury. For her mental status change, may need full neurological evaluation. Patient was evaluated today on 12/19/2024, remains a bit confused, family is at bedside, patient is encephalopathic but no active pulmonary issues. No cough no wheezing no shortness of breath. Patient had relatively normal CBC, normal electrolytes, BUN however is 87 and creatinine 2.75. Seen today on 12/20/2024, patient is less confused today, as a matter fact she is oriented to place, she even knew the year, and she knew the name of the president. This is significant improvement compared to the last few days, obviously her encephalopathy is improving. Patient is on room air, does not have any shortness of breath, her labs were reviewed WBC count is 7.3 hemoglobin is 8 electrolytes are normal BUN is 77 creatinine down to 2.28 The patient is seen today December 21, 2024 in follow-up on the regular medical floor. She is currently awake and alert in no acute distress. Resting comfortably in bed. Denies any worsening shortness of breath, cough or congestion. She is maintaining O2 saturations in the 90s on 3 L/min per nasal cannula. White count 7.5. Hemoglobin 9.1. Platelets 208. Sodium 144. Potassium 3.9. Bicarb 26. BUN 49. Creatinine 1.63. Glucose 143. She is maintained on Lovenox for DVT prophylaxis. Continued on normal saline at 75 mL/h. Albuterol as needed. She did undergo EGD yesterday and was found to have a 5 mm superficial duodenal bulbar ulcer with no active bleeding. Antral erosive gastritis. She remains on Protonix. The patient is seen today December 22, 2024 in follow-up on the regular medical floor. She is currently resting in bed. She remains quite altered at times. A health and safety representative is at the bedside. She had pulled her IVs out. She has significant ecchymosis of the left upper extremity. She is maintaining O2 saturations in the mid 90s on 5 L/min per nasal cannula. She is afebrile. Somewhat hypertensive. He is on for DVT prophylaxis. Continued on bronchodilators. Continued on Singulair. White count 8.6. Hemoglobin 8.7. Platelets 234. Sodium 143. Potassium 3.8. Bicarb 27. BUN 34. Creatinine 1.25. Glucose 109. Objective - Vital Signs Vital signs: Vital Signs Temp 98.0 F 12/22/24 07:15 Pulse 95 12/22/24 07:15 Resp 18 12/22/24 07:15 BP 176/99 12/22/24 07:15 Pulse Ox 96 12/22/24 07:15 FiO2 Intake & Output 12/21/24 12/22/24 12/22/24 18:59 06:59 18:59 Intake Total 1126 Balance 1126 Weight 74 kg Intake: Intake, IV Titration 75 Amount Sodium Chloride 0.9% 1, 75 000 ml @ 75 mls/hr IV . [id number] [facility] Rx#:[id number] Oral 1051 Other: Voiding Method Indwelling Catheter Indwelling Catheter - Exam GENERAL EXAM: Alert, confused, 79-year-old female, resting in bed, on 5 L nasal cannula, in no apparent distress. HEAD: Normocephalic. EYES: Normal reaction of pupils, equal size. NOSE: Clear with pink turbinates. THROAT: No erythema or exudates. NECK: No masses, no JVD. CHEST: No chest wall deformity. LUNGS: Equal air entry with no crackles, wheeze, rhonchi or dullness. CVS: S1 and S2 normal with no audible murmur, regular rhythm. ABDOMEN: No hepatosplenomegaly, normal bowel sounds, no guarding or rigidity. SPINE: No scoliosis or deformity SKIN: No rashes CENTRAL NERVOUS SYSTEM: No focal deficits, tone is normal in all 4 extremities. EXTREMITIES: Left upper extremity with extensive ecchymosis. No clubbing, no cyanosis. Peripheral pulses are intact. - Labs CBC & Chem 7: 12/22/24 03:40 12/22/24 03:40 Labs: Abnormal Lab Results - Last 24 Hours (Table) 12/21/24 12/22/24 12/22/24 Range/Units 03:21 03:40 03:40 RBC 2.89 L (3.80-5.40) m/uL Hgb 8.7 L (11.4-16.0) gm/dL Hct 26.6 L (34.0-46.0) % Chloride 112 H (98-107) mmol/L BUN 34 H (7-17) mg/dL Creatinine 1.25 H (0.52-1.04) mg/dL Glucose 109 H (74-99) mg/dL Iron 26 L (50-170) UG/DL % Saturation 9.89 L (12.00-45.00) Transferrin 188.0 L (204.0-354.0) mg/dL Ferritin 818.0 H (10.0-291.0) ng/mL Total Bilirubin 1.4 H (0.2-1.3) mg/dL AST 51 H (14-36) U/L Total Protein 5.4 L (6.3-8.2) g/dL Albumin 3.2 L (3.5-5.0) g/dL Assessment and Plan Assessment: Acute exacerbation of chronic systolic congestive heart failure. Impaired left ventricular systolic function with an ejection fraction of 40% Troponin leak possible non-ST segment elevation myocardial infarction currently on a heparin drip Acute influenza A infection, completed Tamiflu Altered mental status of unclear etiology, CT scan of the brain revealed no acute intracranial process. Neurology suspecting at least moderate dementia Stool occult positive, status post EGD 12/20/2024 with a 5 mm superficial duodenal bulbar ulcer with no active bleeding. Antral erosive gastritis. Remains on Protonix History of coronary artery disease with previous stent placement, most recently to the RCA in February 2023 Possible early right upper lobe pulmonary nodule to be followed up in the outpatient setting Mild intermittent chronic bronchial asthma, inactive Former smoker Hypertension Hyperlipidemia History of congestive heart failure Plan: The patient was seen and evaluated Labs and medications reviewed The patient remains quite altered at times Neurology suspecting at least moderate dementia animal sitter at the bedside She did pull out an IV last night Left upper extremity with significant ecchymosis Titrate down the FiO2 as tolerated Will need placement at discharge I have personally seen and examined the patient, performed the documentation and the assessment and plan as written. Number of minutes spent on the visit: 10 Dictation was produced using [employer] dictation software. Please excuse any grammatical, word or spelling errors.
[2024-12-23 04:05] LABS: Glucose,Whole Blood 123 mg/dL (70-110)
[2024-12-23] MEDS: METOPROLOL TARTRATE 5 MG/5 ML VIAL IVP STA (04:39)
[2024-12-23] MEDS: DILTIAZEM ORAL 60 MG TAB PO STA (04:52)
[2024-12-23 07:40] LABS: HCT 32.2 % (34.0-46.0); HGB 10.2 gm/dL (11.4-16.0); Hypochromasia Moderate; MCH 30.3 pg (25.0-35.0); MCHC 31.6 g/dL (31.0-37.0); MCV 95.9 fL (80.0-100.0); Mean Platelet Volume 9.1; Platelet Count 273 k/uL (150-450); RBC 3.35 m/uL (3.80-5.40); RDW 12.7 % (11.5-15.5); WBC 13.4 k/uL (3.8-10.6)
[2024-12-23 08:38] LABS: ALT 27 U/L (4-34); AST 47 U/L (14-36); African American GFR (CKD) 52 (>60 ml/min/1.73 sqM); Albumin 3.6 g/dL (3.5-5.0); Albumin/Globulin Ratio 1.4; Alkaline Phosphatase 66 U/L (38-126); Anion Gap 11 mmol/L; Blood Urea Nitrogen 28 mg/dL (7-17); Carbon Dioxide 22 mmol/L (22-30); Chloride 114 mmol/L (98-107); Globulin 2.5 g/dL; Glucose 122 mg/dL (74-99); Magnesium 2.2 mg/dL (1.6-2.3); Non-African American GFR(CKD) 45 (>60 ml/min/1.73 sqM); Potassium 4.5 mmol/L (3.5-5.1); Sodium 147 mmol/L (137-145); Total Bilirubin 1.7 mg/dL (0.2-1.3); Total Protein 6.1 g/dL (6.3-8.2)
[2024-12-23] MEDS: DEXTROSE 5% IN WATER 1,000 ML IV SCH (09:05)
--- NOTE | 2024-12-23 09:27 | P.PN ---
Subjective Patient is seen in follow-up for acute kidney injury. Renal function improving. Patient remains confused. Sodium 147. Vital signs are stable. General: No acute distress. HEENT: Head exam is unremarkable. LUNGS: No audible rhonchi or wheezes. HEART: Rate and Rhythm are regular. ABDOMEN: No distention. EXTREMITITES: No edema. Objective - Vital Signs Vital signs: Vital Signs Temp 98.5 F 12/23/24 07:32 Pulse 88 12/23/24 08:43 Resp 20 12/23/24 08:43 BP 121/82 12/23/24 07:32 Pulse Ox 97 12/23/24 08:34 FiO2 Intake & Output 12/22/24 12/23/24 12/23/24 18:59 06:59 18:59 Intake Total 0 Output Total 125 Balance -125 Weight 74.6 kg Intake: IV 0 Sodium Chloride 0.9% 1, 0 000 ml @ 75 mls/hr IV . [id number] [facility] Rx#:[id number] Output: Urine 125 Other: Voiding Method Indwelling Catheter Indwelling Catheter Indwelling Catheter - Labs CBC & Chem 7: 12/23/24 06:25 12/23/24 06:25 Labs: Abnormal Lab Results - Last 24 Hours (Table) 12/23/24 12/23/24 12/23/24 Range/Units 04:04 06:25 06:25 WBC 13.4 H (3.8-10.6) k/uL RBC 3.35 L (3.80-5.40) m/uL Hgb 10.2 L (11.4-16.0) gm/dL Hct 32.2 L (34.0-46.0) % Sodium 147 H (137-145) mmol/L Chloride 114 H (98-107) mmol/L BUN 28 H (7-17) mg/dL Creatinine 1.15 H (0.52-1.04) mg/dL Glucose 122 H (74-99) mg/dL POC Glucose (mg/dL) 123 H (70-110) mg/dL Total Bilirubin 1.7 H (0.2-1.3) mg/dL AST 47 H (14-36) U/L Total Protein 6.1 L (6.3-8.2) g/dL Assessment and Plan Plan: Assessment: 1. Acute kidney injury secondary to ATN secondary to hypotension. UA benign. No hydronephrosis noted on kidney ultrasound. Left kidney atrophic. Baseline creatinine near 1 and peaked at 2.75 this admission -1.15 today. 2. Influenza A infection status post Tamiflu. 3. GI bleed status post EGD which showed superficial duodenal ulcer and antral gastritis. 4. Hypernatremia from lack of oral water intake. Plan: Change IV fluids to D5W at 75 cc an hour. Repeat sodium level this evening. Maintain IV iron. Avoid nephrotoxins. Continue to monitor renal function and urine output.
--- NOTE | 2024-12-23 12:50 | P.PN ---
Subjective Progress Note Date: 12/23/24 This is an 79-year-old female patient with a known history of hypertension, hyperlipidemia, congestive heart failure, coronary artery disease with previous stent placements, former smoker mild intermittent chronic bronchial asthma. She presented here to the emergency room early this morning with progressive weakness and significant dyspnea on exertion. Chest x-ray reveals no acute cardiopulmonary findings. Possible right upper lobe preliminary nodule. White count 7.2. Hemoglobin 13.5. Platelets 184. Sodium 137. Potassium 4.3. Bicarb 25. BUN 19. Creatinine 1.03. Glucose 130. Troponin 0.156, 0.161, 0.156. proBNP 10,900. Viral screen positive for influenza A. She is seen today in consultation in the emergency department. Currently sitting up on a stretcher. Awake and alert in no acute distress. Denies any worsening shortness of breath, cough or congestion. Denies any chest pain. Maintaining O2 saturations in the 90s on room air. She is afebrile. Hemodynamically stable. The patient is seen today December 17, 2024 in follow-up in the emergency department. She is currently resting on a stretcher. She is maintaining O2 saturations in the 90s on 4 L/min per nasal cannula. She is afebrile. Echocardiogram revealed impaired left ventricular systolic function with an eje ction fraction of 40%. She is confused today. Being uncooperative with staff. sole conforming machine operator at the bedside. A CT scan of the brain revealed no acute intracranial process. She remains on a heparin drip. Glucose 156. Continued on Tamiflu. Continued on IV diuretics. Patient was seen today on 12/18/2024, patient remains confused, quite lethargic, her mental status has significantly changed compared to the day of admission when she was initially seen in the ER. CT of the brain showed no evidence of intracranial process, patient is being followed by many consultants so far. And her mental status remains quite changed compared to baseline. Family is at bedside. No active pulmonary issues. Patient is known to have history of asthma which has been stable all along. Her echocardiogram showed LV dysfunction with ejection fraction of 40%. Patient is being followed by cardiology she was also seen by gastroenterology for low hemoglobin of 10 initially came in with a hemoglobin of 11.6. Renal functioning has been worsening since admission came in with a creatinine of 1 now her creatinine is 2.41,May need nephrology evaluation for her acute kidney injury. For her mental status change, may need full neurological evaluation. Patient was evaluated today on 12/19/2024, remains a bit confused, family is at bedside, patient is encephalopathic but no active pulmonary issues. No cough no wheezing no shortness of breath. Patient had relatively normal CBC, normal electrolytes, BUN however is 87 and creatinine 2.75. Seen today on 12/20/2024, patient is less confused today, as a matter fact she is oriented to place, she even knew the year, and she knew the name of the president. This is significant improvement compared to the last few days, obviously her encephalopathy is improving. Patient is on room air, does not have any shortness of breath, her labs were reviewed WBC count is 7.3 hemoglobin is 8 electrolytes are normal BUN is 77 creatinine down to 2.28 The patient is seen today December 21, 2024 in follow-up on the regular medical floor. She is currently awake and alert in no acute distress. Resting comfortably in bed. Denies any worsening shortness of breath, cough or congestion. She is maintaining O2 saturations in the 90s on 3 L/min per nasal cannula. White count 7.5. Hemoglobin 9.1. Platelets 208. Sodium 144. Potassium 3.9. Bicarb 26. BUN 49. Creatinine 1.63. Glucose 143. She is maintained on Lovenox for DVT prophylaxis. Continued on normal saline at 75 mL/h. Albuterol as needed. She did undergo EGD yesterday and was found to have a 5 mm superficial duodenal bulbar ulcer with no active bleeding. Antral erosive gastritis. She remains on Protonix. The patient is seen today December 22, 2024 in follow-up on the regular medical floor. She is currently resting in bed. She remains quite altered at times. A environmental health safety manager is at the bedside. She had pulled her IVs out. She has significant ecchymosis of the left upper extremity. She is maintaining O2 saturations in the mid 90s on 5 L/min per nasal cannula. She is afebrile. Somewhat hypertensive. He is on for DVT prophylaxis. Continued on bronchodilators. Continued on Singulair. White count 8.6. Hemoglobin 8.7. Platelets 234. Sodium 143. Potassium 3.8. Bicarb 27. BUN 34. Creatinine 1.25. Glucose 109. The patient is seen today December 23, 2024 in follow-up in the intensive care unit. She was transferred here as a 3 S. overflow after developing atrial fibrillation with a rapid ventricular response on the regular medical floor at approximately 2:30 this morning. Her rate is better controlled this morning. She did receive Cardizem and Lopressor. She is afebrile. She is maintaining O2 saturation in the 90s on 3 L/min per nasal cannula. She has been initiated on D5W at 75 mL/h. Her sodium was 147. White count 13.4. Bicarb 22. BUN 28. Creatinine 1.15. Glucose 122. Remains on Lovenox for DVT prophylaxis. Objective - Vital Signs Vital signs: Vital Signs Temp 98.5 F 12/23/24 07:32 Pulse 88 12/23/24 08:43 Resp 20 12/23/24 08:43 BP 121/82 12/23/24 07:32 Pulse Ox 97 12/23/24 08:34 FiO2 Intake & Output 12/22/24 12/23/24 12/23/24 18:59 06:59 18:59 Intake Total 0 Output Total 125 Balance -125 Weight 74.6 kg Intake: IV 0 Sodium Chloride 0.9% 1, 0 000 ml @ 75 mls/hr IV . [id number] [facility] Rx#:[id number] Output: Urine 125 Other: Voiding Method Indwelling Catheter Indwelling Catheter Indwelling Catheter - Exam GENERAL EXAM: Alert, confused, 79-year-old female, on 3 L nasal cannula, in no apparent distress. HEAD: Normocephalic. EYES: Normal reaction of pupils, equal size. NOSE: Clear with pink turbinates. THROAT: No erythema or exudates. NECK: No masses, no JVD. CHEST: No chest wall deformity. LUNGS: Equal air entry with no crackles, wheeze, rhonchi or dullness. CVS: S1 and S2 normal with no audible murmur, irregular rhythm. ABDOMEN: No hepatosplenomegaly, normal bowel sounds, no guarding or rigidity. SPINE: No scoliosis or deformity SKIN: No rashes CENTRAL NERVOUS SYSTEM: No focal deficits, tone is normal in all 4 extremities. EXTREMITIES: Left upper extremity with extensive ecchymosis. No clubbing, no cyanosis. Peripheral pulses are intact. - Labs CBC & Chem 7: 12/23/24 06:25 12/23/24 06:25 Labs: Abnormal Lab Results - Last 24 Hours (Table) 12/23/24 12/23/24 12/23/24 Range/Units 04:04 06:25 06:25 WBC 13.4 H (3.8-10.6) k/uL RBC 3.35 L (3.80-5.40) m/uL Hgb 10.2 L (11.4-16.0) gm/dL Hct 32.2 L (34.0-46.0) % Sodium 147 H (137-145) mmol/L Chloride 114 H (98-107) mmol/L BUN 28 H (7-17) mg/dL Creatinine 1.15 H (0.52-1.04) mg/dL Glucose 122 H (74-99) mg/dL POC Glucose (mg/dL) 123 H (70-110) mg/dL Total Bilirubin 1.7 H (0.2-1.3) mg/dL AST 47 H (14-36) U/L Total Protein 6.1 L (6.3-8.2) g/dL Assessment and Plan Assessment: Acute exacerbation of chronic systolic congestive heart failure. Impaired left ventricular systolic function with an ejection fraction of 40% Troponin leak possible non-ST segment elevation myocardial infarction initially on a heparin drip Acute influenza A infection, completed Tamiflu Atrial fibrillation with a rapid ventricular response requiring transfer to 3 S. Altered mental status of unclear etiology, CT scan of the brain revealed no acute intracranial process. Neurology suspecting at least moderate dementia Stool occult positive, status post EGD 12/20/2024 with a 5 mm superficial duodenal bulbar ulcer with no active bleeding. Antral erosive gastritis. Remains on Pr otonix History of coronary artery disease with previous stent placement, most recently to the RCA in February 2023 Possible early right upper lobe pulmonary nodule to be followed up in the outpatient setting Mild intermittent chronic bronchial asthma, inactive Former smoker Hypertension Hyperlipidemia History of congestive heart failure Plan: The patient was seen and evaluated Labs and medications reviewed Sodium elevated Initiated on D5W at 75 mL/h Transferred to 3 S. due to A-fib RVR Currently in the ICU as a 3 S. overflow The patient remains quite altered at times Titrate down the FiO2 as tolerated Will need placement at discharge I have personally seen and examined the patient, performed the documentation and the assessment and plan as written. Number of minutes spent on the visit: 20 Dictation was produced using [employer] dictation software. Please excuse any grammatical, word or spelling errors.
[2024-12-23] MEDS ORDERED: HALOPERIDOL LACTATE 5 MG/ML 1 ML VIAL IVP PRN (15:02)
[2024-12-23] MEDS: HALOPERIDOL LACTATE 5 MG/ML 1 ML VIAL IVP PRN (15:08)
--- NOTE | 2024-12-23 17:10 | P.PN ---
Subjective Progress Note Date: 12/23/24 79-year-old female with a PMH of CAD status post stenting x 3, systolic heart failure, ischemic cardiomyopathy, hypertension, hyperlipidemia, TIA/CVA and osteoarthritis. She presented to the hospital on 12/16/2024 with a chief complaint of shortness of breath. Upon arrival to our facility, patient underwen t evaluation in the emergency department. Vital signs upon arrival show BP 137/80, HR 105, RR 18, temp 98.7 F, and SpO2 of 90% on 2 L. EKG completed showing sinus tachycardia at 105 bpm with T wave inversion in lateral lead aVL otherwise no significant T wave or ST abnormalities noted. Chest x-ray completed showing possible right upper lobe pulmonary nodule measuring 7.4 mm, recommend outpatient dedicated CT scan for further evaluation/surveillance. CBC unremarkable. Coagulation profile normal findings. BMP showing slightly elevated BUN of 19 otherwise normal findings. Blood glucose 130. Calcium 9.1. Liver profile unremarkable. Troponin elevated at 0.156 and proBNP 10,900. Influenza A was positive. Patient was started on heparin infusion and admitted under our services with consult to cardiology and pulmonology. Troponins trended resulting at 0.156, 0.161, and 0.156. Echocardiogram completed revealing reduced EF of 40% with aneurysmal inferior wall and mild mitral regurgitation. During first night of hospitalization patient's mentation worsened as she was initially a poor historian but alert to person, place and situation patient now alert to self only. CT brain was completed negative for acute process. Neurology also consulted for evaluation. During second night of hospitalization patient had large episode of melena, heparin infusion and Plavix was stopped at this time. On 12/18/2024 patient developed an acute kidney injury. Lisinopril and Lasix was held. Nephrology was consulted. Starting patient on gentle IV fluid hydration. Patient continued to have episodes of melena and hemoglobin decreasing from initial 13.5 on admission down to 8.0. Underwent EGD with GI on 12/20 showing duodenal ulcer with no bleeding. 12/21 Patient was seen and examined. Confused. CBC and CMP significant for RBC 2.99, Hg 9.1, Hct 27.7, Cl 110, BUN 49, Cr 1.63, glu 143, AST 38, alb 3.4. Mag 2.2. 12/22 Patient was seen and examined. Confused. Pulled out IV access last night. CBC and CMP significant for RBC 2.89, Hg 8.7, Hct 26.6, Cl 112, BUN 34, Cr 1.25, glu 109, T. Bili 1.4, AST 51, alb 3.2. Mag 2.2. 12/23 Patient was seen and examined. Confused. Went into A-Fib with RVR yesterday requiring IV Metoprolol and PO Cardizem, transferred to ICU as a 3S hold. CBC and BMP significant for WBC 13.4, RBC 3.35, Hg 10.2, Hct 32.2, Na 147, Cl 114, BUN 28, Cr 1.15, glu 122, T. Bili 1.7, AST 47. Mag 2.2 General: non toxic, no distress, appears at stated age Derm: warm, dry Head: atraumatic, normocephalic, symmetric Eyes: EOMI, no lid lag, anicteric sclera Mouth: no lip lesion, mucus membranes moist Cardiovascular: Normal S1 S2. No murmurs, rubs or gallops. Lungs: Clear to auscultation bilaterally, no accessory muscle use Ext: no gross muscle atrophy, no edema, no contractures Neuro: no focal neuro deficits Psych: Alert, oriented x 1 + Jalloh Based on my assessment of this patient, this patient meets a high complexity level of care. AFib with RVR: Improved. Metoprolol 25 mg PO BID. No AC due to UGIB. Telemetry monitoring. K > 4 and Mg > 2. Cardiology on board. Delirium: CT brain negative. EEG showing mild encephalopathy. Fall precautions. Window side bed. Frequent re-direction. Avoid sedatives. + Haldol 4 mg IV Q6H PRN, Ativan 0.5 mg IV Q6H PRN. Neurology on board. PT and OT consulted. Acute hypoxic respiratory failure secondary to Flu A + systolic CHF exacerbation: Echo shows EF 40%. Completed course of Tamiflu. Attempt to wean O2. Telemetry monitoring. Pulmonary and Cardiology on board. DORIS on CKD: Renal US neg for obstruction. Likely prerenal. Lisinopril and Lasix on hold. Nephrology on board. Upper GI bleed: Duodenal ulcer seen on EGD. Heparin and Plavix on hold. Protonix 40 mg PO QD. GI on board. NSTEMI with h/o CAD with stent placement: ASA 81 mg PO QD. Lipitor 80 mg PO QHS. Metoprolol as below. No invasive workup per Cardiology. Telemetry monitoring. Cardiology on board. Low-normal B12: Cyanocobalamin 1000 mcg PO QD. Pulmonary nodule: Outpatient follow up. Asthma no in acute exacerbation: Singulair 10 mg PO QD. Hypertension: Imdur 30 mg PO QD. Metoprolol 25 mg PO BID. Dyslipidemia: Lipitor as above. Will likely need placement. CODE STATUS: FULL CODE DVT Prophylaxis: Lovenox. GI Prophylaxis: Protonix Designated medical POA if patient is not able to make medical decisions for themselves: I have reviewed the following analytical consultant notes: Nephro, Pulmonary I have reviewed the results of the following tests: CBC, BMP. I have ordered the following tests: I have discussed the care of this patient with the following independent historian: SARAHI. I have independently interpreted the following test below: I have discussed the management of this patient with the following physician: Objective - Vital Signs Vital signs: Vital Signs Temp 98.4 F 12/23/24 14:00 Pulse 89 12/23/24 16:01 Resp 18 12/23/24 16:01 BP 121/53 12/23/24 14:00 Pulse Ox 94 L 12/23/24 14:00 FiO2 Intake & Output 12/22/24 12/23/24 12/23/24 18:59 06:59 18:59 Intake Total 300 Output Total 225 Balance 75 Weight 74.6 kg 74.6 kg Intake: IV 300 Sodium Chloride 0.9% 1, 300 000 ml @ 75 mls/hr IV . [id number] [facility] Rx#:[id number] Output: Urine 225 Other: Voiding Method Indwelling Catheter Indwelling Catheter Indwelling Catheter - Labs CBC & Chem 7: 12/23/24 06:25 12/23/24 16:16 Labs: Abnormal Lab Results - Last 24 Hours (Table) 12/23/24 12/23/24 12/23/24 Range/Units 04:04 06:25 06:25 WBC 13.4 H (3.8-10.6) k/uL RBC 3.35 L (3.80-5.40) m/uL Hgb 10.2 L (11.4-16.0) gm/dL Hct 32.2 L (34.0-46.0) % Sodium 147 H (137-145) mmol/L Chloride 114 H (98-107) mmol/L BUN 28 H (7-17) mg/dL Creatinine 1.15 H (0.52-1.04) mg/dL Glucose 122 H (74-99) mg/dL POC Glucose (mg/dL) 123 H (70-110) mg/dL Total Bilirubin 1.7 H (0.2-1.3) mg/dL AST 47 H (14-36) U/L Total Protein 6.1 L (6.3-8.2) g/dL
[2024-12-24 09:32] LABS: Basophils % (A) 0 %; Eosinophils # (A) 0.1 k/uL (0-0.7); Eosinophils % (A) 1 %; HCT 27.5 % (34.0-46.0); HGB 8.9 gm/dL (11.4-16.0); Lymphocytes # (A) 0.8 k/uL (1.0-4.8); Lymphocytes % (A) 7 %; MCHC 32.3 g/dL (31.0-37.0); MCV 92.9 fL (80.0-100.0); Mean Platelet Volume 9.6; Monocytes # (A) 0.4 k/uL (0-1.0); Monocytes % (A) 3 %; Neutrophils # (A) 10.4 k/uL (1.3-7.7); Neutrophils % (A) 88 %; Platelet Count 289 k/uL (150-450); RBC 2.96 m/uL (3.80-5.40); RDW 12.7 % (11.5-15.5); WBC 11.8 k/uL (3.8-10.6)
[2024-12-24 09:34] LABS: African American GFR (CKD) 56 (>60 ml/min/1.73 sqM); Anion Gap 7 mmol/L; Blood Urea Nitrogen 22 mg/dL (7-17); Calcium 8.7 mg/dL (8.4-10.2); Carbon Dioxide 30 mmol/L (22-30); Chloride 106 mmol/L (98-107); Glucose 139 mg/dL (74-99); Non-African American GFR(CKD) 48 (>60 ml/min/1.73 sqM); Potassium 3.6 mmol/L (3.5-5.1); Sodium 143 mmol/L (137-145)
--- NOTE | 2024-12-24 10:13 | P.PN ---
Subjective Patient is seen in follow-up for acute kidney injury. Renal function improving. Patient remains confused. Sodium 143. On D5W. Vital signs are stable. General: No acute distress. HEENT: Head exam is unremarkable. LUNGS: No audible rhonchi or wheezes. HEART: Rate and Rhythm are regular. ABDOMEN: No distention. EXTREMITITES: No edema. Objective - Vital Signs Vital signs: Vital Signs Temp 98.0 F 12/24/24 04:00 Pulse 89 12/24/24 08:13 Resp 24 12/24/24 08:13 BP 124/66 12/24/24 04:00 Pulse Ox 94 L 12/23/24 14:00 FiO2 Intake & Output 12/23/24 12/24/24 12/24/24 18:59 06:59 18:59 Intake Total 300 900 Output Total 325 550 Balance -25 350 Weight 74.6 kg 75.2 kg Intake: IV 300 900 Sodium Chloride 0.9% 1, 300 900 000 ml @ 75 mls/hr IV . [id number] [facility] Rx#:[id number] Output: Urine 325 550 Other: Voiding Method Indwelling Catheter Indwelling Catheter - Labs CBC & Chem 7: 12/24/24 08:59 12/24/24 08:59 Labs: Abnormal Lab Results - Last 24 Hours (Table) 12/24/24 12/24/24 Range/Units 08:59 08:59 WBC 11.8 H (3.8-10.6) k/uL RBC 2.96 L (3.80-5.40) m/uL Hgb 8.9 L (11.4-16.0) gm/dL Hct 27.5 L (34.0-46.0) % Neutrophils # 10.4 H (1.3-7.7) k/uL Lymphocytes # 0.8 L (1.0-4.8) k/uL BUN 22 H (7-17) mg/dL Creatinine 1.09 H (0.52-1.04) mg/dL Glucose 139 H (74-99) mg/dL Assessment and Plan Plan: Assessment: 1. Acute kidney injury secondary to ATN secondary to hypotension. UA benign. No hydronephrosis noted on kidney ultrasound. Left kidney atrophic. Baseline creatinine near 1 and peaked at 2.75 this admission -1.09 today. 2. Influenza A infection status post Tamiflu. 3. GI bleed status post EGD which showed superficial duodenal ulcer and antral gastritis. 4. Hypernatremia from lack of oral water intake. Better with D5W. 5. Anemia. Iron deficiency noted. Plan: Maintain D5W. Replace potassium. Encouraged oral intake. Repeat sodium level this evening. Maintain IV iron. Avoid nephrotoxins. Continue to monitor renal function and urine output.
[2024-12-24] MEDS: POTASSIUM CHLORIDE ER 20 MEQ TAB.ER PO STA (11:01)
[2024-12-24] MEDS: ACETAMINOPHEN TAB 325 MG TAB PO PRN (11:11)
--- NOTE | 2024-12-24 12:45 | P.PN ---
Subjective Progress Note Date: 12/24/24 This is an 79-year-old female patient with a known history of hypertension, hyperlipidemia, congestive heart failure, coronary artery disease with previous stent placements, former smoker mild intermittent chronic bronchial asthma. She presented here to the emergency room early this morning with progressive weakness and significant dyspnea on exertion. Chest x-ray reveals no acute cardiopulmonary findings. Possible right upper lobe preliminary nodule. White count 7.2. Hemoglobin 13.5. Platelets 184. Sodium 137. Potassium 4.3. Bicarb 25. BUN 19. Creatinine 1.03. Glucose 130. Troponin 0.156, 0.161, 0.156. proBNP 10,900. Viral screen positive for influenza A. She is seen today in consultation in the emergency department. Currently sitting up on a stretcher. Awake and alert in no acute distress. Denies any worsening shortness of breath, cough or congestion. Denies any chest pain. Maintaining O2 saturations in the 90s on room air. She is afebrile. Hemodynamically stable. The patient is seen today December 17, 2024 in follow-up in the emergency department. She is currently resting on a stretcher. She is maintaining O2 saturations in the 90s on 4 L/min per nasal cannula. She is afebrile. Echocardiogram revealed impaired left ventricular systolic function with an eje ction fraction of 40%. She is confused today. Being uncooperative with staff. supervisory lifeguard at the bedside. A CT scan of the brain revealed no acute intracranial process. She remains on a heparin drip. Glucose 156. Continued on Tamiflu. Continued on IV diuretics. Patient was seen today on 12/18/2024, patient remains confused, quite lethargic, her mental status has significantly changed compared to the day of admission when she was initially seen in the ER. CT of the brain showed no evidence of intracranial process, patient is being followed by many consultants so far. And her mental status remains quite changed compared to baseline. Family is at bedside. No active pulmonary issues. Patient is known to have history of asthma which has been stable all along. Her echocardiogram showed LV dysfunction with ejection fraction of 40%. Patient is being followed by cardiology she was also seen by gastroenterology for low hemoglobin of 10 initially came in with a hemoglobin of 11.6. Renal functioning has been worsening since admission came in with a creatinine of 1 now her creatinine is 2.41,May need nephrology evaluation for her acute kidney injury. For her mental status change, may need full neurological evaluation. Patient was evaluated today on 12/19/2024, remains a bit confused, family is at bedside, patient is encephalopathic but no active pulmonary issues. No cough no wheezing no shortness of breath. Patient had relatively normal CBC, normal electrolytes, BUN however is 87 and creatinine 2.75. Seen today on 12/20/2024, patient is less confused today, as a matter fact she is oriented to place, she even knew the year, and she knew the name of the president. This is significant improvement compared to the last few days, obviously her encephalopathy is improving. Patient is on room air, does not have any shortness of breath, her labs were reviewed WBC count is 7.3 hemoglobin is 8 electrolytes are normal BUN is 77 creatinine down to 2.28 The patient is seen today December 21, 2024 in follow-up on the regular medical floor. She is currently awake and alert in no acute distress. Resting comfortably in bed. Denies any worsening shortness of breath, cough or congestion. She is maintaining O2 saturations in the 90s on 3 L/min per nasal cannula. White count 7.5. Hemoglobin 9.1. Platelets 208. Sodium 144. Potassium 3.9. Bicarb 26. BUN 49. Creatinine 1.63. Glucose 143. She is maintained on Lovenox for DVT prophylaxis. Continued on normal saline at 75 mL/h. Albuterol as needed. She did undergo EGD yesterday and was found to have a 5 mm superficial duodenal bulbar ulcer with no active bleeding. Antral erosive gastritis. She remains on Protonix. The patient is seen today December 22, 2024 in follow-up on the regular medical floor. She is currently resting in bed. She remains quite altered at times. A safety and skill based pay manager is at the bedside. She had pulled her IVs out. She has significant ecchymosis of the left upper extremity. She is maintaining O2 saturations in the mid 90s on 5 L/min per nasal cannula. She is afebrile. Somewhat hypertensive. He is on for DVT prophylaxis. Continued on bronchodilators. Continued on Singulair. White count 8.6. Hemoglobin 8.7. Platelets 234. Sodium 143. Potassium 3.8. Bicarb 27. BUN 34. Creatinine 1.25. Glucose 109. The patient is seen today December 23, 2024 in follow-up in the intensive care unit. She was transferred here as a 3 S. overflow after developing atrial fibrillation with a rapid ventricular response on the regular medical floor at approximately 2:30 this morning. Her rate is better controlled this morning. She did receive Cardizem and Lopressor. She is afebrile. She is maintaining O2 saturation in the 90s on 3 L/min per nasal cannula. She has been initiated on D5W at 75 mL/h. Her sodium was 147. White count 13.4. Bicarb 22. BUN 28. Creatinine 1.15. Glucose 122. Remains on Lovenox for DVT prophylaxis. The patient is seen today December 24, 2024 in follow-up in the intensive care unit as a 3 S. overflow. She remains confused. supervisory lifeguard at the bedside. She is maintaining good O2 saturations in the 90s on 4 L/min per nasal cannula. Afebrile. Hemodynamically stable. She has D5W at 75 mL/h. Lovenox for DVT prophylaxis. White count 11.8. Hemoglobin 8.9. Platelets 289. Sodium 143. Potassium 3.6. Bicarb 30. BUN 22. Creatinine 1.09. Glucose 139. Objective - Vital Signs Vital signs: Vital Signs Temp 98.0 F 12/24/24 04:00 Pulse 89 12/24/24 08:13 Resp 24 12/24/24 08:13 BP 124/66 12/24/24 04:00 Pulse Ox 94 L 12/23/24 14:00 FiO2 Intake & Output 12/23/24 12/24/24 12/24/24 18:59 06:59 18:59 Intake Total 300 900 Output Total 325 550 Balance -25 350 Weight 74.6 kg 75.2 kg Intake: IV 300 900 Sodium Chloride 0.9% 1, 300 900 000 ml @ 75 mls/hr IV . [id number] [facility] Rx#:[id number] Output: Urine 325 550 Other: Voiding Method Indwelling Catheter Indwelling Catheter - Exam GENERAL EXAM: Alert, confused, 79-year-old female, sitting up in bed, on 4 L nasal cannula, in no apparent distress. HEAD: Normocephalic. EYES: Normal reaction of pupils, equal size. NOSE: Clear with pink turbinates. THROAT: No erythema or exudates. NECK: No masses, no JVD. CHEST: No chest wall deformity. LUNGS: Equal air entry with no crackles, wheeze, rhonchi or dullness. CVS: S1 and S2 normal with no audible murmur, irregular rhythm. ABDOMEN: No hepatosplenomegaly, normal bowel sounds, no guarding or rigidity. SPINE: No scoliosis or deformity SKIN: No rashes CENTRAL NERVOUS SYSTEM: No focal deficits, tone is normal in all 4 extremities. EXTREMITIES: Left upper extremity with extensive ecchymosis. No clubbing, no cyanosis. Peripheral pulses are intact. - Labs CBC & Chem 7: 12/24/24 08:59 12/24/24 08:59 Labs: Abnormal Lab Results - Last 24 Hours (Table) 12/24/24 12/24/24 Range/Units 08:59 08:59 WBC 11.8 H (3.8-10.6) k/uL RBC 2.96 L (3.80-5.40) m/uL Hgb 8.9 L (11.4-16.0) gm/dL Hct 27.5 L (34.0-46.0) % Neutrophils # 10.4 H (1.3-7.7) k/uL Lymphocytes # 0.8 L (1.0-4.8) k/uL BUN 22 H (7-17) mg/dL Creatinine 1.09 H (0.52-1.04) mg/dL Glucose 139 H (74-99) mg/dL Assessment and Plan Assessment: Acute exacerbation of chronic systolic congestive heart failure. Impaired left ventricular systolic function with an ejection fraction of 40% Troponin leak possible non-ST segment elevation myocardial infarction initially on a heparin drip Acute influenza A infection, completed Tamiflu Atrial fibrillation with a rapid ventricular response requiring transfer to 3 S. Altered mental status of unclear etiology, CT scan of the brain revealed no acute intracranial process. Neurology suspecting at least moderate dementia Stool occult positive, status post EGD 12/20/2024 with a 5 mm superficial duodenal bulbar ulcer with no active bleeding. Antral erosive gastritis. Remains on Protonix History of coronary artery disease with previous stent placement, most recently to the RCA in February 2023 Possible early right upper lobe pulmonary nodule to be followed up in the outpatient setting Mild intermittent chronic bronchial asthma, inactive Former smoker Hypertension Hyperlipidemia History of congestive heart failure Plan: The patient was seen and evaluated Labs and medications reviewed Currently in the ICU as a 3 S. overflow The patient remains quite altered at times Titrate down the FiO2 as tolerated Will need placement at discharge I have personally seen and examined the patient, performed the documentation and the assessment and plan as written. Number of minutes spent on the visit: 20 Dictation was produced using [employer] dictation software. Please excuse any grammatical, word or spelling errors.
--- NOTE | 2024-12-24 16:23 | P.PN ---
Subjective Progress Note Date: 12/24/24 79-year-old female with a PMH of CAD status post stenting x 3, systolic heart failure, ischemic cardiomyopathy, hypertension, hyperlipidemia, TIA/CVA and osteoarthritis. She presented to the hospital on 12/16/2024 with a chief complaint of shortness of breath. Upon arrival to our facility, patient underwen t evaluation in the emergency department. Vital signs upon arrival show BP 137/80, HR 105, RR 18, temp 98.7 F, and SpO2 of 90% on 2 L. EKG completed showing sinus tachycardia at 105 bpm with T wave inversion in lateral lead aVL otherwise no significant T wave or ST abnormalities noted. Chest x-ray completed showing possible right upper lobe pulmonary nodule measuring 7.4 mm, recommend outpatient dedicated CT scan for further evaluation/surveillance. CBC unremarkable. Coagulation profile normal findings. BMP showing slightly elevated BUN of 19 otherwise normal findings. Blood glucose 130. Calcium 9.1. Liver profile unremarkable. Troponin elevated at 0.156 and proBNP 10,900. Influenza A was positive. Patient was started on heparin infusion and admitted under our services with consult to cardiology and pulmonology. Troponins trended resulting at 0.156, 0.161, and 0.156. Echocardiogram completed revealing reduced EF of 40% with aneurysmal inferior wall and mild mitral regurgitation. During first night of hospitalization patient's mentation worsened as she was initially a poor historian but alert to person, place and situation patient now alert to self only. CT brain was completed negative for acute process. Neurology also consulted for evaluation. During second night of hospitalization patient had large episode of melena, heparin infusion and Plavix was stopped at this time. On 12/18/2024 patient developed an acute kidney injury. Lisinopril and Lasix was held. Nephrology was consulted. Starting patient on gentle IV fluid hydration. Patient continued to have episodes of melena and hemoglobin decreasing from initial 13.5 on admission down to 8.0. Underwent EGD with GI on 12/20 showing duodenal ulcer with no bleeding. 12/21 Patient was seen and examined. Confused. CBC and CMP significant for RBC 2.99, Hg 9.1, Hct 27.7, Cl 110, BUN 49, Cr 1.63, glu 143, AST 38, alb 3.4. Mag 2.2. 12/22 Patient was seen and examined. Confused. Pulled out IV access last night. CBC and CMP significant for RBC 2.89, Hg 8.7, Hct 26.6, Cl 112, BUN 34, Cr 1.25, glu 109, T. Bili 1.4, AST 51, alb 3.2. Mag 2.2. 12/23 Patient was seen and examined. Confused. Went into A-Fib with RVR yesterday requiring IV Metoprolol and PO Cardizem, transferred to ICU as a 3S hold. CBC and BMP significant for WBC 13.4, RBC 3.35, Hg 10.2, Hct 32.2, Na 147, Cl 114, BUN 28, Cr 1.15, glu 122, T. Bili 1.7, AST 47. Mag 2.2 12/24 Patient was seen and examined. Confused. CBC and BMP significant for WBC 11.8, RBC 2.96, Hg 8.9, Hct 27.5, BUN 22, Cr 1.09, glu 139. Mag 2. General: non toxic, no distress, appears at stated age Derm: warm, dry Head: atraumatic, normocephalic, symmetric Eyes: EOMI, no lid lag, anicteric sclera Mouth: no lip lesion, mucus membranes moist Cardiovascular: Normal S1 S2. No murmurs, rubs or gallops. Lungs: Clear to auscultation bilaterally, no accessory muscle use Ext: no gross muscle atrophy, no edema, no contractures Neuro: no focal neuro deficits Psych: Alert, oriented x 1 + Jalloh Based on my assessment of this patient, this patient meets a high complexity level of care. AFib with RVR: Improved. Metoprolol 25 mg PO BID. No AC due to UGIB. Telemetry monitoring. K > 4 and Mg > 2. Cardiology on board. Delirium: CT brain negative. EEG showing mild encephalopathy. Fall precautions. Window side bed. Frequent re-direction. Avoid sedatives. + Haldol 4 mg IV Q6H PRN, Ativan 0.5 mg IV Q6H PRN. Neurology on board. PT and OT consulted. Acute hypoxic respiratory failure secondary to Flu A + systolic CHF exacerbation: Echo shows EF 40%. Completed course of Tamiflu. Attempt to wean O 2. Telemetry monitoring. Pulmonary and Cardiology on board. DORIS on CKD: Renal US neg for obstruction. Likely prerenal. Lisinopril and Lasix on hold. Nephrology on board. Upper GI bleed: Duodenal ulcer seen on EGD. Heparin and Plavix on hold. Protonix 40 mg PO QD. GI on board. NSTEMI with h/o CAD with stent placement: ASA 81 mg PO QD. Lipitor 80 mg PO QHS. Metoprolol as below. No invasive workup per Cardiology. Telemetry monitoring. Cardiology on board. Low-normal B12: Cyanocobalamin 1000 mcg PO QD. Pulmonary nodule: Outpatient follow up. Asthma no in acute exacerbation: Singulair 10 mg PO QD. Hypertension: Imdur 30 mg PO QD. Metoprolol 25 mg PO BID. Dyslipidemia: Lipitor as above. Will likely need placement. Discussed with RYLEE Rios. CODE STATUS: FULL CODE DVT Prophylaxis: Lovenox. GI Prophylaxis: Protonix Designated medical POA if patient is not able to make medical decisions for themselves: I have reviewed the following safety and health consultant notes: Nephro, Pulmonary I have reviewed the results of the following tests: CBC, BMP, Mag. I have ordered the following tests: I have discussed the care of this patient with the following independent historian: RN. Gabriel MCKEE I have independently interpreted the following test below: I have discussed the management of this patient with the following physician: Objective - Vital Signs Vital signs: Vital Signs Temp 98.2 F 12/24/24 13:27 Pulse 88 12/24/24 15:21 Resp 20 12/24/24 15:21 BP 131/71 12/24/24 15:21 Pulse Ox 96 12/24/24 15:21 FiO2 Intake & Output 12/23/24 12/24/24 12/24/24 18:59 06:59 18:59 Intake Total 300 900 525 Output Total 325 550 300 Balance -25 350 225 Weight 74.6 kg 75.2 kg Intake: IV 300 900 525 Dextrose 5% in Water 1, 525 000 ml @ 75 mls/hr IV . [id number] [facility] Rx#:[id number] Sodium Chloride 0.9% 1, 300 900 000 ml @ 75 mls/hr IV . [id number] [facility] Rx#:[id number] Output: Urine 325 550 300 Other: Voiding Method Indwelling Catheter Indwelling Catheter Diaper Incontinent # Bowel Movements 1 - Labs CBC & Chem 7: 12/24/24 08:59 12/24/24 08:59 Labs: Abnormal Lab Results - Last 24 Hours (Table) 12/24/24 12/24/24 Range/Units 08:59 08:59 WBC 11.8 H (3.8-10.6) k/uL RBC 2.96 L (3.80-5.40) m/uL Hgb 8.9 L (11.4-16.0) gm/dL Hct 27.5 L (34.0-46.0) % Neutrophils # 10.4 H (1.3-7.7) k/uL Lymphocytes # 0.8 L (1.0-4.8) k/uL BUN 22 H (7-17) mg/dL Creatinine 1.09 H (0.52-1.04) mg/dL Glucose 139 H (74-99) mg/dL
[2024-12-24] MEDS ORDERED: FUROSEMIDE 10 MG/ML 10 ML VIAL IV STA (20:39)
[2024-12-24] MEDS: FUROSEMIDE 10 MG/ML 10 ML VIAL IV STA (20:44)
--- NOTE | 2024-12-24 21:20 | XR ---
EXAMINATION TYPE: XR chest 1V portable DATE OF EXAM: 12/24/2024 8:53 PM COMPARISON: 12/19/2024 CLINICAL INDICATION: Female, 79 years old with history of SOB, TECHNIQUE: XR chest 1V portable view(s) obtained. FINDINGS: The heart size is normal. The pulmonary vasculature is normal. Right lower lobe infiltrate is present. Correlate for atelectasis or pneumonia. Follow-up can be perf ormed. IMPRESSION: 1. Right lower lobe infiltrate. Correlate for atelectasis or pneumonia [facility], Workstation: [facility], 12/24/2024 9:18 PM
[2024-12-24] MEDS: IPRATROPIUM-ALBUTEROL 3 ML NEB INHALATION STA (22:36)
--- NOTE | 2024-12-25 09:54 | P.PN ---
Subjective Patient is seen in follow-up for acute kidney injury. Renal function improving. Mentation better. Sodium level 139 as of yesterday afternoon. Currently off IV fluids. Did receive a dose of IV Lasix yesterday as well. Vital signs are stable. General: No acute distress. HEENT: Head exam is unremarkable. On room air. LUNGS: Scattered wheezing. HEART: Rate and Rhythm are regular. ABDOMEN: No distention. EXTREMITITES: No edema. Objective - Vital Signs Vital signs: Vital Signs Temp 97.5 F L 12/25/24 07:38 Pulse 72 12/25/24 07:38 Resp 16 12/25/24 07:38 BP 121/61 12/25/24 07:38 Pulse Ox 98 12/25/24 08:27 FiO2 Intake & Output 12/24/24 12/25/24 12/25/24 18:59 06:59 18:59 Intake Total 525 10 Output Total 300 400 Balance 225 -390 Weight 79.5 kg Intake: IV 525 10 Dextrose 5% in Water 1, 525 000 ml @ 75 mls/hr IV . [id number] [facility] Rx#:[id number] Invasive Line 7 10 Output: Urine 300 400 Other: Voiding Method Diaper Diaper Incontinent External Catheter # Voids 2 # Bowel Movements 1 2 - Labs CBC & Chem 7: 12/24/24 08:59 12/24/24 15:50 Assessment and Plan Plan: Assessment: 1. Acute kidney injury secondary to ATN secondary to hypotension. UA benign. No hydronephrosis noted on kidney ultrasound. Left kidney atrophic. Baseline creatinine near 1 and peaked at 2.75 this admission -1.09 yesterday. 2. Influenza A infection status post Tamiflu. 3. GI bleed status post EGD which showed superficial duodenal ulcer and antral gastritis. 4. Hypernatremia from lack of oral water intake. Status post D5W. Improved. 5. Anemia. Iron deficiency noted. Plan: Encouraged oral intake. Maintain IV iron. Avoid nephrotoxins. Continue to monitor renal function and urine output. No evidence of fluid overload noted on chest x-ray.
--- NOTE | 2024-12-25 14:18 | P.PN ---
Subjective Progress Note Date: 12/25/24 Principal diagnosis: Congestive heart failure. This is an 79-year-old female patient with a known history of hypertension, hyperlipidemia, congestive heart failure, coronary artery disease with previous stent placements, former smoker mild intermittent chronic bronchial asthma. She presented here to the emergency room early this morning with progressive weakness and significant dyspnea on exertion. Chest x-ray reveals no acute cardiopulmonary findings. Possible right upper lobe preliminary nodule. White count 7.2. Hemoglobin 13.5. Platelets 184. Sodium 137. Potassium 4.3. Bicarb 25. BUN 19. Creatinine 1.03. Glucose 130. Troponin 0.156, 0.161, 0.156. proBNP 10,900. Viral screen positive for influenza A. She is seen today in consultation in the emergency department. Currently sitting up on a stretcher. Awake and alert in no acute distress. Denies any worsening shortness of breath, cough or congestion. Denies any chest pain. Maintaining O2 saturations in the 90s on room air. She is afebrile. Hemodynamically stable. The patient is seen today December 17, 2024 in follow-up in the emergency department. She is currently resting on a stretcher. She is maintaining O2 saturations in the 90s on 4 L/min per nasal cannula. She is afebrile. Echoc ardiogram revealed impaired left ventricular systolic function with an ejection fraction of 40%. She is confused today. Being uncooperative with staff. logistics tech at the bedside. A CT scan of the brain revealed no acute intracranial process. She remains on a heparin drip. Glucose 156. Continued on Tamiflu. Continued on IV diuretics. Patient was seen today on 12/18/2024, patient remains confused, quite lethargic, her mental status has significantly changed compared to the day of admission when she was initially seen in the ER. CT of the brain showed no evidence of intracranial process, patient is being followed by many consultants so far. And her mental status remains quite changed compared to baseline. Family is at bedside. No active pulmonary issues. Patient is known to have history of asthma which has been stable all along. Her echocardiogram showed LV dysfunction with ejection fraction of 40%. Patient is being followed by cardiology she was also seen by gastroenterology for low hemoglobin of 10 initially came in with a hemoglobin of 11.6. Renal functioning has been worsening since admission came in with a creatinine of 1 now her creatinine is 2.41,May need nephrology evaluation for her acute kidney injury. For her mental status change, may need full neurological evaluation. Patient was evaluated today on 12/19/2024, remains a bit confused, family is at bedside, patient is encephalopathic but no active pulmonary issues. No cough no wheezing no shortness of breath. Patient had relatively normal CBC, normal electrolytes, BUN however is 87 and creatinine 2.75. Seen today on 12/20/2024, patient is less confused today, as a matter fact she is oriented to place, she even knew the year, and she knew the name of the president. This is significant improvement compared to the last few days, obviously her encephalopathy is improving. Patient is on room air, does not have any shortness of breath, her labs were reviewed WBC count is 7.3 hemoglobin is 8 electrolytes are normal BUN is 77 creatinine down to 2.28 The patient is seen today December 21, 2024 in follow-up on the regular medical floor. She is currently awake and alert in no acute distress. Resting comfortably in bed. Denies any worsening shortness of breath, cough or congestion. She is maintaining O2 saturations in the 90s on 3 L/min per nasal cannula. White count 7.5. Hemoglobin 9.1. Platelets 208. Sodium 144. Potassium 3.9. Bicarb 26. BUN 49. Creatinine 1.63. Glucose 143. She is maintained on Lovenox for DVT prophylaxis. Continued on normal saline at 75 mL/h. Albuterol as needed. She did undergo EGD yesterday and was found to have a 5 mm superficial duodenal bulbar ulcer with no active bleeding. Antral erosive gastritis. She remains on Protonix. The patient is seen today December 22, 2024 in follow-up on the regular medical floor. She is currently resting in bed. She remains quite altered at times. A aviation safety technician is at the bedside. She had pulled her IVs out. She has significant ecchymosis of the left upper extremity. She is maintaining O2 saturations in the mid 90s on 5 L/min per nasal cannula. She is afebrile. Somewhat hypertensive. He is on for DVT prophylaxis. Continued on bronchodilators. Continued on Singulair. White count 8.6. Hemoglobin 8.7. Platelets 234. Sodium 143. Potassium 3.8. Bicarb 27. BUN 34. Creatinine 1.25. Glucose 109. The patient is seen today December 23, 2024 in follow-up in the intensive care unit. She was transferred here as a 3 S. overflow after developing atrial fibrillation with a rapid ventricular response on the regular medical floor at approximately 2:30 this morning. Her rate is better controlled this morning. She did receive Cardizem and Lopressor. She is afebrile. She is maintaining O2 saturation in the 90s on 3 L/min per nasal cannula. She has been initiated on D5W at 75 mL/h. Her sodium was 147. White count 13.4. Bicarb 22. BUN 28. Creatinine 1.15. Glucose 122. Remains on Lovenox for DVT prophylaxis. The patient is seen today December 24, 2024 in follow-up in the intensive care unit as a 3 S. overflow. She remains confused. logistics tech at the bedside. She is maintaining good O2 saturations in the 90s on 4 L/min per nasal cannula. Afebrile. Hemodynamically stable. She has D5W at 75 mL/h. Lovenox for DVT prophylaxis. White count 11.8. Hemoglobin 8.9. Platelets 289. Sodium 143. Potassium 3.6. Bicarb 30. BUN 22. Creatinine 1.09. Glucose 139. Progress note dated December 25, 2024. 79-year-old female who is seen today in room 368. Previously, she was in the intensive care unit. Currently, she is on 4 L of oxygen. She is not receiving any IV fluids. She is resting comfortably in bed, in no acute distress. CODE STATUS needs to be addressed. No new laboratory data today. Laboratory data from December 24, has been reviewed. Chest x-ray from yesterday shows a right lower lobe infiltrate. Objective - Vital Signs Vital signs: Vital Signs Temp 97.5 F L 12/25/24 11:15 Pulse 93 12/25/24 11:15 Resp 15 12/25/24 11:15 BP 113/80 12/25/24 11:15 Pulse Ox 100 12/25/24 11:15 FiO2 Intake & Output 12/24/24 12/25/24 12/25/24 18:59 06:59 18:59 Intake Total 525 10 10 Output Total 300 400 Balance 225 -390 10 Weight 79.5 kg 79.5 kg Intake: IV 525 10 10 Dextrose 5% in Water 1, 525 000 ml @ 75 mls/hr IV . [id number] [facility] Rx#:[id number] Invasive Line 7 10 10 Output: Urine 300 400 Other: Voiding Method Diaper Diaper Diaper Incontinent External Catheter External Catheter # Voids 2 # Bowel Movements 1 2 - Exam No acute distress, oriented 3. Currently on 4 L nasal O2. HEENT examination is grossly unremarkable. Mucous membranes are moist. No oral lesions. Neck supple. Full range of motion. No adenopathy thyromegaly or neck vein distention. Cardiovascular examination reveals an irregular rhythm and rate. S1-S2 normal. No S3 or S4. No discernible murmur noted. Lungs reveal clear breath sounds. Her sounds are equal bilaterally. No adventitious lung sounds including wheezes rhonchi or crackles. Abdomen soft bowel sounds are heard. No masses or tenderness. Extremities are intact. No cyanosis clubbing or edema. Skin is without rash or lesion. Neurologic examination is brief but nonfocal. - Labs CBC & Chem 7: 12/24/24 08:59 12/24/24 15:50 Assessment and Plan Assessment: Acute exacerbation of chronic systolic congestive heart failure. Troponin leak and possible non-ST segment elevation myocardial infarction. Acute influenza A infection, completed Tamiflu. Atrial fibrillation with a rapid ventricular response. Altered mental status of unclear etiology, CT scan of the brain revealed no acute intracranial process. Neurology suspecting at least moderate dementia. Stool occult positive, status post EGD 12/20/2024 with a 5 mm superficial duodenal bulbar ulcer with no active bleeding. Antral erosive gastritis. History of coronary artery disease with previous stent placement, most recently to the RCA in February 2023. Possible early right upper lobe pulmonary nodule to be followed up in the outpatient setting. Mild intermittent chronic bronchial asthma, inactive. Former smoker. Hypertension. Hyperlipidemia. History of congestive heart failure. Plan: Plan dated December 25, 2024. The patient is seen today in room 368. The patient is not receiving any IV fluids. The patient continues on nasal O2 at 4 L. Labs, x-rays, and all medications are reviewed. We will continue to follow the patient, make recommendations along the way. 50 minutes was spent with this patient, including time interviewing her, examining her, reviewing all pertinent laboratory data, x-rays, medications, as well as discussing the diagnosis, treatment, and prognosis, with the patient, and the patient's bedside nurse. We will continue to follow make recommendations along the way. Time with Patient: Greater than 30
--- NOTE | 2024-12-25 14:58 | P.PN ---
Subjective Progress Note Date: 12/25/24 79-year-old female with a PMH of CAD status post stenting x 3, systolic heart failure, ischemic cardiomyopathy, hypertension, hyperlipidemia, TIA/CVA and osteoarthritis. She presented to the hospital on 12/16/2024 with a chief complaint of shortness of breath. Upon arrival to our facility, patient underwen t evaluation in the emergency department. Vital signs upon arrival show BP 137/80, HR 105, RR 18, temp 98.7 F, and SpO2 of 90% on 2 L. EKG completed showing sinus tachycardia at 105 bpm with T wave inversion in lateral lead aVL otherwise no significant T wave or ST abnormalities noted. Chest x-ray completed showing possible right upper lobe pulmonary nodule measuring 7.4 mm, recommend outpatient dedicated CT scan for further evaluation/surveillance. CBC unremarkable. Coagulation profile normal findings. BMP showing slightly elevated BUN of 19 otherwise normal findings. Blood glucose 130. Calcium 9.1. Liver profile unremarkable. Troponin elevated at 0.156 and proBNP 10,900. Influenza A was positive. Patient was started on heparin infusion and admitted under our services with consult to cardiology and pulmonology. Troponins trended resulting at 0.156, 0.161, and 0.156. Echocardiogram completed revealing reduced EF of 40% with aneurysmal inferior wall and mild mitral regurgitation. During first night of hospitalization patient's mentation worsened as she was initially a poor historian but alert to person, place and situation patient now alert to self only. CT brain was completed negative for acute process. Neurology also consulted for evaluation. During second night of hospitalization patient had large episode of melena, heparin infusion and Plavix was stopped at this time. On 12/18/2024 patient developed an acute kidney injury. Lisinopril and Lasix was held. Nephrology was consulted. Starting patient on gentle IV fluid hydration. Patient continued to have episodes of melena and hemoglobin decreasing from initial 13.5 on admission down to 8.0. Underwent EGD with GI on 12/20 showing duodenal ulcer with no bleeding. 12/21 Patient was seen and examined. Confused. CBC and CMP significant for RBC 2.99, Hg 9.1, Hct 27.7, Cl 110, BUN 49, Cr 1.63, glu 143, AST 38, alb 3.4. Mag 2.2. 12/22 Patient was seen and examined. Confused. Pulled out IV access last night. CBC and CMP significant for RBC 2.89, Hg 8.7, Hct 26.6, Cl 112, BUN 34, Cr 1.25, glu 109, T. Bili 1.4, AST 51, alb 3.2. Mag 2.2. 12/23 Patient was seen and examined. Confused. Went into A-Fib with RVR yesterday requiring IV Metoprolol and PO Cardizem, transferred to ICU as a 3S hold. CBC and BMP significant for WBC 13.4, RBC 3.35, Hg 10.2, Hct 32.2, Na 147, Cl 114, BUN 28, Cr 1.15, glu 122, T. Bili 1.7, AST 47. Mag 2.2 12/24 Patient was seen and examined. Confused. CBC and BMP significant for WBC 11.8, RBC 2.96, Hg 8.9, Hct 27.5, BUN 22, Cr 1.09, glu 139. Mag 2. 2 Patient was seen and examined. Confused. No new labs done today. She is pending SNF placement. General: non toxic, no distress, appears at stated age Derm: warm, dry Head: atraumatic, normocephalic, symmetric Eyes: EOMI, no lid lag, anicteric sclera Mouth: no lip lesion, mucus membranes moist Cardiovascular: Normal S1 S2. No murmurs, rubs or gallops. Lungs: Clear to auscultation bilaterally, no accessory muscle use Ext: no gross muscle atrophy, no edema, no contractures Neuro: no focal neuro deficits Psych: Alert, oriented x 1 + Jalloh Based on my assessment of this patient, this patient meets a high complexity level of care. AFib with RVR: Improved. Metoprolol 25 mg PO BID. No AC due to UGIB. Telemetry monitoring. K > 4 and Mg > 2. Cardiology on board. Delirium: CT brain negative. EEG showing mild encephalopathy. Fall precautions. Window side bed. Frequent re-direction. Avoid sedatives. + Haldol 4 mg IV Q6H PRN, Ativan 0.5 mg IV Q6H PRN. Neurology on board. PT and OT consulted. Acute hypoxic respiratory failure secondary to Flu A + systolic CHF exacerbation: Echo shows EF 40%. Completed course of Tamiflu. Attempt to wean O 2. Telemetry monitoring. Pulmonary and Cardiology on board. DORIS on CKD: Renal US neg for obstruction. Likely prerenal. Lisinopril and Lasix on hold. Nephrology on board. Upper GI bleed: Duodenal ulcer seen on EGD. Heparin and Plavix on hold. Protonix 40 mg PO QD. GI on board. NSTEMI with h/o CAD with stent placement: ASA 81 mg PO QD. Lipitor 80 mg PO QHS. Metoprolol as below. No invasive workup per Cardiology. Telemetry monitoring. Cardiology on board. Low-normal B12: Cyanocobalamin 1000 mcg PO QD. Pulmonary nodule: Outpatient follow up. Asthma no in acute exacerbation: Singulair 10 mg PO QD. Hypertension: Imdur 30 mg PO QD. Metoprolol 25 mg PO BID. Dyslipidemia: Lipitor as above. Will likely need placement. Discussed with RYLEE Rios. Pending. CODE STATUS: FULL CODE DVT Prophylaxis: Lovenox. GI Prophylaxis: Protonix Designated medical POA if patient is not able to make medical decisions for themselves: I have reviewed the following bi consultant notes: Nephro, Pulmonary I have reviewed the results of the following tests: I have ordered the following tests: I have discussed the care of this patient with the following independent historian: Dietitian. Gabriel MCKEE I have independently interpreted the following test below: I have discussed the management of this patient with the following physician: Objective - Vital Signs Vital signs: Vital Signs Temp 97.5 F L 12/25/24 11:15 Pulse 93 12/25/24 11:15 Resp 15 12/25/24 11:15 BP 113/80 12/25/24 11:15 Pulse Ox 100 12/25/24 11:15 FiO2 Intake & Output 12/24/24 12/25/24 12/25/24 18:59 06:59 18:59 Intake Total 525 10 10 Output Total 300 400 Balance 225 -390 10 Weight 79.5 kg 79.5 kg Intake: IV 525 10 10 Dextrose 5% in Water 1, 525 000 ml @ 75 mls/hr IV . [id number] [facility] Rx#:[id number] Invasive Line 7 10 10 Output: Urine 300 400 Other: Voiding Method Diaper Diaper Diaper Incontinent External Catheter # Voids 2 # Bowel Movements 1 2 - Labs CBC & Chem 7: 12/24/24 08:59 12/24/24 15:50
[2024-12-26] MEDS: MEGESTROL 400 MG/10 ML CUP PO SCH (08:58)
--- NOTE | 2024-12-26 09:57 | P.PN ---
Subjective Patient is seen in follow-up for acute kidney injury. Renal function improved as of yesterday. Morning labs pending. Mentation better. Currently receiving a breathing treatment. Vital signs are stable. General: No acute distress. HEENT: Head exam is unremarkable. On nasal cannula. LUNGS: Scattered wheezing. HEART: Rate and Rhythm are regular. ABDOMEN: No distention. EXTREMITITES: No edema. Objective - Vital Signs Vital signs: Vital Signs Temp 97.5 F L 12/26/24 08:00 Pulse 92 12/26/24 09:11 Resp 20 12/26/24 08:00 BP 144/81 12/26/24 08:00 Pulse Ox 99 12/26/24 08:00 FiO2 Intake & Output 12/25/24 12/26/24 12/26/24 18:59 06:59 18:59 Intake Total 10 Output Total 500 Balance -490 Weight 79.5 kg 73 kg Intake: IV 10 Invasive Line 7 10 Output: Urine 500 Other: Voiding Method Diaper Diaper # Voids 2 - Labs CBC & Chem 7: 12/24/24 08:59 12/24/24 15:50 Assessment and Plan Plan: Assessment: 1. Acute kidney injury secondary to ATN secondary to hypotension. UA benign. No hydronephrosis noted on kidney ultrasound. Left kidney atrophic. Baseline creatinine near 1 and peaked at 2.75 this admission -1.09 dated December 24, 2024. 2. Influenza A infection status post Tamiflu. 3. GI bleed status post EGD which showed superficial duodenal ulcer and antral gastritis. 4. Hypernatremia from lack of oral water intake. Status post D5W. Improved. 5. Anemia. Iron deficiency noted. Status post IV iron. Plan: Encouraged oral intake. Avoid nephrotoxins. Continue to monitor renal function and urine output. No evidence of fluid overload noted on chest x-ray. Morning labs pending.
[2024-12-26 10:51] LABS: African American GFR (CKD) 51 (>60 ml/min/1.73 sqM); Anion Gap 6 mmol/L; Blood Urea Nitrogen 19 mg/dL (7-17); Calcium 8.6 mg/dL (8.4-10.2); Carbon Dioxide 31 mmol/L (22-30); Chloride 101 mmol/L (98-107); Glucose 125 mg/dL (74-99); Magnesium 1.7 mg/dL (1.6-2.3); Non-African American GFR(CKD) 44 (>60 ml/min/1.73 sqM); Potassium 3.4 mmol/L (3.5-5.1); Sodium 138 mmol/L (137-145)
--- NOTE | 2024-12-26 12:50 | P.PN ---
Subjective Progress Note Date: 12/26/24 Principal diagnosis: Congestive heart failure. This is an 79-year-old female patient with a known history of hypertension, hyperlipidemia, congestive heart failure, coronary artery disease with previous stent placements, former smoker mild intermittent chronic bronchial asthma. She presented here to the emergency room early this morning with progressive weakness and significant dyspnea on exertion. Chest x-ray reveals no acute cardiopulmonary findings. Possible right upper lobe preliminary nodule. White count 7.2. Hemoglobin 13.5. Platelets 184. Sodium 137. Potassium 4.3. Bicarb 25. BUN 19. Creatinine 1.03. Glucose 130. Troponin 0.156, 0.161, 0.156. proBNP 10,900. Viral screen positive for influenza A. She is seen today in consultation in the emergency department. Currently sitting up on a stretcher. Awake and alert in no acute distress. Denies any worsening shortness of breath, cough or congestion. Denies any chest pain. Maintaining O2 saturations in the 90s on room air. She is afebrile. Hemodynamically stable. The patient is seen today December 17, 2024 in follow-up in the emergency department. She is currently resting on a stretcher. She is maintaining O2 saturations in the 90s on 4 L/min per nasal cannula. She is afebrile. Echoc ardiogram revealed impaired left ventricular systolic function with an ejection fraction of 40%. She is confused today. Being uncooperative with staff. commercial litigation attorney at the bedside. A CT scan of the brain revealed no acute intracranial process. She remains on a heparin drip. Glucose 156. Continued on Tamiflu. Continued on IV diuretics. Patient was seen today on 12/18/2024, patient remains confused, quite lethargic, her mental status has significantly changed compared to the day of admission when she was initially seen in the ER. CT of the brain showed no evidence of intracranial process, patient is being followed by many consultants so far. And her mental status remains quite changed compared to baseline. Family is at bedside. No active pulmonary issues. Patient is known to have history of asthma which has been stable all along. Her echocardiogram showed LV dysfunction with ejection fraction of 40%. Patient is being followed by cardiology she was also seen by gastroenterology for low hemoglobin of 10 initially came in with a hemoglobin of 11.6. Renal functioning has been worsening since admission came in with a creatinine of 1 now her creatinine is 2.41,May need nephrology evaluation for her acute kidney injury. For her mental status change, may need full neurological evaluation. Patient was evaluated today on 12/19/2024, remains a bit confused, family is at bedside, patient is encephalopathic but no active pulmonary issues. No cough no wheezing no shortness of breath. Patient had relatively normal CBC, normal electrolytes, BUN however is 87 and creatinine 2.75. Seen today on 12/20/2024, patient is less confused today, as a matter fact she is oriented to place, she even knew the year, and she knew the name of the president. This is significant improvement compared to the last few days, obviously her encephalopathy is improving. Patient is on room air, does not have any shortness of breath, her labs were reviewed WBC count is 7.3 hemoglobin is 8 electrolytes are normal BUN is 77 creatinine down to 2.28 The patient is seen today December 21, 2024 in follow-up on the regular medical floor. She is currently awake and alert in no acute distress. Resting comfortably in bed. Denies any worsening shortness of breath, cough or congestion. She is maintaining O2 saturations in the 90s on 3 L/min per nasal cannula. White count 7.5. Hemoglobin 9.1. Platelets 208. Sodium 144. Potassium 3.9. Bicarb 26. BUN 49. Creatinine 1.63. Glucose 143. She is maintained on Lovenox for DVT prophylaxis. Continued on normal saline at 75 mL/h. Albuterol as needed. She did undergo EGD yesterday and was found to have a 5 mm superficial duodenal bulbar ulcer with no active bleeding. Antral erosive gastritis. She remains on Protonix. The patient is seen today December 22, 2024 in follow-up on the regular medical floor. She is currently resting in bed. She remains quite altered at times. A food safety manager is at the bedside. She had pulled her IVs out. She has significant ecchymosis of the left upper extremity. She is maintaining O2 saturations in the mid 90s on 5 L/min per nasal cannula. She is afebrile. Somewhat hypertensive. He is on for DVT prophylaxis. Continued on bronchodilators. Continued on Singulair. White count 8.6. Hemoglobin 8.7. Platelets 234. Sodium 143. Potassium 3.8. Bicarb 27. BUN 34. Creatinine 1.25. Glucose 109. The patient is seen today December 23, 2024 in follow-up in the intensive care unit. She was transferred here as a 3 S. overflow after developing atrial fibrillation with a rapid ventricular response on the regular medical floor at approximately 2:30 this morning. Her rate is better controlled this morning. She did receive Cardizem and Lopressor. She is afebrile. She is maintaining O2 saturation in the 90s on 3 L/min per nasal cannula. She has been initiated on D5W at 75 mL/h. Her sodium was 147. White count 13.4. Bicarb 22. BUN 28. Creatinine 1.15. Glucose 122. Remains on Lovenox for DVT prophylaxis. The patient is seen today December 24, 2024 in follow-up in the intensive care unit as a 3 S. overflow. She remains confused. commercial litigation attorney at the bedside. She is maintaining good O2 saturations in the 90s on 4 L/min per nasal cannula. Afebrile. Hemodynamically stable. She has D5W at 75 mL/h. Lovenox for DVT prophylaxis. White count 11.8. Hemoglobin 8.9. Platelets 289. Sodium 143. Potassium 3.6. Bicarb 30. BUN 22. Creatinine 1.09. Glucose 139. Progress note dated December 25, 2024. 79-year-old female who is seen today in room 368. Previously, she was in the intensive care unit. Currently, she is on 4 L of oxygen. She is not receiving any IV fluids. She is resting comfortably in bed, in no acute distress. CODE STATUS needs to be addressed. No new laboratory data today. Laboratory data from December 24, has been reviewed. Chest x-ray from yesterday shows a right lower lobe infiltrate. Progress note dated December 26, 2024. 79-year-old female seen today in room 368. The patient continues on nasal O2 at 4 L. She is not receiving any IV fluids. She is receiving an iron infusion. She has no specific complaints today. She seems comfortable, and is not manifesting any signs or symptoms of respiratory difficulty or distress. Current laboratory data includes a sodium 138, potassium 3.4, chlorides 101, CO2 31, BUN 19, and creatinine 1.17. Glucose is 125. Calcium 8.6, and magnesium 1.7. Objective - Vital Signs Vital signs: Vital Signs Temp 97.3 F L 12/26/24 11:23 Pulse 78 12/26/24 11:23 Resp 20 12/26/24 11:23 BP 106/70 12/26/24 11:23 Pulse Ox 93 L 12/26/24 11:23 FiO2 Intake & Output 12/25/24 12/26/24 12/26/24 18:59 06:59 18:59 Intake Total 10 0 Output Total 500 Balance -490 0 Weight 79.5 kg 73 kg Intake: IV 10 Invasive Line 7 10 Oral 0 Output: Urine 500 Other: Voiding Method Diaper Diaper Diaper # Voids 2 0 # Bowel Movements 0 - Exam No acute distress, oriented 3. Currently on 4 L nasal O2. HEENT examination is grossly unremarkable. Mucous membranes are moist. No oral lesions. Neck supple. Full range of motion. No adenopathy thyromegaly or neck vein distention. Cardiovascular examination reveals an irregular rhythm and rate. S1-S2 normal. No S3 or S4. No discernible murmur noted. Lungs reveal clear breath sounds. Her sounds are equal bilaterally. No adventitious lung sounds including wheezes rhonchi or crackles. Abdomen soft bowel sounds are heard. No masses or tenderness. Extremities are intact. No cyanosis clubbing or edema. Skin is without rash or lesion. Neurologic examination is brief but nonfocal. - Labs CBC & Chem 7: 12/24/24 08:59 12/26/24 10:05 Labs: Abnormal Lab Results - Last 24 Hours (Table) 12/26/24 Range/Units 10:05 Potassium 3.4 L (3.5-5.1) mmol/L Carbon Dioxide 31 H (22-30) mmol/L BUN 19 H (7-17) mg/dL Creatinine 1.17 H (0.52-1.04) mg/dL Glucose 125 H (74-99) mg/dL Assessment and Plan Assessment: Acute exacerbation of chronic systolic congestive heart failure. Troponin leak and possible non-ST segment elevation myocardial infarction. Acute influenza A infection, completed Tamiflu. Atrial fibrillation with a rapid ventricular response. Altered mental status of unclear etiology, CT scan of the brain revealed no acute intracranial process. Neurology suspecting at least moderate dementia. Stool occult positive, status post EGD 12/20/2024 with a 5 mm superficial duodenal bulbar ulcer with no active bleeding. Antral erosive gastritis. History of coronary artery disease with previous stent placement, most recently to the RCA in February 2023. Possible early right upper lobe pulmonary nodule to be followed up in the outpatient setting. Mild intermittent chronic bronchial asthma, inactive. Former smoker. Hypertension. Hyperlipidemia. History of congestive heart failure. Plan: Plan dated December 25, 2024. The patient is seen today in room 368. The patient is not receiving any IV fluids. The patient continues on nasal O2 at 4 L. Labs, x-rays, and all medications are reviewed. We will continue to follow the patient, make recommendations along the way. 50 minutes was spent with this patient, including time interviewing her, examining her, reviewing all pertinent laboratory data, x-rays, medications, as well as discussing the diagnosis, treatment, and prognosis, with the patient, and the patient's bedside nurse. We will continue to follow make recommendations along the way. Plan dated December 26, 2024. The patient is again seen today in room 368. The patient is currently on 4 L of oxygen. She seems to be resting comfortably. There appears to be no respiratory distress or difficulty. She is not receiving any IV fluids. She is receiving an iron infusion. Labs, x-rays, and medications are reviewed. 50 minutes was spent with this patient, which included taking the history, examining the patient, reviewing pertinent laboratory data, x-rays, medications, as well as discussing the diagnosis, treatment, and prognosis, with the patient, and the patient's nursing staff. Time with Patient: Greater than 30
--- NOTE | 2024-12-26 16:52 | P.PN ---
Subjective Progress Note Date: 12/26/24 79-year-old female with a PMH of CAD status post stenting x 3, systolic heart failure, ischemic cardiomyopathy, hypertension, hyperlipidemia, TIA/CVA and osteoarthritis. She presented to the hospital on 12/16/2024 with a chief complaint of shortness of breath. Upon arrival to our facility, patient underwen t evaluation in the emergency department. Vital signs upon arrival show BP 137/80, HR 105, RR 18, temp 98.7 F, and SpO2 of 90% on 2 L. EKG completed showing sinus tachycardia at 105 bpm with T wave inversion in lateral lead aVL otherwise no significant T wave or ST abnormalities noted. Chest x-ray completed showing possible right upper lobe pulmonary nodule measuring 7.4 mm, recommend outpatient dedicated CT scan for further evaluation/surveillance. CBC unremarkable. Coagulation profile normal findings. BMP showing slightly elevated BUN of 19 otherwise normal findings. Blood glucose 130. Calcium 9.1. Liver profile unremarkable. Troponin elevated at 0.156 and proBNP 10,900. Influenza A was positive. Patient was started on heparin infusion and admitted under our services with consult to cardiology and pulmonology. Troponins trended resulting at 0.156, 0.161, and 0.156. Echocardiogram completed revealing reduced EF of 40% with aneurysmal inferior wall and mild mitral regurgitation. During first night of hospitalization patient's mentation worsened as she was initially a poor historian but alert to person, place and situation patient now alert to self only. CT brain was completed negative for acute process. Neurology also consulted for evaluation. During second night of hospitalization patient had large episode of melena, heparin infusion and Plavix was stopped at this time. On 12/18/2024 patient developed an acute kidney injury. Lisinopril and Lasix was held. Nephrology was consulted. Starting patient on gentle IV fluid hydration. Patient continued to have episodes of melena and hemoglobin decreasing from initial 13.5 on admission down to 8.0. Underwent EGD with GI on 12/20 showing duodenal ulcer with no bleeding. 12/21 Patient was seen and examined. Confused. CBC and CMP significant for RBC 2.99, Hg 9.1, Hct 27.7, Cl 110, BUN 49, Cr 1.63, glu 143, AST 38, alb 3.4. Mag 2.2. 12/22 Patient was seen and examined. Confused. Pulled out IV access last night. CBC and CMP significant for RBC 2.89, Hg 8.7, Hct 26.6, Cl 112, BUN 34, Cr 1.25, glu 109, T. Bili 1.4, AST 51, alb 3.2. Mag 2.2. 12/23 Patient was seen and examined. Confused. Went into A-Fib with RVR yesterday requiring IV Metoprolol and PO Cardizem, transferred to ICU as a 3S hold. CBC and BMP significant for WBC 13.4, RBC 3.35, Hg 10.2, Hct 32.2, Na 147, Cl 114, BUN 28, Cr 1.15, glu 122, T. Bili 1.7, AST 47. Mag 2.2 12/24 Patient was seen and examined. Confused. CBC and BMP significant for WBC 11.8, RBC 2.96, Hg 8.9, Hct 27.5, BUN 22, Cr 1.09, glu 139. Mag 2. 12/25 Patient was seen and examined. Confused. No new labs done today. She is pending SNF placement. 12/26 Patient was seen and examined. Confused. BMP done today shows K 3.4, bicarb 31, BUN 19, Cr 1.17, glu 125. Mag 1.7. Discussed with Gabriel MCKEE, SNF placement pending. General: non toxic, no distress, appears at stated age Derm: warm, dry Head: atraumatic, normocephalic, symmetric Eyes: EOMI, no lid lag, anicteric sclera Mouth: no lip lesion, mucus membranes moist Cardiovascular: Normal S1 S2. No murmurs, rubs or gallops. Lungs: Clear to auscultation bilaterally, no accessory muscle use Ext: no gross muscle atrophy, no edema, no contractures Neuro: no focal neuro deficits Psych: Alert, oriented x 1 + Jalloh Based on my assessment of this patient, this patient meets a high complexity level of care. AFib with RVR: Improved. Metoprolol 25 mg PO BID. No AC due to UGIB. Telemetry monitoring. K > 4 and Mg > 2. Cardiology on board. Delirium: CT brain negative. EEG showing mild encephalopathy. Fall precautions. Window side bed. Frequent re-direction. Avoid sedatives. + Haldol 4 mg IV Q6H PRN, Ativan 0.5 mg IV Q6H PRN. Neurology on board. PT and OT consulted. Acute hypoxic respiratory failure secondary to Flu A + systolic CHF exacerbation : Echo shows EF 40%. Completed course of Tamiflu. Attempt to wean O2. Telemetry monitoring. Pulmonary and Cardiology on board. DORIS on CKD: Renal US neg for obstruction. Likely prerenal. Lisinopril and Lasix on hold. Nephrology on board. Upper GI bleed: Duodenal ulcer seen on EGD. Heparin and Plavix on hold. Protonix 40 mg PO QD. GI on board. NSTEMI with h/o CAD with stent placement: ASA 81 mg PO QD. Lipitor 80 mg PO QHS. Metoprolol as below. No invasive workup per Cardiology. Telemetry monitoring. Cardiology on board. Low-normal B12: Cyanocobalamin 1000 mcg PO QD. Pulmonary nodule: Outpatient follow up. Asthma no in acute exacerbation: Singulair 10 mg PO QD. Hypertension: Imdur 30 mg PO QD. Metoprolol 25 mg PO BID. Dyslipidemia: Lipitor as above. Will likely need placement. Discussed with RYLEE Rios. Pending. CODE STATUS: FULL CODE DVT Prophylaxis: Lovenox. GI Prophylaxis: Protonix Designated medical POA if patient is not able to make medical decisions for themselves: I have reviewed the following sr technical sales consultant notes: Nephro, Pulmonary I have reviewed the results of the following tests: [facility] I have ordered the following tests: I have discussed the care of this patient with the following independent historian: Gabriel MCKEE I have independently interpreted the following test below: I have discussed the management of this patient with the following physician: Objective - Vital Signs Vital signs: Vital Signs Temp 97.9 F 12/26/24 16:02 Pulse 81 12/26/24 16:02 Resp 20 12/26/24 16:02 BP 97/57 12/26/24 16:02 Pulse Ox 99 12/26/24 16:02 FiO2 Intake & Output 12/25/24 12/26/24 12/26/24 18:59 06:59 18:59 Intake Total 10 120 Output Total 500 Balance -490 120 Weight 79.5 kg 73 kg Intake: IV 10 Invasive Line 7 10 Oral 120 Output: Urine 500 Other: Voiding Method Diaper Diaper Diaper # Voids 2 1 # Bowel Movements 0 - Labs CBC & Chem 7: 12/24/24 08:59 12/26/24 10:05 Labs: Abnormal Lab Results - Last 24 Hours (Table) 12/26/24 Range/Units 10:05 Potassium 3.4 L (3.5-5.1) mmol/L Carbon Dioxide 31 H (22-30) mmol/L BUN 19 H (7-17) mg/dL Creatinine 1.17 H (0.52-1.04) mg/dL Glucose 125 H (74-99) mg/dL
[2024-12-27 09:41] LABS: African American GFR (CKD) 48 (>60 ml/min/1.73 sqM); Anion Gap 7 mmol/L; Blood Urea Nitrogen 21 mg/dL (7-17); Calcium 8.7 mg/dL (8.4-10.2); Carbon Dioxide 27 mmol/L (22-30); Chloride 104 mmol/L (98-107); Glucose 114 mg/dL (74-99); Non-African American GFR(CKD) 42 (>60 ml/min/1.73 sqM); Sodium 138 mmol/L (137-145)
[2024-12-27 09:42] LABS: Potassium 3.7 mmol/L (3.5-5.1)
[2024-12-27 09:50] LABS: Basophils # (A) 0.1 k/uL (0-0.2); Basophils % (A) 0 %; Eosinophils # (A) 0.2 k/uL (0-0.7); Eosinophils % (A) 1 %; HCT 27.1 % (34.0-46.0); HGB 9.2 gm/dL (11.4-16.0); Lymphocytes # (A) 1.2 k/uL (1.0-4.8); Lymphocytes % (A) 8 %; MCHC 33.8 g/dL (31.0-37.0); MCV 91.5 fL (80.0-100.0); Mean Platelet Volume 10.8; Monocytes # (A) 0.7 k/uL (0-1.0); Monocytes % (A) 4 %; Neutrophils # (A) 12.5 k/uL (1.3-7.7); Neutrophils % (A) 85 %; Platelet Count 371 k/uL (150-450); RBC 2.97 m/uL (3.80-5.40); RDW 13.5 % (11.5-15.5); WBC 14.7 k/uL (3.8-10.6)
--- NOTE | 2024-12-27 11:28 | P.PN ---
Subjective Patient is seen in follow-up for acute kidney injury. Renal function stable. Mentation better. Denies cp or sob. Vital signs are stable. General: No acute distress. HEENT: Head exam is unremarkable. On nasal cannula. LUNGS: Scattered wheezing. HEART: Rate and Rhythm are regular. ABDOMEN: No distention. EXTREMITITES: No edema. Objective - Vital Signs Vital signs: Vital Signs Temp 97.4 F L 12/27/24 08:00 Pulse 88 12/27/24 08:37 Resp 16 12/27/24 08:00 BP 125/68 12/27/24 08:00 Pulse Ox 92 L 12/27/24 08:00 FiO2 Intake & Output 12/26/24 12/27/24 12/27/24 18:59 06:59 18:59 Intake Total 120 Balance 120 Weight 77.5 kg Intake: Oral 120 Other: Voiding Method Diaper Diaper Diaper # Voids 1 # Bowel Movements 0 - Labs CBC & Chem 7: 12/27/24 08:33 12/27/24 08:33 Labs: Abnormal Lab Results - Last 24 Hours (Table) 12/27/24 12/27/24 Range/Units 08:33 08:33 WBC 14.7 H (3.8-10.6) k/uL RBC 2.97 L (3.80-5.40) m/uL Hgb 9.2 L (11.4-16.0) gm/dL Hct 27.1 L (34.0-46.0) % Neutrophils # 12.5 H (1.3-7.7) k/uL BUN 21 H (7-17) mg/dL Creatinine 1.23 H (0.52-1.04) mg/dL Glucose 114 H (74-99) mg/dL Assessment and Plan Plan: Assessment: 1. Acute kidney injury secondary to ATN secondary to hypotension. UA benign. No hydronephrosis noted on kidney ultrasound. Left kidney atrophic. Baseline creatinine near 1 and peaked at 2.75 this admission -1.23 today. 2. Influenza A infection status post Tamiflu. 3. GI bleed status post EGD which showed superficial duodenal ulcer and antral gastritis. 4. Hypernatremia from lack of oral water intake. Status post D5W. Improved. 5. Anemia. Iron deficiency noted. Status post IV iron. Plan: Encouraged oral intake. Avoid nephrotoxins. Continue to monitor renal function and urine output. No evidence of fluid overload noted on chest x-ray.
--- NOTE | 2024-12-27 15:24 | P.PN ---
Subjective Progress Note Date: 12/27/24 Principal diagnosis: Congestive heart failure. This is an 79-year-old female patient with a known history of hypertension, hyperlipidemia, congestive heart failure, coronary artery disease with previous stent placements, former smoker mild intermittent chronic bronchial asthma. She presented here to the emergency room early this morning with progressive weakness and significant dyspnea on exertion. Chest x-ray reveals no acute cardiopulmonary findings. Possible right upper lobe preliminary nodule. White count 7.2. Hemoglobin 13.5. Platelets 184. Sodium 137. Potassium 4.3. Bicarb 25. BUN 19. Creatinine 1.03. Glucose 130. Troponin 0.156, 0.161, 0.156. proBNP 10,900. Viral screen positive for influenza A. She is seen today in consultation in the emergency department. Currently sitting up on a stretcher. Awake and alert in no acute distress. Denies any worsening shortness of breath, cough or congestion. Denies any chest pain. Maintaining O2 saturations in the 90s on room air. She is afebrile. Hemodynamically stable. The patient is seen today December 17, 2024 in follow-up in the emergency department. She is currently resting on a stretcher. She is maintaining O2 saturations in the 90s on 4 L/min per nasal cannula. She is afebrile. Echoc ardiogram revealed impaired left ventricular systolic function with an ejection fraction of 40%. She is confused today. Being uncooperative with staff. transformation specialist at the bedside. A CT scan of the brain revealed no acute intracranial process. She remains on a heparin drip. Glucose 156. Continued on Tamiflu. Continued on IV diuretics. Patient was seen today on 12/18/2024, patient remains confused, quite lethargic, her mental status has significantly changed compared to the day of admission when she was initially seen in the ER. CT of the brain showed no evidence of intracranial process, patient is being followed by many consultants so far. And her mental status remains quite changed compared to baseline. Family is at bedside. No active pulmonary issues. Patient is known to have history of asthma which has been stable all along. Her echocardiogram showed LV dysfunction with ejection fraction of 40%. Patient is being followed by cardiology she was also seen by gastroenterology for low hemoglobin of 10 initially came in with a hemoglobin of 11.6. Renal functioning has been worsening since admission came in with a creatinine of 1 now her creatinine is 2.41,May need nephrology evaluation for her acute kidney injury. For her mental status change, may need full neurological evaluation. Patient was evaluated today on 12/19/2024, remains a bit confused, family is at bedside, patient is encephalopathic but no active pulmonary issues. No cough no wheezing no shortness of breath. Patient had relatively normal CBC, normal electrolytes, BUN however is 87 and creatinine 2.75. Seen today on 12/20/2024, patient is less confused today, as a matter fact she is oriented to place, she even knew the year, and she knew the name of the president. This is significant improvement compared to the last few days, obviously her encephalopathy is improving. Patient is on room air, does not have any shortness of breath, her labs were reviewed WBC count is 7.3 hemoglobin is 8 electrolytes are normal BUN is 77 creatinine down to 2.28 The patient is seen today December 21, 2024 in follow-up on the regular medical floor. She is currently awake and alert in no acute distress. Resting comfortably in bed. Denies any worsening shortness of breath, cough or congestion. She is maintaining O2 saturations in the 90s on 3 L/min per nasal cannula. White count 7.5. Hemoglobin 9.1. Platelets 208. Sodium 144. Potassium 3.9. Bicarb 26. BUN 49. Creatinine 1.63. Glucose 143. She is maintained on Lovenox for DVT prophylaxis. Continued on normal saline at 75 mL/h. Albuterol as needed. She did undergo EGD yesterday and was found to have a 5 mm superficial duodenal bulbar ulcer with no active bleeding. Antral erosive gastritis. She remains on Protonix. The patient is seen today December 22, 2024 in follow-up on the regular medical floor. She is currently resting in bed. She remains quite altered at times. A safety belt installer is at the bedside. She had pulled her IVs out. She has significant ecchymosis of the left upper extremity. She is maintaining O2 saturations in the mid 90s on 5 L/min per nasal cannula. She is afebrile. Somewhat hypertensive. He is on for DVT prophylaxis. Continued on bronchodilators. Continued on Singulair. White count 8.6. Hemoglobin 8.7. Platelets 234. Sodium 143. Potassium 3.8. Bicarb 27. BUN 34. Creatinine 1.25. Glucose 109. The patient is seen today December 23, 2024 in follow-up in the intensive care unit. She was transferred here as a 3 S. overflow after developing atrial fibrillation with a rapid ventricular response on the regular medical floor at approximately 2:30 this morning. Her rate is better controlled this morning. She did receive Cardizem and Lopressor. She is afebrile. She is maintaining O2 saturation in the 90s on 3 L/min per nasal cannula. She has been initiated on D5W at 75 mL/h. Her sodium was 147. White count 13.4. Bicarb 22. BUN 28. Creatinine 1.15. Glucose 122. Remains on Lovenox for DVT prophylaxis. The patient is seen today December 24, 2024 in follow-up in the intensive care unit as a 3 S. overflow. She remains confused. transformation specialist at the bedside. She is maintaining good O2 saturations in the 90s on 4 L/min per nasal cannula. Afebrile. Hemodynamically stable. She has D5W at 75 mL/h. Lovenox for DVT prophylaxis. White count 11.8. Hemoglobin 8.9. Platelets 289. Sodium 143. Potassium 3.6. Bicarb 30. BUN 22. Creatinine 1.09. Glucose 139. Progress note dated December 25, 2024. 79-year-old female who is seen today in room 368. Previously, she was in the intensive care unit. Currently, she is on 4 L of oxygen. She is not receiving any IV fluids. She is resting comfortably in bed, in no acute distress. CODE STATUS needs to be addressed. No new laboratory data today. Laboratory data from December 24, has been reviewed. Chest x-ray from yesterday shows a right lower lobe infiltrate. Progress note dated December 26, 2024. 79-year-old female seen today in room 368. The patient continues on nasal O2 at 4 L. She is not receiving any IV fluids. She is receiving an iron infusion. She has no specific complaints today. She seems comfortable, and is not manifesting any signs or symptoms of respiratory difficulty or distress. Current laboratory data includes a sodium 138, potassium 3.4, chlorides 101, CO2 31, BUN 19, and creatinine 1.17. Glucose is 125. Calcium 8.6, and magnesium 1.7. Progress note dated December 27, 2024. 79-year-old female seen today in room 368. The patient continues on oxygen, 4 L. She is not receiving any IV fluids. The patient states that she is feeling better. She has no specific complaints today. She is laying flat in bed, without any respiratory difficulty or distress. Currently, white count is 14.7, hemoglobin 9.2, hematocrit 27.1, and platelet count was 371,000. Sodium 138, potassium 3.7, chlorides 104, CO2 27, anion gap 7, BUN 21, and creatinine 1.23. Glucose is 114. Objective - Vital Signs Vital signs: Vital Signs Temp 97.4 F L 12/27/24 08:00 Pulse 89 12/27/24 12:00 Resp 16 12/27/24 12:00 BP 93/59 12/27/24 12:00 Pulse Ox 99 12/27/24 12:00 FiO2 Intake & Output 12/26/24 12/27/24 12/27/24 18:59 06:59 18:59 Intake Total 120 Balance 120 Weight 77.5 kg Intake: Oral 120 Other: Voiding Method Diaper Diaper Diaper # Voids 1 # Bowel Movements 0 - Exam No acute distress, oriented 3. Currently on 4 L nasal O2. HEENT examination is grossly unremarkable. Mucous membranes are moist. No oral lesions. Neck supple. Full range of motion. No adenopathy thyromegaly or neck vein distention. Cardiovascular examination reveals an irregular rhythm and rate. S1-S2 normal. No S3 or S4. No discernible murmur noted. Lungs reveal clear breath sounds. Her sounds are equal bilaterally. No adventitious lung sounds including wheezes rhonchi or crackles. Abdomen soft bowel sounds are heard. No masses or tenderness. Extremities are intact. No cyanosis clubbing or edema. Skin is without rash or lesion. Neurologic examination is brief but nonfocal. - Labs CBC & Chem 7: 12/27/24 08:33 12/27/24 08:33 Labs: Abnormal Lab Results - Last 24 Hours (Table) 12/27/24 12/27/24 Range/Units 08: 08:33 WBC 14.7 H (3.8-10.6) k/uL RBC 2.97 L (3.80-5.40) m/uL Hgb 9.2 L (11.4-16.0) gm/dL Hct 27.1 L (34.0-46.0) % Neutrophils # 12.5 H (1.3-7.7) k/uL BUN 21 H (7-17) mg/dL Creatinine 1.23 H (0.52-1.04) mg/dL Glucose 114 H (74-99) mg/dL Assessment and Plan Assessment: Acute exacerbation of chronic systolic congestive heart failure. Troponin leak and possible non-ST segment elevation myocardial infarction. Acute influenza A infection, completed Tamiflu. Atrial fibrillation with a rapid ventricular response. Altered mental status of unclear etiology, CT scan of the brain revealed no acute intracranial process. Neurology suspecting at least moderate dementia. Stool occult positive, status post EGD 12/20/2024 with a 5 mm superficial duodenal bulbar ulcer with no active bleeding. Antral erosive gastritis. History of coronary artery disease with previous stent placement, most recently to the RCA in February 2023. Possible early right upper lobe pulmonary nodule to be followed up in the outpatient setting. Mild intermittent chronic bronchial asthma, inactive. Former smoker. Hypertension. Hyperlipidemia. History of congestive heart failure. Plan: Plan dated December 25, 2024. The patient is seen today in room 368. The patient is not receiving any IV fluids. The patient continues on nasal O2 at 4 L. Labs, x-rays, and all medications are reviewed. We will continue to follow the patient, make recommendations along the way. 50 minutes was spent with this patient, including time interviewing her, examining her, reviewing all pertinent l aboratory data, x-rays, medications, as well as discussing the diagnosis, treatment, and prognosis, with the patient, and the patient's bedside nurse. We will continue to follow make recommendations along the way. Plan dated December 26, 2024. The patient is again seen today in room 368. The patient is currently on 4 L of oxygen. She seems to be resting comfortably. There appears to be no re spiratory distress or difficulty. She is not receiving any IV fluids. She is receiving an iron infusion. Labs, x-rays, and medications are reviewed. 50 minutes was spent with this patient, which included taking the history, examining the patient, reviewing pertinent laboratory data, x-rays, medications, as well as discussing the diagnosis, treatment, and prognosis, with the patient, and the patient's nursing staff. Plan dated December 27, 2024. The patient is seen today in room 368. The patient is currently on 4 L of oxygen. She has been on 4 L the last few days. She appears relatively comfortable. She is awake and alert. She is laying flat in bed, without any respiratory distress or difficulty. All labs, x-rays, medications are reviewed. The patient is currently not receiving any IV fluids. 50 minutes was spent with this patient, including time taking the history, examining the patient, reviewing pertinent laboratory data, x-rays, medications, etc., as well as discussing the diagnosis, treatment, prognosis with the patient, and the patient's nursing staff. We will continue to follow. Dictation was produced using [employer] dictation software. Please excuse any grammatical, word or spelling errors. Time with Patient: Greater than 30
--- NOTE | 2024-12-27 16:13 | P.PN ---
Subjective Progress Note Date: 12/27/24 Hospital Course: 79-year-old female with a PMH of CAD status post stenting x 3, systolic heart failure, ischemic cardiomyopathy, hypertension, hyperlipidemia, TIA/CVA and osteoarthritis. She presented to the hospital on 12/16/2024 with a chief complaint of shortness of breath. Upon arrival to our facility, patient underwent evaluation in the emergency department. Vital signs upon arrival show BP 137/80, HR 105, RR 18, temp 98.7 F, and SpO2 of 90% on 2 L. EKG completed showing sinus tachycardia at 105 bpm with T wave inversion in lateral lead aVL otherwise no significant T wave or ST abnormalities noted. Chest x-ray completed showing possible right upper lobe pulmonary nodule measuring 7.4 mm, recommend outpatient dedicated CT scan for further evaluation/surveillance. CBC unremarkable. Coagulation profile normal findings. BMP showing slightly elevated BUN of 19 otherwise normal findings. Blood glucose 130. Calcium 9.1. Liver profile unremarkable. Troponin elevated at 0.156 and proBNP 10,900. Influenza A was positive. Patient was started on heparin infusion and admitted under our services with consult to cardiology and pulmonology. Troponins trended resulting at 0.156, 0.161, and 0.156. Echocardiogram completed revealing reduced EF of 40% with aneurysmal inferior wall and mild mitral regurgitation. During first night of hospitalization patient's mentation worsened as she was initially a poor historian but alert to person, place and situation patient now alert to self only. CT brain was completed negative for acute process. Neurology also consulted for evaluation. During second night of hospitalization patient had large episode of melena, heparin infusion and Plavix was stopped at this time. On 12/18/2024 patient developed an acute kidney injury. Lisinopril and Lasix was held. Nephrology was consulted. Starting patient on gentle IV fluid hydration. Patient continued to have episodes of melena and hemoglobin decreasing from initial 13.5 on admission down to 8.0. Underwent EGD with GI on 12/20 showing duodenal ulcer with no bleeding. Social work working on cell placement Subjective: Patient was seen and examined at bedside, patient's significant other present during exam. She Continue to coughs, feels fatigued Pertinent positives and negatives as discussed above, a complete review of systems was performed and all other systems are negative. Vitals Signs Reviewed. General: [nontoxic], [no distress], [appears at stated age] Derm: [warm], [dry] Head: [atraumatic], [normocephalic], [symmetric] Eyes: [EOMI], [no lid lag], [anicteric sclera] Mouth: [no lip lesion], [mucus membranes moist] Cardiovascular: [S1S2 reg], [no murmur] Lungs: [CTA bilateral], [no rhonchi, no rales] , [no accessory muscle use] Abdominal: [soft], [ nontender to palpation], [no guarding], [no appreciable organomegaly] Ext: [no gross muscle atrophy], [no edema], [no contractures] Neuro: [ CN II-XI grossly intact], [no focal neuro deficits] Psych: [Alert], [oriented to self Data Reviewed Today: Pertinent Labs: Leukocytosis 14.7, hemoglobin stable improved 9.2, sodium and potassium normal, creatinine up to 1.23, BUN 21, glucose is controlled Ordered repeat blood work for 12/28 Assessment and Plan: AFib with RVR: Improved. Metoprolol 25 mg PO BID. No AC due to UGIB. Telemetry monitoring. K > 4 and Mg > 2. Cardiology on board. Delirium: CT brain negative. EEG showing mild encephalopathy. Fall precautions. Window side bed. Frequent re-direction. Avoid sedatives. + Haldol 4 mg IV Q6H PRN, Ativan 0.5 mg IV Q6H PRN. Neurology on board. PT and OT consulted. Acute hypoxic respiratory failure multifctorial 2/2 Flu A + systolic CHF exacerbation: Echo shows EF 40%. Completed course of Tamiflu. Attempt to wean O2. Telemetry monitoring. Pulmonary and Cardiology on board. Leukocytosis: repeat CBC, afebrile DORIS on CKD: Renal US neg for obstruction. Likely prerenal. Lisinopril and Lasix on hold. Nephrology on board. Acute blood loss anemia 2/2 Upper GI bleed: Duodenal ulcer seen on EGD. Heparin and Plavix on hold. Protonix 40 mg PO QD. GI on board. NSTEMI with h/o CAD with stent placement: ASA 81 mg PO QD. Lipitor 80 mg PO QHS. Metoprolol as below. No invasive workup per Cardiology. Telemetry monitoring. Cardiology on board. Low-normal B12: Cyanocobalamin 1000 mcg PO QD. Pulmonary nodule: Outpatient follow up. Asthma no in acute exacerbation: Singulair 10 mg PO QD. Hypertension: Imdur 30 mg PO QD. Metoprolol 25 mg PO BID. Dyslipidemia: Lipitor as above. needs placement. Discussed with RYLEE Rios. Pending. CODE STATUS: FULL CODE DVT Prophylaxis: Lovenox. GI Prophylaxis: Protonix Anticipated discharge place: [facility] Objective - Vital Signs Vital signs: Vital Signs Temp 97.4 F L 12/27/24 08:00 Pulse 89 12/27/24 12:00 Resp 16 12/27/24 12:00 BP 93/59 12/27/24 12:00 Pulse Ox 99 12/27/24 12:00 FiO2 Intake & Output 12/26/24 12/27/24 12/27/24 18:59 06:59 18:59 Intake Total 120 Balance 120 Weight 77.5 kg Intake: Oral 120 Other: Voiding Method Diaper Diaper Diaper # Voids 1 # Bowel Movements 0 - Labs CBC & Chem 7: 12/27/24 08:33 12/27/24 08:33 Labs: Abnormal Lab Results - Last 24 Hours (Table) 12/27/24 12/27/24 Range/Units 08:33 08:33 WBC 14.7 H (3.8-10.6) k/uL RBC 2.97 L (3.80-5.40) m/uL Hgb 9.2 L (11.4-16.0) gm/dL Hct 27.1 L (34.0-46.0) % Neutrophils # 12.5 H (1.3-7.7) k/uL BUN 21 H (7-17) mg/dL Creatinine 1.23 H (0.52-1.04) mg/dL Glucose 114 H (74-99) mg/dL
[2024-12-27] MEDS ORDERED: SODIUM CHLORIDE 0.65% NASAL SPRAY 44 ML BTL NASAL PRN (22:00)
[2024-12-28 07:10] LABS: Basophils % (A) 0 %; Eosinophils # (A) 0.1 k/uL (0-0.7); Eosinophils % (A) 1 %; HCT 26.7 % (34.0-46.0); HGB 8.8 gm/dL (11.4-16.0); Hypochromasia Slight; Lymphocytes # (A) 0.9 k/uL (1.0-4.8); Lymphocytes % (A) 8 %; MCH 30.5 pg (25.0-35.0); MCHC 32.9 g/dL (31.0-37.0); MCV 92.8 fL (80.0-100.0); Mean Platelet Volume 8.4; Monocytes # (A) 0.5 k/uL (0-1.0); Monocytes % (A) 4 %; Neutrophils # (A) 10.3 k/uL (1.3-7.7); Neutrophils % (A) 87 %; Platelet Count 322 k/uL (150-450); RBC 2.88 m/uL (3.80-5.40); RDW 13.7 % (11.5-15.5); WBC 11.9 k/uL (3.8-10.6)
[2024-12-28 08:25] LABS: African American GFR (CKD) 47 (>60 ml/min/1.73 sqM); Anion Gap 5 mmol/L; Blood Urea Nitrogen 19 mg/dL (7-17); Calcium 8.4 mg/dL (8.4-10.2); Carbon Dioxide 33 mmol/L (22-30); Chloride 100 mmol/L (98-107); Glucose 98 mg/dL (74-99); Magnesium 1.6 mg/dL (1.6-2.3); Non-African American GFR(CKD) 41 (>60 ml/min/1.73 sqM); Potassium 3.3 mmol/L (3.5-5.1); Sodium 138 mmol/L (137-145)
--- NOTE | 2024-12-28 11:32 | P.PN ---
Subjective Patient is seen for follow-up for acute kidney injury. Renal function is stable No significant complaints Serum creatinine 1.2 Objective - Vital Signs Vital signs: Vital Signs Temp 98.0 F 12/28/24 08:00 Pulse 68 12/28/24 08:00 Resp 16 12/28/24 08:00 BP 117/62 12/28/24 08:00 Pulse Ox 99 12/28/24 08:00 FiO2 Intake & Output 12/27/24 12/28/24 12/28/24 18:59 06:59 18:59 Weight 75.5 kg Other: Voiding Method Diaper Diaper Diaper # Voids 1 - Exam Patient is awake, comfortable, no acute distress. Examination of the heart S1 and S2 Examination of the lungs bilateral breath sounds are heard Abdomen is soft nontender Examination lower extremity shows no significant edema WINE BLENDER exam grossly intact - Labs CBC & Chem 7: 12/28/24 06:45 12/28/24 06:45 Labs: Abnormal Lab Results - Last 24 Hours (Table) 12/28/24 12/28/24 Range/Units 06:45 06:45 WBC 11.9 H (3.8-10.6) k/uL RBC 2.88 L (3.80-5.40) m/uL Hgb 8.8 L (11.4-16.0) gm/dL Hct 26.7 L (34.0-46.0) % Neutrophils # 10.3 H (1.3-7.7) k/uL Lymphocytes # 0.9 L (1.0-4.8) k/uL Potassium 3.3 L (3.5-5.1) mmol/L Carbon Dioxide 33 H (22-30) mmol/L BUN 19 H (7-17) mg/dL Creatinine 1.25 H (0.52-1.04) mg/dL Assessment and Plan Assessment: 1. Acute kidney injury, ATN, oliguric secondary to hypotension. BAO inhibitors on hold. Diuretics on hold as well. Status post IV fluids. UA was completely benign on 12/18/2024. Ultrasound shows no significant obstructive uropathy. 2. GI bleed being followed by GI, status post EGD which showed superficial duodenal ulcer and antral gastritis 3. Influenza A infection maintained on Tamiflu 4. Mental status changes associated with metabolic encephalopathy and underlying dementia 5. Cardiomyopathy with EF of 40% 6. Primary hypertension with blood pressure currently improved. Plan: Encourage increased oral intake Replace potassium Avoid any nephrotoxic agents.
[2024-12-28] MEDS: POTASSIUM BICARBONATE/CIT AC 20 MEQ TABLET.EFF PO STA (12:00)
--- NOTE | 2024-12-28 13:33 | P.PN ---
Subjective Progress Note Date: 12/28/24 Principal diagnosis: Congestive heart failure. This is an 79-year-old female patient with a known history of hypertension, hyperlipidemia, congestive heart failure, coronary artery disease with previous stent placements, former smoker mild intermittent chronic bronchial asthma. She presented here to the emergency room early this morning with progressive weakness and significant dyspnea on exertion. Chest x-ray reveals no acute cardiopulmonary findings. Possible right upper lobe preliminary nodule. White count 7.2. Hemoglobin 13.5. Platelets 184. Sodium 137. Potassium 4.3. Bicarb 25. BUN 19. Creatinine 1.03. Glucose 130. Troponin 0.156, 0.161, 0.156. proBNP 10,900. Viral screen positive for influenza A. She is seen today in consultation in the emergency department. Currently sitting up on a stretcher. Awake and alert in no acute distress. Denies any worsening shortness of breath, cough or congestion. Denies any chest pain. Maintaining O2 saturations in the 90s on room air. She is afebrile. Hemodynamically stable. The patient is seen today December 17, 2024 in follow-up in the emergency department. She is currently resting on a stretcher. She is maintaining O2 saturations in the 90s on 4 L/min per nasal cannula. She is afebrile. Echoc ardiogram revealed impaired left ventricular systolic function with an ejection fraction of 40%. She is confused today. Being uncooperative with staff. enterprise solutions architect at the bedside. A CT scan of the brain revealed no acute intracranial process. She remains on a heparin drip. Glucose 156. Continued on Tamiflu. Continued on IV diuretics. Patient was seen today on 12/18/2024, patient remains confused, quite lethargic, her mental status has significantly changed compared to the day of admission when she was initially seen in the ER. CT of the brain showed no evidence of intracranial process, patient is being followed by many consultants so far. And her mental status remains quite changed compared to baseline. Family is at bedside. No active pulmonary issues. Patient is known to have history of asthma which has been stable all along. Her echocardiogram showed LV dysfunction with ejection fraction of 40%. Patient is being followed by cardiology she was also seen by gastroenterology for low hemoglobin of 10 initially came in with a hemoglobin of 11.6. Renal functioning has been worsening since admission came in with a creatinine of 1 now her creatinine is 2.41,May need nephrology evaluation for her acute kidney injury. For her mental status change, may need full neurological evaluation. Patient was evaluated today on 12/19/2024, remains a bit confused, family is at bedside, patient is encephalopathic but no active pulmonary issues. No cough no wheezing no shortness of breath. Patient had relatively normal CBC, normal electrolytes, BUN however is 87 and creatinine 2.75. Seen today on 12/20/2024, patient is less confused today, as a matter fact she is oriented to place, she even knew the year, and she knew the name of the president. This is significant improvement compared to the last few days, obviously her encephalopathy is improving. Patient is on room air, does not have any shortness of breath, her labs were reviewed WBC count is 7.3 hemoglobin is 8 electrolytes are normal BUN is 77 creatinine down to 2.28 The patient is seen today December 21, 2024 in follow-up on the regular medical floor. She is currently awake and alert in no acute distress. Resting comfortably in bed. Denies any worsening shortness of breath, cough or congestion. She is maintaining O2 saturations in the 90s on 3 L/min per nasal cannula. White count 7.5. Hemoglobin 9.1. Platelets 208. Sodium 144. Potassium 3.9. Bicarb 26. BUN 49. Creatinine 1.63. Glucose 143. She is maintained on Lovenox for DVT prophylaxis. Continued on normal saline at 75 mL/h. Albuterol as needed. She did undergo EGD yesterday and was found to have a 5 mm superficial duodenal bulbar ulcer with no active bleeding. Antral erosive gastritis. She remains on Protonix. The patient is seen today December 22, 2024 in follow-up on the regular medical floor. She is currently resting in bed. She remains quite altered at times. A safety deposit boxes custodian is at the bedside. She had pulled her IVs out. She has significant ecchymosis of the left upper extremity. She is maintaining O2 saturations in the mid 90s on 5 L/min per nasal cannula. She is afebrile. Somewhat hypertensive. He is on for DVT prophylaxis. Continued on bronchodilators. Continued on Singulair. White count 8.6. Hemoglobin 8.7. Platelets 234. Sodium 143. Potassium 3.8. Bicarb 27. BUN 34. Creatinine 1.25. Glucose 109. The patient is seen today December 23, 2024 in follow-up in the intensive care unit. She was transferred here as a 3 S. overflow after developing atrial fibrillation with a rapid ventricular response on the regular medical floor at approximately 2:30 this morning. Her rate is better controlled this morning. She did receive Cardizem and Lopressor. She is afebrile. She is maintaining O2 saturation in the 90s on 3 L/min per nasal cannula. She has been initiated on D5W at 75 mL/h. Her sodium was 147. White count 13.4. Bicarb 22. BUN 28. Creatinine 1.15. Glucose 122. Remains on Lovenox for DVT prophylaxis. The patient is seen today December 24, 2024 in follow-up in the intensive care unit as a 3 S. overflow. She remains confused. enterprise solutions architect at the bedside. She is maintaining good O2 saturations in the 90s on 4 L/min per nasal cannula. Afebrile. Hemodynamically stable. She has D5W at 75 mL/h. Lovenox for DVT prophylaxis. White count 11.8. Hemoglobin 8.9. Platelets 289. Sodium 143. Potassium 3.6. Bicarb 30. BUN 22. Creatinine 1.09. Glucose 139. Progress note dated December 25, 2024. 79-year-old female who is seen today in room 368. Previously, she was in the intensive care unit. Currently, she is on 4 L of oxygen. She is not receiving any IV fluids. She is resting comfortably in bed, in no acute distress. CODE STATUS needs to be addressed. No new laboratory data today. Laboratory data from December 24, has been reviewed. Chest x-ray from yesterday shows a right lower lobe infiltrate. Progress note dated December 26, 2024. 79-year-old female seen today in room 368. The patient continues on nasal O2 at 4 L. She is not receiving any IV fluids. She is receiving an iron infusion. She has no specific complaints today. She seems comfortable, and is not manifesting any signs or symptoms of respiratory difficulty or distress. Current laboratory data includes a sodium 138, potassium 3.4, chlorides 101, CO2 31, BUN 19, and creatinine 1.17. Glucose is 125. Calcium 8.6, and magnesium 1.7. Progress note dated December 27, 2024. 79-year-old female seen today in room 368. The patient continues on oxygen, 4 L. She is not receiving any IV fluids. The patient states that she is feeling better. She has no specific complaints today. She is laying flat in bed, without any respiratory difficulty or distress. Currently, white count is 14.7, hemoglobin 9.2, hematocrit 27.1, and platelet count was 371,000. Sodium 138, potassium 3.7, chlorides 104, CO2 27, anion gap 7, BUN 21, and creatinine 1.23. Glucose is 114. Progress note dated December 28, 2024. 79-year-old female seen today in room 368. The patient is currently on nasal O2 at 4 L. She is not receiving any IV fluids. She is laying flat in bed. She is not having any respiratory distress or difficulty. Current labs include a white count 11.9, hemoglobin 8.8, hematocrit 26.7, and a platelet count of 322,000. Sodium 138, potassium 3.3, chlorides 100, CO2 33, BUN 19, and creatinine 1.25. Magnesium is 1.6. Calcium is 8.4. Objective - Vital Signs Vital signs: Vital Signs Temp 98.0 F 12/28/24 08:00 Pulse 68 12/28/24 08:00 Resp 16 12/28/24 08:00 BP 117/62 12/28/24 08:00 Pulse Ox 99 12/28/24 08:00 FiO2 Intake & Output 12/27/24 12/28/24 12/28/24 18:59 06:59 18:59 Weight 75.5 kg Other: Voiding Method Diaper Diaper Diaper # Voids 1 - Exam No acute distress, oriented 3. Currently on 4 L nasal O2. HEENT examination is grossly unremarkable. Mucous membranes are moist. No oral lesions. Neck supple. Full range of motion. No adenopathy thyromegaly or neck vein distention. Cardiovascular examination reveals an irregular rhythm and rate. S1-S2 normal. No S3 or S4. No discernible murmur noted. Lungs reveal clear breath sounds. Her sounds are equal bilaterally. No adventitious lung sounds including wheezes rhonchi or crackles. Abdomen soft bowel sounds are heard. No masses or tenderness. Extremities are intact. No cyanosis clubbing or edema. Skin is without rash or lesion. Neurologic examination is brief but nonfocal. - Labs CBC & Chem 7: 12/28/24 06:45 12/28/24 06:45 Labs: Abnormal Lab Results - Last 24 Hours (Table) 12/28/24 12/28/24 Range/Units 06:45 06:45 WBC 11.9 H (3.8-10.6) k/uL RBC 2.88 L (3.80-5.40) m/uL Hgb 8.8 L (11.4-16.0) gm/dL Hct 26.7 L (34.0-46.0) % Neutrophils # 10.3 H (1.3-7.7) k/uL Lymphocytes # 0.9 L (1.0-4.8) k/uL Potassium 3.3 L (3.5-5.1) mmol/L Carbon Dioxide 33 H (22-30) mmol/L BUN 19 H (7-17) mg/dL Creatinine 1.25 H (0.52-1.04) mg/dL Assessment and Plan Assessment: Acute exacerbation of chronic systolic congestive heart failure. Troponin leak and possible non-ST segment elevation myocardial infarction. Acute influenza A infection, completed Tamiflu. Atrial fibrillation with a rapid ventricular response. Altered mental status of unclear etiology, CT scan of the brain revealed no acute intracranial process. Neurology suspecting at least moderate dementia. Stool occult positive, status post EGD 12/20/2024 with a 5 mm superficial duodenal bulbar ulcer with no active bleeding. Antral erosive gastritis. History of coronary artery disease with previous stent placement, most recently to the RCA in February 2023. Possible early right upper lobe pulmonary nodule to be followed up in the outpa tient setting. Mild intermittent chronic bronchial asthma, inactive. Former smoker. Hypertension. Hyperlipidemia. History of congestive heart failure. Plan: Plan dated December 25, 2024. The patient is seen today in room 368. The patient is not receiving any IV fluids. The patient continues on nasal O2 at 4 L. Labs, x-rays, and all medications are reviewed. We will continue to follow the patient, make recommendations along the way. 50 minutes was spent with this patient, including time interviewing her, examining her, reviewing all pertinent laboratory data, x-rays, medications, as well as discussing the diagnosis, treatment, and prognosis, with the patient, and the patient's bedside nurse. We will continue to follow make recommendations along the way. Plan dated December 26, 2024. The patient is again seen today in room 368. The patient is currently on 4 L of oxygen. She seems to be resting comfortably. There appears to be no respiratory distress or difficulty. She is not receiving any IV fluids. She is receiving an iron infusion. Labs, x-rays, and medications are reviewed. 50 minutes was spent with this patient, which included taking the history, examining the patient, reviewing pertinent laboratory data, x-rays, medications, as well as discussing the diagnosis, treatment, and prognosis, with the patient, and the patient's nursing staff. Plan dated December 27, 2024. The patient is seen today in room 368. The patient is currently on 4 L of oxygen. She has been on 4 L the last few days. She appears relatively comfortable. She is awake and alert. She is laying flat in bed, without any respiratory distress or difficulty. All labs, x-rays, medications are reviewed. The patient is currently not receiving any IV fluids. 50 minutes was spent with this patient, including time taking the history, examining the patient, reviewing pertinent laboratory data, x-rays, medications, etc., as well as discussing the diagnosis, treatment, prognosis with the patient, and the patient's nursing staff. We will continue to follow. Dictation was produced using [employer] software. Please excuse any grammatical, word or spelling errors. Plan dated December 28, 2024. The patient is seen today in room 368. Clinically, the patient appears to be doing reasonably well. She is flat in bed. She is not manifesting any signs or symptoms of respiratory distress. The patient continues on nasal O2 at 4 L. Labs, x-rays, and all medications are reviewed. The patient denies any shortness of breath, difficulty breathing, cough, wheezing, chest pain, chest pressure, palpitations, etc. 50 minutes was spent with the patient, including time taken the history, examining the patient, reviewing pertinent laboratory data, x-rays, medications, as well as discussing her diagnosis, treatment, and prognosis, as well as discussing these things with the patient and the patient's nursing staff. We will continue to follow make recommendations. Dictation was produced using [employer] software. Please excuse any grammatical, word or spelling errors. Time with Patient: Greater than 30
[2024-12-28] MEDS ORDERED: Magnesium Replacement Protocol 1 EACH MISC MISCELLANE PRN (13:42)
--- NOTE | 2024-12-28 13:45 | P.PN ---
Subjective Progress Note Date: 12/28/24 Hospital Course: 79-year-old female with a PMH of CAD status post stenting x 3, systolic heart failure, ischemic cardiomyopathy, hypertension, hyperlipidemia, TIA/CVA and osteoarthritis. She presented to the hospital on 12/16/2024 with a chief complaint of shortness of breath. Upon arrival to our facility, patient underwent evaluation in the emergency department. Vital signs upon arrival show BP 137/80, HR 105, RR 18, temp 98.7 F, and SpO2 of 90% on 2 L. EKG completed showing sinus tachycardia at 105 bpm with T wave inversion in lateral lead aVL otherwise no significant T wave or ST abnormalities noted. Chest x-ray completed showing possible right upper lobe pulmonary nodule measuring 7.4 mm, recommend outpatient dedicated CT scan for further evaluation/surveillance. CBC unremarkable. Coagulation profile normal findings. BMP showing slightly elevated BUN of 19 otherwise normal findings. Blood glucose 130. Calcium 9.1. Liver profile unremarkable. Troponin elevated at 0.156 and proBNP 10,900. Influenza A was positive. Patient was started on heparin infusion and admitted under our services with consult to cardiology and pulmonology. Troponins trended resulting at 0.156, 0.161, and 0.156. Echocardiogram completed revealing reduced EF of 40% with aneurysmal inferior wall and mild mitral regurgitation. During first night of hospitalization patient's mentation worsened as she was initially a poor historian but alert to person, place and situation patient now alert to self only. CT brain was completed negative for acute process. Neurology also consulted for evaluation. During second night of hospitalization patient had large episode of melena, heparin infusion and Plavix was stopped at this time. On 12/18/2024 patient developed an acute kidney injury. Lisinopril and Lasix was held. Nephrology was consulted. Starting patient on gentle IV fluid hydration. Patient continued to have episodes of melena and hemoglobin decreasing from initial 13.5 on admission down to 8.0. Underwent EGD with GI on 12/20 showing duodenal ulcer with no bleeding. Respiratory status has been stable Social work working on cell placement Subjective: Patient was seen and examined at bedside, she states that she does not have any particular complaints and wants to be left alone Pertinent positives and negatives as discussed above, a complete review of systems was performed and all other systems are negative. Vitals Signs Reviewed. General: [nontoxic], [no distress], [appears at stated age] Derm: [warm], [dry] Head: [atraumatic], [normocephalic], [symmetric] Eyes: [EOMI], [no lid lag], [anicteric sclera] Mouth: [no lip lesion], [mucus membranes moist] Cardiovascular: [S1S2 reg], [no murmur] Lungs: [CTA bilateral], [no rhonchi, no rales] , [no accessory muscle use] Abdominal: [soft], [ nontender to palpation], [no guarding], [no appreciable organomegaly] Ext: [no gross muscle atrophy], [no edema], [no contractures] Neuro: [ CN II-XI grossly intact], [no focal neuro deficits] Psych: [Alert], [oriented to self Data Reviewed Today: Pertinent Labs: Leukocytosis improved to 11.9: Hemoglobin stable 8.8, platelet count normal, sodium normal, potassium 3.3, creatinine stable 1.25, bicarb 33. Magnesium 1.6 Assessment and Plan: AFib with RVR: Improved. Metoprolol 25 mg PO BID. No AC due to UGIB. Telemetry monitoring. K > 4 and Mg > 2. Cardiology on board. Hypomagnesemia, hypokalemia: Electrolytes replaced, ordered repeat BMP Delirium: CT brain negative. EEG showing mild encephalopathy. Fall precautions. Window side bed. Frequent re-direction. Avoid sedatives. + Haldol 4 mg IV Q6H PRN, Ativan 0.5 mg IV Q6H PRN. Neurology on board. PT and OT consulted. Acute hypoxic respiratory failure multifctorial 2/2 Flu A + systolic CHF exacerbation: Echo shows EF 40%. Completed course of Tamiflu. Attempt to wean O2. Telemetry monitoring. Pulmonary and Cardiology on board., Stable respiratory status, pending discharge placement. Discussed with RN Leukocytosis: repeat CBC, afebrile, improving, monitor DORIS on CKD: Renal US neg for obstruction. Likely prerenal. Lisinopril and Lasix on hold. Nephrology on board. Acute blood loss anemia 2/2 Upper GI bleed: Duodenal ulcer seen on EGD. Heparin and Plavix on hold. Protonix 40 mg PO QD. GI on board. NSTEMI with h/o CAD with stent placement: ASA 81 mg PO QD. Lipitor 80 mg PO QHS. Metoprolol as below. No invasive workup per Cardiology. Telemetry monitoring. Cardiology on board. Low-normal B12: Cyanocobalamin 1000 mcg PO QD. Pulmonary nodule: Outpatient follow up. Asthma no in acute exacerbation: Singulair 10 mg PO QD. Hypertension: Imdur 30 mg PO QD. Metoprolol 25 mg PO BID. Dyslipidemia: Lipitor as above. needs placement. Pending. CODE STATUS: FULL CODE DVT Prophylaxis: Lovenox. GI Prophylaxis: Protonix Anticipated discharge place: [facility], medically cleared for discharge to 12/28 Objective - Vital Signs Vital signs: Vital Signs Temp 98.0 F 12/28/24 08:00 Pulse 68 12/28/24 08:00 Resp 16 12/28/24 08:00 BP 117/62 12/28/24 08:00 Pulse Ox 99 12/28/24 08:00 FiO2 Intake & Output 12/27/24 12/28/24 12/28/24 18:59 06:59 18:59 Weight 75.5 kg Other: Voiding Method Diaper Diaper Diaper # Voids 1 - Labs CBC & Chem 7: 12/28/24 06:45 12/28/24 06:45 Labs: Abnormal Lab Results - Last 24 Hours (Table) 12/28/24 12/28/24 Range/Units 06:45 06:45 WBC 11.9 H (3.8-10.6) k/uL RBC 2.88 L (3.80-5.40) m/uL Hgb 8.8 L (11.4-16.0) gm/dL Hct 26.7 L (34.0-46.0) % Neutrophils # 10.3 H (1.3-7.7) k/uL Lymphocytes # 0.9 L (1.0-4.8) k/uL Potassium 3.3 L (3.5-5.1) mmol/L Carbon Dioxide 33 H (22-30) mmol/L BUN 19 H (7-17) mg/dL Creatinine 1.25 H (0.52-1.04) mg/dL
[2024-12-28] MEDS: MAGNESIUM SULFATE-D5W PMX 1 GM in DEXTROSE/WATER 1 100ML.BAG IVPB SCH (18:10)
[2024-12-29 11:17] LABS: African American GFR (CKD) 50 (>60 ml/min/1.73 sqM); Anion Gap 4 mmol/L; Blood Urea Nitrogen 18 mg/dL (7-17); Calcium 8.8 mg/dL (8.4-10.2); Carbon Dioxide 34 mmol/L (22-30); Chloride 99 mmol/L (98-107); Glucose 120 mg/dL (74-99); Magnesium 2.2 mg/dL (1.6-2.3); Non-African American GFR(CKD) 43 (>60 ml/min/1.73 sqM); Potassium 3.7 mmol/L (3.5-5.1); Sodium 137 mmol/L (137-145)
--- NOTE | 2024-12-29 12:49 | P.PN ---
Subjective Progress Note Date: 12/29/24 This is an 79-year-old female patient with a known history of hypertension, hyperlipidemia, congestive heart failure, coronary artery disease with previous stent placements, former smoker mild intermittent chronic bronchial asthma. She presented here to the emergency room early this morning with progressive weakness and significant dyspnea on exertion. Chest x-ray reveals no acute cardiopulmonary findings. Possible right upper lobe preliminary nodule. White count 7.2. Hemoglobin 13.5. Platelets 184. Sodium 137. Potassium 4.3. Bicarb 25. BUN 19. Creatinine 1.03. Glucose 130. Troponin 0.156, 0.161, 0.156. proBNP 10,900. Viral screen positive for influenza A. She is seen today in consultation in the emergency department. Currently sitting up on a stretcher. Awake and alert in no acute distress. Denies any worsening shortness of breath, cough or congestion. Denies any chest pain. Maintaining O2 saturations in the 90s on room air. She is afebrile. Hemodynamically stable. The patient is seen today December 17, 2024 in follow-up in the emergency department. She is currently resting on a stretcher. She is maintaining O2 saturations in the 90s on 4 L/min per nasal cannula. She is afebrile. Echocardiogram revealed impaired left ventricular systolic function with an eje ction fraction of 40%. She is confused today. Being uncooperative with staff. outboard motorboat operator at the bedside. A CT scan of the brain revealed no acute intracranial process. She remains on a heparin drip. Glucose 156. Continued on Tamiflu. Continued on IV diuretics. Patient was seen today on 12/18/2024, patient remains confused, quite lethargic, her mental status has significantly changed compared to the day of admission when she was initially seen in the ER. CT of the brain showed no evidence of intracranial process, patient is being followed by many consultants so far. And her mental status remains quite changed compared to baseline. Family is at bedside. No active pulmonary issues. Patient is known to have history of asthma which has been stable all along. Her echocardiogram showed LV dysfunction with ejection fraction of 40%. Patient is being followed by cardiology she was also seen by gastroenterology for low hemoglobin of 10 initially came in with a hemoglobin of 11.6. Renal functioning has been worsening since admission came in with a creatinine of 1 now her creatinine is 2.41,May need nephrology evaluation for her acute kidney injury. For her mental status change, may need full neurological evaluation. Patient was evaluated today on 12/19/2024, remains a bit confused, family is at bedside, patient is encephalopathic but no active pulmonary issues. No cough no wheezing no shortness of breath. Patient had relatively normal CBC, normal electrolytes, BUN however is 87 and creatinine 2.75. Seen today on 12/20/2024, patient is less confused today, as a matter fact she is oriented to place, she even knew the year, and she knew the name of the president. This is significant improvement compared to the last few days, obviously her encephalopathy is improving. Patient is on room air, does not have any shortness of breath, her labs were reviewed WBC count is 7.3 hemoglobin is 8 electrolytes are normal BUN is 77 creatinine down to 2.28 The patient is seen today December 21, 2024 in follow-up on the regular medical floor. She is currently awake and alert in no acute distress. Resting comfortably in bed. Denies any worsening shortness of breath, cough or congestion. She is maintaining O2 saturations in the 90s on 3 L/min per nasal cannula. White count 7.5. Hemoglobin 9.1. Platelets 208. Sodium 144. Potassium 3.9. Bicarb 26. BUN 49. Creatinine 1.63. Glucose 143. She is maintained on Lovenox for DVT prophylaxis. Continued on normal saline at 75 mL/h. Albuterol as needed. She did undergo EGD yesterday and was found to have a 5 mm superficial duodenal bulbar ulcer with no active bleeding. Antral erosive gastritis. She remains on Protonix. The patient is seen today December 22, 2024 in follow-up on the regular medical floor. She is currently resting in bed. She remains quite altered at times. A safety officer is at the bedside. She had pulled her IVs out. She has significant ecchymosis of the left upper extremity. She is maintaining O2 saturations in the mid 90s on 5 L/min per nasal cannula. She is afebrile. Somewhat hypertensive. He is on for DVT prophylaxis. Continued on bronchodilators. Continued on Singulair. White count 8.6. Hemoglobin 8.7. Platelets 234. Sodium 143. Potassium 3.8. Bicarb 27. BUN 34. Creatinine 1.25. Glucose 109. The patient is seen today December 23, 2024 in follow-up in the intensive care unit. She was transferred here as a 3 S. overflow after developing atrial fibrillation with a rapid ventricular response on the regular medical floor at approximately 2:30 this morning. Her rate is better controlled this morning. She did receive Cardizem and Lopressor. She is afebrile. She is maintaining O2 saturation in the 90s on 3 L/min per nasal cannula. She has been initiated on D5W at 75 mL/h. Her sodium was 147. White count 13.4. Bicarb 22. BUN 28. Creatinine 1.15. Glucose 122. Remains on Lovenox for DVT prophylaxis. The patient is seen today December 24, 2024 in follow-up in the intensive care unit as a 3 S. overflow. She remains confused. outboard motorboat operator at the bedside. She is maintaining good O2 saturations in the 90s on 4 L/min per nasal cannula. Afebrile. Hemodynamically stable. She has D5W at 75 mL/h. Lovenox for DVT prophylaxis. White count 11.8. Hemoglobin 8.9. Platelets 289. Sodium 143. Potassium 3.6. Bicarb 30. BUN 22. Creatinine 1.09. Glucose 139. The patient is seen today December 29, 2024 in follow-up on the regular medical floor. She is currently resting comfortably in bed. Awake and alert in no acute distress. Confused to time and place. She is maintaining O2 saturations in the 90s on room air. 0.7. Bicarb 34. 8 BUN 18. Creatinine 1.19. Glucose 120. Remains on Lovenox for DVT prophylaxis. She has not required any Haldol or Ativan for the past 48 hours. Objective - Vital Signs Vital signs: Vital Signs Temp 98.2 F 12/29/24 08:59 Pulse 88 12/29/24 08:59 Resp 18 12/29/24 08:59 BP 133/78 12/29/24 08:59 Pulse Ox 90 L 12/29/24 08:59 FiO2 Intake & Output 12/28/24 12/29/24 12/29/24 18:59 06:59 18:59 Intake Total 180 300 Output Total 200 Balance 180 100 Weight 73.5 kg Intake: Oral 180 300 Output: Urine 200 Other: Voiding Method Diaper Diaper External Catheter # Voids 1 - Exam GENERAL EXAM: Alert, confused, 79-year-old female, resting in bed, on room air, in no apparent distress. HEAD: Normocephalic. EYES: Normal reaction of pupils, equal size. NOSE: Clear with pink turbinates. THROAT: No erythema or exudates. NECK: No masses, no JVD. CHEST: No chest wall deformity. LUNGS: Equal air entry with no crackles, wheeze, rhonchi or dullness. CVS: S1 and S2 normal with no audible murmur, irregular rhythm. ABDOMEN: No hepatosplenomegaly, normal bowel sounds, no guarding or rigidity. SPINE: No scoliosis or deformity SKIN: No rashes CENTRAL NERVOUS SYSTEM: No focal deficits, tone is normal in all 4 extremities. EXTREMITIES: Left upper extremity with extensive ecchymosis. No clubbing, no cyanosis. Peripheral pulses are intact. - Labs CBC & Chem 7: 12/28/24 06:45 12/29/24 10:45 Labs: Abnormal Lab Results - Last 24 Hours (Table) 12/29/24 Range/Units 10:45 Carbon Dioxide 34 H (22-30) mmol/L BUN 18 H (7-17) mg/dL Creatinine 1.19 H (0.52-1.04) mg/dL Glucose 120 H (74-99) mg/dL Assessment and Plan Assessment: Acute hypoxemic respiratory failure secondary to an acute exacerbation of chronic systolic congestive heart failure. Impaired left ventricular systolic function with an ejection fraction of 40% Troponin leak possible non-ST segment elevation myocardial infarction initially on a heparin drip Acute influenza A infection, completed Tamiflu Atrial fibrillation with a rapid ventricular response requiring transfer to 3 S. Altered mental status of unclear etiology, CT scan of the brain revealed no acute intracranial process. Neurology suspecting at least moderate dementia Stool occult positive, status post EGD 12/20/2024 with a 5 mm superficial duodenal bulbar ulcer with no active bleeding. Antral erosive gastritis. Remains on Protonix History of coronary artery disease with previous stent placement, most recently to the RCA in February 2023 Possible early right upper lobe pulmonary nodule to be followed up in the outpatient setting Mild intermittent chronic bronchial asthma, inactive Former smoker Hypertension Hyperlipidemia History of congestive heart failure Plan: The patient was seen and evaluated Labs and medications reviewed She is currently stable and on room air The patient remains confused at times Plan is for [facility] at discharge I have personally seen and examined the patient, performed the documentation and the assessment and plan as written. Number of minutes spent on the visit: 20 Dictation was produced using [employer] dictation software. Please excuse any grammatical, word or spelling errors.
--- NOTE | 2024-12-29 13:05 | P.PN ---
Subjective Progress Note Date: 12/29/24 Hospital Course: 79-year-old female with a PMH of CAD status post stenting x 3, systolic heart failure, ischemic cardiomyopathy, hypertension, hyperlipidemia, TIA/CVA and osteoarthritis. She presented to the hospital on 12/16/2024 with a chief complaint of shortness of breath. Upon arrival to our facility, patient underwent evaluation in the emergency department. Vital signs upon arrival show BP 137/80, HR 105, RR 18, temp 98.7 F, and SpO2 of 90% on 2 L. EKG completed showing sinus tachycardia at 105 bpm with T wave inversion in lateral lead aVL otherwise no significant T wave or ST abnormalities noted. Chest x-ray completed showing possible right upper lobe pulmonary nodule measuring 7.4 mm, recommend outpatient dedicated CT scan for further evaluation/surveillance. CBC unremarkable. Coagulation profile normal findings. BMP showing slightly elevated BUN of 19 otherwise normal findings. Blood glucose 130. Calcium 9.1. Liver profile unremarkable. Troponin elevated at 0.156 and proBNP 10,900. Influenza A was positive. Patient was started on heparin infusion and admitted under our services with consult to cardiology and pulmonology. Troponins trended resulting at 0.156, 0.161, and 0.156. Echocardiogram completed revealing reduced EF of 40% with aneurysmal inferior wall and mild mitral regurgitation. During first night of hospitalization patient's mentation worsened as she was initially a poor historian but alert to person, place and situation patient now alert to self only. CT brain was completed negative for acute process. Neurology also consulted for evaluation. During second night of hospitalization patient had large episode of melena, heparin infusion and Plavix was stopped at this time. On 12/18/2024 patient developed an acute kidney injury. Lisinopril and Lasix was held. Nephrology was consulted. Starting patient on gentle IV fluid hydration. Patient continued to have episodes of melena and hemoglobin decreasing from initial 13.5 on admission down to 8.0. Underwent EGD with GI on 12/20 showing duodenal ulcer with no bleeding. Respiratory status has been stable, Confused at times, was transferred to 4 S and now is more confused. On RA Social work working on cell placement Subjective: Patient was seen and examined at bedside, was confused, new she's in the hospital but thought it is in [facility]. Had a BM Pertinent positives and negatives as discussed above, a complete review of systems was performed and all other systems are negative. Vitals Signs Reviewed. General: [nontoxic], [no distress], [appears at stated age] Derm: [warm], [dry] Head: [atraumatic], [normocephalic], [symmetric] Eyes: [EOMI], [no lid lag], [anicteric sclera] Mouth: [no lip lesion], [mucus membranes moist] Cardiovascular: [S1S2 reg], [no murmur] Lungs: [CTA bilateral], [no rhonchi, no rales] , [no accessory muscle use] Abdominal: [soft], [ nontender to palpation], [no guarding], [no appreciable organomegaly] Ext: [no gross muscle atrophy], [no edema], [no contractures] Neuro: [ CN II-XI grossly intact], [no focal neuro deficits] Psych: [Alert], [oriented to self Data Reviewed Today: Pertinent Labs: Cr 1.19, Na 137, K 3.7, Mg 2.2 Assessment and Plan: AFib with RVR: Improved. Metoprolol 25 mg PO BID. No AC due to UGIB. Telemetry monitoring. K > 4 and Mg > 2. Cardiology on board. Hypomagnesemia, hypokalemia: Electrolytes replaced, ordered repeat BMP Delirium: CT brain negative. EEG showing mild encephalopathy. Fall precautions. Window side bed. Frequent re-direction. Avoid sedatives. + Haldol 4 mg oral Q6H PRN, Ativan 0.5 mg PO Q6H PRN. Acute hypoxic respiratory failure multifctorial 2/2 Flu A + systolic CHF exacerbation, resolved: Echo shows EF 40%. Completed course of Tamiflu. . Pulmonary and Cardiology on board., Stable respiratory status, pending discharge placement. Discussed with RN. On RA DORIS on CKD, resolved: Renal US neg for obstruction. Likely prerenal. Lisinopril and Lasix on hold. Nephrology on board. Acute blood loss anemia 2/2 Upper GI bleed: Duodenal ulcer seen on EGD. Heparin and Plavix on hold. Protonix 40 mg PO QD. GI on board. NSTEMI with h/o CAD with stent placement: ASA 81 mg PO QD. Lipitor 80 mg PO QHS. Metoprolol as below. No invasive workup per Cardiology. Telemetry monitoring. Cardiology on board. Low-normal B12: Cyanocobalamin 1000 mcg PO QD. Pulmonary nodule: Outpatient follow up. Asthma no in acute exacerbation: Singulair 10 mg PO QD. Hypertension: Imdur 30 mg PO QD. Metoprolol 25 mg PO BID. Dyslipidemia: Lipitor as above. needs placement. Pending. CODE STATUS: FULL CODE DVT Prophylaxis: Lovenox. GI Prophylaxis: Protonix Anticipated discharge place: [facility], medically cleared for discharge to 12/28 Objective - Vital Signs Vital signs: Vital Signs Temp 98.2 F 12/29/24 08:59 Pulse 88 12/29/24 08:59 Resp 18 12/29/24 08:59 BP 133/78 12/29/24 08:59 Pulse Ox 90 L 12/29/24 08:59 FiO2 Intake & Output 12/28/24 12/29/24 12/29/24 18:59 06:59 18:59 Intake Total 180 300 Output Total 200 Balance 180 100 Weight 73.5 kg Intake: Oral 180 300 Output: Urine 200 Other: Voiding Method Diaper Diaper External Catheter # Voids 1 - Labs CBC & Chem 7: 12/28/24 06:45 12/29/24 10:45 Labs: Abnormal Lab Results - Last 24 Hours (Table) 12/29/24 Range/Units 10:45 Carbon Dioxide 34 H (22-30) mmol/L BUN 18 H (7-17) mg/dL Creatinine 1.19 H (0.52-1.04) mg/dL Glucose 120 H (74-99) mg/dL
[2024-12-29] MEDS: LORazepam 0.5 MG TAB PO PRN (17:53)
--- NOTE | 2024-12-29 21:55 | P.PN ---
Subjective Patient is seen for follow-up for acute kidney injury. Renal function is stable No significant complaints Serum creatinine 1. 19 Objective - Vital Signs Vital signs: Vital Signs Temp 98.4 F 12/29/24 19:33 Pulse 64 12/29/24 19:33 Resp 18 12/29/24 19:33 BP 110/73 12/29/24 19:33 Pulse Ox 96 12/29/24 19:33 FiO2 Intake & Output 12/29/24 12/29/24 12/30/24 06:59 18:59 06:59 Intake Total 300 Output Total 200 Balance 100 Weight 73.5 kg Intake: Oral 300 Output: Urine 200 Other: Voiding Method Diaper External Catheter # Voids 2 # Bowel Movements 1 - Exam Patient is awake, comfortable, no acute distress. Examination of the heart S1 and S2 Examination of the lungs bilateral breath sounds are heard Abdomen is soft nontender Examination lower extremity shows no significant edema AUTOMOTIVE DESIGNER exam grossly intact - Labs CBC & Chem 7: 12/28/24 06:45 12/29/24 10:45 Labs: Abnormal Lab Results - Last 24 Hours (Table) 12/29/24 Range/Units 10:45 Carbon Dioxide 34 H (22-30) mmol/L BUN 18 H (7-17) mg/dL Creatinine 1.19 H (0.52-1.04) mg/dL Glucose 120 H (74-99) mg/dL Assessment and Plan Assessment: 1. Acute kidney injury, ATN, oliguric secondary to hypotension. BAO inhibitors on hold. Diuretics on hold as well. Status post IV fluids. UA was completely benign on 12/18/2024. Ultrasound shows no significant obstructive uropathy. 2. GI bleed being followed by GI, status post EGD which showed superficial duodenal ulcer and antral gastritis 3. Influenza A infection maintained on Tamiflu 4. Mental status changes associated with metabolic encephalopathy and underlying dementia 5. Cardiomyopathy with EF of 40% 6. Primary hypertension with blood pressure currently improved. Plan: Encourage increased oral intake Avoid any nephrotoxic agents.
[2024-12-30] MEDS: LORazepam 1 MG TAB PO PRN (02:30)
--- NOTE | 2024-12-30 12:50 | P.PN ---
Subjective Patient is seen for follow-up for acute kidney injury. Renal function is stable No significant complaints Serum creatinine 1.19 Objective - Vital Signs Vital signs: Vital Signs Temp 97.5 F L 12/30/24 07:24 Pulse 88 12/30/24 07:24 Resp 18 12/30/24 07:24 BP 115/61 12/30/24 07:24 Pulse Ox 93 L 12/30/24 07:24 FiO2 Intake & Output 12/29/24 12/30/24 12/30/24 18:59 06:59 18:59 Intake Total 560 Balance 560 Weight 75.5 kg Intake: Oral 560 Other: # Voids 2 2 # Bowel Movements 1 - Exam Patient is sleeping but arousable, comfortable, no acute distress. Examination of the heart S1 and S2 Examination of the lungs bilateral breath sounds are heard Abdomen is soft nontender Examination lower extremity shows no significant edema DRY SANDER exam grossly intact - Labs CBC & Chem 7: 12/28/24 06:45 12/29/24 10:45 Assessment and Plan Assessment: 1. Acute kidney injury, ATN, oliguric secondary to hypotension. BAO inhibitors on hold. Diuretics on hold as well. Status post IV fluids. UA was completely benign on 12/18/2024. Ultrasound shows no significant obstructive uropathy. 2. GI bleed being followed by GI, status post EGD which showed superficial duodenal ulcer and antral gastritis 3. Influenza A infection maintained on Tamiflu 4. Mental status changes associated with metabolic encephalopathy and underlying dementia 5. Cardiomyopathy with EF of 40% 6. Primary hypertension with blood pressure currently improved. Plan: Encourage increased oral intake Avoid any nephrotoxic agents.
--- NOTE | 2024-12-30 15:50 | P.PN ---
Subjective Progress Note Date: 12/30/24 Hospital Course: 79-year-old female with a PMH of CAD status post stenting x 3, systolic heart failure, ischemic cardiomyopathy, hypertension, hyperlipidemia, TIA/CVA and osteoarthritis. She presented to the hospital on 12/16/2024 with a chief complaint of shortness of breath. Upon arrival to our facility, patient underwent evaluation in the emergency department. Vital signs upon arrival show BP 137/80, HR 105, RR 18, temp 98.7 F, and SpO2 of 90% on 2 L. EKG completed showing sinus tachycardia at 105 bpm with T wave inversion in lateral lead aVL otherwise no significant T wave or ST abnormalities noted. Chest x-ray completed showing possible right upper lobe pulmonary nodule measuring 7.4 mm, recommend outpatient dedicated CT scan for further evaluation/surveillance. CBC unremarkable. Coagulation profile normal findings. BMP showing slightly elevated BUN of 19 otherwise normal findings. Blood glucose 130. Calcium 9.1. Liver profile unremarkable. Troponin elevated at 0.156 and proBNP 10,900. Influenza A was positive. Patient was started on heparin infusion and admitted under our services with consult to cardiology and pulmonology. Troponins trended resulting at 0.156, 0.161, and 0.156. Echocardiogram completed revealing reduced EF of 40% with aneurysmal inferior wall and mild mitral regurgitation. During first night of hospitalization patient's mentation worsened as she was initially a poor historian but alert to person, place and situation patient now alert to self only. CT brain was completed negative for acute process. Neurology also consulted for evaluation. During second night of hospitalization patient had large episode of melena, heparin infusion and Plavix was stopped at this time. On 12/18/2024 patient developed an acute kidney injury. Lisinopril and Lasix was held. Nephrology was consulted. Starting patient on gentle IV fluid hydration. Patient continued to have episodes of melena and hemoglobin decreasing from initial 13.5 on admission down to 8.0. Underwent EGD with GI on 12/20 showing duodenal ulcer with no bleeding. Respiratory status has been stable, Confused at times, was transferred to [facility] and now is more confused. On RA 12/29 to 12/30 became more confused and agitated, required speech therapy at bedside, sitter removed 12/30 in the morning Social work working on placement, Subjective: Patient was seen and examined at bedside, was confused, she was provided with Ativan earlier and was not able to participate in conversation, she is easily arousable Pertinent positives and negatives as discussed above, a complete review of systems was performed and all other systems are negative. Vitals Signs Reviewed. General: [nontoxic], [no distress], [appears at stated age] Derm: [warm], [dry] Head: [atraumatic], [normocephalic], [symmetric] Eyes: [EOMI], [no lid lag], [anicteric sclera] Mouth: [no lip lesion], [mucus membranes moist] Cardiovascular: [S1S2 reg], [no murmur] Lungs: [CTA bilateral], [no rhonchi, no rales] , [no accessory muscle use] Abdominal: [soft], [ nontender to palpation], [no guarding], [no appreciable organomegaly] Ext: [no gross muscle atrophy], [no edema], [no contractures] Neuro: [ CN II-XI grossly intact], [no focal neuro deficits] Psych: [Alert], [oriented to self Data Reviewed Today: No new blood work today Assessment and Plan: AFib with RVR: Improved. Metoprolol 25 mg PO BID. No AC due to UGIB. Telemetry monitoring. K > 4 and Mg > 2. Cardiology on board. Hypomagnesemia, hypokalemia: Electrolytes replaced, normalized Delirium: CT brain negative. EEG showing mild encephalopathy. Fall precautions. Window side bed. Frequent re-direction. Avoid sedatives. + Haldol 4 mg oral Q6H PRN, Ativan 0.5 mg PO Q6H PRN. Sitter removed 12/30 AM Acute hypoxic respiratory failure multifctorial 2/2 Flu A + systolic CHF exacerbation, resolved: Echo shows EF 40%. Completed course of Tamiflu. . Pulmonary and Cardiology on board., Stable respiratory status, pending discharge placement. Discussed with RN. On RA DORIS on CKD, resolved: Renal US neg for obstruction. Likely prerenal. Lisinopril and Lasix on hold. Nephrology on board. Acute blood loss anemia 2/2 Upper GI bleed: Duodenal ulcer seen on EGD. Heparin and Plavix on hold. Protonix 40 mg PO QD. GI on board. NSTEMI with h/o CAD with stent placement: ASA 81 mg PO QD. Lipitor 80 mg PO QHS. Metoprolol as below. No invasive workup per Cardiology. Telemetry monitoring. Cardiology on board. Low-normal B12: Cyanocobalamin 1000 mcg PO QD. Pulmonary nodule: Outpatient follow up. Asthma no in acute exacerbation: Singulair 10 mg PO QD. Hypertension: Imdur 30 mg PO QD. Metoprolol 25 mg PO BID. Dyslipidemia: Lipitor as above. needs placement. Pending. CODE STATUS: FULL CODE DVT Prophylaxis: Lovenox. GI Prophylaxis: Protonix Anticipated discharge place: [facility], medically cleared for discharge to 12/28 Objective - Vital Signs Vital signs: Vital Signs Temp 97.3 F L 12/30/24 13:47 Pulse 68 12/30/24 13:47 Resp 15 12/30/24 13:47 BP 91/53 12/30/24 13:47 Pulse Ox 96 12/30/24 13:47 FiO2 Intake & Output 12/29/24 12/30/24 12/30/24 18:59 06:59 18:59 Intake Total 560 Balance 560 Weight 75.5 kg Intake: Oral 560 Other: # Voids 2 2 # Bowel Movements 1 - Labs CBC & Chem 7: 12/28/24 06:45 12/29/24 10:45
--- NOTE | 2024-12-30 21:35 | P.PN ---
Subjective Progress Note Date: 12/30/24 This is an 79-year-old female patient with a known history of hypertension, hyperlipidemia, congestive heart failure, coronary artery disease with previous stent placements, former smoker mild intermittent chronic bronchial asthma. She presented here to the emergency room early this morning with progressive weakness and significant dyspnea on exertion. Chest x-ray reveals no acute cardiopulmonary findings. Possible right upper lobe preliminary nodule. White count 7.2. Hemoglobin 13.5. Platelets 184. Sodium 137. Potassium 4.3. Bicarb 25. BUN 19. Creatinine 1.03. Glucose 130. Troponin 0.156, 0.161, 0.156. proBNP 10,900. Viral screen positive for influenza A. She is seen today in consultation in the emergency department. Currently sitting up on a stretcher. Awake and alert in no acute distress. Denies any worsening shortness of breath, cough or congestion. Denies any chest pain. Maintaining O2 saturations in the 90s on room air. She is afebrile. Hemodynamically stable. The patient is seen today December 17, 2024 in follow-up in the emergency department. She is currently resting on a stretcher. She is maintaining O2 saturations in the 90s on 4 L/min per nasal cannula. She is afebrile. Echocardiogram revealed impaired left ventricular systolic function with an ej ection fraction of 40%. She is confused today. Being uncooperative with staff. vacuum metalizing supervisor at the bedside. A CT scan of the brain revealed no acute intracranial process. She remains on a heparin drip. Glucose 156. Continued on Tamiflu. Continued on IV diuretics. Patient was seen today on 12/18/2024, patient remains confused, quite lethargic, her mental status has significantly changed compared to the day of admission when she was initially seen in the ER. CT of the brain showed no evidence of intracranial process, patient is being followed by many consultants so far. And her mental status remains quite changed compared to baseline. Family is at bedside. No active pulmonary issues. Patient is known to have history of asthma which has been stable all along. Her echocardiogram showed LV dysfunction with ejection fraction of 40%. Patient is being followed by cardiology she was also seen by gastroenterology for low hemoglobin of 10 initially came in with a hemoglobin of 11.6. Renal functioning has been worsening since admission came in with a creatinine of 1 now her creatinine is 2.41,May need nephrology evaluation for her acute kidney injury. For her mental status change, may need full neurological evaluation. Patient was evaluated today on 12/19/2024, remains a bit confused, family is at bedside, patient is encephalopathic but no active pulmonary issues. No cough no wheezing no shortness of breath. Patient had relatively normal CBC, normal electrolytes, BUN however is 87 and creatinine 2.75. Seen today on 12/20/2024, patient is less confused today, as a matter fact she is oriented to place, she even knew the year, and she knew the name of the president. This is significant improvement compared to the last few days, obviously her encephalopathy is improving. Patient is on room air, does not have any shortness of breath, her labs were reviewed WBC count is 7.3 hemoglobin is 8 electrolytes are normal BUN is 77 creatinine down to 2.28 The patient is seen today December 21, 2024 in follow-up on the regular medical floor. She is currently awake and alert in no acute distress. Resting comfortably in bed. Denies any worsening shortness of breath, cough or congestion. She is maintaining O2 saturations in the 90s on 3 L/min per nasal cannula. White count 7.5. Hemoglobin 9.1. Platelets 208. Sodium 144. Potassium 3.9. Bicarb 26. BUN 49. Creatinine 1.63. Glucose 143. She is maintained on Lovenox for DVT prophylaxis. Continued on normal saline at 75 mL/h. Albuterol as needed. She did undergo EGD yesterday and was found to have a 5 mm superficial duodenal bulbar ulcer with no active bleeding. Antral erosive gastritis. She remains on Protonix. The patient is seen today December 22, 2024 in follow-up on the regular medical floor. She is currently resting in bed. She remains quite altered at times. A safety spec is at the bedside. She had pulled her IVs out. She has significant ecchymosis of the left upper extremity. She is maintaining O2 saturations in the mid 90s on 5 L/min per nasal cannula. She is afebrile. Somewhat hypertensive. He is on for DVT prophylaxis. Continued on bronchodilators. Continued on Singulair. White count 8.6. Hemoglobin 8.7. Platelets 234. Sodium 143. Potassium 3.8. Bicarb 27. BUN 34. Creatinine 1.25. Glucose 109. The patient is seen today December 23, 2024 in follow-up in the intensive care unit. She was transferred here as a 3 S. overflow after developing atrial fibrillation with a rapid ventricular response on the regular medical floor at approximately 2:30 this morning. Her rate is better controlled this morning. She did receive Cardizem and Lopressor. She is afebrile. She is maintaining O2 saturation in the 90s on 3 L/min per nasal cannula. She has been initiated on D5W at 75 mL/h. Her sodium was 147. White count 13.4. Bicarb 22. BUN 28. Creatinine 1.15. Glucose 122. Remains on Lovenox for DVT prophylaxis. The patient is seen today December 24, 2024 in follow-up in the intensive care unit as a 3 S. overflow. She remains confused. vacuum metalizing supervisor at the bedside. She is maintaining good O2 saturations in the 90s on 4 L/min per nasal cannula. Afebrile. Hemodynamically stable. She has D5W at 75 mL/h. Lovenox for DVT prophylaxis. White count 11.8. Hemoglobin 8.9. Platelets 289. Sodium 143. Potassium 3.6. Bicarb 30. BUN 22. Creatinine 1.09. Glucose 139. The patient is seen today December 29, 2024 in follow-up on the regular medical floor. She is currently resting comfortably in bed. Awake and alert in no acute distress. Confused to time and place. She is maintaining O2 saturations in the 90s on room air. 0.7. Bicarb 34. 8 BUN 18. Creatinine 1.19. Glucose 120. Remains on Lovenox for DVT prophylaxis. She has not required any Haldol or Ativan for the past 48 hours. On 12/30/2024, the patient is being seen for a follow-up. The patient is known to have coronary artery disease with previous coronary stenting, systolic heart failure/ischemic cardiomyopathy, hypertension, hyperlipidemia, previous history of CVA/TIA. The patient presented to us back in 12/16/2024 with worsening shortness of breath, acute influenza A infection the patient is being treated for an acute hypoxic respiratory failure, acute influenza A infection with secondary CHF. The patient also had troponin leak/NSTEMI and the patient is currently off IV heparin. The patient is currently on aspirin and metoprolol 25 mg p.o. twice daily. Lovenox 30 mg subcu for DVT prophylaxis. Completed the course of Tamiflu. She also sustained an acute kidney injury, renal function is stable and the creatinine is currently at 1.19 and the rest of the electrolytes are all stable. The echocardiogram showed a left trickle ejection fraction of 40% aneurysmal inferior wall and mild mitral regurgitation. During the course of her hospitalization, the patient was having melena. Underwent EGD on 12/20/2024 and was found to have a duodenal ulcer without any bleeding. Objective - Vital Signs Vital signs: Vital Signs Temp 97.3 F L 12/30/24 13:47 Pulse 68 12/30/24 13:47 Resp 15 12/30/24 13:47 BP 91/53 12/30/24 13:47 Pulse Ox 96 12/30/24 13:47 FiO2 Intake & Output 12/29/24 12/30/24 12/30/24 18:59 06:59 18:59 Intake Total 560 Balance 560 Weight 75.5 kg Intake: Oral 560 Other: # Voids 2 2 # Bowel Movements 1 - Exam GENERAL EXAM: Alert, confused, 79-year-old female, resting in bed, on room air, in no apparent distress. HEAD: Normocephalic. EYES: Normal reaction of pupils, equal size. NOSE: Clear with pink turbinates. THROAT: No erythema or exudates. NECK: No masses, no JVD. CHEST: No chest wall deformity. LUNGS: Equal air entry with no crackles, wheeze, rhonchi or dullness. CVS: S1 and S2 normal with no audible murmur, irregular rhythm. ABDOMEN: No hepatosplenomegaly, normal bowel sounds, no guarding or rigidity. SPINE: No scoliosis or deformity SKIN: No rashes CENTRAL NERVOUS SYSTEM: No focal deficits, tone is normal in all 4 extremities. EXTREMITIES: Left upper extremity with extensive ecchymosis. No clubbing, no cyanosis. Peripheral pulses are intact. - Labs CBC & Chem 7: 12/28/24 06:45 12/29/24 10:45 Assessment and Plan Plan: Acute hypoxemic respiratory failure secondary to an acute exacerbation of chronic systolic congestive heart failure. Impaired left ventricular systolic function with an ejection fraction of 40% Troponin leak possible non-ST segment elevation myocardial infarction Acute influenza A infection, completed Tamiflu Atrial fibrillation with a rapid ventricular response currently on metoprolol 25 mg p.o. twice daily. No anticoagulants. Altered mental status of unclear etiology, CT scan of the brain revealed no acute intracranial process. Neurology suspecting at least moderate dementia Stool occult positive, status post EGD 12/20/2024 with a 5 mm superficial duodenal bulbar ulcer with no active bleeding. Antral erosive gastritis. Remains on Protonix History of coronary artery disease with previous stent placement, most recently to the RCA in February 2023 Right upper lobe pulmonary nodule to be followed up in the outpatient setting Mild intermittent chronic bronchial asthma, inactive Former smoker Hypertension Hyperlipidemia History of congestive heart failure Plan: She is currently stable and on room air Respiratory status is stable Renal function stable No evidence of any bleeding Echocardiogram was noted Plan is for [facility] at discharge
--- NOTE | 2024-12-31 11:48 | P.PN ---
Subjective Patient is seen for follow-up for acute kidney injury. Renal function is stable No significant complaints Serum creatinine 1.19 on 12/29/2024 Objective - Vital Signs Vital signs: Vital Signs Temp 99 F 12/31/24 06:57 Pulse 92 12/31/24 06:57 Resp 18 12/31/24 06:57 BP 123/75 12/31/24 06:57 Pulse Ox 90 L 12/31/24 06:57 FiO2 Intake & Output 12/30/24 12/31/24 12/31/24 18:59 06:59 18:59 Weight 75.5 kg 74.5 kg Other: # Voids 3 1 # Bowel Movements 2 - Exam Patient is sleeping but arousable, comfortable, no acute distress. Examination of the heart S1 and S2 Examination of the lungs bilateral breath sounds are heard Abdomen is soft nontender Examination lower extremity shows no significant edema MATH INTERVENTIONIST exam grossly intact - Labs CBC & Chem 7: 12/28/24 06:45 12/29/24 10:45 Assessment and Plan Assessment: 1. Acute kidney injury, ATN, oliguric secondary to hypotension. BAO inhibitors on hold. Diuretics on hold as well. Status post IV fluids. UA was completely benign on 12/18/2024. Ultrasound shows no significant obstructive uropathy. 2. GI bleed being followed by GI, status post EGD which showed superficial duodenal ulcer and antral gastritis 3. Influenza A infection maintained on Tamiflu 4. Mental status changes associated with metabolic encephalopathy and underlying dementia 5. Cardiomyopathy with EF of 40% 6. Primary hypertension with blood pressure currently improved. Plan: Encourage increased oral intake Continue off of diuretics and IV fluids. Avoid any nephrotoxic agents.
[2024-12-31] MEDS: ONDANSETRON 4 MG TAB PO PRN (13:53)
--- NOTE | 2024-12-31 17:34 | P.PN ---
Subjective Progress Note Date: 12/31/24 Hospital Course: 79-year-old female with a PMH of CAD status post stenting x 3, systolic heart failure, ischemic cardiomyopathy, hypertension, hyperlipidemia, TIA/CVA and osteoarthritis. She presented to the hospital on 12/16/2024 with a chief complaint of shortness of breath. Upon arrival to our facility, patient underwent evaluation in the emergency department. Vital signs upon arrival show BP 137/80, HR 105, RR 18, temp 98.7 F, and SpO2 of 90% on 2 L. EKG completed showing sinus tachycardia at 105 bpm with T wave inversion in lateral lead aVL otherwise no significant T wave or ST abnormalities noted. Chest x-ray completed showing possible right upper lobe pulmonary nodule measuring 7.4 mm, recommend outpatient dedicated CT scan for further evaluation/surveillance. CBC unremarkable. Coagulation profile normal findings. BMP showing slightly elevated BUN of 19 otherwise normal findings. Blood glucose 130. Calcium 9.1. Liver profile unremarkable. Troponin elevated at 0.156 and proBNP 10,900. Influenza A was positive. Patient was started on heparin infusion and admitted under our services with consult to cardiology and pulmonology. Troponins trended resulting at 0.156, 0.161, and 0.156. Echocardiogram completed revealing reduced EF of 40% with aneurysmal inferior wall and mild mitral regurgitation. During first night of hospitalization patient's mentation worsened as she was initially a poor historian but alert to person, place and situation patient now alert to self only. CT brain was completed negative for acute process. Neurology also consulted for evaluation. During second night of hospitalization patient had large episode of melena, heparin infusion and Plavix was stopped at this time. On 12/18/2024 patient developed an acute kidney injury. Lisinopril and Lasix was held. Nephrology was consulted. Starting patient on gentle IV fluid hydration. Patient continued to have episodes of melena and hemoglobin decreasing from initial 13.5 on admission down to 8.0. Underwent EGD with GI on 12/20 showing duodenal ulcer with no bleeding. Respiratory status has been stable, Confused at times, was transferred to [facility] and now is more confused. On RA 12/29 to 12/30 became more confused and agitated, required speech therapy at bedside, sitter removed 12/30 in the morning Social work working on placement, Subjective: Patient was seen and examined at bedside, was confused, she was provided with Ativan earlier and was not able to participate in conversation, she is easily arousable Pertinent positives and negatives as discussed above, a complete review of systems was performed and all other systems are negative. Vitals Signs Reviewed. General: [nontoxic], [no distress], [appears at stated age] Derm: [warm], [dry] Head: [atraumatic], [normocephalic], [symmetric] Eyes: [EOMI], [no lid lag], [anicteric sclera] Mouth: [no lip lesion], [mucus membranes moist] Cardiovascular: [S1S2 reg], [no murmur] Lungs: [CTA bilateral], [no rhonchi, no rales] , [no accessory muscle use] Abdominal: [soft], [ nontender to palpation], [no guarding], [no appreciable organomegaly] Ext: [no gross muscle atrophy], [no edema], [no contractures] Neuro: [ CN II-XI grossly intact], [no focal neuro deficits] Psych: [Alert], [oriented to self Data Reviewed Today: No new blood work today Assessment and Plan: AFib with RVR: Improved. Metoprolol 25 mg PO BID. No AC due to UGIB. Telemetry monitoring. K > 4 and Mg > 2. Cardiology on board. Hypomagnesemia, hypokalemia: Electrolytes replaced, normalized Delirium: CT brain negative. EEG showing mild encephalopathy. Fall precautions. Window side bed. Frequent re-direction. Avoid sedatives. + Haldol 4 mg oral Q6H PRN, Ativan 0.5 mg PO Q6H PRN. Sitter removed 12/30 AM Acute hypoxic respiratory failure multifctorial 2/2 Flu A + systolic CHF exacerbation, resolved: Echo shows EF 40%. Completed course of Tamiflu. . Pulmonary and Cardiology on board., Stable respiratory status, pending discharge placement. Discussed with RN. On RA DORIS on CKD, resolved: Renal US neg for obstruction. Likely prerenal. Lisinopril and Lasix on hold. Nephrology on board. Acute blood loss anemia 2/2 Upper GI bleed: Duodenal ulcer seen on EGD. Heparin and Plavix on hold. Protonix 40 mg PO QD. GI on board. NSTEMI with h/o CAD with stent placement: ASA 81 mg PO QD. Lipitor 80 mg PO QHS. Metoprolol as below. No invasive workup per Cardiology. Telemetry monitoring. Cardiology on board. Low-normal B12: Cyanocobalamin 1000 mcg PO QD. Pulmonary nodule: Outpatient follow up. Asthma no in acute exacerbation: Singulair 10 mg PO QD. Hypertension: Imdur 30 mg PO QD. Metoprolol 25 mg PO BID. Dyslipidemia: Lipitor as above. needs placement. Pending. CODE STATUS: FULL CODE DVT Prophylaxis: Lovenox. GI Prophylaxis: Protonix Anticipated discharge place: [facility], medically cleared for discharge to 12/28, daughter is obtaining guardianship, court date is Monday Objective - Vital Signs Vital signs: Vital Signs Temp 97.6 F 12/31/24 13:52 Pulse 85 12/31/24 13:52 Resp 16 12/31/24 13:52 BP 111/67 12/31/24 13:52 Pulse Ox 90 L 12/31/24 13:52 FiO2 Intake & Output 12/30/24 12/31/24 12/31/24 18:59 06:59 18:59 Weight 75.5 kg 74.5 kg Other: # Voids 3 1 # Bowel Movements 2 - Labs CBC & Chem 7: 12/28/24 06:45 12/29/24 10:45
--- NOTE | 2024-12-31 20:09 | P.PN ---
Subjective Progress Note Date: 12/31/24 This is an 79-year-old female patient with a known history of hypertension, hyperlipidemia, congestive heart failure, coronary artery disease with previous stent placements, former smoker mild intermittent chronic bronchial asthma. She presented here to the emergency room early this morning with progressive weakness and significant dyspnea on exertion. Chest x-ray reveals no acute cardiopulmonary findings. Possible right upper lobe preliminary nodule. White count 7.2. Hemoglobin 13.5. Platelets 184. Sodium 137. Potassium 4.3. Bicarb 25. BUN 19. Creatinine 1.03. Glucose 130. Troponin 0.156, 0.161, 0.156. proBNP 10,900. Viral screen positive for influenza A. She is seen today in consultation in the emergency department. Currently sitting up on a stretcher. Awake and alert in no acute distress. Denies any worsening shortness of breath, cough or congestion. Denies any chest pain. Maintaining O2 saturations in the 90s on room air. She is afebrile. Hemodynamically stable. The patient is seen today December 17, 2024 in follow-up in the emergency department. She is currently resting on a stretcher. She is maintaining O2 saturations in the 90s on 4 L/min per nasal cannula. She is afebrile. Echocardiogram revealed impaired left ventricular systolic function with an ej ection fraction of 40%. She is confused today. Being uncooperative with staff. financial reporting specialist at the bedside. A CT scan of the brain revealed no acute intracranial process. She remains on a heparin drip. Glucose 156. Continued on Tamiflu. Continued on IV diuretics. Patient was seen today on 12/18/2024, patient remains confused, quite lethargic, her mental status has significantly changed compared to the day of admission when she was initially seen in the ER. CT of the brain showed no evidence of intracranial process, patient is being followed by many consultants so far. And her mental status remains quite changed compared to baseline. Family is at bedside. No active pulmonary issues. Patient is known to have history of asthma which has been stable all along. Her echocardiogram showed LV dysfunction with ejection fraction of 40%. Patient is being followed by cardiology she was also seen by gastroenterology for low hemoglobin of 10 initially came in with a hemoglobin of 11.6. Renal functioning has been worsening since admission came in with a creatinine of 1 now her creatinine is 2.41,May need nephrology evaluation for her acute kidney injury. For her mental status change, may need full neurological evaluation. Patient was evaluated today on 12/19/2024, remains a bit confused, family is at bedside, patient is encephalopathic but no active pulmonary issues. No cough no wheezing no shortness of breath. Patient had relatively normal CBC, normal electrolytes, BUN however is 87 and creatinine 2.75. Seen today on 12/20/2024, patient is less confused today, as a matter fact she is oriented to place, she even knew the year, and she knew the name of the president. This is significant improvement compared to the last few days, obviously her encephalopathy is improving. Patient is on room air, does not have any shortness of breath, her labs were reviewed WBC count is 7.3 hemoglobin is 8 electrolytes are normal BUN is 77 creatinine down to 2.28 The patient is seen today December 21, 2024 in follow-up on the regular medical floor. She is currently awake and alert in no acute distress. Resting comfortably in bed. Denies any worsening shortness of breath, cough or congestion. She is maintaining O2 saturations in the 90s on 3 L/min per nasal cannula. White count 7.5. Hemoglobin 9.1. Platelets 208. Sodium 144. Potassium 3.9. Bicarb 26. BUN 49. Creatinine 1.63. Glucose 143. She is maintained on Lovenox for DVT prophylaxis. Continued on normal saline at 75 mL/h. Albuterol as needed. She did undergo EGD yesterday and was found to have a 5 mm superficial duodenal bulbar ulcer with no active bleeding. Antral erosive gastritis. She remains on Protonix. The patient is seen today December 22, 2024 in follow-up on the regular medical floor. She is currently resting in bed. She remains quite altered at times. A safety deposit boxes custodian is at the bedside. She had pulled her IVs out. She has significant ecchymosis of the left upper extremity. She is maintaining O2 saturations in the mid 90s on 5 L/min per nasal cannula. She is afebrile. Somewhat hypertensive. He is on for DVT prophylaxis. Continued on bronchodilators. Continued on Singulair. White count 8.6. Hemoglobin 8.7. Platelets 234. Sodium 143. Potassium 3.8. Bicarb 27. BUN 34. Creatinine 1.25. Glucose 109. The patient is seen today December 23, 2024 in follow-up in the intensive care unit. She was transferred here as a 3 S. overflow after developing atrial fibrillation with a rapid ventricular response on the regular medical floor at approximately 2:30 this morning. Her rate is better controlled this morning. She did receive Cardizem and Lopressor. She is afebrile. She is maintaining O2 saturation in the 90s on 3 L/min per nasal cannula. She has been initiated on D5W at 75 mL/h. Her sodium was 147. White count 13.4. Bicarb 22. BUN 28. Creatinine 1.15. Glucose 122. Remains on Lovenox for DVT prophylaxis. The patient is seen today December 24, 2024 in follow-up in the intensive care unit as a 3 S. overflow. She remains confused. financial reporting specialist at the bedside. She is maintaining good O2 saturations in the 90s on 4 L/min per nasal cannula. Afebrile. Hemodynamically stable. She has D5W at 75 mL/h. Lovenox for DVT prophylaxis. White count 11.8. Hemoglobin 8.9. Platelets 289. Sodium 143. Potassium 3.6. Bicarb 30. BUN 22. Creatinine 1.09. Glucose 139. The patient is seen today December 29, 2024 in follow-up on the regular medical floor. She is currently resting comfortably in bed. Awake and alert in no acute distress. Confused to time and place. She is maintaining O2 saturations in the 90s on room air. 0.7. Bicarb 34. 8 BUN 18. Creatinine 1.19. Glucose 120. Remains on Lovenox for DVT prophylaxis. She has not required any Haldol or Ativan for the past 48 hours. On 12/30/2024, the patient is being seen for a follow-up. The patient is known to have coronary artery disease with previous coronary stenting, systolic heart failure/ischemic cardiomyopathy, hypertension, hyperlipidemia, previous history of CVA/TIA. The patient presented to us back in 12/16/2024 with worsening shortness of breath, acute influenza A infection the patient is being treated for an acute hypoxic respiratory failure, acute influenza A infection with secondary CHF. The patient also had troponin leak/NSTEMI and the patient is currently off IV heparin. The patient is currently on aspirin and metoprolol 25 mg p.o. twice daily. Lovenox 30 mg subcu for DVT prophylaxis. Completed the course of Tamiflu. She also sustained an acute kidney injury, renal function is stable and the creatinine is currently at 1.19 and the rest of the electrolytes are all stable. The echocardiogram showed a left trickle ejection fraction of 40% aneurysmal inferior wall and mild mitral regurgitation. During the course of her hospitalization, the patient was having melena. Underwent EGD on 12/20/2024 and was found to have a duodenal ulcer without any bleeding. On 12/31/2024, the patient is being seen for a follow-up. Doing well. No spe cific complaints. She is currently on 2 L of oxygen by nasal cannula with a pulse ox of 90%. No new labs are available from today. No other significant events overnight. Objective - Vital Signs Vital signs: Vital Signs Temp 97.6 F 12/31/24 13:52 Pulse 85 12/31/24 13:52 Resp 16 12/31/24 13:52 BP 111/67 12/31/24 13:52 Pulse Ox 90 L 12/31/24 13:52 FiO2 Intake & Output 12/30/24 12/31/24 12/31/24 18:59 06:59 18:59 Weight 75.5 kg 74.5 kg Other: # Voids 3 1 # Bowel Movements 2 - Exam GENERAL EXAM: Alert, confused, 79-year-old female, resting in bed, on room air, in no apparent distress. HEAD: Normocephalic. EYES: Normal reaction of pupils, equal size. NOSE: Clear with pink turbinates. THROAT: No erythema or exudates. NECK: No masses, no JVD. CHEST: No chest wall deformity. LUNGS: Equal air entry with no crackles, wheeze, rhonchi or dullness. CVS: S1 and S2 normal with no audible murmur, irregular rhythm. ABDOMEN: No hepatosplenomegaly, normal bowel sounds, no guarding or rigidity. SPINE: No scoliosis or deformity SKIN: No rashes CENTRAL NERVOUS SYSTEM: No focal deficits, tone is normal in all 4 extremities. EXTREMITIES: Left upper extremity with extensive ecchymosis. No clubbing, no cyanosis. Peripheral pulses are intact. - Labs CBC & Chem 7: 12/28/24 06:45 12/29/24 10:45 Assessment and Plan Plan: Acute hypoxemic respiratory failure secondary to an acute exacerbation of chronic systolic congestive heart failure. Impaired left ventricular systolic function with an ejection fraction of 40% Troponin leak possible non-ST segment elevation myocardial infarction Acute influenza A infection, completed Tamiflu Atrial fibrillation with a rapid ventricular response currently on metoprolol 25 mg p.o. twice daily. No anticoagulants. Altered mental status of unclear etiology, CT scan of the brain revealed no acute intracranial process. Neurology suspecting at least moderate dementia Stool occult positive, status post EGD 12/20/2024 with a 5 mm superficial duodenal bulbar ulcer with no active bleeding. Antral erosive gastritis. Remains on Protonix History of coronary artery disease with previous stent placement, most recently to the RCA in February 2023 Right upper lobe pulmonary nodule to be followed up in the outpatient setting Mild intermittent chronic bronchial asthma, inactive Former smoker Hypertension Hyperlipidemia History of congestive heart failure Plan: Clinically stable Respiratory status is stable Renal function stable No evidence of any bleeding Echocardiogram was noted Plan is for [facility] at discharge. Pulmonary critical care services will sign off.
[2025-01-01 10:05] LABS: Basophils % (A) 0 %; Eosinophils # (A) 0.1 k/uL (0-0.7); Eosinophils % (A) 1 %; HCT 26.9 % (34.0-46.0); HGB 8.5 gm/dL (11.4-16.0); Hypochromasia Moderate; Lymphocytes # (A) 0.9 k/uL (1.0-4.8); Lymphocytes % (A) 11 %; MCH 30.1 pg (25.0-35.0); MCHC 31.5 g/dL (31.0-37.0); MCV 95.4 fL (80.0-100.0); Mean Platelet Volume 8.3; Monocytes # (A) 0.4 k/uL (0-1.0); Monocytes % (A) 6 %; Neutrophils # (A) 6.1 k/uL (1.3-7.7); Neutrophils % (A) 81 %; Platelet Count 299 k/uL (150-450); RBC 2.82 m/uL (3.80-5.40); RDW 14.5 % (11.5-15.5); WBC 7.6 k/uL (3.8-10.6)
[2025-01-01 10:15] LABS: African American GFR (CKD) 48 (>60 ml/min/1.73 sqM); Anion Gap 2 mmol/L; Blood Urea Nitrogen 19 mg/dL (7-17); Calcium 8.2 mg/dL (8.4-10.2); Carbon Dioxide 35 mmol/L (22-30); Chloride 102 mmol/L (98-107); Glucose 91 mg/dL (74-99); Non-African American GFR(CKD) 42 (>60 ml/min/1.73 sqM); Potassium 3.7 mmol/L (3.5-5.1); Sodium 139 mmol/L (137-145)
--- NOTE | 2025-01-01 16:06 | P.PN ---
Subjective Progress Note Date: 01/01/25 Hospital Course: 79-year-old female with a PMH of CAD status post stenting x 3, systolic heart failure, ischemic cardiomyopathy, hypertension, hyperlipidemia, TIA/CVA and osteoarthritis. She presented to the hospital on 12/16/2024 with a chief complaint of shortness of breath. Upon arrival to our facility, patient underwent evaluation in the emergency department. Vital signs upon arrival show BP 137/80, HR 105, RR 18, temp 98.7 F, and SpO2 of 90% on 2 L. EKG completed showing sinus tachycardia at 105 bpm with T wave inversion in lateral lead aVL otherwise no significant T wave or ST abnormalities noted. Chest x-ray completed showing possible right upper lobe pulmonary nodule measuring 7.4 mm, recommend outpatient dedicated CT scan for further evaluation/surveillance. CBC unremarkable. Coagulation profile normal findings. BMP showing slightly elevated BUN of 19 otherwise normal findings. Blood glucose 130. Calcium 9.1. Liver profile unremarkable. Troponin elevated at 0.156 and proBNP 10,900. Influenza A was positive. Patient was started on heparin infusion and admitted under our services with consult to cardiology and pulmonology. Troponins trended resulting at 0.156, 0.161, and 0.156. Echocardiogram completed revealing reduced EF of 40% with aneurysmal inferior wall and mild mitral regurgitation. During first night of hospitalization patient's mentation worsened as she was initially a poor historian but alert to person, place and situation patient now alert to self only. CT brain was completed negative for acute process. Neurology also consulted for evaluation. During second night of hospitalization patient had large episode of melena, heparin infusion and Plavix was stopped at this time. On 12/18/2024 patient developed an acute kidney injury. Lisinopril and Lasix was held. Nephrology was consulted. Starting patient on gentle IV fluid hydration. Patient continued to have episodes of melena and hemoglobin decreasing from initial 13.5 on admission down to 8.0. Underwent EGD with GI on 12/20 showing duodenal ulcer with no bleeding. Respiratory status has been stable, Confused at times, was transferred to [facility] and now is more confused. On RA 12/29 to 12/30 became more confused and agitated, required speech therapy at bedside, sitter removed 12/30 in the morning. Blood work 01/01 stable Social work working on placement, Subjective: Patient was seen and examined at bedside, she was alert, able to maintain conversation, denied shortness of breath, abdominal pain, chest pain Pertinent positives and negatives as discussed above, a complete review of systems was performed and all other systems are negative. Vitals Signs Reviewed. General: [nontoxic], [no distress], [appears at stated age] Derm: [warm], [dry] Head: [atraumatic], [normocephalic], [symmetric] Eyes: [EOMI], [no lid lag], [anicteric sclera] Mouth: [no lip lesion], [mucus membranes moist] Cardiovascular: [S1S2 reg], [no murmur] Lungs: [CTA bilateral], [no rhonchi, no rales] , [no accessory muscle use] Abdominal: [soft], [ nontender to palpation], [no guarding], [no appreciable organomegaly] Ext: [no gross muscle atrophy], [no edema], [no contractures] Neuro: [ CN II-XI grossly intact], [no focal neuro deficits] Psych: [Alert], [oriented to self Data Reviewed Today: Lab work is stable, leukocytosis resolved, hemoglobin stable, sodium and potassium normal, creatinine stable 1.22 Assessment and Plan: AFib with RVR: Improved. Metoprolol 25 mg PO BID. No AC due to UGIB. Telemetry monitoring. K > 4 and Mg > 2. Cardiology on board. Hypomagnesemia, hypokalemia: Electrolytes replaced, normalized Delirium: CT brain negative. EEG showing mild encephalopathy. Fall precautions. Window side bed. Frequent re-direction. Avoid sedatives. + Haldol 4 mg oral Q6H PRN, Ativan 0.5 mg PO Q6H PRN. Sitter removed 2/ AM Acute hypoxic respiratory failure multifctorial 2/2 Flu A + systolic CHF exacerbation, resolved: Echo shows EF 40%. Completed course of Tamiflu. . Pulmonary and Cardiology on board., Stable respiratory status, pending discharge placement. Discussed with RN. On 3 L nasal cannula, ordered chest x- ray 2-20 DORIS on CKD, resolved: Renal US neg for obstruction. Likely prerenal. Lisinopril and Lasix on hold. Nephrology on board. Acute blood loss anemia 2/2 Upper GI bleed: Duodenal ulcer seen on EGD. Heparin and Plavix on hold. Protonix 40 mg PO QD. GI on board. NSTEMI with h/o CAD with stent placement: ASA 81 mg PO QD. Lipitor 80 mg PO QHS. Metoprolol as below. No invasive workup per Cardiology. Telemetry monitoring. Cardiology on board. Low-normal B12: Cyanocobalamin 1000 mcg PO QD. Pulmonary nodule: Outpatient follow up. Asthma no in acute exacerbation: Singulair 10 mg PO QD. Hypertension: Imdur 30 mg PO QD. Metoprolol 25 mg PO BID. Dyslipidemia: Lipitor as above. needs placement. Pending. CODE STATUS: FULL CODE DVT Prophylaxis: Lovenox. GI Prophylaxis: Protonix Anticipated discharge place: [facility], medically cleared for discharge to 12/28, daughter is obtaining guardianship, court date is Monday Objective - Vital Signs Vital signs: Vital Signs Temp 97.3 F L 01/01/25 13:32 Pulse 82 01/01/25 13:32 Resp 18 01/01/25 13:32 BP 111/69 01/01/25 13:32 Pulse Ox 93 L 01/01/25 13:32 FiO2 Intake & Output 12/31/24 01/01/25 01/01/25 18:59 06:59 18:59 Weight 76.1 kg Other: # Voids 3 2 # Bowel Movements 0 - Labs CBC & Chem 7: 01/01/25 09:48 01/01/25 09:48 Labs: Abnormal Lab Results - Last 24 Hours (Table) 01/01/25 01/01/25 Range/Units 09:48 09:48 RBC 2.82 L (3.80-5.40) m/uL Hgb 8.5 L (11.4-16.0) gm/dL Hct 26.9 L (34.0-46.0) % Lymphocytes # 0.9 L (1.0-4.8) k/uL Carbon Dioxide 35 H (22-30) mmol/L BUN 19 H (7-17) mg/dL Creatinine 1.22 H (0.52-1.04) mg/dL Calcium 8.2 L (8.4-10.2) mg/dL
--- NOTE | 2025-01-01 20:06 | P.PN ---
Subjective Patient is seen for follow-up for acute kidney injury. Renal function is stable No significant complaints Serum creatinine 1.2 today. Objective - Vital Signs Vital signs: Vital Signs Temp 97.3 F L 01/01/25 13:32 Pulse 82 01/01/25 13:32 Resp 18 01/01/25 13:32 BP 111/69 01/01/25 13:32 Pulse Ox 93 L 01/01/25 13:32 FiO2 Intake & Output 01/01/25 01/01/25 01/02/25 06:59 18:59 06:59 Weight 76.1 kg Other: # Voids 2 2 - Exam Patient is sleeping but arousable, comfortable, no acute distress. Examination of the heart S1 and S2 Examination of the lungs bilateral breath sounds are heard Abdomen is soft nontender Examination lower extremity shows no significant edema WORKFORCE DEVELOPMENT PROGRAM DIRECTOR exam grossly intact - Labs CBC & Chem 7: 01/01/25 09:48 01/01/25 09:48 Labs: Abnormal Lab Results - Last 24 Hours (Table) 01/01/25 01/01/25 Range/Units 09:48 09:48 RBC 2.82 L (3.80-5.40) m/uL Hgb 8.5 L (11.4-16.0) gm/dL Hct 26.9 L (34.0-46.0) % Lymphocytes # 0.9 L (1.0-4.8) k/uL Carbon Dioxide 35 H (22-30) mmol/L BUN 19 H (7-17) mg/dL Creatinine 1.22 H (0.52-1.04) mg/dL Calcium 8.2 L (8.4-10.2) mg/dL Assessment and Plan Assessment: 1. Acute kidney injury, ATN, oliguric secondary to hypotension. BAO inhibitors on hold. Diuretics on hold as well. Status post IV fluids. UA was completely benign on 12/18/2024. Ultrasound shows no significant obstructive uropathy. 2. GI bleed being followed by GI, status post EGD which showed superficial duodenal ulcer and antral gastritis 3. Influenza A infection maintained on Tamiflu 4. Mental status changes associated with metabolic encephalopathy and underlying dementia 5. Cardiomyopathy with EF of 40% 6. Primary hypertension with blood pressure currently improved. Plan: Encourage increased oral intake Continue off of diuretics and IV fluids. Avoid any nephrotoxic agents. Awaiting placement for discharge.
[2025-01-02] MEDS: HALOPERIDOL LACTATE 5 MG/ML 1 ML VIAL IM PRN (01:31)
--- NOTE | 2025-01-02 08:27 | XR ---
EXAMINATION TYPE: XR chest 1V portable DATE OF EXAM: 01/02/2025 7:09 AM COMPARISON: Chest radiographs from 12/24/2024 TECHNIQUE: XR chest 1V portable Portable AP radiograph of the chest. CLINICAL INDICATION:Female, 79 years old with history of hypoxia; FINDINGS: Lungs/Pleura: There is no evidence of pleural effusion or pleural effusion. Improved right lower lobe infiltrate. Hyperinflation. Pulmonary vascularity: Unremarkable. Heart/mediastinum: Cardiomediastinal silhouette is enlarged and stable. Atherosclerotic calcificatio ns are seen in the aorta. Musculoskeletal: No acute osseous pathology. IMPRESSION: 1. Improved right lower lobe infiltrate. 2. COPD changes. [facility], , 01/02/2025 8:24 AM
--- NOTE | 2025-01-02 12:45 | P.PN ---
Subjective Patient is seen for follow-up for acute kidney injury. Renal function is stable No significant complaints Serum creatinine 1.2 Objective - Vital Signs Vital signs: Vital Signs Temp 97.9 F 01/02/25 07:30 Pulse 85 01/02/25 07:30 Resp 18 01/02/25 07:30 BP 115/67 01/02/25 07:30 Pulse Ox 95 01/02/25 07:30 FiO2 Intake & Output 01/01/25 01/02/25 01/02/25 18:59 06:59 18:59 Intake Total 420 Balance 420 Weight 80 kg Intake: Oral 420 Other: Voiding Method Diaper # Voids 2 2 - Exam Patient is sleeping but arousable, comfortable, no acute distress. Examination of the heart S1 and S2 Examination of the lungs bilateral breath sounds are heard Abdomen is soft nontender Examination lower extremity shows no significant edema COUNTERINTELLIGENCE ANALYST exam grossly intact - Labs CBC & Chem 7: 01/01/25 09:48 01/01/25 09:48 Assessment and Plan Assessment: 1. Acute kidney injury, ATN, oliguric secondary to hypotension. BAO inhibitors on hold. Diuretics on hold as well. Status post IV fluids. UA was completely benign on 12/18/2024. Ultrasound shows no significant obstructive uropathy. 2. GI bleed being followed by GI, status post EGD which showed superficial duodenal ulcer and antral gastritis 3. Influenza A infection maintained on Tamiflu 4. Mental status changes associated with metabolic encephalopathy and underlying dementia 5. Cardiomyopathy with EF of 40% 6. Primary hypertension with blood pressure currently improved. Plan: Encourage increased oral intake Continue off of diuretics and IV fluids. Avoid any nephrotoxic agents. Awaiting placement for discharge.
--- NOTE | 2025-01-02 14:44 | P.PN ---
Subjective Progress Note Date: 01/02/25 Hospital Course: 79-year-old female with a PMH of CAD status post stenting x 3, systolic heart failure, ischemic cardiomyopathy, hypertension, hyperlipidemia, TIA/CVA and osteoarthritis. She presented to the hospital on 12/16/2024 with a chief complaint of shortness of breath. Upon arrival to our facility, patient underwent evaluation in the emergency department. Vital signs upon arrival show BP 137/80, HR 105, RR 18, temp 98.7 F, and SpO2 of 90% on 2 L. EKG completed showing sinus tachycardia at 105 bpm with T wave inversion in lateral lead aVL otherwise no significant T wave or ST abnormalities noted. Chest x-ray completed showing possible right upper lobe pulmonary nodule measuring 7.4 mm, recommend outpatient dedicated CT scan for further evaluation/surveillance. CBC unremarkable. Coagulation profile normal findings. BMP showing slightly elevated BUN of 19 otherwise normal findings. Blood glucose 130. Calcium 9.1. Liver profile unremarkable. Troponin elevated at 0.156 and proBNP 10,900. Influenza A was positive. Patient was started on heparin infusion and admitted under our services with consult to cardiology and pulmonology. Troponins trended resulting at 0.156, 0.161, and 0.156. Echocardiogram completed revealing reduced EF of 40% with aneurysmal inferior wall and mild mitral regurgitation. During first night of hospitalization patient's mentation worsened as she was initially a poor historian but alert to person, place and situation patient now alert to self onl y. CT brain was completed negative for acute process. Neurology also consulted for evaluation. During second night of hospitalization patient had large episode of melena, heparin infusion and Plavix was stopped at this time. On 12/18/2024 patient developed an acute kidney injury. Lisinopril and Lasix was held. Nephrology was consulted. Starting patient on gentle IV fluid hydration. Patient continued to have episodes of melena and hemoglobin decreasing from initial 13.5 on admission down to 8.0. Underwent EGD with GI on 12/20 showing duodenal ulcer with no bleeding. Respiratory status has been stable, Confused at times, was transferred to [facility] and now is more confused. On RA 12/29 to 12/30 became more confused and agitated, required speech therapy at bedside, sitter removed 12/30 in the morning. Blood work 01/01 stable. 01/02 patient is stable, encouraged to eat, she is pleasant and not agitated. Spoke with RN, patient does need assistance with feeding Social work working on placement, likely 01/03 if daughter obtained guardianship, court hearing 01/03, Subjective: Patient was seen and examined at bedside, she was alert, able to maintain conversation, denied shortness of breath, abdominal pain, chest pain Pertinent positives and negatives as discussed above, a complete review of systems was performed and all other systems are negative. Vitals Signs Reviewed. General: [nontoxic], [no distress], [appears at stated age] Derm: [warm], [dry] Head: [atraumatic], [normocephalic], [symmetric] Eyes: [EOMI], [no lid lag], [anicteric sclera] Mouth: [no lip lesion], [mucus membranes moist] Cardiovascular: [S1S2 reg], [no murmur] Lungs: [CTA bilateral], [no rhonchi, no rales] , [no accessory muscle use] Abdominal: [soft], [ nontender to palpation], [no guarding], [no appreciable organomegaly] Ext: [no gross muscle atrophy], [no edema], [no contractures] Neuro: [ CN II-XI grossly intact], [no focal neuro deficits] Psych: [Alert], [oriented to self Data Reviewed Today: No new blood work today Assessment and Plan: AFib with RVR: Improved. Metoprolol 25 mg PO BID. No AC due to UGIB. Telemetry monitoring. K > 4 and Mg > 2. Cardiology on board. Hypomagnesemia, hypokalemia: Electrolytes replaced, normalized Delirium: CT brain negative. EEG showing mild encephalopathy. Fall precautions. Window side bed. Frequent re-direction. Avoid sedatives. + Haldol 4 mg oral Q6H PRN, Ativan 0.5 mg PO Q6H PRN. Sitter removed 12/30 AM. Needs assistance with feeding Acute hypoxic respiratory failure multifctorial / Flu A + systolic CHF exacerbation, resolved: Echo shows EF 40%. Completed course of Tamiflu. . Pulmonary and Cardiology on board., Stable respiratory status, pending discharge placement. Discussed with RN. On 3 L nasal cannula, ordered chest x- ray 2-20 DORIS on CKD, resolved: Renal US neg for obstruction. Likely prerenal. Lisinopril and Lasix on hold. Nephrology on board. Acute blood loss anemia 2/2 Upper GI bleed: Duodenal ulcer seen on EGD. Heparin and Plavix on hold. Protonix 40 mg PO QD. GI on board. NSTEMI with h/o CAD with stent placement: ASA 81 mg PO QD. Lipitor 80 mg PO QHS. Metoprolol as below. No invasive workup per Cardiology. Telemetry monitoring. Cardiology on board. Low-normal B12: Cyanocobalamin 1000 mcg PO QD. Pulmonary nodule: Outpatient follow up. Asthma no in acute exacerbation: Singulair 10 mg PO QD. Hypertension: Imdur 30 mg PO QD. Metoprolol 25 mg PO BID. Dyslipidemia: Lipitor as above. needs placement. Pending. CODE STATUS: FULL CODE DVT Prophylaxis: Lovenox. GI Prophylaxis: Protonix Anticipated discharge place: [facility], medically cleared for discharge to 12/28, daughter is obtaining guardianship, court date is Monday Objective - Vital Signs Vital signs: Vital Signs Temp 97.8 F 01/02/25 13:05 Pulse 83 01/02/25 13:05 Resp 20 01/02/25 13:05 BP 103/65 01/02/25 13:05 Pulse Ox 100 01/02/25 13:05 FiO2 Intake & Output 01/01/25 01/02/25 01/02/25 18:59 06:59 18:59 Intake Total 420 Balance 420 Weight 80 kg Intake: Oral 420 Other: Voiding Method Diaper # Voids 2 2 - Labs CBC & Chem 7: 01/01/25 09:48 01/01/25 09:48
[2025-01-02 16:01] VITALS: BMI 34.4
[2025-01-02] MEDS: HYDROcodone/APAP 5-325MG 1 EACH TAB PO ONE (17:36)
--- NOTE | 2025-01-03 11:40 | P.PN ---
Subjective Patient is seen for follow-up for acute kidney injury. Renal function is stable No significant complaints Serum creatinine 1.2 on 01/01/2025 Objective - Vital Signs Vital signs: Vital Signs Temp 98.1 F 01/03/25 01:06 Pulse 105 H 01/03/25 07:34 Resp 19 01/03/25 07:34 BP 160/75 01/03/25 07:34 Pulse Ox 100 01/03/25 01:06 FiO2 Intake & Output 01/02/25 01/03/25 01/03/25 18:59 06:59 18:59 Weight 80 kg 79 kg Other: Voiding Method Diaper Diaper Diaper Incontinent # Voids 3 1 - Exam Patient is awake, confused comfortable, no acute distress. Examination of the heart S1 and S2 Examination of the lungs bilateral breath sounds are heard Abdomen is soft nontender Examination lower extremity shows no significant edema [employer] JUDGE exam grossly intact - Labs CBC & Chem 7: 01/01/25 09:48 01/01/25 09:48 Assessment and Plan Assessment: 1. Acute kidney injury, ATN, oliguric secondary to hypotension. BAO inhibitors on hold. Diuretics on hold as well. Status post IV fluids. UA was completely benign on 12/18/2024. Ultrasound shows no significant obstructive uropathy. 2. GI bleed being followed by GI, status post EGD which showed superficial duodenal ulcer and antral gastritis 3. Influenza A infection maintained on Tamiflu 4. Mental status changes associated with metabolic encephalopathy and underlying dementia 5. Cardiomyopathy with EF of 40% 6. Primary hypertension with blood pressure currently improved. Plan: Encourage increased oral intake Continue off of diuretics and IV fluids. Avoid any nephrotoxic agents. Awaiting placement for discharge.
[2025-01-03 14:25] VITALS: BP 97/57; PULSE 95; RESP 16; TEMP 97.3
--- NOTE | 2025-01-03 15:21 | P.DS ---
Providers Date of admission: 12/16/24 06:28 Expected date of discharge: 01/03/25 Attending physician: Jacinta Bliss MD Consults: 12/16/24 06:28 Consult Physician Routine Consulting Provider: Randa Hardy Consult Reason/Comments: COPD exacerbation Do you want consulting provider notified?: Yes, Notify in am 12/17/24 13:44 Consult Physician Routine Consulting Provider: Stella Velasco Consult Reason/Comments: AMS Do you want consulting provider notified?: Yes 12/17/24 21:56 Consult Physician Routine Consulting Provider: Milli Bates Consult Reason/Comments: melena Do you want consulting provider notified?: Yes 12/18/24 11:49 Consult Physician Routine Consulting Provider: Mirta Bennett Consult Reason/Comments: DORIS, cardiorenal syndrome vs overdiureses Do you want consulting provider notified?: Yes Primary care physician: Inocencio May [facility] Course: Hospital Course: 79-year-old female with a PMH of CAD status post stenting x 3, systolic heart failure, ischemic cardiomyopathy, hypertension, hyperlipidemia, TIA/CVA and osteoarthritis. She presented to the hospital on 12/16/2024 with a chief complaint of shortness of breath. Upon arrival to our facility, patient underwent evaluation in the emergency department. Vital signs upon arrival show BP 137/80, HR 105, RR 18, temp 98.7 F, and SpO2 of 90% on 2 L. EKG completed showing sinus tachycardia at 105 bpm with T wave inversion in lateral lead aVL otherwise no significant T wave or ST abnormalities noted. Chest x-ray completed showing possible right upper lobe pulmonary nodule measuring 7.4 mm, recommend outpatient dedicated CT scan for further evaluation/surveillance. CBC unremarkable. Coagulation profile normal findings. BMP showing slightly elevated BUN of 19 otherwise normal findings. Blood glucose 130. Calcium 9.1. Liver profile unremarkable. Troponin elevated at 0.156 and proBNP 10,900. Influenza A was positive. Patient was started on heparin infusion and admitted under our services with consult to cardiology and pulmonology. Troponins trended resulting at 0.156, 0.161, and 0.156. Echocardiogram completed revealing reduced EF of 40% with aneurysmal inferior wall and mild mitral regurgitation. During first night of hospitalization patient's mentation worsened as she was initially a poor historian but alert to person, place and situation patient now alert to self on ly. CT brain was completed negative for acute process. Neurology also consulted for evaluation. During second night of hospitalization patient had large episode of melena, heparin infusion and Plavix was stopped at this time. On 12/18/2024 patient developed an acute kidney injury. Lisinopril and Lasix was held. Nephrology was consulted. Starting patient on gentle IV fluid hydration. Patient continued to have episodes of melena and hemoglobin decreasing from initial 13.5 on admission down to 8.0. Underwent EGD with GI on 12/20 showing duodenal ulcer with no bleeding. Respiratory status has been stable, Confused at times, was transferred to [facility] and now is more confused. On RA 12/29 to 12/30 became more confused and agitated, required speech therapy at bedside, sitter removed 12/30 in the morning. Blood work 01/01 stable. 01/02 patient is stable, encouraged to eat, she is pleasant and not agitated. Spoke with RN, patient does need assistance with feeding Social work working on placement, and on 01/03 daughter obtained guardianship, via court and authorized transfer to SNF, Subjective: Patient was seen and examined at bedside, she was alert, able to maintain conve rsation, denied shortness of breath, abdominal pain, chest pain Pertinent positives and negatives as discussed above, a complete review of systems was performed and all other systems are negative. Vitals Signs Reviewed. General: [nontoxic], [no distress], [appears at stated age] Derm: [warm], [dry] Head: [atraumatic], [normocephalic], [symmetric] Eyes: [EOMI], [no lid lag], [anicteric sclera] Mouth: [no lip lesion], [mucus membranes moist] Cardiovascular: [S1S2 reg], [no murmur] Lungs: [CTA bilateral], [no rhonchi, no rales] , [no accessory muscle use] Abdominal: [soft], [ nontender to palpation], [no guarding], [no appreciable organomegaly] Ext: [no gross muscle atrophy], [no edema], [no contractures] Neuro: [ CN II-XI grossly intact], [no focal neuro deficits] Psych: [Alert], [oriented to self Data Reviewed Today: No new blood work today Assessment and Plan: AFib with RVR: Improved. Metoprolol 25 mg PO BID. No AC due to UGIB. Telemetry monitoring. K > 4 and Mg > 2. Cardiology on board. Hypomagnesemia, hypokalemia: Electrolytes replaced, normalized Delirium: CT brain negative. EEG showing mild encephalopathy. Fall precautions. Window side bed. Frequent re-direction. Avoid sedatives. + Haldol 4 mg oral Q6H PRN, Ativan 0.5 mg PO Q6H PRN. Sitter removed 12/30 AM. Needs assistance with feeding Acute hypoxic respiratory failure multifctorial 2/2 Flu A + systolic CHF exa cerbation, resolved: Echo shows EF 40%. Completed course of Tamiflu. . Pulmonary and Cardiology on board., Stable respiratory status, pending discharge placement. Discussed with RN. On 3 L nasal cannula, ordered chest x-ray 2-20 DORIS on CKD, resolved: Renal US neg for obstruction. Likely prerenal. Lisinopril and Lasix on hold. Nephrology on board. Acute blood loss anemia 2/2 Upper GI bleed: Duodenal ulcer seen on EGD. Heparin and Plavix on hold. Protonix 40 mg PO QD. GI on board. NSTEMI with h/o CAD with stent placement: ASA 81 mg PO QD. Lipitor 80 mg PO QHS. Metoprolol as below. No invasive workup per Cardiology. Telemetry monitoring. Cardiology on board. Low-normal B12: Cyanocobalamin 1000 mcg PO QD. Pulmonary nodule: Outpatient follow up. Asthma no in acute exacerbation: Singulair 10 mg PO QD. Hypertension: Imdur 30 mg PO QD. Metoprolol 25 mg PO BID. Dyslipidemia: Lipitor as above. needs placement. Pending. CODE STATUS: FULL CODE DVT Prophylaxis: Lovenox. GI Prophylaxis: Protonix Anticipated discharge place: [facility], medically cleared for discharge to 12/28, daughter is obtaining guardianship, court date is Monday Patient Condition at Discharge: Good Plan - Discharge Summary Discharge Rx Participant: Yes New Discharge Prescriptions: New Pantoprazole [Protonix] 40 mg PO AC-BRKFST tab Ondansetron [Zofran] 4 mg PO Q12HR PRN tab PRN Reason: Nausea And Vomiting Aspirin 81 mg PO DAILY tab Sodium Chloride 0.65% Nasal [Deep Sea (Saline)] 2 spray NASAL QID PRN ml PRN Reason: Dry Nasal Passages Metoprolol Tartrate [Lopressor] 25 mg PO BID tab Megestrol [Megace] 400 mg PO DAILY ml Nystatin 100,000 Unit/gm Powd [Mycostatin Powder] 1 applic TOPICAL BID each Acetaminophen Tab [Tylenol] 650 mg PO Q6HR PRN tab PRN Reason: Fever And/ Or Pain Albuterol Nebulized [Ventolin Nebulized] 2.5 mg INHALATION Q4H PRN ml PRN Reason: sob Cyanocobalamin [Vitamin B-12] 1,000 mcg PO DAILY tab Continue Montelukast [Singulair] 10 mg PO HS Ezetimibe [Zetia] 10 mg PO HS Atorvastatin [Lipitor] 80 mg PO HS #30 tab Isosorbide Dinitrate 30 mg PO DAILY Discontinued lisinopriL [Prinivil] 10 mg PO HS NIFEdipine [Adalat CC] 30 mg PO HS Furosemide [Lasix] 20 mg PO DAILY Clopidogrel [Plavix] 75 mg PO DAILY #30 tablet Mirabegron [Myrbetriq] 50 mg PO DAILY Discharge Medication List Montelukast [Singulair] 10 mg PO HS 04/06/16 [History] Ezetimibe [Zetia] 10 mg PO HS 06/13/22 [History] Atorvastatin [Lipitor] 80 mg PO HS #30 tab 06/14/22 [Rx] Isosorbide Dinitrate 30 mg PO DAILY 02/13/23 [History] Acetaminophen Tab [Tylenol] 650 mg PO Q6HR PRN tab 01/03/25 [Rx] Albuterol Nebulized [Ventolin Nebulized] 2.5 mg INHALATION Q4H PRN ml 01/03/25 [Rx] Aspirin 81 mg PO DAILY tab 01/03/25 [Rx] Cyanocobalamin [Vitamin B-12] 1,000 mcg PO DAILY tab 01/03/25 [Rx] Megestrol [Megace] 400 mg PO DAILY ml 01/03/25 [Rx] Metoprolol Tartrate [Lopressor] 25 mg PO BID tab 01/03/25 [Rx] Nystatin 100,000 Unit/gm Powd [Mycostatin Powder] 1 applic TOPICAL BID each 01/03/25 [Rx] Ondansetron [Zofran] 4 mg PO Q12HR PRN tab 01/03/25 [Rx] Pantoprazole [Protonix] 40 mg PO AC-BRKFST tab 01/03/25 [Rx] Sodium Chloride 0.65% Nasal [Deep Sea (Saline)] 2 spray NASAL QID PRN ml 01/03/25 [Rx] Follow up Appointment(s)/Referral(s): Mirta Bennett MD [STAFF PHYSICIAN] - 1 Week (Office is not answering at time of discharge. Please call for follow-up appointment.) Inocencio May MD [Primary Care Provider] - 1-2 days (Please call for follow-up appointment.) Activity/Diet/Wound Care/Special Instructions: A lung nodule was noted on your chest XR today. You will need to follow up with your primary care provider for a chest CT within the next 3 to 6 months. Discharge Disposition: TRANSFER TO SNF/ECF
== END 2025-01-03 17:52 | DRG 280 ==
LOC: EC 03:12 → 3SCARD 06:28 → 4SSUR 12-20 23:12 → 2SICU 12-23 04:12 → 3SCARD 12-24 14:30 → 4SSUR 12-29 06:29
PROVIDERS: ADMIT Internal Medicine; ATTEND Internal Medicine
PROC: 4A10X4Z Monitoring of Central Nervous Electrical Activity, External Approach (ICD-10-PCS; 2024-12-18)
PROC: 05HD33Z Insertion of Infusion Device into Right Cephalic Vein, Percutaneous Approach (ICD-10-PCS; 2024-12-19)
PROC: 0DB78ZX Excision of Stomach, Pylorus, Via Natural or Artificial Opening Endoscopic, Diagnostic (ICD-10-PCS; principal; 2024-12-20 07:30)
PROC: 05HF33Z Insertion of Infusion Device into Left Cephalic Vein, Percutaneous Approach (ICD-10-PCS; 2024-12-23)
DX: I13.0 Hypertensive heart and chronic kidney disease with heart failure and stage 1 through stage 4 chronic kidney disease, or unspecified chronic kidney disease (principal); G93.41 Metabolic encephalopathy; I21.A1 Myocardial infarction type 2; I50.23 Acute on chronic systolic (congestive) heart failure; N17.0 Acute kidney failure with tubular necrosis; J96.01 Acute respiratory failure with hypoxia; K25.4 Chronic or unspecified gastric ulcer with hemorrhage; F05 Delirium due to known physiological condition; E87.0 Hyperosmolality and hypernatremia; D62 Acute posthemorrhagic anemia; R34 Anuria and oliguria; J44.1 Chronic obstructive pulmonary disease with (acute) exacerbation; F03.90 Unspecified dementia, unspecified severity, without behavioral disturbance, psychotic disturbance, mood disturbance, and anxiety; Z68.31 Body mass index [BMI] 31.0-31.9, adult; I34.1 Nonrheumatic mitral (valve) prolapse; N18.9 Chronic kidney disease, unspecified; I65.21 Occlusion and stenosis of right carotid artery; N17.9 Acute kidney failure, unspecified; I48.91 Unspecified atrial fibrillation; Z11.52 Encounter for screening for COVID-19; E78.5 Hyperlipidemia, unspecified; I25.5 Ischemic cardiomyopathy; J10.1 Influenza due to other identified influenza virus with other respiratory manifestations; I25.2 Old myocardial infarction; M19.90 Unspecified osteoarthritis, unspecified site; E66.9 Obesity, unspecified; Z87.891 Personal history of nicotine dependence; I95.9 Hypotension, unspecified; I34.0 Nonrheumatic mitral (valve) insufficiency; J45.20 Mild intermittent asthma, uncomplicated; E61.1 Iron deficiency; Z79.899 Other long term (current) drug therapy; E83.42 Hypomagnesemia; E87.6 Hypokalemia; I25.10 Atherosclerotic heart disease of native coronary artery without angina pectoris; I45.10 Unspecified right bundle-branch block; N26.1 Atrophy of kidney (terminal); Z79.02 Long term (current) use of antithrombotics/antiplatelets; Z79.82 Long term (current) use of aspirin; Z86.73 Personal history of transient ischemic attack (TIA), and cerebral infarction without residual deficits; Z95.5 Presence of coronary angioplasty implant and graft; Z90.710 Acquired absence of both cervix and uterus; Z96.641 Presence of right artificial hip joint; K25.9 Gastric ulcer, unspecified as acute or chronic, without hemorrhage or perforation; R00.0 Tachycardia, unspecified; I07.1 Rheumatic tricuspid insufficiency
CPT/HCPCS: 36410; 36415; 43239; 51798; 70450; 71045; 71046; 76770; 76937; 80048; 80053; 81003; 82272; 82607; 82728; 82746; 83540; 83550; 83735; 83880; 84145; 84295; 84439; 84443; 84484; 85025; 85027; 85610; 85730; 87636; 88305; 93005; 93306; 94640; 94760; 95819; 96365; 96366; 96375; 96376; 99285

== ENCOUNTER 2025-01-30 15:51 | Emergency (ER) | payer MEDICARE, OTHER ==
[2025-01-30 16:05] VITALS: TEMP 98.5
--- NOTE | 2025-01-30 16:48 | ED ---
Weakness HPI - General Chief complaint: Upper Respiratory Infection Stated complaint: Pneumonia Time Seen by Provider: 01/30/25 15:55 Source: patient, RN notes reviewed, old records reviewed Mode of arrival: EMS Limitations: no limitations - History of Present Illness Initial comments: This is a 79-year-old female to the ER for evaluation [facility] [place] evaluation regards to weakness supposedly patient is a poor historian secondary to underlying dementia MD Complaint: generalized weakness -: days(s) Location: generalized Severity: moderate Severity scale (1-10): 5 Consistency: constant Improves with: none Worsens with: none Context: recent illness, history of similar Associated Symptoms: denies other symptoms - Related Data Home Medications Medication Instructions Recorded Confirmed Montelukast [Singulair] 10 mg PO HS 04/06/16 01/30/25 Ezetimibe [Zetia] 10 mg PO HS 06/13/22 01/30/25 Isosorbide Dinitrate 30 mg PO DAILY 02/13/23 01/30/25 Albuterol Nebulized [Ventolin 2.5 mg INHALATION DIRECTED PRN 01/30/25 01/30/25 Nebulized] Azithromycin [Zithromax] 500 mg PO DAILY 01/30/25 01/30/25 Omeprazole 20 mg PO DIRECTED 01/30/25 01/30/25 Ondansetron Odt [Zofran Odt] 4 mg PO Q12HR PRN 01/30/25 01/30/25 Previous Rx's Medication Instructions Recorded Atorvastatin [Lipitor] 80 mg PO HS #30 tab 06/14/22 Acetaminophen Tab [Tylenol] 650 mg PO Q6HR PRN tab 01/03/25 Aspirin 81 mg PO DAILY tab 01/03/25 Cyanocobalamin [Vitamin B-12] 1,000 mcg PO DAILY tab 01/03/25 Metoprolol Tartrate [Lopressor] 25 mg PO BID tab 01/03/25 Allergies Allergy/AdvReac Type Severity Reaction Status Date / Time nickel Allergy Rash/Hives Verified 01/30/25 18:31 topiramate [From Topamax] AdvReac trouble Verified 01/30/25 18:31 swallowing Review of Systems ROS Statement: Those systems with pertinent positive or pertinent negative responses have been documented in the HPI. ROS Other: All systems not noted in ROS Statement are negative. Past Medical History Past Medical History: Asthma, Hyperlipidemia, Hypertension, Myocardial Infarction ([place]), Mitral Valve Prolapse (MVP), Osteoarthritis (OA) Additional Past Medical History / Comment(s): ?MVP-told [place] ago out of [place] but has never had tx. for, cataracts bilaterally, recent adm[facility] for [facility]IA-sx[facility]s resolved Last Myocardial Infarction Date:: 2001 History of Any Multi-Drug Resistant Organisms: None Reported Past Surgical History: Appendectomy, Heart Catheterization With Stent, Hysterectomy, Joint Replacement, Tonsillectomy Additional Past Surgical History / Comment(s): 04/18/16 Total R hip arthroplasty anterior approach. Other surgical hx: colonoscopy Past Anesthesia/Blood Transfusion Reactions: No Reported Reaction, Motion Sickness Additional Past Anesthesia/Blood Transfusion Reaction / Comment(s): "I have been told I fight going to sleep",no problems w/ prior blood transfusion Date of Last Stent Placement:: 2001 Past Psychological History: No Psychological Hx Reported Smoking Status: Former smoker Past Alcohol Use History: None Reported Past Drug Use History: None Reported - Past Family History Mother Family Medical History: No Reported History Additional Family Medical History / Comment(s): Mother was healthy as far as pt knows. She in her 70's Father Family Medical History: Hyperlipidemia General Exam Limitations: no limitations General appearance: alert, in no apparent distress Head exam: Present: atraumatic, normocephalic, normal inspection Eye exam: Present: normal appearance, PERRL, EOMI. Absent: scleral icterus, conjunctival injection, periorbital swelling ENT exam: Present: normal exam, mucous membranes moist Neck exam: Present: normal inspection. Absent: tenderness, meningismus, lymphadenopathy Respiratory exam: Present: normal lung sounds bilaterally. Absent: respiratory distress, wheezes, rales, rhonchi, stridor Cardiovascular Exam: Present: regular rate, normal rhythm, normal heart sounds. Absent: systolic murmur, diastolic murmur, rubs, gallop, clicks GI/Abdominal exam: Present: soft, normal bowel sounds. Absent: distended, tenderness, guarding, rebound, rigid Extremities exam: Present: normal inspection, full ROM, normal capillary refill. Absent: tenderness, pedal edema, joint swelling, calf tenderness Back exam: Present: normal inspection Neurological exam: Present: alert, oriented X3, CN II-XII intact Psychiatric exam: Present: normal affect, normal mood Skin exam: Present: warm, dry, intact, normal color. Absent: rash Course Vital Signs 01/30/25 01/30/25 01/30/25 16:00 18:05 18:47 Temperature 98.5 F Pulse Rate 73 78 76 Respiratory 16 18 Rate Blood Pressure 147/77 O2 Sat by Pulse 95 95 Oximetry 01/30/25 18:54 Temperature Pulse Rate 72 Respiratory Rate Blood Pressure O2 Sat by Pulse Oximetry - Reevaluation(s) Reevaluation #1: 01/30/25 20:18 Medical records reviewed Reevaluation #2: 01/30/25 20:18 Patient symptoms unchanged Reevaluation #3: 01/30/25 20:19 Patient informed of results and questions answered Reevaluation #4: Was pt. sent in by a medical professional or institution (SHAISTA Ryan, DIRECTOR OF SOLUTIONS ARCHITECTURE, urgent care, hospital, or residential...) When possible be specific @ -no Did you speak to anyone other than the patient for history (EMS, parent, family, police, friend...)? What history was obtained from this source @ -no Did you review nursing and triage notes (agree or disagree)? Why? @ -agree Are old charts reviewed (outside hosp., previous admission, EMS record, old EKG, old radiological studies, urgent care reports/EKG's, residential records)? Report findings @ -yes Differential Diagnosis (chest pain, altered mental status, abdominal pain women, abdominal pain men, vaginal bleeding, weakness, fever, dyspnea, syncope, headache, dizziness, GI bleed, back pain, seizure, CVA, palpatations, mental health, musculoskeletal)? @ -prior EKG interpreted by me (3pts min.). @ -yes X-rays interpreted by me (1pt min.). @ -yes negative for acute disease CT interpreted by me (1pt min.). @ -no U/S interpreted by me (1pt. min.). @ -no What testing was considered but not performed or refused? (CT, X-rays, U/S, labs)? Why? @ -none What meds were considered but not given or refused? Why? @ -none Did you discuss the management of the patient with other professionals (professionals i.e. , SHAISTA, DIRECTOR OF SOLUTIONS ARCHITECTURE, lab, RT, psych nurse, social media marketing analyst, beauty operator apprentice, teacher, staff air tactical officer, rn field case manager)? Give summary @ -no Was smoking cessation discussed for >3mins.? @ -no Was critical care preformed (if so, how long)? @ -no Were there social determinants of health that impacted care today? How? (Homelessness, low income, unemployed, alcoholism, drug addiction, transportation, low edu. Level, literacy, decrease access to med. care, [facility], rehab)? @ -none Was there de-escalation of care discussed even if they declined (Discuss DNR or withdrawal of care, Hospice)? DNR status @ -no What co-morbidities impacted this encounter? (DM, HTN, Smoking, COPD, CAD, Cancer, CVA, ARF, Chemo, Hep., AIDS, mental health diagnosis, sleep apnea, morbid obesity)? @ -none Was patient admitted / discharged? Hospital course, mention meds given and route, prescriptions, significant lab abnormalities, going to OR and other pertinent info. @ - Undiagnosed new problem with uncertain prognosis? @ -no Drug Therapy requiring intensive monitoring for toxicity (Heparin, Nitro, Insulin, Cardizem)? @ -no Were any procedures done? @ -no Diagnosis/symptom? @ - Acute, or Chronic, or Acute on Chronic? @ -Acute Uncomplicated (without systemic symptoms) or Complicated (systemic symptoms)? @ -Complicated Side effects of treatment? @ -no Exacerbation, Progression, or Severe Exacerbation? @ -exacerbation Poses a threat to life or bodily function? How? (Chest pain, [place], [place], pneumonia, PE, COPD, DKA, ARF, appy, cholecystitis, CVA, Diverticulitis, Homicidal, Suicidal, threat to staff... and all critical care pts) @ -yes Reevaluation #5: Differential Weakness: Hypoglycemia, shock, sepsis, hyponatremia, anemia, infection, [place], ETOH, adverse medicine reaction, overdose, stroke, this is not meant to be an all-inclusive list. Differential Altered Mental Status: Hypoglycemia, DKA, hypercapnia, ETOH, overdose, CO poisoning, trauma, myxedema coma, HTN encephalopathy, infection, encephalitis, psychosis, intercranial hemorrhage, hepatic encephalopathy, meningitis, CVA, this is not meant to be an all-inclusive list EKG Findings - EKG Comments: EKG Findings:: EKG is sinus 76 WI 150 QRS 117 QTc 436 - EKG Results: EKG: interpreted by FARHANA Medical Decision Making - Medical Decision Making 79 female to ER without complaints but presents by EMS, patient has severe dementia unable to provide history history was attempted to be obtained from EMS as well as prior charting she is in no distress here in the ER not throughout ER stay and wants discharged home patient will be discharged - Lab Data Result diagrams: 01/30/25 18:03 01/30/25 18:03 Lab Results 01/30/25 01/30/25 01/30/25 Range/Units 17:55 18:03 18:03 WBC 9.4 (3.8-10.6) k/uL RBC 4.08 (3.80-5.40) m/uL Hgb 11.6 D (11.4-16.0) gm/dL Hct 38.9 (34.0-46.0) % MCV 95.3 (80.0-100.0) fL MCH 28.4 (25.0-35.0) pg MCHC 29.8 L (31.0-37.0) g/dL RDW 14.8 (11.5-15.5) % Plt Count 247 (150-450) k/uL MPV 9.0 Neutrophils % 78 % Lymphocytes % 17 % Monocytes % 4 % Eosinophils % 0 % Basophils % 0 % Neutrophils # 7.3 (1.3-7.7) k/uL Lymphocytes # 1.6 (1.0-4.8) k/uL Monocytes # 0.4 (0-1.0) k/uL Eosinophils # 0.0 (0-0.7) k/uL Basophils # 0.0 (0-0.2) k/uL Hypochromasia Slight PT 11.0 (10.0-12.5) sec INR 1.0 (<1.2) APTT 21.1 L (22.0-30.0) sec Sodium (137-145) mmol/L Potassium (3.5-5.1) mmol/L Chloride (98-107) mmol/L Carbon Dioxide (22-30) mmol/L Anion Gap mmol/L BUN (7-17) mg/dL Creatinine (0.52-1.04) mg/dL Est GFR (CKD-EPI)AfAm (>60 ml/min/1.73 sqM) Est GFR (CKD-EPI)NonAf (>60 ml/min/1.73 sqM) Glucose (74-99) mg/dL Plasma Lactic Acid Cedric (0.7-2.0) mmol/L Calcium (8.4-10.2) mg/dL Phosphorus (2.5-4.5) mg/dL Magnesium (1.6-2.3) mg/dL Total Bilirubin (0.2-1.3) mg/dL AST (14-36) U/L ALT (4-34) U/L Alkaline Phosphatase (38-126) U/L Troponin I (0.000-0.034) ng/mL NT-Pro-B Natriuret Pep pg/mL Total Protein (6.3-8.2) g/dL Albumin (3.5-5.0) g/dL TSH (0.465-4.680) mIU/L Influenza Type A (PCR) Not Detected (Not Detectd) Influenza Type B (PCR) Not Detected (Not Detectd) RSV (PCR) Not Detected (Not Detectd) SARS-CoV-2 (PCR) Not Detected (Not Detectd) 01/30/25 01/30/25 01/30/25 Range/Units 18:03 18:03 18:03 WBC (3.8-10.6) k/uL RBC (3.80-5.40) m/uL Hgb (11.4-16.0) gm/dL Hct (34.0-46.0) % MCV (80.0-100.0) fL MCH (25.0-35.0) pg MCHC (31.0-37.0) g/dL RDW (11.5-15.5) % Plt Count (150-450) k/uL MPV Neutrophils % % Lymphocytes % % Monocytes % % Eosinophils % % Basophils % % Neutrophils # (1.3-7.7) k/uL Lymphocytes # (1.0-4.8) k/uL Monocytes # (0-1.0) k/uL Eosinophils # (0-0.7) k/uL Basophils # (0-0.2) k/uL Hypochromasia PT (10.0-12.5) sec INR (<1.2) APTT (22.0-30.0) sec Sodium 141 (137-145) mmol/L Potassium 3.7 (3.5-5.1) mmol/L Chloride 109 H (98-107) mmol/L Carbon Dioxide 25 (22-30) mmol/L Anion Gap 7 mmol/L BUN 22 H (7-17) mg/dL Creatinine 1.06 H (0.52-1.04) mg/dL Est GFR (CKD-EPI)AfAm 58 (>60 ml/min/1.73 sqM) Est GFR (CKD-EPI)NonAf 50 (>60 ml/min/1.73 sqM) Glucose 86 (74-99) mg/dL Plasma Lactic Acid Cedric 1.0 (0.7-2.0) mmol/L Calcium 8.9 (8.4-10.2) mg/dL Phosphorus 3.0 (2.5-4.5) mg/dL Magnesium 1.6 (1.6-2.3) mg/dL Total Bilirubin 0.5 (0.2-1.3) mg/dL AST 23 (14-36) U/L ALT 13 (4-34) U/L Alkaline Phosphatase 76 (38-126) U/L Troponin I 0.051 H* (0.000-0.034) ng/mL NT-Pro-B Natriuret Pep 4780 pg/mL Total Protein 6.2 L (6.3-8.2) g/dL Albumin 3.6 (3.5-5.0) g/dL TSH 0.804 (0.465-4.680) mIU/L Influenza Type A (PCR) (Not Detectd) Influenza Type B (PCR) (Not Detectd) RSV (PCR) (Not Detectd) SARS-CoV-2 (PCR) (Not Detectd) - Radiology Data Radiology results: report reviewed (Chest x-ray is negative for acute disease), image reviewed Disposition Clinical Impression: Weakness Disposition: HOME SELF-CARE Condition: Good Instructions (If sedation given, give patient instructions): Weakness (ED) Is patient prescribed a controlled substance at d/c from ED?: No Referrals: Inocencio May MD [Primary Care Provider] - 1-2 days Time of Disposition: 20:00
--- NOTE | 2025-01-30 17:24 | XR ---
EXAMINATION TYPE: XR chest 1V portable DATE OF EXAM: 01/30/2025 5:19 PM COMPARISON: 01/02/2025 CLINICAL INDICATION: Female, 79 years old with history of sob, TECHNIQUE: XR chest 1V portable views of the chest are obtained. FINDINGS: Demonstrated are scattered senescent parenchymal change. There is no evidence for focal infiltrate. The heart is stable. Hilar and mediastinal structures are within normal limits. Degenerative changes are seen of the dorsal spine. IMPRESSION: 1. Chronic changes without evidence for acute pulmonary disease. [facility], , 01/30/2025 5:22 PM
[2025-01-30] MEDS: SODIUM CHLORIDE 0.9% 1,000 ML IV ONE (17:52)
[2025-01-30 18:27] LABS: Basophils % (A) 0 %; Eosinophils % (A) 0 %; HCT 38.9 % (34.0-46.0); Hypochromasia Slight; Lymphocytes # (A) 1.6 k/uL (1.0-4.8); Lymphocytes % (A) 17 %; MCH 28.4 pg (25.0-35.0); MCHC 29.8 g/dL (31.0-37.0); MCV 95.3 fL (80.0-100.0); Monocytes # (A) 0.4 k/uL (0-1.0); Monocytes % (A) 4 %; Neutrophils # (A) 7.3 k/uL (1.3-7.7); Neutrophils % (A) 78 %; Platelet Count 247 k/uL (150-450); RBC 4.08 m/uL (3.80-5.40); RDW 14.8 % (11.5-15.5); WBC 9.4 k/uL (3.8-10.6)
[2025-01-30 18:28] LABS: ALT 13 U/L (4-34); AST 23 U/L (14-36); African American GFR (CKD) 58 (>60 ml/min/1.73 sqM); Albumin 3.6 g/dL (3.5-5.0); Alkaline Phosphatase 76 U/L (38-126); Anion Gap 7 mmol/L; Blood Urea Nitrogen 22 mg/dL (7-17); Calcium 8.9 mg/dL (8.4-10.2); Carbon Dioxide 25 mmol/L (22-30); Chloride 109 mmol/L (98-107); Glucose 86 mg/dL (74-99); Magnesium 1.6 mg/dL (1.6-2.3); Non-African American GFR(CKD) 50 (>60 ml/min/1.73 sqM); Potassium 3.7 mmol/L (3.5-5.1); Sodium 141 mmol/L (137-145); Total Bilirubin 0.5 mg/dL (0.2-1.3); Total Protein 6.2 g/dL (6.3-8.2)
[2025-01-30 18:32] LABS: HGB 11.6 gm/dL (11.4-16.0)
[2025-01-30 18:36] LABS: Influenza A Not Detected (Not Detectd); Influenza B Not Detected (Not Detectd); RSV Not Detected (Not Detectd)
[2025-01-30 18:36] LABS: NT-Pro-B-Type Natriuretic Pept 4780 pg/mL
[2025-01-30] MEDS: IPRATROPIUM-ALBUTEROL 3 ML NEB INHALATION STA (18:47)
[2025-01-30 18:51] LABS: Partial Thromboplastin Time 21.1 sec (22.0-30.0)
[2025-01-30 21:02] VITALS: BP 151/82; PULSE 88; RESP 19
== END 2025-01-30 21:02 | disposition home or self-care (01) ==
LOC: EC 15:51
DX: R53.1 Weakness (principal); Z88.8 Allergy status to other drugs, medicaments and biological substances; Z87.891 Personal history of nicotine dependence
CPT/HCPCS: 36415; 71045; 80053; 83605; 83735; 83880; 84100; 84443; 84484; 85025; 85610; 85730; 87636; 93005; 94640

== ENCOUNTER 2025-02-22 01:53 | Emergency (ER) | payer MEDICARE, OTHER ==
--- NOTE | 2025-02-22 03:43 | ED ---
General Adult HPI - General Chief complaint: Fall Stated complaint: Fall Time Seen by Provider: 02/22/25 02:00 Source: patient, EMS, RN notes reviewed Mode of arrival: EMS Limitations: altered mental status - History of Present Illness Initial comments: 79-year-old female presents to the emergency department for evaluation of fall from her bed. The patient has a history of dementia and somewhat recalls the event although she is a poor historian. The patient's granddaughter heard the patient fall from the other room and went into her room and found her on the ground next to her bed. The patient states that she hit her head but "not hard "patient reports pain in her knees when she is walking since the event. She is on aspirin but no other blood thinners. - Related Data Home Medications Medication Instructions Recorded Confirmed Montelukast [Singulair] 10 mg PO HS 04/06/16 01/30/25 Ezetimibe [Zetia] 10 mg PO HS 06/13/22 01/30/25 Isosorbide Dinitrate 30 mg PO DAILY 02/13/23 01/30/25 Albuterol Nebulized [Ventolin 2.5 mg INHALATION DIRECTED PRN 01/30/25 01/30/25 Nebulized] Azithromycin [Zithromax] 500 mg PO DAILY 01/30/25 01/30/25 Omeprazole 20 mg PO DIRECTED 01/30/25 01/30/25 Ondansetron Odt [Zofran Odt] 4 mg PO Q12HR PRN 01/30/25 01/30/25 Previous Rx's Medication Instructions Recorded Atorvastatin [Lipitor] 80 mg PO HS #30 tab 06/14/22 Acetaminophen Tab [Tylenol] 650 mg PO Q6HR PRN tab 01/03/25 Aspirin 81 mg PO DAILY tab 01/03/25 Cyanocobalamin [Vitamin B-12] 1,000 mcg PO DAILY tab 01/03/25 Metoprolol Tartrate [Lopressor] 25 mg PO BID tab 01/03/25 Albuterol Nebulized [Ventolin 2.5 mg INHALATION Q4H PRN #25 each 01/30/25 Nebulized] Allergies Allergy/AdvReac Type Severity Reaction Status Date / Time nickel Allergy Rash/Hives Verified 02/22/25 01:59 topiramate [From Topamax] AdvReac trouble Verified 02/22/25 01:59 swallowing Review of Systems ROS Statement: Those systems with pertinent positive or pertinent negative responses have been documented in the HPI. ROS Other: All systems not noted in ROS Statement are negative. Past Medical History Past Medical History: Asthma, Hyperlipidemia, Hypertension, Myocardial Infarction ([place]), Mitral Valve Prolapse (MVP), Osteoarthritis (OA) Additional Past Medical History / Comment(s): ?MVP-told yrs. ago out of [place] but has never had tx. for, cataracts bilaterally, recent adm[facility] for [facility]-sx[facility]s resolved Last Myocardial Infarction Date:: 2001 History of Any Multi-Drug Resistant Organisms: None Reported Past Surgical History: Appendectomy, Heart Catheterization With Stent, Hysterectomy, Joint Replacement, Tonsillectomy Additional Past Surgical History / Comment(s): 04/18/16 Total R hip arthroplasty anterior approach. Other surgical hx: colonoscopy Past Anesthesia/Blood Transfusion Reactions: No Reported Reaction, Motion Sickness Additional Past Anesthesia/Blood Transfusion Reaction / Comment(s): "I have been told I fight going to sleep",no problems w/ prior blood transfusion Date of Last Stent Placement:: 2001 Past Psychological History: No Psychological Hx Reported Smoking Status: Former smoker Past Alcohol Use History: None Reported Past Drug Use History: None Reported - Past Family History Mother Family Medical History: No Reported History Additional Family Medical History / Comment(s): Mother was healthy as far as pt knows. She in her 70's Father Family Medical History: Hyperlipidemia General Exam Limitations: no limitations General appearance: alert, in no apparent distress Head exam: Present: atraumatic, normocephalic, normal inspection Eye exam: Present: normal appearance, PERRL, EOMI. Absent: scleral icterus, conjunctival injection, periorbital swelling ENT exam: Present: normal exam, mucous membranes moist Neck exam: Present: normal inspection. Absent: tenderness, meningismus, lymphadenopathy Respiratory exam: Present: normal lung sounds bilaterally. Absent: respiratory distress, wheezes, rales, rhonchi, stridor Cardiovascular Exam: Present: regular rate, normal rhythm, normal heart sounds. Absent: systolic murmur, diastolic murmur, rubs, gallop, clicks GI/Abdominal exam: Present: soft. Absent: distended, tenderness, guarding, rebound, rigid Extremities exam: Present: full ROM, tenderness, normal capillary refill. Absent: pedal edema, joint swelling, calf tenderness Back exam: Present: normal inspection Neurological exam: Present: alert, oriented X3 Psychiatric exam: Present: normal affect, normal mood Skin exam: Present: warm, dry, intact, normal color. Absent: rash Course Vital Signs 02/22/25 01:54 Temperature 98.9 F Pulse Rate 80 Respiratory 18 Rate O2 Sat by Pulse 96 Oximetry Medical Decision Making - Medical Decision Making Was pt. sent in by a medical professional or institution (, SHAISTA, PRODUCTION CELL LEADER, urgent care, hospital, or custodial...) When possible be specific @ -[No] Did you speak to anyone other than the patient for history (EMS, parent, family, police, friend...)? What history was obtained from this source @ -[No] Did you review nursing and triage notes (agree or disagree)? Why? @ -[I reviewed and agree with nursing and triage notes] Were old charts reviewed (outside hosp., previous admission, EMS record, old EKG, old radiological studies, urgent care reports/EKG's, custodial records)? Report findings @ -[No old charts were reviewed] Differential Diagnosis (chest pain, altered mental status, abdominal pain women, abdominal pain men, vaginal bleeding, weakness, fever, dyspnea, syncope, headache, dizziness, GI bleed, back pain, seizure, CVA, palpatations, mental health, musculoskeletal)? @ -[Differential Musculoskeletal Muscular strain, contusion, ligament sprain, fracture, arthritis, septic arthritis, bursitis, cellulitis, muscle spasm, nerve compression, DVT, arterial occlusion, herpes zoster, electrolyte abnormality, tumor.... This is not meant to be in all inclusive list] EKG interpreted by me (3pts min.). @ -None X-rays interpreted by me (1pt min.). @ -[None done] CT interpreted by me (1pt min.). @ -[None done] U/S interpreted by me (1pt. min.). @ -[None done] What testing was considered but not performed or refused? (CT, X-rays, U/S, labs)? Why? @ -[None] What meds were considered but not given or refused? Why? @ -[None] Did you discuss the management of the patient with other professionals (professionals i.e. , PA, PRODUCTION CELL LEADER, lab, RT, psych nurse, social sciences lecturer, verification rep, teacher, corporate ethics officer, adult protective caseworker)? Give summary @ -[No] Was smoking cessation discussed for >3mins.? @ -[No] Was critical care preformed (if so, how long)? @ -[No] Were there social determinants of health that impacted care today? How? (Homelessness, low income, unemployed, alcoholism, drug addiction, transportation, low edu. Level, literacy, decrease access to med. care, [place] [facility], rehab)? @ -[No] Was there de-escalation of care discussed even if they declined (Discuss DNR or withdrawal of care, Hospice)? DNR status @ -[No] What co-morbidities impacted this encounter? (DM, HTN, Smoking, COPD, CAD, Cancer, CVA, ARF, Chemo, Hep., AIDS, mental health diagnosis, sleep apnea, morbid obesity)? @ -[None] Was patient admitted / discharged? Hospital course, mention meds given and route, prescriptions, significant lab abnormalities, going to OR and other pertinent info. @ -[hospital course] Undiagnosed new problem with uncertain prognosis? @ -[No] Drug Therapy requiring intensive monitoring for toxicity (Heparin, Nitro, Insulin, Cardizem)? @ -[No] Were any procedures done? @ -[No] Diagnosis/symptom? @ -[default] Acute, or Chronic, or Acute on Chronic? @ -[default] Uncomplicated (without systemic symptoms) or Complicated (systemic symptoms)? @ -[default] Side effects of treatment? @ -[No] Exacerbation, Progression, or Severe Exacerbation? @ -[No] Poses a threat to life or bodily function? How? (Chest pain, [place], [place], pneumonia, PE, COPD, DKA, ARF, appy, cholecystitis, CVA, Diverticulitis, Homicidal, Suicidal, threat to staff... and all critical care pts) @ -[No] Disposition Clinical Impression: Fall, Leg pain Disposition: HOME SELF-CARE Condition: Stable Instructions (If sedation given, give patient instructions): Fall Prevention for Older Adults (ED) Additional Instructions: Please follow up with your doctor. Return to the emergency department for new or worsening symptoms. Is patient prescribed a controlled substance at d/c from ED?: No Referrals: Inocencio May MD [Primary Care Provider] - 1-2 days
--- NOTE | 2025-02-22 04:07 | XR ---
EXAM: XR Bilateral Tibias and Fibulas, 2 Views CLINICAL HISTORY: Fall TECHNIQUE: Frontal and lateral views of the bilateral tibias and fibulas. COMPARISON: No relevant prior studies available. FINDINGS: Bones/joints: Remote traumatic combination involving the medial right tibial malleolus. Moderate degenerative changes of the medial compartment involving the right knee. The right tibia and fibula are otherwise intact. Severe degenerative changes involving the medial compartment of the right knee joint with moderate degenerative changes noted laterally. Degenerative changes of the left ankle. The left tibia and fibula are otherwise intact. No acute fracture. No dislocation. Soft tissues: Evaluation of the soft tissues in the lateral projection is limited by overlying artifact. No definite significant acute traumatic injury. No radiopaque foreign body. IMPRESSION: No acute osseous traumatic injury involving the bilateral tibia and fibulas. Incidental chronic degenerative changes. No definite significant acute traumatic soft tissue injury.
--- NOTE | 2025-02-22 04:16 | CT ---
EXAM: CT Head Without Intravenous Contrast CLINICAL HISTORY: Fall TECHNIQUE: Axial computed tomography images of the head/brain without intravenous contrast. CTDI is 45.2 mGy and DLP is 1061 mGy-cm. This CT exam was performed using one or more of the following dose reduction techniques: automated exposure control, adjustment of the mA and/or kV according to patient size, and/or use of iterative reconstruction technique. COMPARISON: No relevant prior studies available. FINDINGS: Brain: There are a few areas of decreased attenuation in the deep cerebral white matter consistent with mild small vessel ischemic/degenerative changes. The cerebral and cerebellar sulci are mildly prominent consistent with mild brain atrophy. No intracranial hemorrhage. No significant mass-effect. Ventricles: Unremarkable. No ventriculomegaly. Bones/joints: Unremarkable. No acute fracture. Soft tissues: No significant overlying acute traumatic soft tissue abnormality. No radiopaque foreign body. Vasculature: Atherosclerotic disease. Sinuses: Unremarkable as visualized. No acute sinusitis. Mastoid air cells: Unremarkable as visualized. No mastoid effusion. IMPRESSION: No acute intracranial process identified. EXAM: CT Cervical Spine Without Intravenous Contrast CLINICAL HISTORY: Fall TECHNIQUE: Axial computed tomography images of the cervical spine without intravenous contrast. CTDI is 9.1 mGy and DLP is 266.1 mGy-cm. This CT exam was performed using one or more of the following dose reduction techniques: automated exposure control, adjustment of the mA and/or kV according to patient size, and/or use of iterative reconstruction technique. COMPARISON: CTA neck 06/13/2022 FINDINGS: Vertebrae: The vertebral bodies are intact without acute osseous traumatic injury. No anterolisthesis or retrolisthesis is identified. The facet joints are well aligned without subluxation or dislocation. The pedicles, transverse processes and spinous processes are intact. Diffuse facet hypertrophic arthropathy noted bilaterally. Discs/spinal canal/neural foramina: No acute findings. Similar multilevel disc spondylosis with narrowing and prominent hypertrophic osteophyte changes. This results in multilevel moderate chronic osseous central canal narrowing. No acute traumatic component suggested. Soft tissues: Unremarkable. Lung apices: The included lung apices demonstrate no evidence for acute traumatic injury. Incidental advanced emphysema. IMPRESSION: No acute osseous traumatic injury or significant acute traumatic abnormal alignment involving the cervical spine. Incidental chronic multilevel degenerative changes, not significantly progressed when compared to the prior examination.
[2025-02-22 04:43] VITALS: BP 139/77; PULSE 79; RESP 16; TEMP 97.9
--- NOTE | 2025-02-22 04:57 | XR ---
EXAM: XR Pelvis, 1 or 2 Views CLINICAL HISTORY: Fall TECHNIQUE: Frontal view of the pelvis. COMPARISON: No relevant prior studies available. FINDINGS: Bones/joints: A right total hip arthroplasty is noted. No periprosthetic fracture or lucency. The pelvic bones appear intact. Mild degenerative changes of the left hip. The left hip is well aligned in the frontal projection. Soft tissues: Unremarkable. IMPRESSION: No acute findings involving the pelvis.
== END 2025-02-22 04:35 | disposition home or self-care (01) ==
LOC: EC 01:53
DX: M25.561 Pain in right knee (principal); Z88.8 Allergy status to other drugs, medicaments and biological substances; Z87.891 Personal history of nicotine dependence; W06.XXXA Fall from bed, initial encounter
CPT/HCPCS: 70450; 72125; 72170; 99284

== ENCOUNTER 2025-03-06 11:08 | Emergency (ER) | payer OTHER ==
[2025-03-06 12:03] LABS: Basophils # (A) 0.04 10*3/uL (0.00-0.10); Basophils % (A) 0.5 %; Eosinophils # (A) 0.11 10*3/uL (0.04-0.35); Eosinophils % (A) 1.5 %; HCT 37.4 % (37.2-46.3); Lymphocytes # (A) 0.92 10*3/uL (0.90-5.00); Lymphocytes % (A) 12.3 %; MCH 29.6 pg (27.0-32.0); MCHC 32.1 g/dL (32.0-37.0); MCV 92.3 fL (80.0-97.0); Mean Platelet Volume 11.8 fL (9.5-12.2); Monocytes # (A) 0.51 10*3/uL (0.20-1.00); Monocytes % (A) 6.8 %; Neutrophils # (A) 5.84 10*3/uL (1.80-7.70); Neutrophils % (A) 78.5 %; Platelet Count 224 10*3/uL (140-440); RBC 4.05 10*6/uL (4.10-5.20); RDW 14.4 % (11.5-14.5); WBC 7.45 10*3/uL (4.50-10.00)
--- NOTE | 2025-03-06 12:03 | ED ---
Recheck HPI - General Chief Complaint: Recheck/Abnormal Lab/Rx Stated Complaint: NVD Time Seen by Provider: 03/06/25 11:31 Source: patient, EMS, RN notes reviewed Mode of arrival: EMS - History of Present Illness Initial Comments: This is a 80-year-old female with a history of dementia, hypertension, and CHF is presenting to the emergency department via EMS from [facility] for concerns of hypotension and nausea. It is reported that patient's blood pressure was in the 60s over 40s. Blood pressure was mildly improved with fluid administration via EMS. Patient has no acute complaints such as chest pain, difficulty breathing, abdominal pain, dark or bloody stools, headaches. patient states that she feels cold. - Related Data Home Medications Medication Instructions Recorded Confirmed Montelukast [Singulair] 10 mg PO HS 04/06/16 01/30/25 Ezetimibe [Zetia] 10 mg PO HS 06/13/22 01/30/25 Isosorbide Dinitrate 30 mg PO DAILY 02/13/23 01/30/25 Albuterol Nebulized [Ventolin 2.5 mg INHALATION DIRECTED PRN 01/30/25 0 01/30/25 Nebulized] Azithromycin [Zithromax] 500 mg PO DAILY 01/30/25 01/30/25 Omeprazole 20 mg PO DIRECTED 01/30/25 01/30/25 Ondansetron Odt [Zofran Odt] 4 mg PO Q12HR PRN 01/30/25 01/30/25 Previous Rx's Medication Instructions Recorded Atorvastatin [Lipitor] 80 mg PO HS #30 tab 06/14/22 Acetaminophen Tab [Tylenol] 650 mg PO Q6HR PRN tab 01/03/25 Aspirin 81 mg PO DAILY tab 01/03/25 Cyanocobalamin [Vitamin B-12] 1,000 mcg PO DAILY tab 01/03/25 Metoprolol Tartrate [Lopressor] 25 mg PO BID tab 01/03/25 Albuterol Nebulized [Ventolin 2.5 mg INHALATION Q4H PRN #25 each 01/30/25 Nebulized] Allergies Allergy/AdvReac Type Severity Reaction Status Date / Time nickel Allergy Rash/Hives Verified 03/06/25 11:23 topiramate [From Topamax] AdvReac trouble Verified 03/06/25 11:23 swallowing Review of Systems ROS Statement: Those systems with pertinent positive or pertinent negative responses have been documented in the HPI. ROS Other: All systems not noted in ROS Statement are negative. Past Medical History Past Medical History: Asthma, Dementia, Hyperlipidemia, Hypertension, Myocardial Infarction (SC), Mitral Valve Prolapse (MVP), Osteoarthritis (OA) Additional Past Medical History / Comment(s): ?MVP-told [place]. ago out of [place] but has never had tx. for, cataracts bilaterally, recent adm. [facility] for TIA-sx.'s resolved Last Myocardial Infarction Date:: 2001 History of Any Multi-Drug Resistant Organisms: None Reported Past Surgical History: Appendectomy, Heart Catheterization With Stent, Hysterectomy, Joint Replacement, Tonsillectomy Additional Past Surgical History / Comment(s): 04/18/16 Total R hip arthroplasty anterior approach. Other surgical hx: colonoscopy Past Anesthesia/Blood Transfusion Reactions: No Reported Reaction, Motion Sickness Additional Past Anesthesia/Blood Transfusion Reaction / Comment(s): "I have been told I fight going to sleep",no problems w/ prior blood transfusion Date of Last Stent Placement:: 2001 Past Psychological History: No Psychological Hx Reported Smoking Status: Former smoker Past Alcohol Use History: None Reported Past Drug Use History: None Reported - Past Family History Mother Family Medical History: No Reported History Additional Family Medical History / Comment(s): Mother was healthy as far as pt knows. She in her 70's Father Family Medical History: Hyperlipidemia General Exam General appearance: alert, in no apparent distress ENT exam: Present: normal exam, mucous membranes moist Neck exam: Present: normal inspection. Absent: tenderness, meningismus, lymphadenopathy Respiratory exam: Present: normal lung sounds bilaterally. Absent: respiratory distress, wheezes, rales, rhonchi, stridor Cardiovascular Exam: Present: regular rate, normal rhythm, normal heart sounds. Absent: systolic murmur, diastolic murmur, rubs, gallop, clicks GI/Abdominal exam: Present: soft, normal bowel sounds. Absent: distended, tenderness, guarding, rebound, rigid Extremities exam: Present: normal inspection, full ROM, normal capillary refill. Absent: tenderness, pedal edema, joint swelling, calf tenderness Back exam: Present: normal inspection Skin exam: Present: warm, dry, intact, normal color. Absent: rash Course Vital Signs 04/03/06/25 03/06/25 11:13 12:22 12:30 Temperature 97.7 F Pulse Rate 66 68 70 Respiratory 18 18 20 Rate Blood Pressure 71/47 81/51 92/68 O2 Sat by Pulse 94 L 94 L 95 Oximetry 03/06/25 03/06/25 03/06/25 13:06 14:54 15:51 Temperature Pulse Rate 64 64 74 Respiratory 20 18 18 Rate Blood Pressure 87/50 106/58 112/64 O2 Sat by Pulse 92 L 93 L 92 L Oximetry 03/06/25 16:23 Temperature 98.2 F Pulse Rate 75 Respiratory 18 Rate Blood Pressure 105/68 O2 Sat by Pulse 93 L Oximetry Medical Decision Making - Medical Decision Making Was pt. sent in by a medical professional or institution (Dr. PA, FOREIGN BROADCAST SPECIALIST, urgent care, hospital, or senior living...) When possible be specific @ -No Did you speak to anyone other than the patient for history (EMS, parent, family, police, friend...)? What history was obtained from this source @ -No Did you review nursing and triage notes (agree or disagree)? Why? @ -I reviewed and agree with nursing and triage notes Were old charts reviewed (outside hosp., previous admission, EMS record, old EKG, old radiological studies, urgent care reports/EKG's, senior living records)? Report findings @ -No old charts were reviewed Differential Diagnosis (chest pain, altered mental status, abdominal pain women, abdominal pain men, vaginal bleeding, weakness, fever, dyspnea, syncope, headache, dizziness, GI bleed, back pain, seizure, CVA, palpatations, mental health, musculoskeletal)? @ -Differential Weakness: Hypoglycemia, shock, sepsis, hyponatremia, anemia, infection, SC, ETOH, adverse medicine reaction, overdose, stroke, this is not meant to be an all-inclusive list. EKG interpreted by me (3pts min.). @ -Completed at 1233 ectopic atrial rhythm with a ventricular rate of 70, IN interval 146, QRS 107, QTc 415. X-rays interpreted by me (1pt min.). @ -None done CT interpreted by me (1pt min.). @ -None done U/S interpreted by me (1pt. min.). @ -None done What testing was considered but not performed or refused? (CT, X-rays, U/S, labs)? Why? @ -None What meds were considered but not given or refused? Why? @ -None Did you discuss the management of the patient with other professionals (professionals i.e. , PA, FOREIGN BROADCAST SPECIALIST, lab, RT, psych nurse, social work job titles, carton liner, teacher, education officer, child support case officer)? Give summary @ -No Was smoking cessation discussed for >3mins.? @ -No Was critical care preformed (if so, how long)? @ -No Were there social determinants of health that impacted care today? How? (Homelessness, low income, unemployed, alcoholism, drug addiction, transportation, low edu. Level, literacy, decrease access to med. care, long-term, rehab)? @ -No Was there de-escalation of care discussed even if they declined (Discuss DNR or withdrawal of care, Hospice)? DNR status @ -No What co-morbidities impacted this encounter? (DM, HTN, Smoking, COPD, CAD, Cancer, CVA, ARF, Chemo, Hep., AIDS, mental health diagnosis, sleep apnea, morbid obesity)? @ -None Was patient admitted / discharged? Hospital course, mention meds given and route, prescriptions, significant lab abnormalities, going to OR and other pertinent info. @ -Discharge. 80-year-old female sent emergency room via EMS for hypotension. Patient is hypotensive on arrival to pressure 70s over 40s. She is asymptomatic. Patient is provided with 1 L fluid bolus and monitor blood pressure that she does have a history of CHF and do not want to rest chance of potential fluid overload. EKG reveals ectopic atrial rhythm. CBC is unremarkable. CMP reveals mild DORIS with a BUN of 32 and creatinine of 1.63. Hypomagnesemia with a magnesium of 1.3 (patient provided with oral resupplementation). Urinalysis no signs infection. chest xray is clear Pressure has resolved will be in the emergency department to a blood pressure of 112/64. Patient stable for discharge. Return parameters discussed. Recommend follow-up primary care provider for medication adjustment. Case discussed with Dr. Hanna Undiagnosed new problem with uncertain prognosis? @ -No Drug Therapy requiring intensive monitoring for toxicity (Heparin, Nitro, Insulin, Cardizem)? @ -No Were any procedures done? @ -No Diagnosis/symptom? @ -asymptomatic hypotension Acute, or Chronic, or Acute on Chronic? @ -acute Uncomplicated (without systemic symptoms) or Complicated (systemic symptoms)? @ -uncomplicated Side effects of treatment? @ -No Exacerbation, Progression, or Severe Exacerbation? @ -No Poses a threat to life or bodily function? How? (Chest pain, USA, SC, pneumonia, PE, COPD, DKA, ARF, appy, cholecystitis, CVA, Diverticulitis, Homicidal, Suicidal, threat to staff... and all critical care pts) @ -No - Lab Data Result diagrams: 03/06/25 11:49 03/06/25 12:09 Lab Results 03/06/25 03/06/25 03/06/25 Range/Units 11:46 11:49 12:09 WBC 7.45 (4.50-10.00) 10*3/uL RBC 4.05 L (4.10-5.20) 10*6/uL Hgb 12.0 (12.0-15.0) g/dL Hct 37.4 (37.2-46.3) % MCV 92.3 (80.0-97.0) fL MCH 29.6 (27.0-32.0) pg MCHC 32.1 (32.0-37.0) g/dL Plt Count 224 (140-440) 10*3/uL MPV 11.8 (9.5-12.2) fL Immature Gran % (Auto) 0.4 % Neutrophils % 78.5 % Lymphocytes % 12.3 % Monocytes % 6.8 % Eosinophils % 1.5 % Basophils % 0.5 % Immature Gran # 0.03 (0.00-0.04) 10*3/uL Neutrophils # 5.84 (1.80-7.70) 10*3/uL Lymphocytes # 0.92 (0.90-5.00) 10*3/uL Monocytes # 0.51 (0.20-1.00) 10*3/uL Eosinophils # 0.11 (0.04-0.35) 10*3/uL Basophils # 0.04 (0.00-0.10) 10*3/uL PT 11.2 (10.0-12.5) sec INR 1.0 (<1.2) APTT 20.1 L (22.0-30.0) sec Sodium (137-145) mmol/L Potassium (3.5-5.1) mmol/L Chloride (98-107) mmol/L Carbon Dioxide (22-30) mmol/L Anion Gap mmol/L BUN (7-17) mg/dL Creatinine (0.52-1.04) mg/dL Est GFR (CKD-EPI)AfAm (>60 ml/min/1.73 sqM) Est GFR (CKD-EPI)NonAf (>60 ml/min/1.73 sqM) Glucose (74-99) mg/dL Calcium (8.4-10.2) mg/dL Magnesium (1.6-2.3) mg/dL Total Bilirubin (0.2-1.3) mg/dL AST (14-36) U/L ALT (4-34) U/L Alkaline Phosphatase (38-126) U/L Total Protein (6.3-8.2) g/dL Albumin (3.5-5.0) g/dL Urine Color Urine Appearance (Clear) Urine pH (5.0-8.0) Ur Specific [place] (1.001-1.035) Urine Protein (Negative) Urine Glucose (UA) (Negative) Urine Ketones (Negative) Urine Blood (Negative) Urine Nitrite (Negative) Urine Bilirubin (Negative) Urine Urobilinogen (<2.0) mg/dL Ur Leukocyte Esterase (Negative) Blood Type O Positive Blood Type Recheck O Pos Bld Type Recheck Status No Antibody Screen NEGATIVE Spec Expiration Date 03/09/2025 - 234503/06/25 03/06/25 Range/Units 12:09 15:34 WBC (4.50-10.00) 10*3/uL RBC (4.10-5.20) 10*6/uL Hgb (12.0-15.0) g/dL Hct (37.2-46.3) % MCV (80.0-97.0) fL MCH (27.0-32.0) pg MCHC (32.0-37.0) g/dL Plt Count (140-440) 10*3/uL MPV (9.5-12.2) fL Immature Gran % (Auto) % Neutrophils % % Lymphocytes % % Monocytes % % Eosinophils % % Basophils % % Immature Gran # (0.00-0.04) 10*3/uL Neutrophils # (1.80-7.70) 10*3/uL Lymphocytes # (0.90-5.00) 10*3/uL Monocytes # (0.20-1.00) 10*3/uL Eosinophils # (0.04-0.35) 10*3/uL Basophils # (0.00-0.10) 10*3/uL PT (10.0-12.5) sec INR (<1.2) APTT (22.0-30.0) sec Sodium 140 (137-145) mmol/L Potassium 4.2 (3.5-5.1) mmol/L Chloride 106 (98-107) mmol/L Carbon Dioxide 26 (22-30) mmol/L Anion Gap 8 mmol/L BUN 32 H (7-17) mg/dL Creatinine 1.63 H (0.52-1.04) mg/dL Est GFR (CKD-EPI)AfAm 34 (>60 ml/min/1.73 sqM) Est GFR (CKD-EPI)NonAf 29 (>60 ml/min/1.73 sqM) Glucose 121 H (74-99) mg/dL Calcium 9.2 (8.4-10.2) mg/dL Magnesium 1.3 L (1.6-2.3) mg/dL Total Bilirubin 0.8 (0.2-1.3) mg/dL AST 23 (14-36) U/L ALT 18 (4-34) U/L Alkaline Phosphatase 63 (38-126) U/L Total Protein 6.3 (6.3-8.2) g/dL Albumin 3.6 (3.5-5.0) g/dL Urine Color Yellow Urine Appearance Clear (Clear) Urine pH 5.5 (5.0-8.0) Ur Specific [place] 1.017 (1.001-1.035) Urine Protein Negative (Negative) Urine Glucose (UA) Negative (Negative) Urine Ketones Negative (Negative) Urine Blood Negative (Negative) Urine Nitrite Negative (Negative) Urine Bilirubin Negative (Negative) Urine Urobilinogen <2.0 (<2.0) mg/dL Ur Leukocyte Esterase Negative (Negative) Blood Type Blood Type Recheck Bld Type Recheck Status Antibody Screen Spec Expiration Date Disposition Clinical Impression: Hypotension Disposition: HOME SELF-CARE Condition: Good Instructions (If sedation given, give patient instructions): Hypotension (ED) Additional Instructions: Please return to the Emergency Department if symptoms worsen or any other concerns. Follow-up with patient's primary care provider within the next 1 to 2 days for further evaluation. Is patient prescribed a controlled substance at d/c from ED?: No Referrals: Noe Gross MD [Primary Care Provider] - 1-2 days Time of Disposition: 15:52
[2025-03-06] MEDS: SODIUM CHLORIDE 0.9% 1,000 ML IV STA (12:10)
[2025-03-06 12:31] LABS: ALT 18 U/L (4-34); AST 23 U/L (14-36); African American GFR (CKD) 34 (>60 ml/min/1.73 sqM); Albumin 3.6 g/dL (3.5-5.0); Alkaline Phosphatase 63 U/L (38-126); Anion Gap 8 mmol/L; Blood Urea Nitrogen 32 mg/dL (7-17); Calcium 9.2 mg/dL (8.4-10.2); Carbon Dioxide 26 mmol/L (22-30); Chloride 106 mmol/L (98-107); Glucose 121 mg/dL (74-99); Magnesium 1.3 mg/dL (1.6-2.3); Non-African American GFR(CKD) 29 (>60 ml/min/1.73 sqM); Potassium 4.2 mmol/L (3.5-5.1); Sodium 140 mmol/L (137-145); Total Bilirubin 0.8 mg/dL (0.2-1.3); Total Protein 6.3 g/dL (6.3-8.2)
[2025-03-06 13:22] LABS: Prothrombin Time 11.2 sec (10.0-12.5)
[2025-03-06 13:28] LABS: Partial Thromboplastin Time 20.1 sec (22.0-30.0)
--- NOTE | 2025-03-06 14:14 | XR ---
EXAMINATION TYPE: XR chest 2V DATE OF EXAM: 03/06/2025 2:09 PM COMPARISON: Multiple radiographs, with the most recent on 01/30/2025 TECHNIQUE: XR chest 2V Frontal and lateral views of the chest. CLINICAL INDICATION:Female, 80 years old with history of hypotension, weakness; FINDINGS: Lungs/Pleura: There is flattening of the diaphragm with increased lucency of the lungs. No evidence o f pneumothorax, pleural effusion or focal consolidation. Pulmonary vascularity: Unremarkable. Heart/mediastinum: Cardiomediastinal silhouette is enlarged and stable. Musculoskeletal: Multiple level degenerative disc disease changes seen throughout the spine. IMPRESSION: 1. No acute cardiopulmonary disease process. 2. COPD changes. [facility], , 03/06/2025 2:12 PM
[2025-03-06] MEDS: MAGNESIUM OXIDE 400 MG TAB PO STA (14:51)
[2025-03-06 14:55] VITALS: RESP 18
[2025-03-06 15:50] LABS: Appearance,Urine Clear (Clear); Bilirubin,Urine Negative (Negative); Blood,Urine Negative (Negative); Color,Urine Yellow; Glucose,Urine (UA) Negative (Negative); Ketones,Urine Negative (Negative); Leukocyte Esterase,Urine Negative (Negative); Nitrite,Urine Negative (Negative); PH, Urine 5.5 (5.0-8.0); Protein,Urine Negative (Negative); Specific Gravity,Urine 1.017 (1.001-1.035); Urobilinogen,Urine <2.0 mg/dL (<2.0)
[2025-03-06 16:25] VITALS: BP 105/68; PULSE 75; TEMP 98.2
== END 2025-03-06 16:25 | disposition home or self-care (01) ==
LOC: EEVIPCON 11:08 → EC 11:08
DX: I95.9 Hypotension, unspecified (principal); Z88.8 Allergy status to other drugs, medicaments and biological substances; Z91.09 Other allergy status, other than to drugs and biological substances; Z87.891 Personal history of nicotine dependence
CPT/HCPCS: 36415; 71046; 80053; 81003; 83735; 85025; 85610; 85730; 86850; 86900; 86901; 93005; 96360; 99285